=== PATIENT | female | born 2000 | race Caucasian/White ===

== ENCOUNTER → 2020-05-21 06:42 | Outpatient (CLI) | payer OTHER, SELFPAY ==
--- NOTE | 2020-05-21 14:31 | PFT ---
INTRODUCTION: The patient is a 20-year-old female that presents for pulmonary function studies secondary to a diagnosis of dyspnea. Respiratory therapy reported that spirometry data is not acceptable as the patient would not exhale for longer than 1.5 seconds with any of the attempts pre or post bronchodilator. INTERPRETATION: Forced expiration spirometry demonstrates no evidence of a large airways obstructive ventilatory defect. There was no significant response to aerosolized bronchodilators. Spirograms are of poor quality and terminate prior to 6 seconds, likely underestimating FVC. Body plethysmography was performed and reveals a mildly decreased TLC to 4.4 L, 82% of predicted, indicative of a mild restrictive ventilatory impairment. Diffusing capacity by single breath CO was within normal limits. IMPRESSION: Isolated mild restrictive ventilatory impairment with preserved lung volumes. Spirometry data is not acceptable as the patient was unable to perform the maneuvers associated with the test.
== END ==
PROVIDERS: PCP Nurse Practitioner Family; Referring Provider Nurse Practitioner Family; Visit Provider Nurse Practitioner Family
DX: R06.00 Dyspnea, unspecified (principal); R00.0 Tachycardia, unspecified; Z20.822 Contact with and (suspected) exposure to COVID-19
CPT/HCPCS: 94060; 94726; 94729

== ENCOUNTER 2021-06-01 08:51 | Outpatient (CLI) | payer OTHER, MEDICAID, SELFPAY ==
--- NOTE | 2021-06-01 12:34 | NEURO ---
NCS and/or EMG Patient Report Ordering Doctor: Jaime Bain DATE OF SERVICE: 06/01/21 Serenity presents for electrodiagnostic testing of the lower limbs. She reports severe pain in both legs and feet. Electrodiagnostic findings: Peroneal motor nerve demonstrates normal distal latency, amplitude and conduction velocity bilaterally. Normal tibial motor response bilaterally. Normal tibial and peroneal F waves bilaterally. H reflex normal bilaterally. Sensory responses are within normal limits. On needle EMG, all muscles tested in the lower limbs showed no evidence of denervation with normal motor unit action potentials. Electrodiagnostic impression: This is a normal electrodiagnostic study in the lower limbs. There is no electrodiagnostic evidence for peripheral neuropathy or lumbosacral radiculopathy
== END 2021-06-01 23:59 | disposition short-term general hospital (02) ==
LOC: PSN 08:52
PROVIDERS: PCP Nurse Practitioner Family; Referring Provider Podiatrist; Visit Provider Podiatrist
DX: M54.16 Radiculopathy, lumbar region (principal)
CPT/HCPCS: 95886; 95913

== ENCOUNTER 2021-06-08 11:30 | Outpatient (CLI) | payer OTHER, MEDICAID, SELFPAY ==
[2021-06-08 12:46] LABS: Rheumatoid Factor < 10.0 IU/mL (<15)
[2021-06-09 15:08] LABS: SJOGREN'S Anti-SS-A test < 0.2 AI (0.0-0.9); SJOGREN'S Anti-SS-B test < 0.2 AI (0.0-0.9)
[2021-06-09 15:29] LABS: ANTINUCLEAR ANTIBODIES DIRECT Negative (Negative)
[2021-06-11 07:15] LABS: CCP IgG Antibodies 2 units (0-19)
== END 2021-06-08 23:59 | disposition short-term general hospital (02) ==
LOC: LAB 11:34
PROVIDERS: PCP Nurse Practitioner Family; Visit Provider Podiatrist
DX: M21.6X9 Other acquired deformities of unspecified foot (principal); M72.2 Plantar fascial fibromatosis; M54.16 Radiculopathy, lumbar region; M21.70 Unequal limb length (acquired), unspecified site
CPT/HCPCS: 36415; 86038; 86200; 86235; 86431

== ENCOUNTER 2021-08-16 15:00 | Outpatient (RCR) | payer OTHER, MEDICAID, SELFPAY ==
--- NOTE | 2021-04-20 15:56 | HP.PTEVAL ---
Patient's Visit Information JERO GODINEZ is a 21 year old F referred to Physical Therapy by Dr. Adam Coto DPM with a diagnosis of Plantar Fascitis and possible lumbar radiculopathy. Date of Evaluation: 04/20/21 Physical Therapist: Jessica Noriega DPT - Visit Plan Frequency: 2x /Week Duration: 4 Weeks Plan: Focus on LE and core strength/stabilization, flexibility, eccentrics and ultrasound as modality of choice- Caution POTS - Subjective Patient reports right severe foot pain since January- insidious onset- has had MRI and x-rays which showed plantar fascitis-[facility]- thinks it may or may not be foot related. Feels like her right foot is on fire all the time. The whole foot is painful but most of it is located on the middle of the plantar fasciitis. Worst: 10 Agg: walking. Eases: nothing makes it better. Best: 10. Describes it as burning and walking on needles. Work: has to sit at work- due to her heart- cuts parts all day- uses her left to push the pedal- she has POTS. Sleep: disturbed- side sleeper. Has mild scoliosis in her back- but has never had back pain or problems before. The right leg has started to go completely numb about 3 weeks ago. Has not been to the MD for her back or leg just her foot. Does have a wedge in her right shoe and wears a boot at night- which makes it worse and her toes turn purple. She feels the pain is not worse or better- just consistently bad. PMHx: POTS, low blood pressure Meds: Vitamin B12, Medodrin, BC, fludocortizone, propanolol, citopram - Objective Posture: FH, RS, can correct with verbal and tactile cues but does not maintain. Gait: decreased stance on the right LE with decreased heel/toe pattern. HR/TR: able with pain. SLS: 5 sec then LOB- mild pes planus (poor shoes- worn out and no support). Sensation: WNL to gross touch bilateral LE. ROM: WFL in all planes of the lumbar spine and LE with the exception of ankle DF: neutral. Strength: core: poor, Hip: 4/5 throughout, Knee: 5/5, Ankle: 5/5. Flex: HS: severe, Gastroc: severe Solues: moderate. Special Test: Windlass Mechanism: positive. Palpation: tender and crepitus along the right plantar fascia. - Special Tests L/S Slump test left side: Negative L/S Slump test right side: Negative L/S Left Straight Leg Raise: Negative L/S Right Straight Leg Raise: Negative - Balance/Special Test Scores Lower Extremity Functional Score: 27 - Goals Goal 1:: Patient will be I with HEP and progression Goal Time Frame: 4-6 Weeks Goal 2:: Patient will ambulate >300 feet with a normalized gait pattern Goal Time Frame: 4-6 Weeks Goal 3:: Patient will maintain proper posture t/o tx session to demo increased core s/s Goal Time Frame: 4-6 Weeks Goal 4:: Patient will SLS for 30 sec without LOB or pain Goal Time Frame: 4-6 Weeks Goal 5:: Patient will report no radicular s/s for 1 week Goal Time Frame: 4-6 Weeks - Rehabilitation Potential Physical Therapy Diagnosis: Patient presents with hypomobility- she has decreased pain free ROM, LE and core strength/stabilization, flex and muscular endurance leading to poor posture and increased pain with ADL's. Rehabilitation Potential: Fair - Anticipated Interventions Patient/Client Instruction: Educate patient on: Benefits of Fitness Program Therapeutic Exercise to Include: Strength training, Endurance training, Balance training, Coordination, Agility training, Body mechanics, Postural training, Flexibilty training, Gait and locomotor training, Neuromotor development, Passive ROM, Active ROM, Dynamic Lumbar Stabilization, Scapular Strength/Stabilization For the Purpose of:: To improve muscle performance and motor function TENS: Yes Cryotherapy (ice pack, ice massage): Yes Thermo therapy (hot pack): Yes Ultrasound (thermal/non thermal): Yes Thank you for the opportunity to evaluate your patient. For Medicare and Medicare HMO plans, please review the plan of care and approve it. It will need to be FAXED BACK to us at [phone] for Medicare purposes. For Medicare only, by signing this I certify the plan of care. Please let me know if there are questions or concerns regarding this plan of care. Physician Signature: Date:
--- NOTE | 2021-05-25 16:22 | HP.PTREVAL_ITS ---
Dr. Adam Coto, DPM, It has been my pleasure to treat JERO GODINEZ over the last 3 visits for Plantar Fascitis and possible lumbar radiculopathy. Please see the progress note below for an update on the physical therapy plan of care! Subjective: May 03 she was taken to the hospital while passing out 8x and then had a seizure- went to ER- COVID- today was her first day back to work. She hit her toe on the cat dish on Sunday and thinks she broke her toe. Has been having a lot of foot pain after working today (5.5 hours). She was mostly laying down for the last three weeks due to weakness so her feet didn't bother her. She has pain today on the bottom of her foot and the heel. Today pain level is an 8/10. Saw [employer]- dysautonomia- changed her medication- salt tablets- liquid IV and she goes back Jun 23. If it doesn't help they plan to try some other ideas. She feels her foot is the same. EMG Jun 01 bilateral LE. Objective/Function: Posture: FH, RS, can correct with verbal and tactile cues but does not maintain. Gait: decreased stance on the right LE with decreased heel/toe pattern. HR/TR: able with pain. SLS: 5 sec then LOB- mild pes planus (poor shoes- worn out and no support). Sensation: WNL to gross touch bilateral LE. ROM: WFL in all planes of the lumbar spine and LE with the exception of ankle DF: neutral. Strength: core: poor, Hip: 4/5 throughout, Knee: 5/5, Ankle: 5/5. Flex: HS: severe, Gastroc: severe Solues: moderate. Special Test: Windlass Mechanism: positive. Palpation: tender and crepitus along the right plantar fascia. L/S Slump test left side: Negative. L/S Slump test right side: Negative. L/S Left Straight Leg Raise: Negative. L/S Right Straight Leg Raise: Negative Plan Plan: Focus on LE and core strength/stabilization, flexibility, eccentrics and ultrasound as modality of choice- Caution POTS. 05/25/21: Continue current POC due to time laps of sickness. Balance/Gait/Functional tests - Balance/Special Test Scores Lower Extremity Functional Score: 23 Goals Goal 1:: Patient will be I with HEP and progression Goal Time Frame: 4-6 Weeks Goal 2:: Patient will ambulate >300 feet with a normalized gait pattern Goal Time Frame: 4-6 Weeks Goal 3:: Patient will maintain proper posture t/o tx session to demo increased core s/s Goal Time Frame: 4-6 Weeks Goal 4:: Patient will SLS for 30 sec without LOB or pain Goal Time Frame: 4-6 Weeks Goal 5:: Patient will report no radicular s/s for 1 week Goal Time Frame: 4-6 Weeks Anticipated Interventions Patient/Client Instruction: Educate patient on: Benefits of Fitness Program Therapeutic Exercise to Include: Strength training, Endurance training, Balance training, Coordination, Agility training, Body mechanics, Postural training, Flexibilty training, Gait and locomotor training, Neuromotor development, Passive ROM, Active ROM, Dynamic Lumbar Stabilization, Scapular Strength/Stabilization For the Purpose of:: To improve muscle performance and motor function TENS: Yes Cryotherapy (ice pack, ice massage): Yes Thermo therapy (hot pack): Yes Ultrasound (thermal/non thermal): Yes Please do not hesitate to contact me at [phone] by phone or if you have questions or concerns regarding this new plan of care! Sincerely, Jessica Noriega DPT
--- NOTE | 2021-07-08 14:40 | HP.PTREVAL ---
Dr. Adam Coto, DPM, It has been my pleasure to treat JERO GODINEZ over the last 15 visits for Plantar Fascitis and possible lumbar radiculopathy. Please see the progress note below for an update on the physical therapy plan of care! Subjective: Much better in foot, able to be on it longer. It gets up at night sometimes. 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 Is worse if on it all day to 7/10. Thinks the manual therapy has helped the most. Doctor wants continued therapy and will send script. Objective/Function: Walks normal today without antalgia. AROM DF still t o 0 degrees,others WFL, mild tenderness on PF underside of R foot. Strength 4/5 in all ankle motions but very skinny ankles and low muscle mass. Plan Plan: continue 3x/week for 2-4 weeks for contnued STM, DTR to R plantarfascia, strengthing of gastroc and PF and mobs for DF, big toe PROM R foot. Stick with all manual treatment.Monitor paitnets home stretching and strengthening. May need to add SLS ex. Balance/Gait/Functional tests - Balance/Special Test Scores Lower Extremity Functional Score: 23 Goals Goal 1:: Pt eill have 95% overall improvement and pain no greater than 1/10 with ambulation Goal Time Frame: 2-4 Weeks Goal Progress: NEW GOAL Goal 2:: Patient will ambulate >300 feet with a normalized gait pattern Goal Time Frame: 4-6 Weeks Goal Progress: Goal Met Goal 3:: Patient will sleep without waking due to foot pain. Goal Time Frame: 2-4 Weeks Goal Progress: NEW GOAL Goal 4:: Patient will SLS for 30 sec without LOB or pain Goal Time Frame: 4-6 Weeks Goal Progress: Goal Met Goal 5:: Patient will report no radicular s/s for 1 week Goal Time Frame: 4-6 Weeks Goal Progress: will have back eval. Goal 6:: Pt to report baseline pain 50% better at 3-4/10 daily. Goal Progress: Goal Met Anticipated Interventions Patient/Client Instruction: Educate patient on: Benefits of Fitness Program Therapeutic Exercise to Include: Strength training, Endurance training, Balance training, Coordination, Agility training, Body mechanics, Postural training, Flexibilty training, Gait and locomotor training, Neuromotor development, Passive ROM, Active ROM, Dynamic Lumbar Stabilization, Scapular Strength/Stabilization For the Purpose of:: To improve muscle performance and motor function TENS: Yes Cryotherapy (ice pack, ice massage): Yes Thermo therapy (hot pack): Yes Ultrasound (thermal/non thermal): Yes Please do not hesitate to contact me at [phone] by phone or if you have questions or concerns regarding this new plan of care! Sincerely, Norris Ro, DPT, OCS, CSCS
--- NOTE | 2021-07-08 15:20 | HP.PTEVAL2 ---
Patient's Visit Information JERO GODINEZ is a 21 year old F referred to Physical Therapy by Dr. Adam Coto DPM with a diagnosis of Lumbar radiculopathy. Date of Evaluation: 07/08/21 Physical Therapist: Norris Ro DPT, OCS, CSCS - Visit Plan Frequency: 3x /Week Duration: 4-6 Weeks Plan: 3x/week for 4 weeks for. 1. thoracic ext mobs and ext bias ROM , yoga ROM to entire spine. 2. Postural focus. 3. DLS and core and hip strength progressing to HEP - Subjective Subjective: Had back pain since she can remember. Has seen chiropractor and has mild scoliosis long time ago. Worse since January for no obvious reason. Sent to Dr. Gerber by Dr. gomez. He did an x ray and need to have PT to have MRI. In pain everyday. It is in middle of low back. No painfree days in years. Sometimes seems to have tingling in R>L leg to knee. Was out sitting when that happened. Back is usually worse with walking. No regular exercises, no other treatments or meds for this. LB keeps her up at night as she is uncomfortable trying to get to sleep. has been that way for years. Not employed due to POTS. Does some cleaning and wax rukhsana in a chair at home which can hurt. Back gets worse cleaning mom's house. - Objective Objective: Pt has very skinny figure with low muscle mass throughout her body. LB AROM ext is painful centrally with much limited motion in thoracic portion of spine. SB and flexion are full and painfree. No tenderness in the LB soft tissue. Minimal HS tightness, min hip flexor tightness. B. reflexes 0/3 B patella and achilles. Sensation LE WNL to gross light touch. Strength ankles 4/5 adn knees 4/5 but tends to IR at hips, hip strength ext ortaion 3, IR 4-, abd 3+, ext 3+ and flexion 3+...core strength ext 3 and flexion 3. very weak in pelvis and core. - SLR, - slump test. Slight pain with instability testing in LB. posture is flat lordosis in L/S and kyphotic in thoracic spine. No obvious rib hump. - Goals Goal 1:: Full Lumbar and thoracic AROM without increased pain Goal Time Frame: 4-6 Weeks Goal 2:: pt sit with appropriate upright posture without cues. 75% of time Goal Time Frame: 4-6 Weeks Goal 3:: Pain in LB 2/10 at worst and 75% improved Goal Time Frame: 4-6 Weeks Goal 4:: Oswestry score of 10 or less Goal Time Frame: 4-6 Weeks Goal 5:: I approp HEp to limit future problems. Goal Time Frame: 4-6 Weeks - Rehabilitation Potential Physical Therapy Diagnosis: chronic LBP limiting function Rehabilitation Potential: Questionable - Anticipated Interventions Patient/Client Instruction: Educate patient on: Condition, Plan of Care For the Purpose of:: To decrease pain, To increase ROM, To improve muscle performance and motor function, To improve ability of physical actions for home/community/work/leisure Therapeutic Exercise to Include: Strength training, Flexibilty training, Passive ROM, Active ROM, Elie Exercises For the Purpose of:: To decrease pain, To increase ROM, To improve muscle performance and motor function, To improve ability of physical actions for home/community/work/leisure Manual Therapy Techniques to Include: Mobilization, Passive ROM, Soft tissue mobilization For the Purpose of:: To increase ROM Thank you for the opportunity to evaluate your patient. For Medicare and Medicare HMO plans, please review the plan of care and approve it. It will need to be FAXED BACK to us at [phone] for Medicare purposes. For Medicare only, by signing this I certify the plan of care. Please let me know if there are questions or concerns regarding this plan of care. Physician Signature: Date:
--- NOTE | 2021-07-25 13:25 | HP.PTREVAL ---
Dr. Adam Coto, DPM, It has been my pleasure to treat JERO GODINEZ over the last 20 visits for Plantar Fascitis and possible lumbar radiculopathy. Please see the progress note below for an update on the physical therapy plan of care! Subjective: Not much pain in foot. Therapy has helped a lot. Massage has helped and she is stretching it at home. Will see dr. Coto in August. Pain in foot is 3/10 intermittently in foot with a lot of walking. Activities normal due to foot. Objective/Function: SLS R 30 sec without increased pain, walking without antalgia today on way in. AROM R ankle and foot WNL at 5 DF and 55 PF. Only slight tenderness to palpation in mid substance R PF. 4/5 strength R ankle all 4 motions. Goals appropriate anad fair prognosis with progress seen since starting manual therapy. Plan Plan: Pt to do HEP and hold therapy for 3 weeks. Will call if worsens and reattempt manaul as needed, otherwise will f/u with doctor after 08/27. Balance/Gait/Functional tests - Balance/Special Test Scores Oswestry Low Back Score: 29 Lower Extremity Functional Score: 33 Goals Goal 1:: Pt eill have 95% overall improvement and pain no greater than 1/10 with ambulation Goal Time Frame: 2-4 Weeks Goal Progress: 75% 3/10 Goal 2:: Patient will ambulate >300 feet with a normalized gait pattern Goal Time Frame: 4-6 Weeks Goal Progress: Goal Met Goal 3:: Patient will sleep without waking due to foot pain. Goal Time Frame: 2-4 Weeks Goal Progress: Goal Met Goal 4:: Patient will SLS for 30 sec without LOB or pain Goal Time Frame: 4-6 Weeks Goal Progress: Goal Met Goal 5:: Patient will report no radicular s/s for 1 week Goal Time Frame: 4-6 Weeks Goal Progress: will have back eval. Goal 6:: Pt to report baseline pain 50% better at 3-4/10 daily. Goal Progress: Goal Met Anticipated Interventions Patient/Client Instruction: Educate patient on: Benefits of Fitness Program Therapeutic Exercise to Include: Strength training, Endurance training, Balance training, Coordination, Agility training, Body mechanics, Postural training, Flexibilty training, Gait and locomotor training, Neuromotor development, Passive ROM, Active ROM, Dynamic Lumbar Stabilization, Scapular Strength/Stabilization For the Purpose of:: To improve muscle performance and motor function TENS: Yes Cryotherapy (ice pack, ice massage): Yes Thermo therapy (hot pack): Yes Ultrasound (thermal/non thermal): Yes Please do not hesitate to contact me at [phone] by phone or if you have questions or concerns regarding this new plan of care! Sincerely, Norris Ro, DPT, OCS, CSCS
--- NOTE | 2021-07-25 13:46 | HP.PTRE(2) ---
Dr. Adam Coto, DPM, It has been my pleasure to treat JERO GODINEZ over the last 6 visits for Lumbar radiculopathy. Please see the progress note below for an update on the physical therapy plan of care! Subjective: Middle back still keeping her up at night and feels stiff. Treatments help her feel looser for 24 hours or so. Doing pressups, cat/camel, quadruped opposite UE/LE, doing them 2-3 x/day. Pain in mid back still up to 5/10 , 0/10 if lying flat. Sitting too long makes her stiff. Back still keeps her from helping clean the house to bend and pick something up. LB not hurting much lately. MAE most of time and related to POTS and will see MAE specialist. Objective/Function/Assessment: Much improving ROM thoracic extension but stillslightly painful centrally. Rotations and lumbar movement are not a problem today. Core strength 10# flexion and 8 extension. Needs more strength to tolerate ADLs like cleaning at home. Appropriate to cotninue POC with the improvement she has made and will need approval from insurance to do so. Plan Plan: Appropriate to finish original POC based on current progress of 40% better. overall...2x/week for 3-4 weeks to continue thoracic ROM, thoracic extension mobs and strengthening of core and posture and LE and progress to an I home program as tolerated. Goals Goal 1:: Full Lumbar and thoracic AROM without increased pain Goal Time Frame: 4-6 Weeks Goal Progress: Progressing Goal 2:: pt sit with appropriate upright posture without cues. 75% of time Goal Time Frame: 4-6 Weeks Goal Progress: improved. Goal 3:: Pain in LB 2/10 at worst and 75% improved Goal Time Frame: 4-6 Weeks Goal Progress: Progressing Goal 4:: Oswestry score of 10 or less Goal Time Frame: 4-6 Weeks Goal Progress: slow progress. Goal 5:: I approp HEp to limit future problems. Goal Time Frame: 4-6 Weeks Goal Progress: Progressing Anticipated Interventions Patient/Client Instruction: Educate patient on: Condition, Plan of Care For the Purpose of:: To decrease pain, To increase ROM, To improve muscle performance and motor function, To improve ability of physical actions for home/community/work/leisure Therapeutic Exercise to Include: Strength training, Flexibilty training, Passive ROM, Active ROM, Elie Exercises For the Purpose of:: To decrease pain, To increase ROM, To improve muscle performance and motor function, To improve ability of physical actions for home/community/work/leisure Manual Therapy Techniques to Include: Mobilization, Passive ROM, Soft tissue mobilization For the Purpose of:: To increase ROM Please do not hesitate to contact me at [phone] by phone or if you have questions or concerns regarding this new plan of care! Sincerely, Norris Ro, DPT, OCS, CSCS
--- NOTE | 2021-08-16 15:43 | HP.PTDCSUM ---
It has been my pleasure to treat JERO GODINEZ referred by Dr. Adam Coto, [facility], with the diagnosis of Plantar Fascitis and possible lumbar radiculopathy for a total of 20 visit(s). Discharge Date: Please see the following information for a summary of their discharge status. Subjective: Not much pain in foot. Therapy has helped a lot. Massage has helped and she is stretching it at home. Will see dr. Coto in August. Pain in foot is 3/10 intermittently in foot with a lot of walking. Activities normal due to foot. both feet Pain Intensity (Out of 10): 0 R plantar fascia Pain Intensity (Out of 10): 1 % Improvement: 70 Objective/Function: SLS R 30 sec without increased pain, walking without antalgia today on way in. AROM R ankle and foot WNL at 5 DF and 55 PF. Only slight tenderness to palpation in mid substance R PF. 4/5 strength R ankle all 4 motions. Goals appropriate anad fair prognosis with progress seen since starting manual therapy. Goal 1:: Pt eill have 95% overall improvement and pain no greater than 1/10 with ambulation Goal Progress: 75% 3/10 Goal 2:: Patient will ambulate >300 feet with a normalized gait pattern Goal Progress: Goal Met Goal 3:: Patient will sleep without waking due to foot pain. Goal Progress: Goal Met Goal 4:: Patient will SLS for 30 sec without LOB or pain Goal Progress: Goal Met Goal 5:: Patient will report no radicular s/s for 1 week Goal Progress: will have back eval. Goal 6:: Pt to report baseline pain 50% better at 3-4/10 daily. Goal Progress: Goal Met Plan: Pt to do HEP and hold therapy for 3 weeks. Will call if worsens and reattempt manaul as needed, otherwise will f/u with doctor after 08/27. If there are questions or concerns regarding this patient's physical therapy, please feel free to call me at [phone]. Thank you for the referral of this patient. Sincerely, Norris Ro, DPT, OCS, CSCS Balance/Gait/Functional tests - Balance/Special Test Scores Oswestry Low Back Score: 30 Lower Extremity Functional Score: 33
== END 2021-08-16 19:00 | disposition home or self-care (01) ==
LOC: PT 15:00
PROVIDERS: PCP Nurse Practitioner Family; Referring Provider Podiatrist; Visit Provider Podiatrist
DX: M72.2 Plantar fascial fibromatosis (principal)
CPT/HCPCS: 97014; 97035; 97110; 97140; 97161; 97162; 97164; 97530; G0283

== ENCOUNTER 2021-09-06 13:00 | Outpatient (RCR) | payer OTHER, MEDICAID, SELFPAY ==
--- NOTE | 2021-09-05 16:24 | HP.PTEVAL_ITS ---
Patient's Visit Information JERO GODINEZ is a 21 year old F referred to Physical Therapy by Dr. Jaime Bain DPM with a diagnosis of Right Plantar Fascial Fibromatosis. Date of Evaluation: 09/05/21 Physical Therapist: Jessica Noriega DPT - Visit Plan Frequency: 2x /Week Duration: 4 Weeks Plan: Manual therapy to right foot- reinforce HEP - Subjective Patient reports that her right foot is just getting worse- was getting with PT a nd then when she stopped PT it started to get worse again. The foot has just been giving out- she has had 2 falls- the most recent was on Sunday- her foot just gave out and she fell to the ground. Pain is located along the middle of the arch of the foot. The pain is there all the time. Worst: 9/10 Nothing she can think of makes it better or worse. Best: 0/10. When Norris was doing hard massage- she had no pain for about 24 hours. She has continued the exercises from PT (band pulls, HR/TR, toe grabs and wall stretching, pull aparts, supermans, mid row). Describes the pain as sharp and shooting. She has no pain that radiates up the lower leg. Does have N/T from her foot to her hip on the right hand side. She had an MRI on her back- negative and they plan to send her to pain mgmt- she has not gotten a call yet. 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 Sleep: disturbed- wakes her up at night. Depends on the day- she can be active but also very sedentary. Has not had any x-rays or MRI on her feet. No injections. PMHx/Meds: Cymbalta. - Objective Posture: FH, RS- can correct with verbal cues. Gait: no deviation noted. Heel Walking: increases pain. Toe Walking: no pain. Observation: mild pes planus. ROM: WFL in all planes. SLS: 30 sec without LOB. HR/TR: able without pain. Strength: ankle: 5/5, Knee: 5/5. Palpation: crepitus in the medial plantar fascia - Goals Goal 1:: Patient will be I with HEP and progression Goal Time Frame: 4-6 Weeks Goal 2:: Patient will report 80% better subjectively Goal Time Frame: 4-6 Weeks - Rehabilitation Potential Physical Therapy Diagnosis: Patient presents with subjective of pain in the right plantar fascia- does have crepitus and mild pes planus Rehabilitation Potential: Fair - Anticipated Interventions Patient/Client Instruction: Educate patient on: Benefits of Fitness Program Therapeutic Exercise to Include: Strength training, Endurance training, Balance training, Coordination, Agility training, Body mechanics, Postural training, Flexibilty training, Gait and locomotor training, Dynamic Lumbar Stabilization, Scapular Strength/Stabilization For the Purpose of:: To improve muscle performance and motor function TENS: Yes Cryotherapy (ice pack, ice massage): Yes Thermo therapy (hot pack): Yes Ultrasound (thermal/non thermal): Yes Thank you for the opportunity to evaluate your patient. For Medicare and Medicare HMO plans, please review the plan of care and approve it. It will need to be FAXED BACK to us at [phone] for Medicare purposes. For Medicare only, by signing this I certify the plan of care. Please let me know if there are questions or concerns regarding this plan of care. Physician Signature: Date:
--- NOTE | 2021-10-19 10:38 | HP.PT.NRP ---
JERO GODINEZ was seen in my office for initial evaluation on 09/05/21. The following Plan of Care was established for this patient: Initial Frequency: 2x /Week Initial Duration: 4 Weeks Patient/Client Instruction: Educate patient on: Benefits of Fitness Program Therapeutic Exercise to Include: Strength training, Endurance training, Balance training, Coordination, Agility training, Body mechanics, Postural training, Flexibilty training, Gait and locomotor training, Dynamic Lumbar Stabilization, Scapular Strength/Stabilization For the Purpose of:: To improve muscle performance and motor function TENS: Yes Cryotherapy (ice pack, ice massage): Yes Thermo therapy (hot pack): Yes Ultrasound (thermal/non thermal): Yes This patient was last seen in our office . Pertinent comments regarding their Physical therapy will appear below: Patient reports that MD placed her in boot and to hold PT- discharge at this time and initiate again if appropriate and approved by MD At this point I will be discontinuing this patient from physical therapy. I would be happy to see this patient again in the future if found appropriate by the physician. Thank you! SHARMIN EidT
== END 2021-09-06 19:00 | disposition home or self-care (01) ==
LOC: PT 13:00
PROVIDERS: PCP Nurse Practitioner Family; Visit Provider Podiatrist
DX: M72.2 Plantar fascial fibromatosis (principal)
CPT/HCPCS: 97110; 97140

== ENCOUNTER → 2021-11-22 | Outpatient (CLI) | payer OTHER, MEDICAID, SELFPAY ==
--- NOTE | 2021-11-22 15:50 | MRI_ITS ---
STUDY: MRI RIGHT ANKLE WITHOUT CONTRAST REASON FOR EXAM: Right ankle instability, ankle giving out for 11 months, right ankle pain. TECHNIQUE: Standardized fat and water weighted pulse sequences were obtained in all 3 orthogonal planes. COMPARISON: None. FINDINGS: Normal subcutis adipose space. Normal posterior tibialis tendon. Normal flexor digitorum longus tendon. Normal flexor hallucis longus tendon. Normal peroneus longus and brevis tendons. Normal tibialis anterior tendon. Normal extensor hallucis longus tendon. Normal extensor digitorum longus tendons. Normal Achilles tendon and teno-osseous insertion. Normal plantar fascia. Normal plantar calcaneal tubercles. Normal intrinsic muscles of the rearfoot. Normal distal tibiofibular syndesmotic ligamentous complex. There is a mild chronic sprain of the anterior talofibular ligament at the fibular attachment (T2 axial image 17). Normal calcaneofibular and posterior talofibular ligaments. Normal subtalar ligaments and sinus tarsi. Normal deltoid ligamentous complexes. Normal plantar calcaneonavicular (spring) ligament. Normal tibiotalar articulation. Normal talar dome. Normal subtalar articulations. Normal talonavicular articulation. Normal calcaneocuboid articulation. Normal navicular-cuneiform articulations. MRI/Lower Ext Joint Only (Routine) IMPRESSION: Mild chronic sprain of the anterior talofibular ligament. Electronically Signed: Dong Lindsey MD at 7:35 EDT ,
== END | disposition home or self-care (01) ==
LOC: MRI 15:31
PROVIDERS: PCP Nurse Practitioner Family; Visit Provider Podiatrist
DX: M25.371 Other instability, right ankle (principal)
CPT/HCPCS: 73721

== ENCOUNTER → 2022-02-08 | Outpatient (CLI) | payer OTHER, MEDICAID, SELFPAY ==
[2022-02-08 17:32] LABS: Absolute Lymphocyte Count 1.91 X10^3/uL (0.83-4.51); Basophil# 0.05 X10^3/uL; Basophil% 0.7 % (0-1); Eosinophil# 0.12 X10^3/uL; Eosinophils% 1.6 % (0-5); Hematocrit 41.2 % (37-47); Hemoglobin 13.8 g/dL (12.0-15.0); Lymphocyte # 1.91 X10^3/ul (0.83-4.51); Lymphocyte % 25.1 % (19-41); Mean Corp Hgb Conc 33.5 g/dL (32-36); Mean Corpuscular Hgb 31.5 pg (27.0-32.0); Mean Corpuscular Volume 94.1 fL (81-99); Mean Platelet Vol. 10.4 fl (6.2-12.0); Monocyte# 0.48 X10^3/uL; Monocyte% 6.3 % (0-10); NRBC Flagged by Analyzer 0 % (0-5); Neutrophil # 5.02 X10^3/uL (2.7-7.7); Platelet Count 296 K/mm3 (150-450); RBC Distribution Width CV 11.7 % (11.6-14.6); RBC Distribution Width SD 40.8 fl (35.1-43.9); Red Blood Count 4.38 M/mm3 (4.2-5.4); White Blood Count 7.6 K/mm3 (4.4-11.0)
[2022-02-08 18:00] LABS: ALB/GLOB Ratio 1.2 RATIO (0.9-2.4); AST(SGOT) 12 U/L (15-37); Alanine Aminotransfer ALT/SGPT 13 U/L (13-56); Albumin, Serum 4.1 g/dL (3.2-5.0); Alkaline Phosphatase 108 U/L (45-117); Anion Gap 6 (5-15); BUN 5 mg/dL (7-18); BUN/Creat Ratio 7.9 RATIO (10-20); Calcium,Total 9.6 mg/dL (8.5-10.1); Chloride 108 mmol/L (98-107); Creatinine, Serum 0.63 mg/dL (0.55-1.02); EST Glomerular Filtration Rate 126 mL/min (>60); Est Glom Filt Rate - Afr Amer 152 mL/min (>60); Globulin 3.3 g/dL (2.2-4.2); Glucose 105 mg/dL (74-106); Potassium 4.3 mmol/L (3.5-5.1); Protein, Total 7.4 g/dL (6.4-8.2); Sodium Level 140 mmol/L (136-145)
== END | disposition home or self-care (01) ==
LOC: MFPLAB 15:50
PROVIDERS: PCP Nurse Practitioner Family; Visit Provider Family Medicine
DX: Z01.818 Encounter for other preprocedural examination (principal)
CPT/HCPCS: 36415; 80053; 85025

== ENCOUNTER 2022-02-17 08:28 | Day surgery (SDC) | payer OTHER, MEDICAID, SELFPAY ==
[2022-02-17 08:58] VITALS: BP 116/78; PULSE 95; RESP 16; TEMP 37.1; O2SAT 99; BMI 16.0
[2022-02-17 09:15] LABS: Internal QC Validated? YES +Cl - CLEAR BKGD; Pregnancy, Urine Negative Negative
[2022-02-17] MEDS: 0.9% Normal Saline 1,000 ML 10 ML IV (09:20)
--- NOTE | 2022-02-17 10:00 | RAD_ITS ---
STUDY: INTRAOPERATIVE FLUOROSCOPY TECHNIQUE: The examination was performed with referring physician in attendance. Under fluoroscopic observation, fluoroscopic images were obtained. Radiologist was not present for the study. Radiologist did not perform the procedure. This dictation is for documentation of the radiation dosage only. There is no interpretation of the images. TOTAL NUMBER OF IMAGES: 1 COMPARISON: None RADIATION DOSE: 0.08 mGy FLUOROSCOPY TIME: 0.03 seconds REASON FOR EXAM: LATERAL ANKLE STABILIZATION Female, 22 years old. FINDINGS: Images of the ankle. RAD/Ankle 2 Views IMPRESSION: Fluoroscopic assistance images were obtained. Dictation for documentation purposes only. Electronically Signed: Raphael Dyson MD at 15:21 EDT ,
[2022-02-17] MEDS: Clindamycin 900 MG/50 ML BAG 75 MG IV (10:33)
[2022-02-17] MEDS: Lactated Ringers 1,000 ML 15 ML IV (11:15)
[2022-02-17] MEDS: Bacitracin 500 UNITS/GM PACKET (11:46)
--- NOTE | 2022-02-17 12:01 | OP.PCM_ITS ---
Problems Associated Problem List Diagnoses (1) Right ankle instability: Report of Operation Date of Procedure: 02/17/22 Pre-Operative Diagnosis: 1) right lateral ankle instability Post-Operative Diagnosis: Same Surgery/Procedure Performed:: Lateral ankle stabilization using Brostr?m technique supplemented or augmented by Arthrex internal brace right side Surgeon: Jaime Bain general office assistant: None (Morgan young PGY 3) Type of Anesthesia: General Special Medications: Patient received a popliteal block preoperative Specimen's removed: No specimens from Drains: No drains Estimated Blood Loss (mL): Minimal Description of Procedure: Patient was seen in my clinic which time she had suffered a lateral inversion ankle sprain. Patient was immobilized for prolonged period of time. After discontinuation of immobilization patient attempted physical therapy for several months and ultimately failed this. An MRI was ordered and confirmed rupture of the anterior talofibular ligament. Clinically there was instability to the ATFL with anterior drawer testing. Patient was brought back to the operating placed comfortably in the supine position on the operating room table. Patient was induced under general anesthesia. All osseous prominences were offloaded prevent any compression neuropraxia throughout the case. Well-padded right thigh tourniquet was applied. Preoperatively prior to entrance to the operating room patient received a popliteal block per anesthesia. Right lower extremity was not positioned with a hip bump to knock out any external rotation and right lower extremity scrubbed prepped draped using typical aseptic manner. Right lower extremity was elevated exsanguinated and tourniquet was inflated to 200 mmHg. Total tourniquet time was 29 minutes. Once cleared by anesthesia a incision was drawn along the distal aspect of the tip of the lateral malleolus and curved distally towards the fourth and fifth tarsometatarsal articulation just over the sinus tarsi this incision was made with a #15 blade through epidermis dermis and subcutaneous tissue blunt dissection was taken down the level deep fascia Inferior extensor retinaculum all bleeders cauterized at this time any neurovascular structures in this area were protected with blunt retraction. The insufficient inferior extensor retinaculum and ATFL were identified at this time and completely transected a small flap was dissected off the fibula to assist Brostr?m closure. 2 suture tacks approximately 1 cm proximal part on the distal tip of the fibula and more proximal to that were placed using manufactures guidelines. The sutures were taken out away and he was head to the drapes. Next the talar anchor portion of the internal brace was applied in the anterior lateral shoulder of the talus just superior to the sinus tarsi supplied using manufactures guidelines. Next the place was the ankle was placed in a dorsiflexed everted position and the ATFL ligament was repaired using standard Brostr?m technique with the sutures intact FiberWire's. Ankle stability was restored with regards to anterior and inversion testing at this time. To supplement or augment this stabilization the internal brace was then finished with a second anchor in the fibula just proximal and central to the previous suture tacks was applied with the foot maintained in a neutral dorsiflexed position after passing the previous FiberWire's from the previous anchor. Once completed radiographs were taken both anterior and lateral and showed rectus alignment with regards to the talus inside the talar dome no evidence of any inversion or anterior subluxation of the talus. Upon stressing with regards to anterior drawer and inversion stressing of the talus stability was noted. Tourniquet was let down at this time incision site was flushed with copious amounts normal sterile saline and deep and subcutaneous closure was performed with 3-0 Vicryl on SH needle using simple interrupted buried technique. Skin closure performed with 3-0 Prolene horizontal mattress. Incision site dressed with bacitracin Adaptic 4 x 4's and Kerlix. Well-padded posterior splint applied to the right lower extremity. Patient transferred to PACU vital signs stable and vascular status intact all digits for further monitoring prior to discharge. Patient tolerated procedure and anesthesia well in apparent satisfactory condition. Patient remain nonweightbearing for the first 2 weeks at which time she will be maintained this with assistance via crutches. She will follow-up in my clinic in 1 week. No pathologic specimens no complications. Noted that stability was restored to the the ATFL ligament as confirmed with intraoperative stressing and fluoroscopic imaging.
[2022-02-17 12:02] VITALS: BP 102/64; BP 116/78; PULSE 83; RESP 16; TEMP 36.3; O2SAT 99
[2022-02-17 12:15] VITALS: BP 116/78; BP 95/56; PULSE 73; RESP 16; O2SAT 100
[2022-02-17 12:46] VITALS: BP 104/68; BP 116/78; PULSE 81; RESP 18; TEMP 37; O2SAT 94
[2022-02-17 14:04] VITALS: BP 116/78; BP 99/66; PULSE 87; RESP 18; TEMP 36.8; O2SAT 99
== END 2022-02-17 14:09 | disposition home or self-care (01) ==
LOC: SDC 08:31 → AC 08:33
PROVIDERS: Anesthesiology; PCP Nurse Practitioner Family; Referring Provider Podiatrist; Visit Provider Podiatrist
PROC: (CPT 27696; principal; 2022-02-17 09:45)
DX: M25.371 Other instability, right ankle (principal); F98.8 Other specified behavioral and emotional disorders with onset usually occurring in childhood and adolescence; J30.2 Other seasonal allergic rhinitis; I49.8 Other specified cardiac arrhythmias
CPT/HCPCS: 27696; 64445; 73600; 76000; 81025; J7030; A4216; J2405

== ENCOUNTER 2022-08-09 16:30 | Outpatient (RCR) | payer OTHER, MEDICAID, SELFPAY ==
--- NOTE | 2022-03-28 15:47 | HP.PTEVAL_ITS ---
Patient's Visit Information JERO GODINEZ is a 22 year old F referred to Physical Therapy by Dr. Jaime Bain DPM with a diagnosis of Pathological dislocation of right ankle. Date of Evaluation: 03/22/22 Physical Therapist: Jovanni Mercado DPT - Visit Plan Frequency: 2x /Week Duration: 6 Weeks Plan: Start with progressive WBing with CAM boot with improved tolerance. Progress ROM as tolerated. Add in isometrics as tolerated. Focus she be on progressive WBing as tolerated. - Subjective Pt. is here today for her initial evaluation with diagnosis of Pathological dislocation of right ankle, not elsewhere classified with subsequent Lateral ankle stabilization using Brostr?m technique. Pt. arrives today with crutches and WBAT in CAM boot. Pt. reports doing okay when at rest, but has not tolerated much WBing on her R foot. She has a history of POTS, possible EDR, and lumbar radiculopathy. She has had multiple ankle sprains as well. She reports no pain at rest, but has not tolerated WBing on her RLE. She reports everytime she does she passes out due to her POTS, and increased pain. She reports no doing much exercises for her ankle at this point in time. Pt. is hopeful to reduce symptoms and get back to walking without issues. - Pain R ankle Pain Intensity (Out of 10): 3 Pain Intensity Range: 0, 10 - Objective POSTURE: Pt. is able to rest her R foot on the floor, but unable to wt shift onto R side much. PALPATION: pt. has well healing incision on her R ankle, but is very tender to light touch. NEURO: Pt. has normal Achilles and Patellar DTR of BLEs. Unable to to heel/toe raises on R side secondary to pain. ROM: R ankle: DF 3deg, PF 28deg, INV 3deg, EVR 4deg. L ankle: DF 15deg, PF 48deg, INV 20deg, EVER 20deg. Normal knee ROM bilaterally NE. Pt. has normal B knee and HS length. Pt. has hypermobility throughout B hips. MMT: LLE: ankle 5/5 throughout; knee: 5-/5 throughout; hip: flexion 4+/5, abd 4/5, ext 4/5. RLE: ankle 3/5 increased pain with all MMT, knee: ext 4+/5, flexion 4+/5; hip: flexion 4/5, abd 4/5, ex 4/5. Core strength- poor. GAIT: Pt. ambulates with use of crutches initially without WBing on her RLE. Pt. was able to slightly apply wt. to her RLE with VCing, but was very hesitant. She has decreased step length and decreased stance time on RLE. STAIRS: Did not trial this date. - Balance/Special Test Scores Lower Extremity Functional Score: 6 - Goals Goal 1:: LTG: Pt. to be I with HEP for LE strengthening and progressive WBing of her RLE. Goal Time Frame: 4-6 Weeks Goal 2:: STG: Pt. to tolerance normal equal WBing stance without POTS issues or increase in pain. Goal Time Frame: 2 Weeks Goal 3:: LTG: Pt. to be able to ambulate with normal gait pattern without increase in symptoms. Goal Time Frame: 6-8 Weeks Goal 4:: STG: Pt. to tolerate use of crutches with full WBing on RLE without increase in symptoms. Goal Time Frame: 4-6 Weeks Goal 5:: STG: PT. to have increased R ankle ROM by 50% throughout all ranges without increase in symptoms. Goal Time Frame: 2-4 Weeks - Rehabilitation Potential Physical Therapy Diagnosis: Pt. has signs and symptoms consistent with Pathological dislocation of right ankle, not elsewhere classified with subsequent Lateral ankle stabilization using Brostr?m technique. Pt. has higher levels of pain with any attempt with WBing, she has marked weakness and hypomobility secondary to pain in R ankle. Pt. has an underlying issue of POTS which seems to be effecting her ability to complete functional mobility. We really need to progress her ability to tolerate WBing, but will have to start light due to other PMH. Rehabilitation Potential: Good - Anticipated Interventions Patient/Client Instruction: Educate patient on: Condition, Plan of Care, Risk Factors, Benefits of Fitness Program For the Purpose of:: To foster healthy habits, To improve decision making, To facilitate caregiver knowledge, To improve self management, To prevent re- injury, To improve ability to perform tasks related to life management Therapeutic Exercise to Include: Strength training, Power training, Endurance training, Balance training, Postural training, Flexibilty training, Gait and locomotor training, Passive ROM, Active ROM For the Purpose of:: To decrease pain, To decrease swelling/inflammation, To increase ROM, To improve nutrient delivery to tissue, To increase oxygenation perfusion, To improve gait and locomotor functions, To improve health of tissue, To decrease soft tissue restriction, To increase flexibility/ROM, To improve balance Thank you for the opportunity to evaluate your patient. For Medicare and Medicare HMO plans, please review the plan of care and approve it. It will need to be FAXED BACK to us at [phone] for Medicare purposes. For Medicare only, by signing this I certify the plan of care. Please let me know if there are questions or concerns regarding this plan of care. Physician Signature: Date:
--- NOTE | 2022-04-20 07:28 | HP.PTREVAL_ITS ---
Dr. Jaime Bain, DPM, It has been my pleasure to treat JERO GODINEZ over the last 8 visits for Pathological dislocation of right ankle. Please see the progress note below for an update on the physical therapy plan of care! Subjective: Pt. wore CAM boot into PT this date with crutches, but brought her shoe with her. Pt. reports trialing standing and walking in home without crutches or boot and did okay. She reports increased soreness today though. She is having more pain through her forefoot and heel today. No N/T noted. Pt. reports being HEP compliant. Objective/Function: Pt. did much better walking with no AD and in shoe. She has much better tolerance, but is still antalgic avoiding any forefoot rocker moment secondary to pain at fore foot. She tends to hyper extend her knee to compensate for the lack of this movement. 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 We have been focusing on DF ROM/stretching and improving her tolerance to Wbing without CAM boot. Both have improved, but slowly. He biggest issues continues to be tenderness at metatarsal region, most likely due to prolonged NWBing and patient avoidance. This is improving, but again slowly. I continue to educated her on continued progression of WBing and walking out of boot to increase function, pt. reports under standing. Plan Plan: Pt. to follow up with physician later this week. She will need continued PT to progress DF range but also tolerance with gait and functional mobility. Balance/Gait/Functional tests - Balance/Special Test Scores Lower Extremity Functional Score: 6 Goals Goal 1:: LTG: Pt. to be I with HEP for LE strengthening and progressive WBing of her RLE. Goal Time Frame: 4-6 Weeks Goal Progress: Progressing Goal 2:: STG: Pt. to tolerance normal equal WBing stance without POTS issues or increase in pain. Goal Time Frame: 2 Weeks Goal Progress: Goal Met Goal 3:: LTG: Pt. to be able to ambulate with normal gait pattern without increase in symptoms. Goal Time Frame: 6-8 Weeks Goal Progress: Progressing Goal 4:: STG: Pt. to tolerate use of crutches with full WBing on RLE without increase in symptoms. Goal Time Frame: 4-6 Weeks Goal Progress: Goal Met Goal 5:: STG: PT. to have increased R ankle ROM by 50% throughout all ranges without increase in symptoms. Goal Time Frame: 2-4 Weeks Goal Progress: Progressing Goal 6:: LTG: Pt. to have 5/5 strength throughout RLE allowing for increased tolerance with all gait and stair negotiation. Goal Time Frame: 4-6 Weeks Goal Progress: Progressing Anticipated Interventions Patient/Client Instruction: Educate patient on: Condition, Plan of Care, Risk Factors, Benefits of Fitness Program For the Purpose of:: To foster healthy habits, To improve decision making, To facilitate caregiver knowledge, To improve self management, To prevent re- injury, To improve ability to perform tasks related to life management Therapeutic Exercise to Include: Strength training, Power training, Endurance training, Balance training, Postural training, Flexibilty training, Gait and locomotor training, Passive ROM, Active ROM For the Purpose of:: To decrease pain, To decrease swelling/inflammation, To increase ROM, To improve nutrient delivery to tissue, To increase oxygenation perfusion, To improve gait and locomotor functions, To improve health of tissue, To decrease soft tissue restriction, To increase flexibility/ROM, To improve balance Please do not hesitate to contact me at [phone] by phone or if you have questions or concerns regarding this new plan of care! Sincerely, Jovanni Mercado DPT
== END 2022-08-09 19:00 | disposition home or self-care (01) ==
LOC: PT 16:30
PROVIDERS: PCP Nurse Practitioner Family; Referring Provider Podiatrist; Visit Provider Podiatrist
DX: M24.371 Pathological dislocation of right ankle, not elsewhere classified (principal)
CPT/HCPCS: 97110; 97140; 97161

== ENCOUNTER → 2022-12-12 | Outpatient (CLI) | payer OTHER, MEDICAID, SELFPAY ==
--- NOTE | 2022-12-12 16:14 | MRI_ITS ---
EXAM: MR LEFT LOWER EXTREMITY WITHOUT INTRAVENOUS CONTRAST, ANKLE CLINICAL INDICATION: INSTABILITY OF LT ANKLE TECHNIQUE: Multiplanar and multisequence MR images of the left ankle without intravenous contrast. COMPARISON: No relevant prior studies available. FINDINGS: LIGAMENTS: ANTERIOR TALOFIBULAR: Unremarkable. Intact. POSTERIOR TALOFIBULAR: Unremarkable. Intact. ANTERIOR TIBIOFIBULAR: Unremarkable. Intact. POSTERIOR TIBIOFIBULAR: Unremarkable. Intact. CALCANEOFIBULAR: Unremarkable. Intact. DELTOID: Unremarkable. Intact. SPRING: Unremarkable. Intact. LISFRANC: Unremarkable. Intact. TENDONS: ACHILLES: Unremarkable. Intact. FLEXOR: Unremarkable. Intact. EXTENSOR: Unremarkable. Intact. PERONEAL: Unremarkable. Intact. TIBIALIS ANTERIOR: Unremarkable. Intact. TIBIALIS POSTERIOR: Unremarkable. Intact. MUSCLES: Unremarkable. Normal bulk and signal. FLUID: Unremarkable. No joint effusion. SINUS TARSI: Unremarkable. Normal fat in the sinus tarsi. TARSAL TUNNEL: Unremarkable. PLANTAR FASCIA: Unremarkable. Intact. CARTILAGE: Unremarkable. No osteochondral lesion. Articular cartilage intact. BONES/JOINTS: Small amount of fluid in the tibiotalar joint. Talar dome intact. No fracture or marrow edema. OTHER SOFT TISSUES: Unremarkable. MRI/Lower Ext Joint Only (Routine) IMPRESSION: Small tibiotalar joint effusion. No other significant internal derangement of the ankle. Electronically Signed: Sourav Martinez MD at 23:40 EDT ,
== END | disposition home or self-care (01) ==
LOC: MRI 16:08
PROVIDERS: PCP Nurse Practitioner Family; Referring Provider Podiatrist; Visit Provider Podiatrist
DX: M25.372 Other instability, left ankle (principal)
CPT/HCPCS: 73721

== ENCOUNTER → 2023-04-11 | Outpatient (CLI) | payer OTHER, MEDICAID, SELFPAY ==
--- NOTE | 2023-04-11 14:15 | NEURO ---
NCS and/or EMG Patient Report Ordering Doctor: Jaime Bain DATE OF SERVICE: 04/11/23 [facility] presents electrodiagnostic testing of the lower limbs. She reports burning in both feet, worse over the past several months. Electrodiagnostic findings: Normal peroneal motor latency, amplitude and conduction velocity is noted bilaterally. Tibial motor response is within normal limits bilaterally. Normal tibial and peroneal F?waves. Normal H reflex bilaterally. There are borderline prolonged sural latencies noted bilaterally. Borderline prolonged left median plantar response. Findings may be somewhat complicated by difficulty in warming the lower limbs. Needle EMG testing was performed in the lower limbs. All muscles tested showed no evidence of denervation with normal motor unit action potentials. Electrodiagnostic impression: This is a normal electrodiagnostic study of the lower limbs. There is no electrodiagnostic evidence for peripheral neuropathy or lumbosacral radiculopathy. There is no electrodiagnostic evidence for tarsal tunnel syndrome. Multi Select Codes Neurology Neurology Interp Codes: 64703-22 Musc test done w/n test comp (interp) (2) and 22033-38 Nrv cndj test 11-12 studies (interp)
== END | disposition home or self-care (01) ==
LOC: PSN 12:28
PROVIDERS: PCP Nurse Practitioner Family; Referring Provider Podiatrist; Visit Provider Podiatrist
DX: G57.53 Tarsal tunnel syndrome, bilateral lower limbs (principal)
CPT/HCPCS: 95886; 95913

== ENCOUNTER 2023-04-25 15:30 | Outpatient (RCR) | payer OTHER, MEDICAID, SELFPAY ==
--- NOTE | 2023-01-10 09:24 | HP.PTEVAL_ITS ---
Patient's Visit Information Visit Information Visit Information: JERO GODINEZ is a 22 year old F referred to Physical Therapy by Dr. Jaime Bain DPM with a diagnosis of L ankle laxity. Date of Evaluation: 12/28/22 Physical Therapist: Jovanni Mercado DPT Visit Plan Frequency: 2x /Week Duration: 6 Weeks Plan: Start with L ankle strengthening, LLE strengthening. Progress to C proprioception exercises. Subjective Subjective: Pt. is here today for her initial evaluation with diagnosis of L ankle laxity. 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 Pt. has pain with walking and standing. She had her other ankle repaired and is tolerating well. Pt. is hopeful to increase her stability in attempt to not have to have surgery. Pt. has not tried much exercises at this point in time. Pt. has minimal pain at rest. She reports it just feel like it wants to give out on my all the time. Pt. is currently not working due to her POTS, but is hopeful to get back to doing so. Pain L ankle: Pain Intensity (Out of 10): 1 Pain Intensity Range: 0 and 4 Objective Objective: POSTURE: Pt has decent posture in stance. Pt. has normal wt shifting between BLEs. PALPATION: pt. has tenderness along lateral peroneals and inferior to lateral malleolus. NEURO: Pt. has normal sensation in BLEs. Pt. has normal DTR of BLEs. Pt. is able to rise on heels and toes without issues. ROM: Pt. has good ROM throughout L ankle and knee, too much ankle INV, DF 12deg. MMT: L ankle 4/5 throughout, except PF 5-/5. Knee and hip: 4+/5 throughout. GAIT: Pt. has fairly normal gait pattern. Pt. has slight antalgic pattern during L stance phase, but no other abnormal pattern noted. STAIRS: PT. has mild increase in symptoms during L stance phase. Early heel off with descending on L side. SPECIAL TESTING: Pt. has marked laxity of her lateral ligaments of her L ankle. Balance/Special Test Scores Lower Extremity Functional Score: 24 Goals Goal 1:: LTG: Pt. to be I with HEP. Goal Time Frame: 4-6 Weeks Goal 2:: STG: Pt. to be able to walking throughout home without increase in L ankle pain. Goal Time Frame: 2-4 Weeks Goal 3:: LTG: Pt. to ambulate 6 MWT with distance of at least 1100 feet. Goal Time Frame: 4-6 Weeks Goal 4:: LTG: Pt. to have 5/5 strength throughout LLE. Goal Time Frame: 4-6 Weeks Goal 5:: LTG: Pt. to maintain SLS on LLE for 30 sec. indicating increased stability/proprioception of L ankle. Goal Time Frame: 4-6 Weeks Goal 6:: LTG: Pt. to negotiate steps with 1 HR with reciprocal pattern with normal gait pattern. Goal Time Frame: 4-6 Weeks Rehabilitation Potential Physical Therapy Diagnosis: Pt. has signs and symptoms consistent with L ankle laxity. Pt. has marked hypermobility of her ankle and lateral ankle instability. Pt. would benefit from Pt to address the above limitations. Rehabilitation Potential: Good Anticipated Interventions Patient/Client Instruction: Educate patient on: Condition, Plan of Care, Risk Factors and Benefits of Fitness Program For the Purpose of:: To facilitate caregiver knowledge, To improve self manageme nt, To prevent re-injury, To improve ability to perform tasks related to life management and To improve tolerance to ADL's Therapeutic Exercise to Include: Strength training, Power training, Balance training, Agility training, Body mechanics, Postural training, Flexibilty training and Active ROM For the Purpose of:: To decrease pain, To increase ROM, To improve nutrient delivery to tissue, To increase oxygenation perfusion, To improve muscle performance and motor function, To improve ability to perform ADL's, To increase tolerance to activity/condition/position and To improve performance and independence with ADL's Text: Thank you for the opportunity to evaluate your patient. For Medicare and Medicare HMO plans, please review the plan of care and approve it. It will need to be FAXED BACK to us at [phone] for Medicare purposes. For Medicare only, by signing this I certify the plan of care. Please let me know if there are questions or concerns regarding this plan of care. Physician Signature: Date:
== END 2023-04-25 19:00 | disposition home or self-care (01) ==
LOC: PT 15:30
PROVIDERS: PCP Nurse Practitioner Family; Visit Provider Podiatrist
DX: M25.372 Other instability, left ankle (principal)
CPT/HCPCS: 97110; 97113; 97161; 97530

== ENCOUNTER 2023-07-13 06:55 | Day surgery (SDC) | payer OTHER, MEDICAID, SELFPAY ==
[2023-07-13] VITALS (7 sets, daily range): BP systolic 87–117; BP diastolic 58–84; PULSE 76–101; RESP 12–20; TEMP 36.6–36.9; O2SAT 100; BMI 16.7
--- OUTSIDE RECORDS SUMMARY | 2023-07-13 07:02 | XMS RPT_ITS | CCD ---
Author Name Unknown Address [address] [place] [address] Organization [facility] Care Team Providers Care Land Agent Name Role Phone OPAL VALLEJO APRN, CNP Primary Care Phys ician Seffetati BRAVON.TARA, Osmani Unavailable Opal Arguelles CNP Primary Care Provider Marylou CONCRETE STONE FABRICATOR.TARA, Osmani Unavailable Opal Arguelles CNP Primary Care Provider 1( [phone] ffetati CONCRETE STONE FABRICATOR.TARA, Osmani Unavailable Opal Arguelles CNP Primary Care Provider Marylou BRAVON.TARA, Osmani Unavailable Opal Arguelles CNP Primary Care Provider Leslie Leonard MD Primary Care Provider Provider, External Unavailable Tarik Gavin MD Unavailable LESLIE LEONARD Referring Unavailable LESLIE LEONARD Primary Care Unavailable TARIK GAVIN Attending Unavailable TARIK GAVIN Attending Unavailable LESLIE LEONARD Primary Care Unavailable TARIK GAVIN Referring Unavailable KATELYNN REYNOSO, DR VILLA Attending Unavailable ANA CHRISTENSEN - OPAL PACHECO Primary Care U [facility] [place] CONCRETE STONE FABRICATOR-CNMGERMAN Attending Kuldip ARGUELLES APRN - TARA, OPAL Alva Primary Care U navailable CONCRETE STONE FABRICATOR-BLINDSTITCH HEMMERZOFIA Attending Unavailabl ines ARGUELLES APRN - BLINDSTITCH HEMMER, OPAL Alva Primary Care U navailable DAGMAREMEKA REYNOSO, DR JULIO Javed Attending Unava ilable ANA CONCRETE STONE FABRICATOR - BLINDSTITCH HEMMER, OPAL Alva Primary Care U navailnakul PACE MD, DR VILLA Attending Unavailable ANA CONCRETE STONE FABRICATOR - BLINDSTITCH HEMMER, OPAL Alva Primary Care U navailable ANA CONCRETE STONE FABRICATOR - BLINDSTITCH HEMMER, OPAL Alva Attending U navailable ANA CONCRETE STONE FABRICATOR - BLINDSTITCH HEMMER, OPAL Alva Primary Care U navailable ANA CONCRETE STONE FABRICATOR - BLINDSTITCH HEMMER, OPAL Alva Primary Care U navailable DELORIS LOCKHART, ZULEIKA Attending Unavailable ANA CONCRETE STONE FABRICATOR - BLINDSTITCH HEMMER, OPAL Alva Attending U navailable ANA CONCRETE STONE FABRICATOR - BLINDSTITCH HEMMER, OPAL Alva Primary Care U navailable SEFFENS CONCRETE STONE FABRICATOR-BLINDSTITCH HEMMER, OSMANI Attending Unavai lable ANA CONCRETE STONE FABRICATOR - BLINDSTITCH HEMMER, OPAL Alva Primary Care U navailable SEFFENS CONCRETE STONE FABRICATOR-BLINDSTITCH HEMMER, OSMANI Attending Unavai lable ANA CONCRETE STONE FABRICATOR - BLINDSTITCH HEMMER, OPAL Alva Primary Care U navailable SEFFENS CONCRETE STONE FABRICATOR-BLINDSTITCH HEMMER, OSMANI Referring Unavai lable ANA CONCRETE STONE FABRICATOR - BLINDSTITCH HEMMER, OPAL Alva Attending U navailable ANA CONCRETE STONE FABRICATOR - BLINDSTITCH HEMMER, OPAL Alva Primary Care U navailable BALTES CONCRETE STONE FABRICATOR-BLINDSTITCH HEMMER, KELECHI Attending Unavailabl e ANA CONCRETE STONE FABRICATOR - BLINDSTITCH HEMMER, OPAL Alva Primary Care U navailable KATELYNN REYNOSO, DR VILLA Attending Unavailable ANA CONCRETE STONE FABRICATOR - BLINDSTITCH HEMMER, OPAL Alva Primary Care U navailable SEFFENS CONCRETE STONE FABRICATOR-BLINDSTITCH HEMMER, OSMANI Attending Unavai lable ANA CONCRETE STONE FABRICATOR - BLINDSTITCH HEMMER, OPAL Alva Primary Care U navailable SEFFENS CONCRETE STONE FABRICATOR-BLINDSTITCH HEMMER, OSMANI Attending Unavai lable ANA CONCRETE STONE FABRICATOR - BLINDSTITCH HEMMER, OPAL Alva Primary Care U navailable KATELYNN REYNOSO, DR VILLA Attending Unavailable ANA CONCRETE STONE FABRICATOR - BLINDSTITCH HEMMER, OPAL Alva Primary Care U navailnakul PACE MD, DR VILLA Attending Unavailable ANA CONCRETE STONE FABRICATOR - BLINDSTITCH HEMMER, OPAL Alva Primary Care U navailable Seffens CONCRETE STONE FABRICATOR.BLINDSTITCH HEMMER, Osmani Unavailable Unavailable Primary Care Provider Unavailabl e PROVIDER, UNKNOWN Admitting Unavailable YAA HUNTER Attending Unavailab le PROVIDER, UNKNOWN Attending Unavailable PROVIDER, UNKNOWN Admitting Unavailable MEÑO CALVIN Attending Unavail able ANA, OPAL D Primary Care Unavailable MEÑO CALVIN Attending Unavail able ANA, OPAL D Primary Care Unavailable FELIPA LOMAS Referring Unavailable ANA, OPAL D Primary Care Unavailable ANA, OPAL D Primary Care Unavailable APRIL, EZEQUIEL Referring Unavailable APRIL, EZEQUIEL Attending Unavailable ANA, OPAL D Primary Care Unavailable SUNEJA, AARUSHI Referring Unavailable ANA, OPAL D Primary Care Unavailable LAZARA BAILEY Attending Unavailable APRIL, EZEQUIEL Referring Unavailable SUNEJA, AARUSHI Referring Unavailable ANA, OPAL D Primary Care Unavailable APRIL, EZEQUIEL Attending Unavailable ANA, OPAL D Primary Care Unavailable JOAN, RADHA Referring Unavailable ANA, OPAL D Primary Care Unavailable JOAN, RADHA Attending Unavailable JOAN, RADHA Referring Unavailable ANA, OPAL D Primary Care Unavailable JOAN, RADHA Referring Unavailable ANA, OPAL D Primary Care Unavailable RIBELLI, NAYA Referring Unavailable ANA, OPAL D Primary Care Unavailable ANA, OPAL D Primary Care Unavailable JOAN, RADHA Attending Unavailable ANA, OPAL D Primary Care Unavailable HAMDANJORGE Attending Unavailable SUNEJA, AARUSHI Referring Unavailable ANA, OPAL D Primary Care Unavailable ANA, OPAL D Primary Care Unavailable JORGE TORRES Attending Unavailable MONSTERDATegan, MOHAMMAD Referring Unavailable AKILA POTTS Attending Unavailable ANA, OPAL D Primary Care Unavailable JOAN, RADHA Referring Unavailable ANA, OPAL D Primary Care Unavailable JENN CONTE Attending Unavailable ELLIOT TURK Attending Unavailable ANA, OPAL D Primary Care Unavailable FELIPA BELCHER Referring Unavailable HAMDANJORGE Attending Unavailable ANA, OPAL D Primary Care Unavailable SUNEJA, AARUSHI Referring Unavailable ANA, OPAL D Primary Care Unavailable APRIL, EZEQUIEL Referring Unavailable ANA, OPAL D Primary Care Unavailable FELIPA LOMAS Attending Unavailable ANA, OPAL D Primary Care Unavailable RIBELLI, NAYA Referring Unavailable Allergies Allergy Classification Reported Allergen(s) Allergy Type Date of Onset Reaction(s) Facility (20 sources) Amoxicillin; Translations: [amoxicillin] Drug Allergy 2 Dyspnea (finding), Rash, Hives [facility] (19 sources) Penicillin; Translations: [penicillins] Drug Allergy Dyspnea (finding) [facility] (9 sources) Penicillins; Translations: [PENICILLINS] Propensity to adverse reactions to drug 3 [facility] (20 sources) fexofenadine; Translations: [fexofenadine] Drug Allergy 2 Weal (disorder), Swelling (morphologic abnormality), Angioedema [facility] (20 sources) beeswax; Translations: [BEESWAX] Drug Allergy 2 Anaphylaxis, Rash [facility] Work Phone: (20 sources) Penicillins Propensity to adverse reactions to drug 2 Rash [facility] (2 sources) bee venom; Translations: [BEE VENOM] Propensity to adverse reactions 3 [facility] (4 sources) Adhesive agent; Translations: [ADHESIVE] Drug Allergy 4 Hives, Itching, Rash [facility] (4 sources) Honey; Translations: [HONEY] Drug Allergy 4 Hives, Itching, Rash [facility] (4 sources) Bees; Translations: [BEES] Allergy to substance 4 Hives, Rash, Shortness of Breath, Swelling [facility] (4 sources) Lavender; Translations: [LAVENDER] Drug Allergy 4 Hives, Itching, Rash [facility] Medications Current Medications Medication Drug Class(es) Dates Sig (Normalized) Sig (Original) Acetaminophen (1 source) Acetaminophen (TYLENOL PO) Take by mouth. 0 Active Amphetamine / Dextroamphetamine (1 source) Central Nervous System Stimulant Amphetamine-Dextr oamphetamine (ADDERALL PO) Take by mouth. 0 Active azithromycin 250 mg oral tablet (1 source) Macrolide Antimicrobial Start: 08-30-2021 End: 09-04-2021 Zithromax 250 mg oral tablet Dose : 250 mg = 1 tab(s), Oral, qDay, follow directions on Z-Jenifer, X 5 day(s), # 6 tab(s), 0 Refill(s), 05/01/22 10:48:00 EDT, Pharmacy: [facility]-[address] AOM (acute otitis media), 171.5, cm, 08/30/21 10:27:00 EDT, Height, 48.7 Start Date: 08/30/21 Stop Date: 09/04/21 Status: Ordered bisacodyl 5 mg delayed release oral tablet (1 source) Stimulant Laxative bisacodyl (DUCOLAX) 5 MG EC tablet Take by mouth once. 0 Active Clindamycin (1 source) Lincosamide Antibacterial CLINDAMYCIN HCL PO Take by mouth. 0 Active doxepin 6 mg oral tablet (20 sources) Tricyclic Antidepressant Start: 09-22-2022 End: 03-21-2023 doxepin 6 mg oral tablet Dose : 6 mg = 1 tab(s), Oral, qHS, take 30 min before bedtime, NOT within 3 hrs of a meal, # 30 tab(s), 5 Refill(s), Pharmacy: [facility] #[id number], 175.3, cm, 09/22/22 15:00:00 EDT, Height, kg, 09/22/22 15:00:00 EDT, Dosing Weight Start Date: 09/22/22 Stop Date: 03/21/23 Status: Ordered Completed/Discontinued Medications Medication Drug Class(es) Dates Sig (Normalized) Sig (Original) [id number] 200 actuat albuterol 0.09 mg/actuat metered dose inhaler (20 sources) beta2-Adrenergic Agonist albuterol HFA (PROVENTIL HFA, VENTOLIN HFA) 90 mcg/actuation inhaler Inhale 2 Puffs as instructed as needed for wheezing/shortness of breath. 0 Active Problems Active Problems Problem Classification Problem Date Documented Da te Episodic/Chronic Abdominal pain (8 sources) Epigastric pain; Translations: [Acute abdominal pain] Onset: 4 07-29-2020 Episodic Anxiety disorders (20 sources) Generalized anxiety disorder; Translations: [Generalized anxiety disorder] Onset: 2 09-24-2020 Chronic Attention-deficit, conduct, and disruptive behavior disorders (20 sources) Attention deficit hyperactivity disorder, predominantly inattentive type; Translations: [Other specified behavioral and emotional disorders with onset usually occurring in childhood and adolescence] Onset: 2 08-13-2013 Chronic Cardiac dysrhythmias (20 sources) Postural orthostatic tachycardia syndrome ; Translations: [Other specified cardiac arrhythmias] Onset: 2 Chronic E Codes: Adverse effects of medical drugs (1 source) Adverse reaction to drug; Translations: [Adverse effect of unspecified drugs, medicaments and biological substances, initial encounter] Episodic Epilepsy; convulsions (4 sources) Clonic seizure, refractory; Translations: [Other generalized epilepsy and epileptic syndromes, intractable, without status epilepticus] Chronic Esophageal disorders (20 sources) Gastroesophageal reflux disease; Translations: [Gastro-esophageal reflux disease without esophagitis] Onset: 2 06-27-2021 Chronic Genitourinary symptoms and ill-defined conditions (6 sources) Dysuria; Translations: [Blood in urine] Onset: 3 08-30-2021 Episodic Headache; including migraine (20 sources) Migraine; Translations: [Refractory migraine without aura] Onset: 2 03-17-2021 Chronic Malaise and fatigue (1 source) Fatigue; Translations: [Chronic fatigue, unspecified] Onset: 4 06-15-2023 Chronic Malaise and fatigue (19 sources) Fatigue 06-25-2020 Episodic Nutritional deficiencies (20 sources) Cobalamin deficiency; Translations: [Vitamin B deficiency] Onset: 4 07-08-2020 Episodic Other circulatory disease (14 sources) Low blood pressure; Translations: [Hypotension, unspecified] Onset: 4 02-06-2022 Episodic Other congenital anomalies (20 sources) Adriano-Danlos syndrome; 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, unspecified] Onset: 3 Chronic Other connective tissue disease (20 sources) Plantar fasciitis; Translations: [Plantar fascial fibromatosis] Onset: 4 02-04-2021 Episodic Other connective tissue disease (1 source) Muscle pain; Translations: [Myalgia, other site] Onset: 3 Episodic Other connective tissue disease (20 sources) Myofascial pain syndrome; Translations: [Myalgia, other site] Onset: 3 07-07-2022 Episodic Other connective tissue disease (8 sources) Myofascial pain with referral; Translations: [Myalgia, other site] Onset: 3 04-10-2023 Episodic Other disorders of stomach and duodenum (1 source) Gastroparesis syndrome; Translations: [Gastroparesis] Episodic Other ear and sense organ disorders (10 sources) Hearing loss; Translations: [Unspecified hearing loss, unspecified ear] Onset: 4 07-06-2022 Chronic Other ear and sense organ disorders (1 source) Ear pressure sensation; Translations: [Other specified disorders of left ear] Episodic Other ear and sense organ disorders (1 source) Abnormal auditory perception; Translations: [Other abnormal auditory perceptions, left ear] Episodic Other gastrointestinal disorders (2 sources) Abdominal bloating; Translations: [Abdominal distension (gaseous)] Onset: 4 11-21-2022 Episodic Other infections; including parasitic (20 sources) History of glandular fever; Translations: [Personal history of other infectious and parasitic diseases] Onset: 4 08-12-2020 Episodic Other infections; including parasitic (15 sources) Disorder due to infection; Translations: [Unspecified infectious disease] Onset: 4 05-30-2022 Episodic Other liver diseases (20 sources) Steatosis of liver; Translations: [Fatty (change of) liver, not elsewhere classified] Onset: 4 07-29-2020 Chronic Other nervous system disorders (20 sources) Disorder of autonomic nervous system; Translations: [Disorder of the autonomic nervous system, unspecified] Onset: 4 08-12-2020 Chronic Other nervous system disorders (11 sources) Chronic pain syndrome; Translations: [Chronic pain syndrome] Onset: 3 04-02-2023 Chronic Other nervous system disorders (1 source) Other chronic pain; Translations: [Chronic low back pain with sciatica, sciatica laterality unspecified, unspecified back pain laterality] Onset: 4 Chronic Other nervous system disorders (1 source) Chronic pain syndrome; Translations: [Chronic pain syndrome] Onset: 3 Chronic Other nervous system disorders (1 source) Skin sensation disturbance; Translations: [Unspecified disturbances of skin sensation] Episodic Other nervous system disorders (1 source) Paresthesia; Translations: [Paresthesia of skin] Onset: 2 Episodic Other nervous system disorders (11 sources) Paresthesia of hand ; Translations: [Paresthesia of skin] Onset: 4 04-18-2022 Episodic Other non-traumatic joint disorders (1 source) Joint pain; Translations: [Pain in unspecified joint] 07-26-2022 Episodic Other screening for suspected conditions (not mental disorders or infectious disease) (14 sources) Measurement finding above reference range; Translations: [Endocrine disorder, unspecified] Onset: 4 12-09-2021 Episodic Other skin disorders (20 sources) Acne; Translations: [Acne, unspecified] Onset: 4 10-29-2015 Episodic Other upper respiratory disease (20 sources) Seasonal allergy; Translations: [Other seasonal allergic rhinitis] Onset: 4 10-17-2019 Chronic Other upper respiratory disease (1 source) Nasal discharge; Translations: [Other specified disorders of nose and nasal sinuses] Episodic Poisoning by nonmedicinal substances (1 source) Venomous sting; Translations: [Toxic effect of contact with unspecified venomous animal, undetermined, initial encounter] Episodic Residual codes; unclassified (20 sources) Insomnia; Translations: [Insomnia, unspecified] Onset: 4 06-25-2020 Episodic Spondylosis; intervertebral disc disorders; other back problems (5 sources) Chronic low back pain; Translations: [Lumbago with sciatica, unspecified side] Onset: 4 03-09-2023 Episodic Syncope (20 sources) Syncope; Translations: [Syncope and collapse] Onset: 4 07-08-2020 Episodic Thyroid disorders (20 sources) Hyperthyroidism; Translations: [Colloid goiter] Onset: 4 02-04-2021 Chronic Tuberculosis (1 source) Tuberculosis of vertebral column; Translations: [Tuberculosis of spine] Onset: 1 Episodic Unclassified (15 sources) Patient encounter status 08-30-2021 Unclassified (7 sources) Otalgia of left ear 07-06-2022 Unclassified (4 sources) Vaccination needed 09-04-2022 Unclassified (1 source) Adriano-Danlos syndrome, unspecified; 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] Onset: 3 Unclassified (1 source) POTS (postural orthostatic tachycardia syndrome); Translations: [POTS (postural orthostatic tachycardia syndrome)] Onset: 2 Past or Other Problems Problem Classification Problem Date Documented Da te Episodic/Chronic Cardiac dysrhythmias (20 sources) Palpitations; Translations: [Tachycardia] Onset: 07-17-2022 05-20-2020 Episodic Results Test Name Value Interpretation Reference Range Facil ity Vital Signs Date Time Vital Sign Value Performing Clinician Facility 07-04-2023 14:24-0500 Body height 175.3 cm Meño Calvin MD Work Phone: [facility] 07-04-2023 14:24-0500 Body temperature 98.2 [degF] Meño Calvin MD Work Phone: [facility] 07-04-2023 14:24-0500 Body weight 47.63 kg Meño Calvin MD Work Phone: [facility] 07-04-2023 14:24-0500 Diastolic blood pressure 77 mm[Hg] Meño Calvin MD Work Phone: [facility] 07-04-2023 14:24-0500 Heart rate 52 /min Meño Calvin MD Work Phone: [facility] 07-04-2023 14:24-0500 Respiratory rate 20 /min Meño Calvin MD Work Phone: [facility] 07-04-2023 14:24-0500 SaO2% (BldA) [Mass fraction] 92 % Meño Calvin MD Work Phone: [facility] 07-04-2023 14:24-0500 Systolic blood pressure 120 mm[Hg] Meño Calvin MD Work Phone: [facility] 04-05-2023 13:17-0500 Body temperature 97.9 [degF] Treatment Wstr Work Phone: [facility] 04-05-2023 13:17-0500 Diastolic blood pressure 72 mm[Hg] Treatment Wstr Work Phone: [facility] 04-05-2023 13:17-0500 Heart rate 93 /min Treatment Wstr Work Phone: [facility] 04-05-2023 13:17-0500 Systolic blood pressure 117 mm[Hg] Treatment Wstr Work Phone: [facility] 04-02-2023 14:18-0500 Body height 175.3 cm Meño Calvin MD Work Phone: [facility] 04-02-2023 14:18-0500 Body temperature 98.01 [degF] Meño Calvin MD Work Phone: [facility] 04-02-2023 14:18-0500 Body weight 49.9 kg Meño Calvin MD Work Phone: [facility] 04-02-2023 14:18-0500 Diastolic blood pressure 82 mm[Hg] Meño Calvin MD Work Phone: [facility] 04-02-2023 14:18-0500 Heart rate 100 /min Meño Calvin MD Work Phone: [facility] 04-02-2023 14:18-0500 Respiratory rate 18 /min Meño Calvin MD Work Phone: [facility] 04-02-2023 14:18-0500 SaO2% (BldA) [Mass fraction] 99 % Meño Calvin MD Work Phone: [facility] 04-02-2023 14:18-0500 Systolic blood pressure 121 mm[Hg] Meño Calvin MD Work Phone: [facility] 12-29-2022 11:49-0400 Diastolic blood pressure 78 mm[Hg] Radha Calderón APRN.BLINDSTITCH HEMMER Work Phone: [facility] 12-29-2022 11:49-0400 Heart rate 103 /min Radha Joan CONCRETE STONE FABRICATOR.BLINDSTITCH HEMMER Work Phone: [facility] 12-29-2022 11:49-0400 Systolic blood pressure 119 mm[Hg] Radha Calderón CONCRETE STONE FABRICATOR.BLINDSTITCH HEMMER Work Phone: [facility] 10-11-2022 14:11-0400 Body temperature 98.01 [degF] Treatment Wstr Work Phone: [facility] 10-11-2022 14:11-0400 Diastolic blood pressure 66 mm[Hg] Treatment Wstr Work Phone: [facility] 10-11-2022 14:11-0400 Heart rate 88 /min Treatment Wstr Work Phone: [facility] 10-11-2022 14:11-0400 Respiratory rate 16 /min Treatment Wstr Work Phone: [facility] 10-11-2022 14:11-0400 SaO2% (BldA) [Mass fraction] 98 % Treatment Wstr Work Phone: [facility] 10-11-2022 14:11-0400 Systolic blood pressure 103 mm[Hg] Treatment Wstr Work Phone: [facility] 08-07-2022 14:05-0400 Body temperature 99 [degF] Felipa Lomas MD Work Phone: [facility] 08-07-2022 14:05-0400 Body weight 46.27 kg Felipa Lomas MD Work Phone: [facility] 08-07-2022 14:05-0400 Diastolic blood pressure 67 mm[Hg] Felipa Lomas MD Work Phone: [facility] 08-07-2022 14:05-0400 Heart rate 91 /min Felipa Lomas MD Work Phone: [facility] 08-07-2022 14:05-0400 Respiratory rate 16 /min Felipa Lomas MD Work Phone: [facility] 08-07-2022 14:05-0400 SaO2% (BldA) [Mass fraction] 97 % Felipa Lomas MD Work Phone: [facility] 08-07-2022 14:05-0400 Systolic blood pressure 106 mm[Hg] Felipa Lomas MD Work Phone: [facility] 07-19-2022 15:21-0400 Body temperature 98.2 [degF] Treatment Wstr Work Phone: [facility] 07-19-2022 15:21-0400 Body weight 46.72 kg Treatment Wstr Work Phone: [facility] 07-19-2022 15:21-0400 Diastolic blood pressure 78 mm[Hg] Treatment Wstr Work Phone: [facility] 07-19-2022 15:21-0400 Heart rate 81 /min Treatment Wstr Work Phone: [facility] 07-19-2022 15:21-0400 Systolic blood pressure 131 mm[Hg] Treatment Wstr Work Phone: [facility] 07-10-2022 14:21-0500 Body height 175.3 cm Naya Saeli DO Work Phone: [facility] 07-10-2022 14:21-0500 Body weight 46.77 kg Naya Saeli DO Work Phone: [facility] 07-10-2022 14:21-0500 Diastolic blood pressure 80 mm[Hg] Naya Saeli DO Work Phone: [facility] 07-10-2022 14:21-0500 Heart rate 97 /min Naya Saeli DO Work Phone: [facility] 07-10-2022 14:21-0500 Systolic blood pressure 128 mm[Hg] Naya Saeli DO Work Phone: [facility] 07-07-2022 11:10-0500 Diastolic Blood Pressure Non-Invasive [address] DAISY PACE MD [facility] 07-07-2022 11:10-0500 Heart rate 93 /min DR DAISY PACE MD [facility] 07-07-2022 11:10-0500 Respiratory rate 12 /min DR DAISY PACE MD [facility] 07-07-2022 11:10-0500 Systolic Blood Pressure Non-Invasive [address] DAISY PAEC MD [facility] 07-07-2022 11:02-0500 Diastolic Blood Pressure Non-Invasive [address] DAISY PACE MD [facility] 07-07-2022 11:02-0500 Heart rate 91 /min DR DAISY PACE MD [facility] 07-07-2022 11:02-0500 Respiratory rate 11 /min DR DAISY PACE MD [facility] 07-07-2022 11:02-0500 Systolic Blood Pressure Non-Invasive [address] DAISY PACE MD [facility] 07-07-2022 10:57-0500 Diastolic Blood Pressure Non-Invasive [address] DAISY PACE MD [facility] 07-07-2022 10:57-0500 Heart rate 96 /min DR DAISY PACE MD [facility] 07-07-2022 10:57-0500 Respiratory rate 15 /min DR DAISY PACE MD [facility] 07-07-2022 10:57-0500 Systolic Blood Pressure Non-Invasive [address] DAISY PACE MD [facility] 07-07-2022 10:46-0500 Heart rate 89 /min DR DAISY PACE MD [facility] 07-07-2022 10:42-0500 Heart rate 101 /min DR DAISY PACE MD [facility] 07-07-2022 10:37-0500 Heart rate 102 /min DR DAISY PACE MD [facility] 07-07-2022 10:32-0500 Heart rate 101 /min DR DAISY PACE MD [facility] 07-07-2022 09:54-0500 Blood Pressure Cuff Size DR DAISY PACE MD [facility] 07-07-2022 09:54-[address] DAISY PACE MD [facility] 07-07-2022 09:54-[address] DAISY PACE MD [facility] 07-07-2022 09:54-0500 Body height 175.[address] DAISY PACE MD [facility] 07-07-2022 09:54-0500 Body weight 47.[address] DAISY PACE MD [facility] 07-07-2022 09:54-0500 Body weight 15.59 kg/m2 DR DAISY PACE MD [facility] 07-07-2022 09:54-0500 Heart rate 112 /min DR DAISY PACE MD [facility] 04-26-2022 14:00-0500 Body temperature 97.7 [degF] Treatment Wstr Work Phone: [facility] 04-26-2022 14:00-0500 Body weight 48.31 kg Treatment Wstr Work Phone: [facility] 04-26-2022 14:00-0500 Diastolic blood pressure 78 mm[Hg] Treatment Wstr Work Phone: [facility] 04-26-2022 14:00-0500 Heart rate 130 /min Treatment Wstr Work Phone: [facility] 04-26-2022 14:00-0500 Respiratory rate 18 /min Treatment Wstr Work Phone: [facility] 04-26-2022 14:00-0500 Systolic blood pressure 124 mm[Hg] Treatment Wstr Work Phone: [facility] 04-12-2022 18:12-0500 Body temperature 96.8 [degF] ZULEIKA PUENTES DO [facility] 04-12-2022 18:12-0500 Diastolic Blood Pressure Non-Invasive 85 1 ZULEIKA PUENTES DO [facility] 04-12-2022 18:12-0500 Heart rate 115 /min ZULEIKA PUENTES DO [facility] 04-12-2022 18:12-0500 Respiratory rate 16 /min ZULEIKA PUENTES DO [facility] 04-12-2022 18:12-0500 Systolic Blood Pressure Non-Invasive 142 1 ZULEIKA PUENTES DO [facility] 12-26-2021 15:00-0400 Diastolic blood pressure 57 mm[Hg] Infusion 9 Work Phone: [facility] 12-26-2021 15:00-0400 Heart rate 98 /min Infusion 9 Work Phone: [facility] 12-26-2021 15:00-0400 Systolic blood pressure 110 mm[Hg] Infusion 9 Work Phone: [facility] 12-07-2021 14:13-0400 Diastolic blood pressure 66 mm[Hg] Jose Daniel Tillman DO Work Phone: [facility] 12-07-2021 14:13-0400 Heart rate 117 /min Jose Daniel Tillman DO Work Phone: [facility] 12-07-2021 14:13-0400 Systolic blood pressure 112 mm[Hg] Jose Daniel Tillman DO Work Phone: [facility] 12-07-2021 12:41-0400 Body weight 47.63 kg Jose Daniel Tillman DO Work Phone: [facility] 12-07-2021 12:41-0400 SaO2% (BldA) [Mass fraction] 98 % Jose Daniel Tillman DO Work Phone: [facility] 09-14-2021 15:03-0400 Body height 175.3 cm Milan Novak MD Work Phone: [facility] 09-14-2021 15:03-0400 Body temperature 97.2 [degF] Milan Novak MD Work Phone: [facility] 09-14-2021 15:03-0400 Body weight 49.9 kg Milan Novak MD Work Phone: [facility] 09-14-2021 15:03-0400 Diastolic blood pressure 77 mm[Hg] Milan Novak MD Work Phone: [facility] 09-14-2021 15:03-0400 Heart rate 94 /min Milan Novak MD Work Phone: [facility] 09-14-2021 15:03-0400 SaO2% (BldA) [Mass fraction] 98 % Milan Novak MD Work Phone: [facility] 09-14-2021 15:03-0400 Systolic blood pressure 104 mm[Hg] Milan Novak MD Work Phone: [facility] 09-08-2021 19:25-0400 Diastolic blood pressure 66 mm[Hg] TARIK THORPE DO [facility] 09-08-2021 19:25-0400 Heart rate 80 /min TARIK DURESKA DO [facility] 09-08-2021 19:25-0400 Respiratory rate 18 /min TARIK DURESKA DO [facility] 09-08-2021 19:25-0400 Systolic blood pressure 102 mm[Hg] TARIK DURESKA DO [facility] 09-08-2021 18:17-0400 Body height 175.3 cm TARIK DURESKA DO [facility] 09-08-2021 18:17-0400 Body temperature 98.42 [degF] TARIK DURESKA DO [facility] 09-08-2021 18:17-0400 Body weight 47.7 kg TARIK DURESKA DO [facility] 09-08-2021 18:17-0400 Diastolic blood pressure 76 mm[Hg] TARIK DURESKA DO [facility] 09-08-2021 18:17-0400 Heart rate 110 /min TARIK DURESKA DO [facility] 09-08-2021 18:17-0400 Respiratory rate 20 /min TARIK DURESKA DO [facility] 09-08-2021 18:17-0400 Systolic blood pressure 114 mm[Hg] TARIK DURESKA DO [facility] 08-23-2021 15:45-0400 Body height 175.3 cm Mary Dan MD Work Phone: [facility] 08-23-2021 15:45-0400 Body weight 49.99 kg Mary Dan MD Work Phone: [facility] 08-23-2021 15:45-0400 Diastolic blood pressure 76 mm[Hg] Mary Dan MD Work Phone: [facility] 08-23-2021 15:45-0400 Heart rate 108 /min Mary Dan MD Work Phone: [facility] 08-23-2021 15:45-0400 SaO2% (BldA) [Mass fraction] 97 % Mary Dan MD Work Phone: [facility] 08-23-2021 15:45-0400 Systolic blood pressure 112 mm[Hg] Mary Dan MD Work Phone: [facility] 05-04-2021 14:02-0500 Diastolic blood pressure 70 mm[Hg] KAL BREWSTER MD [facility] 05-04-2021 14:02-0500 Heart rate 103 /min KAL BREWSTER MD [facility] 05-04-2021 14:02-0500 Respiratory rate 20 /min KAL BREWSTER MD [facility] 05-04-2021 14:02-0500 Systolic blood pressure 110 mm[Hg] KAL BREWSTER MD [facility] 05-04-2021 11:55-0500 Diastolic blood pressure 74 mm[Hg] KAL BREWSTER MD [facility] 05-04-2021 11:55-0500 Heart rate 94 /min KAL BREWSTER MD [facility] 05-04-2021 11:55-0500 Respiratory rate 14 /min KAL BREWSTER MD [facility] 05-04-2021 11:55-0500 Systolic blood pressure 112 mm[Hg] KAL BREWSTER MD [facility] 05-04-2021 10:39-0500 Body temperature 98.6 [degF] KAL BREWSTER MD [facility] 05-04-2021 10:39-0500 Body weight 48 kg KAL BREWSTER MD [facility] 05-04-2021 10:39-0500 Diastolic blood pressure 68 mm[Hg] KAL BREWSTER MD [facility] 05-04-2021 10:39-0500 Heart rate 122 /min KAL BREWSTER MD [facility] 05-04-2021 10:39-0500 Respiratory rate 14 /min KAL BREWSTER MD [facility] 05-04-2021 10:39-0500 Systolic blood pressure 138 mm[Hg] KAL BREWSTER MD [facility] Encounters Encounter Date Encounter Type Care Provider Facility Start: 07-04-2023 End: 07-04-2023 ambulatory MEÑO CALVIN Facility:[id number] Start: 07-04-2023 End: 07-04-2023 Office outpatient visit 25 minutes Meño Calvin MD Work Phone: Pain Management Procedures Date Procedure Procedure Detail Performing Clinician Start: 07-07-2022 PM TPI 1- 2 Muscles SN (Bilateral) 1 DR DAISY PACE MD Plan of Treatment Date Care Activity Detail Author Start: 01-26-2050 Shingles (RZV) Vaccine (1 of 2) Shingles (RZV) Vaccine (1 of 2) [facility] Start: 09-04-2032 Tetanus vaccination Tetanus (Td or Tdap) Booster [facility] Start: 09-04-2032 Urine microalbumin profile DTaP,Tdap,Td Vaccine (7 - Td or Tdap) [facility] Start: 03-21-2024 Thyroid stimulating hormone measurement TSH [facility] Start: 06-05-2023 End: 06-05-2023 Patient encounter procedure 06/05/2023 3:30 PM EST Office Visit [facility] Oral Surgery [address] [place] [address] Gracie Cowart DMD, MD [address] [id number] [facility] Start: 05-07-2023 Depression Assessment Depression Assessment [facility] Start: 04-02-2023 End: 07-02-2023 TOXASSURE FLEX 23, URINE TOXASSURE FLEX 23, URINE Lab Routine Chronic low back pain with sciatica, sciatica laterality unspecified, unspecified back pain laterality Encounter for long-term (current) drug use Expected: 04/02/2023, Expires: 07/02/2023 [facility] Work Phone: Immunizations Immunization Date Immunization Notes Care Provider Fa cility 09-04-2022 tetanus toxoid, redu alexandra diphtheria toxoid, and acellular pertussis vaccine, adsorbed; Translations: [Boostrix (Tdap)] [facility] 01-17-2018 meningococcal polysaccharide (groups A, C, Y and W-135) diphtheria toxoid conjugate vaccine (MCV4P) [employer] - [facility] 03-23-2017 influenza virus vacc ine, unspecified formulation [employer] - [facility] 03-23-2017 influenza, injectabl e, quadrivalent, preservative free Naya Saeli DO Work Phone: [facility] 02-21-2016 influenza virus vacc ine, unspecified formulation [employer] - [facility] 02-21-2016 influenza, injectabl e, quadrivalent, preservative free Naya Saeli DO Work Phone: [facility] 01-25-2015 influenza virus vacc ine, unspecified formulation [employer] - [facility] 01-25-2015 influenza, seasonal, injectable, preservative free Naya Saeli DO Work Phone: [facility] 12-15-2014 hepatitis A vaccine, pediatric dosage, unspecified formulation [employer] - [facility] 12-15-2014 hepatitis A vaccine, pediatric/adolescent dosage, 2 dose schedule Nayaprosper Alvarez DO Work Phone: [facility] 12-15-2014 varicella virus vaccine RICH SHAE [employer] [facility] 12-11-2013 human papilloma viru s vaccine, quadrivalent Naya Saeli DO Work Phone: [facility] 12-11-2013 Human Papillomavirus Quadval [employer] [facility] 03-14-2013 human papilloma viru s vaccine, quadrivalent Naya Saeli DO Work Phone: [facility] 03-14-2013 Human Papillomavirus Quadval OPAL ANDREPKINS [employer] - [employer] [facility] 03-14-2013 influenza virus vacc ine, unspecified formulation [employer] [facility] 03-14-2013 influenza, live, intranasal, quadrivalent Naya Saeli DO Work Phone: [facility] 12-10-2012 human papilloma viru s vaccine, quadrivalent Naya Saeli DO Work Phone: [facility] 12-10-2012 Human Papillomavirus Quadval [employer] [facility] 12-10-2012 meningococcal polysaccharide (groups A, C, Y and W-135) diphtheria toxoid conjugate vaccine (MCV4P) [employer] [facility] 12-10-2012 tetanus toxoid, redu alexandra diphtheria toxoid, and acellular pertussis vaccine, adsorbed [employer] [facility] 08-21-2005 diphtheria, tetanus toxoids and acellular pertussis vaccine, unspecified formulation Naya Alvarez DO Work Phone: [facility] 08-21-2005 measles, mumps and rubella virus vaccine Naya Alvarez DO Work Phone: [facility] 08-21-2005 measles/mumps/rubell a virus vaccine [employer] [facility] 08-21-2005 poliovirus vaccine, inactivated [employer] [facility] 05-14-2001 hepatitis B pediatri c vaccine [employer] [facility] 05-14-2001 hepatitis B vaccine, pediatric or pediatric/adolescent dosage Naya Alvarez DO Work Phone: [facility] 05-14-2001 hepatitis B vaccine, unspecified formulation Naya Alvarez DO Work Phone: [facility] 01-28-2001 measles, mumps and rubella virus vaccine Naya Alvarez DO Work Phone: [facility] 01-28-2001 measles/mumps/rubell a virus vaccine [employer] [facility] 01-28-2001 varicella virus vaccine LAUREN [employer] - [employer] [facility] 2000 hepatitis B pediatri c vaccine [employer] - [employer] [facility] 2000 hepatitis B vaccine, pediatric or pediatric/adolescent dosage Naya Saeli DO Work Phone: [facility] 2000 pneumococcal conjuga te vaccine, 7 valent Naya Saeli DO Work Phone: [facility] 2000 diphtheria, tetanus toxoids and acellular pertussis vaccine, unspecified formulation Naya Saeli DO Work Phone: [facility] 2000 pneumococcal conjuga te vaccine, 7 valent Naya Saeli DO Work Phone: [facility] 2000 poliovirus vaccine, inactivated [employer] [facility] 2000 diphtheria, tetanus toxoids and acellular pertussis vaccine, unspecified formulation Naya Saeli DO Work Phone: [facility] 2000 poliovirus vaccine, inactivated [employer] [facility] 2000 diphtheria, tetanus toxoids and acellular pertussis vaccine, unspecified formulation Naya Del Rosarioli DO Work Phone: [facility] 2000 poliovirus vaccine, inactivated [employer] [facility] Payers Date Payer Category Payer Private Health Insurance [id number] 2022 Unknown [id number] 2022 Private Health Insurance [id number] 2022 Unknown [id number] 2022 Unknown [id number] 2021 Private Health Insurance [employer] A ETNA CHOICE POS II [id number] 2021-Present [phone] [address] [place] [address] POS [id number] 2021 Private Health Insurance [id number] 2021 Private Health Insurance [id number] 2020 Medicaid [id number] 2020 Medicaid [id number] 2000 Unknown [id number] 2.16.840.1.605818.3.579.2.4 79 2000 Unknown [id number] 2.16.840.1.267926.3.579.2.4 79 2000 Unknown [id number] 2.16.840.1.398983.3.579.2.6 27 2000 Unknown [id number] 2.16.840.1.161683.3.579.2.6 27 2000 Unknown [id number] 2.16.840.1.952579.3.579.2.6 27 2000 Unknown [id number] 2.16.840.1.797049.3.579.2.6 27 2000 Unknown [id number] 2.16.840.1.286324.3.579.2.6 27 2000 Unknown [id number] 2.16.840.1.088776.3.579.2.6 27 2000 Unknown [id number] 2.16.840.1.910958.3.579.2.6 27 2000 Unknown [id number] 2.16.840.1.365397.3.579.2.6 27 2000 Unknown [id number] 2.16.840.1.124849.3.579.2.6 27 2000 Unknown [id number] 2.16.840.1.647335.3.579.2.6 27 2000 Unknown [id number] 2.16.840.1.388659.3.579.2.6 27 2000 Unknown [id number] 2.16.840.1.882062.3.579.2.6 27 2000 Unknown [id number] 2.16.840.1.853917.3.579.2.6 2000 Unknown [id number] 2.16.840.1.094231.3.579.2.6 2000 Unknown [id number] 2.16.840.1.890188.3.579.2.6 2000 Unknown [id number] 2.16.840.1.733233.3.579.2.6 27 2000 Unknown [id number] 2.16.840.1.108982.3.579.2.6 2000 Unknown [id number] 2.16.840.1.694563.3.579.2.7 32 2000 Unknown [id number] 2.16.840.1.761245.3.579.2.7 32 Social History Date Type Detail Facility Start: 09-20-2020 End: 07-10-2022 Never smoked tobacco (finding) [facility] Sex Assigned At Female [facility] Start: 08-23-2021 End: 07-10-2022 Tobacco use and exposure Smokeless tobacco non-user [facility] Start: 2000 Sex Assigned At Not on file [facility] Start: 07-18-2021 End: 07-17-2022 Exposure to SARS-CoV-2 (event) Not sure [facility] Start: 07-10-2022 End: 07-04-2023 Alcohol intake Lifetime non-drinker (finding) [facility] Start: 07-26-2022 End: 09-20-2022 History of Social function [facility] Start: 07-26-2022 End: 09-20-2022 Tobacco use panel [facility] Adult Depression Screening Assessment 3 [facility] Tobacco smoking status NHIS Tobacco smoking consumption unknown [facility] NEGATED: Highlighted rowStart: NINF History of tobacco use Passive smoker [facility] Functional Status Date Assessment Result Facility 07-07-2022 Functional Status Maintained, Less than 8 hours [facility] 04-12-2022 Functional Status ID band on, Allergy Band on, Call device within reach, Bed in low position, Wheels locked, Visitor at bedside [facility] 09-08-2021 Functional Status [facility] 09-08-2021 Functional Status [facility] Mental Status Date Assessment Result Facility 07-07-2022 Mental Status Oriented x 4 [facility] 04-12-2022 Mental Status Oriented x 4 [facility] 09-08-2021 Mental Status [facility] 09-08-2021 Mental Status [facility] Clinical Notes 05-04-2021 to 07-04-2023 Meño Calvin MD - 07/04/2023 2:15 PM ESTTelephone Encounter - Kamla Hdez - 06/26/2023 3:05 PM Yaa Marte DDS - 06/15/2023 1:16 PM ESTPatient Instructions Note Date & Type Note Facility 07-04-2023 Note HNO ID: [id number] Author: MEÑO CALVIN MD Service: ? Author Type: Anesthesiologist Type: Progress Notes Filed: 07/05/2023 07:44 Note Text: This note was created using [employer]chn[employer]. Subjective Tina Sy is a 23 year old female. The patient primarily being seen for back pain Patient was last seen on: 04/02/23 At that time, the treatment plan was: see notes Current Meds: none Efficacy: Side effects: TENS unit: yes How often used: uses it very rarely Benefit: doesn't help much Physical Therapy: last year Last UDS: 04/02/23 Last injection: none OARRS reviewed INTAKE PAIN ASSESSMENT 06/03/2023 07/04/2023 Are you having pain associated with your visit today? Yes, Provider notified Yes, Provider notified Pain Scales - Verbal (Numeric Rating or Visual Analog Scale) Pain Level 9 7 Pain Location Back Back Description Numbness;Radiating;Stabbing;Stif fness;Throbbing;Tightness Numbness;Stabbing;Throbbing;Tigh tness Duration Amount of Time 3 - Duration Units Months - Frequency Continuous Continuous Intervention/Comfort measure Other: See comment - Comments Nothing works Nothing is helping the pain Pain Assessment - - HPI Records from Dr. Kenney and lumbar spine MRI were reviewed. The patient was recently started on gabapentin by her primary care physician and it has helped her a bit. She has tried a compounded cream and tizanidine which did not give her much relief. Prescription drug monitoring report and last drug screen were both consistent and unremarkable. Review of Systems Musculoskeletal: Positive for back pain, joint pain, joint swelling, numbness, tingling, muscle cramps, muscle weakness, stiffness Psychiatric/Behavioral: Positive for anxiety Objective BP 120/77 (BP Site: Left Arm, BP Position: Sitting, BP Cuff Size: Large Adult) Pulse (!) 52 Temp 36.8 ?C (98.2 ?F) (Temporal) Resp 20 Ht 175.3 cm (5' 9 ) Wt 47.6 kg (105 lb) LMP 09/04/2022 SpO2 92% BMI 15.51 kg/m? Physical Exam Vitals and nursing note reviewed. Constitutional: General: She is not in acute distress. Appearance: Normal appearance. She is normal weight. HENT: Head: Normocephalic and atraumatic. Right Ear: External ear normal. Left Ear: External ear normal. Nose: Nose normal. Eyes: General: No scleral icterus. Extraocular Movements: Extraocular movements intact. Conjunctiva/sclera: Conjunctivae normal. Musculoskeletal: Comments: Patient walks with a normal gait. There is increased pain on range of motion of the lumbar spine on all directions. Lumbosacral paraspinal muscle spasm and tenderness was present. Skin: General: Skin is warm and dry. Neurological: Mental Status: She is alert and oriented to person, place, and time. Psychiatric: Mood and Affect: Mood normal. Behavior: Behavior normal. Thought Content: Thought content normal. Judgment: Judgment normal. Assessment and Plan ASSESSMENT/PLAN: 1. Chronic pain syndrome - ICD9: 338.4, ICD10: G89.4 (primary diagnosis) 2. Chronic low back pain with sciatica, sciatica laterality unspecified, unspecified back pain laterality - ICD9: 724.2, 724.3, 338.29, ICD10: M54.40, G89.29 3. 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 Myofascial pain syndrome - ICD9: 729.1, ICD10: M79.18 PLAN: Patient was reassured that her pain is most likely musculoskeletal in nature. She will continue with gabapentin. She will be started on cyclobenzaprine as needed for muscle spasm. The patient was encouraged to use her TENS unit. Continue with core strengthening and range of motion exercises. Follow-up in office as needed. 30 minutes spent for chronic pain management distinct from evaluation and management Two or more stable chronic illness and prescription medication management This document was transcribed using a voice recognition software and may contain minor errors. Meño Calvin MD [facility] 07-04-2023 History of Present illness Narrative This note was created using [employer]. Subjective Serenity Colby Sy is a 23 year old female. The patient primarily being seen for back pain Patient was last seen on: 04/02/23 At that time, the treatment plan was: see notes Current Meds: none Efficacy: Side effects: TENS unit: yes How often used: uses it very rarely Benefit: doesn't help much Physical Therapy: last year Last UDS: 04/02/23 Last injection: none OARRS reviewed INTAKE PAIN ASSESSMENT 06/03/2023 07/04/2023 Are you having pain associated with your visit today? Yes, Provider notified Yes, Provider notified Pain Scales - Verbal (Numeric Rating or Visual Analog Scale) Pain Level 9 7 Pain Location Back Back Description Numbness;Radiating;Stabbing;Stif fness;Throbbing;Tightness Numbness;Stabbing;Throbbing;Tigh tness Duration Amount of Time 3 - Duration Units Months - Frequency Continuous Continuous Intervention/Comfort measure Other: See comment - Comments Nothing works Nothing is helping the pain Pain Assessment - - HPI Records from Dr. Kenney and lumbar spine MRI were reviewed. The patient was recently started on gabapentin by her primary care physician and it has helped her a bit. She has tried a compounded cream and tizanidine which did not give her much relief. Prescription drug monitoring report and last drug screen were both consistent and unremarkable. Review of Systems Musculoskeletal: Positive for back pain, joint pain, joint swelling, numbness, tingling, muscle cramps, muscle weakness, stiffness Psychiatric/Behavioral: Positive for anxiety Objective BP 120/77 (BP Site: Left Arm, BP Position: Sitting, BP Cuff Size: Large Adult) Pulse (!) 52 Temp 36.8 C (98.2 F) (Temporal) Resp 20 Ht 175.3 cm (5' 9 ) Wt 47.6 kg (105 lb) LMP 09/04/2022 SpO2 92% BMI 15.51 kg/m Physical Exam Vitals and nursing note reviewed. Constitutional: General: She is not in acute distress. Appearance: Normal appearance. She is normal weight. HENT: Head: Normocephalic and atraumatic. Right Ear: External ear normal. Left Ear: External ear normal. Nose: Nose normal. Eyes: General: No scleral icterus. Extraocular Movements: Extraocular movements intact. Conjunctiva/sclera: Conjunctivae normal. Musculoskeletal: Comments: Patient walks with a normal gait. There is increased pain on range of motion of the lumbar spine on all directions. Lumbosacral paraspinal muscle spasm and tenderness was present. Skin: General: Skin is warm and dry. Neurological: Mental Status: She is alert and oriented to person, place, and time. Psychiatric: Mood and Affect: Mood normal. Behavior: Behavior normal. Thought Content: Thought content normal. Judgment: Judgment normal. Assessment and Plan ASSESSMENT/PLAN: 1. Chronic pain syndrome - ICD9: 338.4, ICD10: G89.4 (primary diagnosis) 2. Chronic low back pain with sciatica, sciatica laterality unspecified, unspecified back pain laterality - ICD9: 724.2, 724.3, 338.29, ICD10: M54.40, G89.29 3. 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 Myofascial pain syndrome - ICD9: 729.1, ICD10: M79.18 PLAN: Patient was reassured that her pain is most likely musculoskeletal in nature. She will continue with gabapentin. She will be started on cyclobenzaprine as needed for muscle spasm. The patient was encouraged to use her TENS unit. Continue with core strengthening and range of motion exercises. Follow-up in office as needed. 30 minutes spent for chronic pain management distinct from evaluation and management Two or more stable chronic illness and prescription medication management This document was transcribed using a voice recognition software and may contain minor errors. Meño Calvin MD documented in this encounter [facility] 06-26-2023 Miscellaneous Notes Patient last seen 05/14/2023. documented in this encounter [facility] 06-15-2023 History of Present illness Narrative ----- Thursday, June 15, 2023 at 3:43:53 PM ----- ----- Provider: Resident Fuad -- Clinic: [facility] ----- INITIAL/COMPREHENSIVE EXAM Patient presents for an Initial Examination. Reviewed patient's medical history. Patient has a history of: gen anxiety disorder, GERD, ADHD, ehler-danlos syndrome, N/C per pt.. No contraindications, patient is ready for treatment. Patient's chief complaint: Comp Exam Pain Scale: 0/10 Radiographs taken today were: Panorex, 4 BWs and 2 PAs Clinical Examination reveals: Decay and Gingivitis Soft tissue evaluation: Within Normal Limits TMJ evaluation: Completed current status of dentition on the charting. Went over needs and treatment plan options with the patient. OHI were discussed with the patient. Written Instructions/AVS were also handed to the patient. Pt Concern: Full Exam was successfully done. Patient consented to the treatment plan. PRIOR: Prepared and filled for upper and lower partial denture NOTE: #11; lingual subgingival caries #14- lingual subgingival caries patient informed that both these teeth may need extraction. patient requesting to save #11,#14 patient requested treatment under iv sedation treatment request sent today. PSE request on epic done Next Visit: treatment under iv sedation. ----- Signed on Thursday, June 15, 2023 at 4:06:17 PM ----- ----- Provider: [id number] Swartz DDS -- Clinic: [facility] ----- documented in this encounter [facility] 05-28-2023 Note Received referral. C carlosd pt to have consult. Pt has been scheduled. Informed pt to bring [facility] card and [facility] Tele[facility] encounter Note Received referral. Called pt to have consult. Pt has been scheduled. [facility] Miscellaneous Notes Received referral. Called pt to have consult. Pt has been scheduled. Informed pt to bring ins card and ID documented in this encounter [facility] 05-14-2023 Note HNO ID: [id number] Author: AKILA POTTS PA-C Service: ? Author Type: Physician Minibus Driver Type: Progress Notes Filed: 05/14/2023 12:11 Note Text: Outpatient Headache Clinic - Procedure Note Accompanied by: Mother Primary Problem List: ACTIVE PROBLEM LIST Chronic Migraine Without Aura, With Intractable Migraine, So Stated, With Status Migrainosus Generalized Anxiety Disorder Gerd (Gastroesophageal Reflux Disease) Add (Attention Deficit Disorder) Pots (Postural Orthostatic Tachycardia Syndrome) Seizure-Like Activity (Hcc) Myofascial Pain Syndrome Chronic Back Pain Chronic Pain Syndrome Ehler's-Danlos Syndrome Encounter for Long-Term (Current) Drug Use Anterior Displacement of TMJ Meniscus Bilateral Temporomandibular Joint Pain Myofascial Pain With Referred Pain Chief Complaint: Injections Interval Headache History: Tina Sy is a 23 year old year old female, with a history of chronic fatigue, colloid goiter, EDS, GERD, TMJ, POTS, ADD, chronic migraine, hepatic steatosis, hyperthyroidism, insomnia and anxiety following up today for nerve blocks per Jorge Torres CNP for status migrainosus. She recently had prednisone. Indication: Status migrainosus (primary encounter diagnosis) Procedure Note: Greater Occipital Nerve Block The risks, benefits and anticipated outcomes of the procedure, the risks and benefits of the alternatives to the procedure, and the roles and tasks of the personnel to be involved, were discussed with the patient, and the patient consents to the procedure and agrees to proceed. Electronic Informed consent signed. UNIVERSAL PROTOCOL / SAFETY CHECKLIST Procedure to be Performed: Bilateral Greater Occipital Nerve Block Sign In: A Moment of CARE was completed. Personnel directly involved with the procedure wore the appropriate PPE (Personal Protective Equipment). No special equipment needed. Patient/Surrogate Stated/Verified: PATIENT VERIFIED(optional for EMERGENT procedures): Patient name, Date of , Relevant allergies and The intended procedure Time Out Communication: Intended patient and procedure match the source documents. Consent documented and matches the intended procedure. No relevant labs, photos, and/or imaging studies were applicable for review. Correct side/site marked and visible. Medications required for procedure verified. No fire risk assessment and interventions applicable. No implant(s) inserted. Sign Out: SIGN OUT (optional for EMERGENT procedures): No specimen collected. All instruments, equipment, possible retained foreign bodies accounted for. Post-procedure follow-up management communicated and Plan of Care Visit completed when applicable. Akila Potts PA-C 6 cc 0.5% Ropivacaine and no steroid were prepared in two 3cc syringes. 3cc were injected into each of the Greater Occipital Nerves. 0cc were wasted. The occipital nerve(s) was injected 3cm caudal and 1.5 cm lateral to the inion where the main trunk of the occipital nerve penetrates the semispinalis muscle. The needle was placed perpendicular and the needle advanced 1.5 cm. After aspiration to ensure no obstruction or presence of blood, the area was injected. The needle was repositioned in a fan-like manner and the entire area was injected. The patient was told to use heat if there was discomfort later in the day. Pre injection pain 8/10 Post injection pain 5/10 Patient tolerated the procedure well. Akila Potts PA-C VS: BP 118/81 Pulse 120 Resp 14 Wt 48.5 kg (107 lb) LMP 09/04/2022 BMI 15.80 kg/m? PAST MEDICAL HISTORY Diagnosis Date ADD (attention deficit disorder) Anxiety Autonomic dysfunction Back pain Chronic fatigue syndrome Colloid goiter Ehler's-Danlos syndrome GERD (gastroesophageal reflux disease) Hepatic steatosis Hyperthyroidism Hypotension Insomnia Left hand paresthesia Otalgia of left ear Plantar fasciitis POTS (postural orthostatic tachycardia syndrome) TMJ syndrome Vitamin B12 deficiency PAST SURGICAL HISTORY Procedure Laterality Date ANKLE SURGERY HX Right PAST SURGICAL HISTORY OF wisdom teeth removed ALLERGIES Allergen Reactions Lisha [Fexofenadi* Angioedema Amoxicillin Rash Beeswax Rash Contact rash from hot honey Penicillins Rash Current Medications: chlorzoxazone (PARAFON FORTE DSC) 500 mg tablet Take 1 tablet by mouth four times daily. Take 1 tablet (500 mg) four times a day until headache free for 24 hours or take for 5 days. May cause drowsiness. Please do not drive or operate machinery while taking this medication rimegepant (NURTEC ODT) 75 mg disintegrating tablet Take 1 dissolvable tablet by mouth at migraine onset. Take only 1 tablet per 24 hours. amphetamine-dextroamphetamine XR (ADDERALL XR) 15 mg capsule Take by mouth as directed. sodium fluoride (PREVIDENT 5000 PLUS) 1.1 % dental cream [place] three times day aft (more content not included)... [facility] 05-11-2023 Note HNO ID: [id number] Author: JORGE TORRES APRN.BLINDSTITCH HEMMER Service: ? Author Type: Nurse Practitioner Type: Progress Notes Filed: 05/11/2023 08:28 Note Text: Headache Center - Follow up Virtual Visit Patient's headache clinic evaluation was scheduled as a virtual visit using the following platform Zoom Tina Sy was identified by name and and consented to the video evaluation and its limitations. Based on this evaluation it may be necessary for them to schedule a follow up evaluation with me or other neurologists for formal physical examination and if necessary, other studies. I have communicated my name and active licensure. The patient's identity and physical location were verified at the time of this visit. Either the patient or their legal billing representative has been informed of the risks and benefits of -- and alternatives to -- treatment through a remote evaluation and consents to proceed with the evaluation remotely. Accompanied by: Self Primary Problem List: ACTIVE PROBLEM LIST Chronic Migraine Without Aura, With Intractable Migraine, So Stated, With Status Migrainosus Generalized Anxiety Disorder Gerd (Gastroesophageal Reflux Disease) Add (Attention Deficit Disorder) Pots (Postural Orthostatic Tachycardia Syndrome) Seizure-Like Activity (Hcc) Myofascial Pain Syndrome Chronic Back Pain Chronic Pain Syndrome Ehler's-Danlos Syndrome Encounter for Long-Term (Current) Drug Use Anterior Displacement of TMJ Meniscus Bilateral Temporomandibular Joint Pain Myofascial Pain With Referred Pain Chief Complaint: status migrainosus LV: 04/25/23 Impression and Plan from last visit: Chronic migraine without aura, intractable, without status migrainosus (primary encounter diagnosis) Status migrainosus Tina Sy is a 23 year old year old female, with a history of POTS, ANNA, ADD, chronic migraine who presents with status migrainosus. Her neurological examination is essentially normal at this visit. Will trial parafon forte bridge for her current headache cycle, likely exacerbated by her TMJ issues for which she is currently planning to have surgery for. She does not have an effective rescue medication, will trial Nurtec 75 mg ODT as needed. Medication dosing and potential side effects discussed with patient. Patient verbalized understanding and agreed to treatment plan. PLAN: Cycle breaker: Parafon Forte bridge Prevention: Continue Vyepti 300 mg quarterly Rescue: Nurtec 75 mg ODT trial Interval Headache History: Tina Sy is a 23 year old year old female, with a history of TMJ, POTS, ANNA, ADD, chronic migraine following up today virtually for status migrainosus. Since the last visit, the patient states that her headaches have not changed. She was prescribed parafon forte last visit, was not helpful. Headaches remain daily, also dealing with significant TMJ issues and POTS as well, heart rate has been in 150's. She was previously on propranolol with neuromuscular but this made her headaches worse and was discontinued. She was given prednisone last week by another provider, this was not effective. She is still waiting on [facility] approval. Had MRI in January: MRI TMJ shows significant degenerative changes in the TMJ/ anterior displacement with perforation of the disc bilaterally. Joint effusion bilaterally. Recently Dr. Bailey 04/10/23: I will discuss case with Dr. Joaquin for interim occlusal guards s/p arthrocentesis until general dentistry is completed. Extraction #8 #9 (will discuss extraction of #2) with Dr. Joaquin TMD management practices provided written and verbal instructions Discussed referral to [facility] for general dentistry - patient states she requires sedation. Consider: [facility] referral Headache 1 Location: right, left and temporal Quality/Description: pressure, throbbing and squeezing Associated Symptoms: Photophobia: yes Phonophobia: yes Nausea: yes Number of migraine headache days/month: 14 Number of headache free days/month: 0 Days missed from work or school in the last month: 0 days Preventative: Vyepti 300 mg q3 months Abortive: aleve Anti-Convulsant Topiramate (Topamax, Trokendi XL, Qudexy) Anti-Depressant and Antipsychotic Amitriptyline (Elavil) Citalopram (Celexa) Duloxetine (Cymbalta) unsure- never refilled it unsure unsure- wasn't working? Nortriptyline (Pamelor, Aventyl) Anti-Migraine Naratriptan (Amerge) Sumatriptan (Imitrex, Sumavel) Blood Pressure Nadolol (Corgard) MABs Eptinezumab (Vyepti) PAST MEDICAL HISTORY Diagnosis Date ADD (attention deficit disorder) Anxiety Autonomic dysfunction Back pain Chronic fatigue syndrome Colloid goiter Ehler's-Danlos syndrome GERD (gastroesophageal reflux disease) Hepatic steatosis Hyperthyroidism Hypotension Insomnia Left hand paresthesia Otalgia of left ear Plantar fasciitis POTS (postural orthos (more content not included)... [facility] 04-25-2023 Note HNO ID: [id number] Author: Jorge Torres APRN.BLINDSTITCH HEMMER Service: ? Author Type: Nurse Practitioner Type: Progress Notes Filed: 04/25/2023 9:53 AM Note Text: Headache Center - Follow up Virtual Visit Patient's headache clinic evaluation was scheduled as a virtual visit using the following platform Zoom Tina Sy was identified by name and and consented to the video evaluation and its limitations. Based on this evaluation it may be necessary for them to schedule a follow up evaluation with me or other neurologists for formal physical examination and if necessary, other studies. I have communicated my name and active licensure. The patient's identity and physical location were verified at the time of this visit. Either the patient or their legal billing representative has been informed of the risks and benefits of -- and alternatives to -- treatment through a remote evaluation and consents to proceed with the evaluation remotely. Accompanied by: Self Primary Problem List: ACTIVE PROBLEM LIST Chronic Migraine Without Aura, With Intractable Migraine, So Stated, With Status Migrainosus Generalized Anxiety Disorder Gerd (Gastroesophageal Reflux Disease) Add (Attention Deficit Disorder) Pots (Postural Orthostatic Tachycardia Syndrome) Seizure-Like Activity (Hcc) Myofascial Pain Syndrome Chronic Back Pain Chronic Pain Syndrome Ehler's-Danlos Syndrome Encounter for Long-Term (Current) Drug Use Anterior Displacement of TMJ Meniscus Bilateral Temporomandibular Joint Pain Myofascial Pain With Referred Pain Chief Complaint: headache LV: 01/02/23 Jorge Torres APRN.BLINDSTITCH HEMMER Impression and Plan from last visit: Chronic migraine without aura, intractable, without status migrainosus (primary encounter diagnosis) Tina Sy is a 22 year old year old female, with a history of POTS, ANNA, and ADD who presents with chronic migraines. Her neurological examination is essentially normal at this visit. She reports an increase in migraine frequency in recent weeks, may be related to her current TMJ issues (seeing dentistry) which may require surgery pending her scheduled MRI. She has had benefit with Vyepti, currently scheduled for next infusion tomorrow. We will increase her dose to 300 mg quarterly in hopes of better efficacy. She denies any red flag symptoms during today's virtual visit, if occular symptoms do not improve we will need in person exam or referral to neuro-ophthalmology. Patient verbalized understanding and agreed to treatment plan. PLAN: -increase Vyepti to 300 mg -Follow up as scheduled Interval Headache History: Tina Sy is a 23 year old year old female, with a history of POTS, ANNA, ADD, chronic migraine following up today virtually for status migrainosus. Since the last visit, the patient states that her headaches are slightly worse. Daily headache for last 3 days that she cannot break, has tried her usual abortive medications like Aleve, Advil and other OTC medications. No known trigger that she can think of, recently had first 300 mg dose of Vyepti at the end of March. Propranolol made her headaches worse so this was discontinued by Neuromuscular Continues to have trouble with TMJ Had MRI in January: MRI TMJ shows significant degenerative changes in the TMJ/ anterior displacement with perforation of the disc bilaterally. Joint effusion bilaterally. Recently Dr. Bailey 04/10/23: I will discuss case with Dr. Joaquin for interim occlusal guards s/p arthrocentesis until general dentistry is completed. Extraction #8 #9 (will discuss extraction of #2) with Dr. Joaquin TMD management practices provided written and verbal instructions Discussed referral to [facility] for general dentistry - patient states she requires sedation. Consider: [facility] referral Headache 1 Number of migraine headache days/month: 10 Number of headache free days/month: 0 Days missed from work or school in the last month: 0 days Preventative: Vyepti 300 mg q3 months Abortive: aleve Medications effective? no # of doses of abortive medications per month: 5 Anti-Convulsant Topiramate (Topamax, Trokendi XL, Qudexy) Anti-Depressant and Antipsychotic Amitriptyline (Elavil) Citalopram (Celexa) Duloxetine (Cymbalta) unsure- never refilled it unsure unsure- wasn't working? Nortriptyline (Pamelor, Aventyl) Anti-Migraine Naratriptan (Amerge) Sumatriptan (Imitrex, Sumavel) Blood Pressure Nadolol (Corgard) MABs Eptinezumab (Vyepti) PAST MEDICAL HISTORY Diagnosis Date ADD (attention deficit disorder) Anxiety Autonomic dysfunction Back pain Chronic fatigue syndrome Colloid goiter Ehler's-Danlos syndrome GERD (gastroesophageal reflux disease) Hepatic steatosis Hyperthyroidism Hypotension Insomnia Left hand paresthesia Otalgia of left ear Plantar fasciitis POTS (postural orthostatic tachycardia syndrome) (more content not included)... [facility] 04-25-2023 Instructions Jorge Torres APRN.CNP - 04/25/2023 9:46 AM EST Parafon Forte - 500 mg Take 1 tablet (500 mg) four times a day until headache free for 24 hours or take for 5 days. This is a muscle relaxer. Do not take any other muscle relaxers or opioids while taking this medication. This medication may make you drowsy. Please do not drive or operate machinery while taking this medication. Nurtec Info: Take 1 tab of Nurtec ODT 75 mg at earliest sign of migraine. Nurtec will disolve on or underneath your tongue, may repeat once every 24 hours as needed. In people with migraine, there are elevated levels of a protein called calcitonin gene-related peptide (CGRP) in the brain. These proteins attach to and activate receptors in the brain, which is believed to cause migraine attacks. Nurtec is a Calcitonin Gene-Related Peptide (CGRP) Receptor Antagonist. Nurtec ODT works by blocking CGRP receptors from being activated. This can help to prevent migraines. And during an attack, it can help stop the pain signals, swelling of blood vessels, and inflammation that occurs in the brain. Nurtec is generally well-tolerated. Let us know if you have any liver or kidney problems. Some side effects may include: nausea, GI upset/indigestion. Find out more information and get the Savings Card: [email or web address].nurtec.com/ documented in this encounter [facility] 04-25-2023 History of Present illness Narrative Headache Center - Follow up Virtual Visit Patient's headache clinic evaluation was scheduled as a virtual visit using the following platform Gabbie Bowman Yossi was identified by name and and consented to the video evaluation and its limitations. Based on this evaluation it may be necessary for them to schedule a follow up evaluation with me or other neurologists for formal physical examination and if necessary, other studies. I have communicated my name and active licensure. The patient's identity and physical location were verified at the time of this visit. Either the patient or their legal billing representative has been informed of the risks and benefits of -- and alternatives to -- treatment through a remote evaluation and consents to proceed with the evaluation remotely. Accompanied by: Self Primary Problem List: ACTIVE PROBLEM LIST Chronic Migraine Without Aura, With Intractable Migraine, So Stated, With Status Migrainosus Generalized Anxiety Disorder Gerd (Gastroesophageal Reflux Disease) Add (Attention Deficit Disorder) Pots (Postural Orthostatic Tachycardia Syndrome) Seizure-Like Activity (Hcc) Myofascial Pain Syndrome Chronic Back Pain Chronic Pain Syndrome Ehler's-Danlos Syndrome Encounter for Long-Term (Current) Drug Use Anterior Displacement of TMJ Meniscus Bilateral Temporomandibular Joint Pain Myofascial Pain With Referred Pain Chief Complaint: headache LV: 01/02/23 Jorge Torres APRN.BLINDSTITCH HEMMER Impression and Plan from last visit: Chronic migraine without aura, intractable, without status migrainosus (primary encounter diagnosis) Tina Sy is a 22 year old year old female, with a history of POTS, ANNA, and ADD who presents with chronic migraines. Her neurological examination is essentially normal at this visit. She reports an increase in migraine frequency in recent weeks, may be related to her current TMJ issues (seeing dentistry) which may require surgery pending her scheduled MRI. She has had benefit with Vyepti, currently scheduled for next infusion tomorrow. We will increase her dose to 300 mg quarterly in hopes of better efficacy. She denies any red flag symptoms during today's virtual visit, if occular symptoms do not improve we will need in person exam or referral to neuro-ophthalmology. Patient verbalized understanding and agreed to treatment plan. PLAN: -increase Vyepti to 300 mg -Follow up as scheduled Interval Headache History: Tina Sy is a 23 year old year old female, with a history of POTS, ANNA, ADD, chronic migraine following up today virtually for status migrainosus. Since the last visit, the patient states that her headaches are slightly worse. Daily headache for last 3 days that she cannot break, has tried her usual abortive medications like Aleve, Advil and other OTC medications. No known trigger that she can think of, recently had first 300 mg dose of Vyepti at the end of March. Propranolol made her headaches worse so this was discontinued by Neuromuscular Continues to have trouble with TMJ Had MRI in January: MRI TMJ shows significant degenerative changes in the TMJ/ anterior displacement with perforation of the disc bilaterally. Joint effusion bilaterally. Recently Dr. Bailey 04/10/23: I will discuss case with Dr. Joaquin for interim occlusal guards s/p arthrocentesis until general dentistry is completed. Extraction #8 #9 (will discuss extraction of #2) with Dr. Joaquin TMD management practices provided written and verbal instructions Discussed referral to [facility] for general dentistry - patient states she requires sedation. Consider: [facility] referral Headache 1 Number of migraine headache days/month: 10 Number of headache free days/month: 0 Days missed from work or school in the last month: 0 days Preventative: Vyepti 300 mg q3 months Abortive: aleve Medications effective? no # of doses of abortive medications per month: 5 Anti-Convulsant Topiramate (Topamax, Trokendi XL, Qudexy) Anti-Depressant and Antipsychotic Amitriptyline (Elavil) Citalopram (Celexa) Duloxetine (Cymbalta) unsure- never refilled it unsure unsure- wasn't working? Nortriptyline (Pamelor, Aventyl) Anti-Migraine Naratriptan (Amerge) Sumatriptan (Imitrex, Sumavel) Blood Pressure Nadolol (Corgard) MABs Eptinezumab (Vyepti) PAST MEDICAL HISTORY Diagnosis Date ADD (attention deficit disorder) Anxiety Autonomic dysfunction Back pain Chronic fatigue syndrome Colloid goiter Ehler's-Danlos syndrome GERD (gastroesophageal reflux disease) Hepatic steatosis Hyperthyroidism Hypotension Insomnia Left hand paresthesia Otalgia of left ear Plantar fasciitis POTS (postural orthostatic tachycardia syndrome) TMJ syndrome Vitamin B12 deficiency PAST SURGICAL HISTORY Procedure Laterality Date ANKLE SURGERY HX Right PAST SURGICAL HISTORY OF wisdom teeth removed ALLERGIES Allergen Reactions Lisha [Fexofenadi* Angioedema Amoxicillin Rash Beeswax Rash Contact rash from hot honey Penicillins Rash Current Medications: chlorzoxazone (PARAFON FORTE DSC) 500 mg tablet Take 1 tablet by mouth four times daily. Take 1 tablet (500 mg) four times a day until headache free for 24 hours or take for 5 days. May cause drowsiness. Please do not drive or operate machinery while taking this medication rimegepant (NURTEC ODT) 75 mg disintegrating tablet Take 1 dissolvable tablet by mouth at migraine onset. Take only 1 tablet per 24 hours. amphetamine-dextroamphetamine XR (ADDERALL XR) 15 mg capsule Take by mouth as directed. sodium fluoride (PREVIDENT 5000 PLUS) 1.1 % dental cream [place] three times day after meals; expectorate. Do not eat or drink for 30 minutes following. epinephrine (EPIPEN INJECTION) Inject intramuscularly. medroxyPROGESTERone (DEPO-PROVERA) 150 mg/mL injection Inject 150 mg intramuscularly every 12 weeks. amphetamine-dextroamphetamine XR (ADDERALL XR) 15 mg capsule Take 15 mg by mouth every morning. cyanocobalamin, vitamin B-12, (VITAMIN B-12 INJECTION) 1,000 mg by INJECTION(UNSPECIFIED PARENTERAL ROUTES) route once every month. tiZANidine HCl (ZANAFLEX) 4 mg capsule Take 4 mg by mouth three times daily as needed. ivabradine (CORLANOR) 5 mg tablet Take 2.5 mg by mouth twice daily. famotidine (PEPCID ORAL) Take by mouth. EPINEPHrine (EPIPEN) 0.3 mg/0.3 mL auto-injector 0.3 mg. albuterol HFA (PROVENTIL HFA, VENTOLIN HFA) 90 mcg/actuation inhaler Inhale 2 Puffs as instructed as needed for wheezing/shortness of breath. I have reviewed the Adolfo Status Assessment responses and discussed these with the patient: yes Jorge Torres APRN.[employer] HEADACHE SCORES: Headache Questions 03/27/2022 01/01/2023 04/24/2023 ID Migraine Screener: - - - ER visits in the last year: - - - ER visits since last office visit: 0 0 0 Hospital stays in the last year: - - - Hospital stays since last office visit 0 0 0 Limited ADLs in the last month: 20 10 10 Days missed from work or school in the last month: 0 0 0 Days headache pain free in the last month: 0 4 0 Days per month with ALL of the following symptoms - decreased productivity, light sensitivity and nausea: 15 10 10 Initial improvement of headache after botox injection at last visit: Not applicable, I did not have a botox injection at my last visit Not applicable, I did not have a botox injection at my last visit Not applicable, I did not have a botox injection at my last visit PRN medication usage in the last month: 10 0 5 Patient impression of improvement since last visit: Much worse Very much worse Very much worse HIT-6 03/27/2022 01/01/2023 04/24/2023 HIT-6 67 (Severe impact) 73 (Severe impact) 73 (Severe impact) ANNA - 2/7 SCORES 12/22/2022 01/01/2023 04/24/2023 ANNA-2 Score 1 0 0 ANNA-7 Score 3 - - Migraine Specific QOL - Higher scores indicate better HRQL 03/27/2022 01/01/2023 04/24/2023 Role Function-Restrictive Transformed Score (range: 0-100) 31.43 14.29 28.57 Role Function-Preventive Transformed Score (range: 0-100) 35 20 25 Emotional Function Transformed Score (range: 0-100) 93.33 100 80 PHQ-9 12/22/2022 01/01/2023 04/24/2023 Score 10 11 8 Studies to Review: No Labs to Review: No New Health Issues: No New Family History: No Review of Systems: Review of system: unchanged from the previous visit (sleep patterns, mood, energy, appetite, stress, exercising). Physical Examination: Vital Signs: [facility] 08/05/2021 General: well appearing, in no acute distress, alert Pain Behaviors: no pain behaviors observed Neurological: Mental Status: Alert and oriented to person, place and time. Affect is normal and appropriate. Speech is spontaneous and fluent without dysarthria and normal in rate, volume and articulation. Short and care home memory, cognition and general fund of knowledge are good. Attention span and concentration are excellent. HEENT: Head is normocephalic and features were symmetric. Musculoskeletal: Patient able to sit up right in chair for entirety of visit. Cranial Nerves: III, IV, -EOMI: full. VII-face is symmetric without evidence of weakness. VIII-hearing intact. IMPRESSION: Chronic migraine without aura, intractable, without status migrainosus (primary encounter diagnosis) Status migrainosus Serenity Colby Sy is a 23 year old year old female, with a history of POTS, ANNA, ADD, chronic migraine who presents with status migrainosus. Her neurological examination is essentially normal at this visit. Will trial parafon forte bridge for her current headache cycle, likely exacerbated by her TMJ issues for which she is currently planning to have surgery for. She does not have an effective rescue medication, will trial Nurtec 75 mg ODT as needed. Medication dosing and potential side effects discussed with patient. Patient verbalized understanding and agreed to treatment plan. PLAN: Cycle breaker: Parafon Forte bridge Prevention: Continue Vyepti 300 mg quarterly Rescue: Nurtec 75 mg ODT trial Prior Authorization: Tina Sy has been previously approved for Calcitonin Gene Related Peptide Monoclonal Antibody (CGRP MAB) (Eptinezumab). The patient has demonstrated the following: Patient reduction in overall migraine days: Yes Patient reduction in moderate-severe migraine days: Yes Individual has obtained clinical benefit deemed significant by individual or prescriber: Yes Patient's quality of life and ability to perform ADLs has improved: Yes We suggest the patient continue treatment with CGRP MAB Eptinezumab. The following preventative medications have been tried for three or more months without benefit: Anti-Convulsant Topiramate (Topamax, Trokendi XL, Qudexy) Anti-Depressant and Antipsychotic Amitriptyline (Elavil) Citalopram (Celexa) Duloxetine (Cymbalta) unsure- never refilled it unsure unsure- wasn't working? Nortriptyline (Pamelor, Aventyl) Blood Pressure Nadolol (Corgard) MABs Eptinezumab (Vyepti) The following abortive medications have been tried but require high frequency use which can lead to Medication Overuse Headache: Anti-Migraine Naratriptan (Amerge) Sumatriptan (Imitrex, Sumavel) We will request a precertification for a Calcitonin Gene-Related Peptide Receptor Antagonist (GEPANT) Rimegepant for the rescue treatment of chronic migraine . This patient meets ICHD-3 criteria for treatment of migraine with a small molecule CGRP antagonist GEPANT. The FDA has approved GEPANTS for the treatment of migraine. Specifically, the patient has 10 headaches per month, lasting 4 or more hours/day associated with photophobia, phonophobia, nausea for three or more months. Medication overuse headache has been ruled out.Patient will not use with another GEPANT. The patient has tried and failed the following : The following preventative medications have been tried without benefit: Anti-Convulsant Topiramate (Topamax, Trokendi XL, Qudexy) Anti-Depressant and Antipsychotic Amitriptyline (Elavil) Citalopram (Celexa) Duloxetine (Cymbalta) unsure- never refilled it unsure unsure- wasn't working? Nortriptyline (Pamelor, Aventyl) Blood Pressure Nadolol (Corgard) MABs Eptinezumab (Vyepti) The following abortive medications have been tried but require high frequency use which can lead to Medication Overuse Headache: Anti-Migraine Naratriptan (Amerge) Sumatriptan (Imitrex, Sumavel) HEADACHE MANAGEMENT: (You are the primary guardian of your health and headache. Keep track of all medications: This includes the reason for use, side effects and benefits.) MEDICATION TREATMENT: Medications to Start Taking chlorzoxazone (PARAFON FORTE DSC) 500 mg tablet Take 1 tablet by mouth four times daily. Take 1 tablet (500 mg) four times a day until headache free for 24 hours or take for 5 days. May cause drowsiness. Please do not drive or operate machinery while taking this medication rimegepant (NURTEC ODT) 75 mg disintegrating tablet Take 1 dissolvable tablet by mouth at migraine onset. Take only 1 tablet per 24 hours. Discussed pathophysiology of headache. Discussed use of headache diary. Discussed triggers and lifestyle modifications including limiting caffeine consumption. Discussed treatment options, both abortive and preventive medications. Instructed patient about medications. Discussed medication overuse headache and to limit use of analgesics to less than 2 doses per week. Headache education was done. Discussed lifestyle modification including increased oral hydration, decreased caffeine, exercise and stress management. Discussed treatment options including preventive and acute medications, natural supplements, and infusion therapy. Discussed medication overuse headache and to limit use of acute treatments to no more than 2 days/week or 10 days/month. Discussed medication side effects, adverse reactions and drug interactions. Written educational materials and patient instructions outlining all of the above were given. RESEARCH: None at this time Follow-up: for IV infusion Level of Service: Virtual Visit 30 minutes Jorge Torres APRN.[facility] Headache Section [facility] April 25, 2023 documented in this encounter [facility] 04-11-2023 Miscellaneous Notes Spoke to pt about possible OR date 05/09/23. Pt speaking to mother 1st and will let us know. documented in this encounter [facility] 04-10-2023 Note HNO ID: [id number] Author: Lazara Bailey DDS Service: ? Author Type: Dentist Type: Progress Notes Filed: 04/10/2023 3:35 PM Note Text: Head and Neck [facility], Oral Surgery, AND Maxillofacial Prosthetics Date: April 10, 2023 Name: Tina Sy Tina Sy is a 23 year old year old referred by Dr. Ezequiel Joaquin. My findings and recommendations will be communicated to Dr. Joaquin by way of shared electronic medical record. Tina Sy appears to be alert, cooperative, and in no acute distress. She is on disability and does not work due to POTS. Patient is accompanied to this appointment by her mother. CHIEF COMPLAINT: Patient reports limited jaw opening/locking with onset in March 2022. Until then patient experienced bilateral TMJ popping which she could manipulate to full MROM which was present in high school. She has bilateral preauricular pain rated 9/10 today described as dull aching at rest and sharp pain in the preauricular area during attempted opening. Patient reports painful mastication and has to limit her chewing to soft foods. Patient has had limited dental work due to past experience of ineffective local anesthetic procedure stating I was unable to get numb . She is attempting to find a dentist who will provide sedation for general dentistry. She reports pain in tooth #8 and will have #8 #9 during arthrocentesis procedure. Patient had five sessions at [facility] PT for jaw and neck which did not help increase her MROM or decrease the pain. Review of symptoms: Headache: TTH - recent onset in temporal areas Migraines: Yes, managed by [facility] - Infusion therapy in December 2022 Dizziness: POTS- management by [facility] Tinnitus: Denies Otalgia: Yes, left ear pain ENT consulted- cleared for pathology/hearing loss TMJ clicking: history of popping TMJ locking: March 2022 Painful mastication: YES Dysphagia: Denies Cervicalgia: tightness - had PT for jaw and neck - does not do HEP Daytime clenching: Denies Grinding: Denies AMY: Denies PAST TREATMENT: Consultations: Dr. April GUTHRIE Neurology Physical therapy: [facility] for jaw and neck Imaging: MRI/TMJ's: reviewed in [facility] dated 01-22-23 Orthotics: None Orthodontics: Two phases: Palatal expanders age 11-12 1/2 Age 13-15 with chains from molars and rubber bands for Class II Pharmacotherapy: None - denies taking pain medications including Ultram TMJ surgery: None HISTORY OF TRAUMA: Non-contributory. Patient denies sports related injuries or MVA PAST SURGICAL HISTORY Procedure Laterality Date ANKLE SURGERY HX Right PAST SURGICAL HISTORY OF wisdom teeth removed PAST MEDICAL HISTORY Diagnosis Date ADD (attention deficit disorder) Anxiety Autonomic dysfunction Back pain Chronic fatigue syndrome Colloid goiter Ehler's-Danlos syndrome GERD (gastroesophageal reflux disease) Hepatic steatosis Hyperthyroidism Hypotension Insomnia Left hand paresthesia Otalgia of left ear Plantar fasciitis POTS (postural orthostatic tachycardia syndrome) TMJ syndrome Vitamin B12 deficiency Current Outpatient Medications Medication Sig amphetamine-dextroamphetamine XR (ADDERALL XR) 15 mg capsule Take by mouth as directed. epinephrine (EPIPEN INJECTION) Inject intramuscularly. medroxyPROGESTERone (DEPO-PROVERA) 150 mg/mL injection Inject 150 mg intramuscularly every 12 weeks. amphetamine-dextroamphetamine XR (ADDERALL XR) 15 mg capsule Take 15 mg by mouth every morning. cyanocobalamin, vitamin B-12, (VITAMIN B-12 INJECTION) 1,000 mg by INJECTION(UNSPECIFIED PARENTERAL ROUTES) route once every month. tiZANidine HCl (ZANAFLEX) 4 mg capsule Take 4 mg by mouth three times daily as needed. ivabradine (CORLANOR) 5 mg tablet Take 2.5 mg by mouth twice daily. famotidine (PEPCID ORAL) Take by mouth. EPINEPHrine (EPIPEN) 0.3 mg/0.3 mL auto-injector 0.3 mg. albuterol HFA (PROVENTIL HFA, VENTOLIN HFA) 90 mcg/actuation inhaler Inhale 2 Puffs as instructed as needed for wheezing/shortness of breath. No current facility-administered medications for this visit. CLINICAL EXAMINATION: Range of Motion: Patient can open to 25 mm. with deviation/deflection to the Right. . Patient can move to the right lateral 7 mm. And to the left lateral 5 mm. Protrusive is 7mm. Auscultation: Right TMJ: Medial pole: Moderate crepitus Opening translation: NA Lateral translation: Course crepitus Protrusion: Course crepitus Left TMJ: Medial pole: Moderate crepitus Opening translation: NA Lateral translation: Course crepitus Protrusion: Course crepitus Palpation: Right TMJ: Retrodiskal tissues: NA/10 VAS. Lateral Pole: 5/10 VAS Left TMJ: Retrodiskal tissues: NA/10 VAS. Lateral Pole: 8/10 VAS Cervical ROM: Right Tilt: 0% restriction Left Tilt: 0% restriction Right rotation: 0% restriction Left rotation: 0% restriction Extension: 0% re (more content not included)... [facility] 04-10-2023 History of Present illness Narrative Head and Neck [facility], Oral Surgery, & Maxillofacial Prosthetics Date: April 10, 2023 Name: Tina Sy Tina Sy is a 23 year old year old referred by Dr. Ezequiel Joaquin. My findings and recommendations will be communicated to Dr. Joaquin by way of shared electronic medical record. Tina Sy appears to be alert, cooperative, and in no acute distress. She is on disability and does not work due to POTS. Patient is accompanied to this appointment by her mother. CHIEF COMPLAINT: Patient reports limited jaw opening/locking with onset in March 2022. Until then patient experienced bilateral TMJ popping which she could manipulate to full MROM which was present in high school. She has bilateral preauricular pain rated 9/10 today described as dull aching at rest and sharp pain in the preauricular area during attempted opening. Patient reports painful mastication and has to limit her chewing to soft foods. Patient has had limited dental work due to past experience of ineffective local anesthetic procedure stating I was unable to get numb . She is attempting to find a dentist who will provide sedation for general dentistry. She reports pain in tooth #8 and will have #8 #9 during arthrocentesis procedure. Patient had five sessions at [facility] for jaw and neck which did not help increase her MROM or decrease the pain. Review of symptoms: Headache: TTH - recent onset in temporal areas Migraines: Yes, managed by [facility] - Infusion therapy in December 2022 Dizziness: POTS- management by Neurology Tinnitus: Denies Otalgia: Yes, left ear pain ENT consulted- cleared for pathology/hearing loss TMJ clicking: history of popping TMJ locking: March 2022 Painful mastication: YES Dysphagia: Denies Cervicalgia: tightness - had PT for jaw and neck - does not do HEP Daytime clenching: Denies Grinding: Denies AMY: Denies PAST TREATMENT: Consultations: Dr. April GUTHRIE Neurology Physical therapy: [facility] for jaw and neck Imaging: MRI/TMJ's: reviewed in [facility] dated 01-22-23 Orthotics: None Orthodontics: Two phases: Palatal expanders age 11-12 1/2 Age 13-15 with chains from molars and rubber bands for Class II Pharmacotherapy: None - denies taking pain medications including Ultram TMJ surgery: None HISTORY OF TRAUMA: Non-contributory. Patient denies sports related injuries or MVA PAST SURGICAL HISTORY Procedure Laterality Date ANKLE SURGERY HX Right PAST SURGICAL HISTORY OF wisdom teeth removed PAST MEDICAL HISTORY Diagnosis Date ADD (attention deficit disorder) Anxiety Autonomic dysfunction Back pain Chronic fatigue syndrome Colloid goiter Ehler's-Danlos syndrome GERD (gastroesophageal reflux disease) Hepatic steatosis Hyperthyroidism Hypotension Insomnia Left hand paresthesia Otalgia of left ear Plantar fasciitis POTS (postural orthostatic tachycardia syndrome) TMJ syndrome Vitamin B12 deficiency Current Outpatient Medications Medication Sig amphetamine-dextroamphetamine XR (ADDERALL XR) 15 mg capsule Take by mouth as directed. epinephrine (EPIPEN INJECTION) Inject intramuscularly. medroxyPROGESTERone (DEPO-PROVERA) 150 mg/mL injection Inject 150 mg intramuscularly every 12 weeks. amphetamine-dextroamphetamine XR (ADDERALL XR) 15 mg capsule Take 15 mg by mouth every morning. cyanocobalamin, vitamin B-12, (VITAMIN B-12 INJECTION) 1,000 mg by INJECTION(UNSPECIFIED PARENTERAL ROUTES) route once every month. tiZANidine HCl (ZANAFLEX) 4 mg capsule Take 4 mg by mouth three times daily as needed. ivabradine (CORLANOR) 5 mg tablet Take 2.5 mg by mouth twice daily. famotidine (PEPCID ORAL) Take by mouth. EPINEPHrine (EPIPEN) 0.3 mg/0.3 mL auto-injector 0.3 mg. albuterol HFA (PROVENTIL HFA, VENTOLIN HFA) 90 mcg/actuation inhaler Inhale 2 Puffs as instructed as needed for wheezing/shortness of breath. No current facility-administered medications for this visit. CLINICAL EXAMINATION: Range of Motion: Patient can open to 25 mm. with deviation/deflection to the Right. . Patient can move to the right lateral 7 mm. And to the left lateral 5 mm. Protrusive is 7mm. Auscultation: Right TMJ: Medial pole: Moderate crepitus Opening translation: NA Lateral translation: Course crepitus Protrusion: Course crepitus Left TMJ: Medial pole: Moderate crepitus Opening translation: NA Lateral translation: Course crepitus Protrusion: Course crepitus Palpation: Right TMJ: Retrodiskal tissues: NA/10 VAS. Lateral Pole: 5/10 VAS Left TMJ: Retrodiskal tissues: NA/10 VAS. Lateral Pole: 8/10 VAS Cervical ROM: Right Tilt: 0% restriction Left Tilt: 0% restriction Right rotation: 0% restriction Left rotation: 0% restriction Extension: 0% restriction Flexion: 0% restriction Postural Notes: Patient presents with forward head/ rounded shoulders. Sleeps on back due to pain in TMJ's with side sleeping MUSCULATURE NOTES: The following muscles exhibit a myofascial TrP response to palpation: Right Masseter, Left Masseter, Left Temporalis, and Left Medial Pterygoid. DENTITION NOTES: The IOE is WNL's. No soft tissue lesions, no lymphadenopathy. Normal tongue and palate movements. Normocephalic. No palpable salivary gland masses. CN V and CN VII within normal limits. Patient is a Class II molar Div II relationship with anterior contact in SC. Steep overbite of 5mm. Load testing was positive for left side intracapsular pain. Centric relation was not verified today due to pain. There are working and non-working posterior interferences indicative of nocturnal bruxing. There is Moderate occlusal wear. There is minimal incisal edge wear of the anterior teeth. Tooth #2 extruded and nearly in contact with mandibular ridge. RADIOGRAPHIC FINDINGS: [facility] dated 12-21-22 Right TMJ: condylar surface flattening with closed joint space. Left TMJ: condylar surface flattening with closed joint space. Periapical radiolucencies: none Abnormal findings: none MRI/TMJ dated 01-21-23 RESULT: TMJ joint: RIGHT: Disc material shows heterogeneous signal consistent with thinning and some degree of maceration. In the closed mouth position, articulation is along the anterior margin of the condyle in approximately the 8:00 position. The mandibular condyle shows some articular surface flattening/erosion but gross volume is generally maintained. Some heterogeneous signal present consistent with localized marrow edema below the articular surface. Superior compartment effusion is present. When viewed in the coronal plane, there is synovial enhancement surrounding the disc, likely secondary inflammation related to the degenerative change. No gross pannus. Lateral and medial margins of the disc are displaced, suggesting some degree of fragmentation of the disc. On opening, there is translation to the height of contour of the eminence, and there does appear to be anatomic reduction of the disc material (12:9). LEFT: Gross thinning and abnormal signal of the disc which remains interposed between a moderately degenerated condylar articular surface and the adjacent moderately flattened eminence. There is condylar marrow edema and superior and inferior compartment joint effusions. The irregular remodeling of the condylar articular surface is also clearly visible on the coronal post gadolinium scans (series 9). There is some medial displacement of the disc on this coronal sequence (9:7). On opening, there is translation just posterior to the height of contour of the eminence and some separation of the visible disc material raising question of direct [id number] contact (13:6). DIAGNOSTIC IMPRESSION: Left TMJ: Piper IVB - off lateral and medial pole without recapture Right TMJ: Piper IVB MPD: Masticatory Nocturnal Bruxer: No-denies Diurnal Clencher: No Synovitis/Capsulitis: Yes-moderate bilateral TMJ inflammation Alexander Class: III TREATMENT RECOMMENDATIONS: I will discuss case with Dr. Joaquin for interim occlusal guards s/p arthrocentesis until general dentistry is completed. Extraction #8 #9 (will discuss extraction of #2) with Dr. Joaquin TMD management practices provided written and verbal instructions Discussed referral to [facility] for general dentistry - patient states she requires sedation. Consider: [facility] referral Discussed etiology and progression of dental caries; demonstrated flossing, brushing and Rx : Prevident TP I have discussed the risks, benefits, complications, and alternatives to proceeding with treatment at this time. Total time spent with patient: 50 minutes Education, counseling and plan: >50% of time Lazara Bailey DDS documented in this encounter [facility] 04-02-2023 Note HNO ID: [id number] Author: Meño Calvin MD Service: ? Author Type: Anesthesiologist Type: Progress Notes Filed: 04/03/2023 7:56 AM Note Text: This note was created using [employer]. Subjective Serstephany Sy is a 23 year old female. Current pain medications/ last dose :none Onset of pain:most of life Is patient's pain associated with an injury?none Has patient been to another Pain Center?[facility], [facility] Any previous injections done?yes but they don't work Any Physical Therapy done in past?last year Any diagnostic studies done?MRI at oc INTAKE PAIN ASSESSMENT 03/31/2023 04/02/2023 Are you having pain associated with your visit today? Yes, Provider notified Yes, Provider notified Pain Scales - Verbal (Numeric Rating or Visual Analog Scale) Pain Level 8 8 Pain Location Back-Lower Back-Lower Description Aching;Numbness;Sharp;Shooting;S tabbing;Throbbing;Tightness Sharp;Burning;Throbbing;Stabbing ;Other: See comment Duration Amount of Time - - Duration Units Months - Frequency Continuous Continuous Intervention/Comfort measure Other: See comment Other: See comment Comments Nothing helps - Pain Assessment - - INTAKE PAIN ASSESSMENT 03/31/2023 04/02/2023 Are you having pain associated with your visit today? Yes, Provider notified Yes, Provider notified Pain Scales - Verbal (Numeric Rating or Visual Analog Scale) Pain Level 8 8 Pain Location Back-Lower Back-Lower Description Aching;Numbness;Sharp;Shooting;S tabbing;Throbbing;Tightness Sharp;Burning;Throbbing;Stabbing ;Other: See comment Duration Amount of Time - - Duration Units Months - Frequency Continuous Continuous Intervention/Comfort measure Other: See comment Other: See comment Comments Nothing helps - Pain Assessment - - HPI I was asked by Opal Arguelles AGRICULTURE RESEARCH DIRECTOR to see this patient for low back pain. Patient is a 23-year-old woman who presents with a 9-year history of pain on her lumbosacral region that is initially was shooting down her right leg. She does not have the radiculopathy as of now. Patient was seen by Dr. Landeros at [facility] where she had injections which did not help. She also tried pregabalin and gabapentin which made her feel like a zombie. Patient was also seen by Dr. Pace who performed quadratus lumborum trigger point injection which did not give her much relief. She has been on tizanidine which has not been helping her. [facility]. We do not have records from Dr. Kenney. No imaging report of the lumbar spine was available. Review of Systems GENERAL: negative Recent Weight Loss: Fever: HEENT: negative Recent Hearing Changes: Recent Vision Changes: Nose Bleeds: NECK: Lumps: Neck Swelling: Neck Pain: Dizziness: positive Light Headed: positive Numbness: Tingling: RESPIRATORY: negative Cough: Wheezing: Shortness of Breath: CARDIOVASCULAR: Chest Pain: Swelling: Palpitations (Racing or Skipped Heartbeats): positive GASTROINTESTINAL: negative Abdominal Discomfort: Diarrhea: Constipation: Blood in Stools: GENITOURINARY: negative Difficult Urination: Frequent Urination: Urinary Incontinence (Accidents): PSYCHIATRIC: Depression: Anxiety: positive Bipolar Disorder: HEMATOLOGIC/LYMPHATIC/IMMUNOLOGI C: negative Easy Bruising: Swollen Nodes: ENDOCRINE: Cold Intolerance: Heat Intolerance: positive MUSKULOSKELETAL: Back Pain: positive Joint Pain: positive Joint Swelling: positive Numbness: positive Tingling: positive Muscle Cramps: positive Muscle Weakness: positive Stiffness: positive Arthritis: Sciatica: Restless Legs: Leg Pain at Night: Leg Pain with Exertion: NEUROLOGIC: Paralysis: Paresthesias (Pains and [place]): Seizures: Tremors: Vertigo: Transient Blindness: Frequent Falls: Frequent Headaches: positive Difficulty Walking: ALLERGY: negative Urticaria: Allergic Rash: Hay Fever: Recurrent Infections: DERM: negative Lesions: Rash: Itching: Objective BP 121/82 (BP Site: Left Arm, BP Position: Sitting, BP Cuff Size: Large Adult) Pulse 100 Temp 36.7 ?C (98 ?F) Resp 18 Ht 175.3 cm (5' 9 ) Wt 49.9 kg (110 lb) LMP 08/05/2021 SpO2 99% BMI 16.24 kg/m? Physical Exam Vitals and nursing note reviewed. Constitutional: General: She is not in acute distress. Appearance: Normal appearance. She is normal weight. HENT: Head: Normocephalic and atraumatic. Right Ear: External ear normal. Left Ear: External ear normal. Nose: Nose normal. Eyes: General: No scleral icterus. Extraocular Movements: Extraocular movements intact. Conjunctiva/sclera: Conjunctivae normal. Musculoskeletal: Comments: Patient walks with a normal gait. There is increased pain on range of motion of the lumbar spine on all directions. Lumbosacral paraspinal muscle spasm and tenderness was present. Skin: General: Skin is war (more content not included)... [facility] 04-02-2023 Instructions Meño Calvin MD - 04/02/2023 2:46 PM EST Baseline drug screen is performed per protocol. The importance of multimodal approach in the treatment of chronic pain was discussed with the patient. Obtain records from Dr. Kenney to include office visit notes, procedures, and lumbar spine MRI report. Follow-up in office once records are available. documented in this encounter [facility] 04-02-2023 History of Present illness Narrative This note was created using [employer]. Subjective Serenity Colby Sy is a 23 year old female. Current pain medications/ last dose :none Onset of pain:most of life Is patient's pain associated with an injury?none Has patient been to another Pain Center?[facility], [facility] Any previous injections done?yes but they don't work Any Physical Therapy done in past?last year Any diagnostic studies done?MRI at [facility] INTAKE PAIN ASSESSMENT 03/31/2023 04/02/2023 Are you having pain associated with your visit today? Yes, Provider notified Yes, Provider notified Pain Scales - Verbal (Numeric Rating or Visual Analog Scale) Pain Level 8 8 Pain Location Back-Lower Back-Lower Description Aching;Numbness;Sharp;Shooting;S tabbing;Throbbing;Tightness Sharp;Burning;Throbbing;Stabbing ;Other: See comment Duration Amount of Time - - Duration Units Months - Frequency Continuous Continuous Intervention/Comfort measure Other: See comment Other: See comment Comments Nothing helps - Pain Assessment - - INTAKE PAIN ASSESSMENT 03/31/2023 04/02/2023 Are you having pain associated with your visit today? Yes, Provider notified Yes, Provider notified Pain Scales - Verbal (Numeric Rating or Visual Analog Scale) Pain Level 8 8 Pain Location Back-Lower Back-Lower Description Aching;Numbness;Sharp;Shooting;S tabbing;Throbbing;Tightness Sharp;Burning;Throbbing;Stabbing ;Other: See comment Duration Amount of Time - - Duration Units Months - Frequency Continuous Continuous Intervention/Comfort measure Other: See comment Other: See comment Comments Nothing helps - Pain Assessment - - HPI I was asked by Opal Arguelles NP to see this patient for low back pain. Patient is a 23-year-old woman who presents with a 9-year history of pain on her lumbosacral region that is initially was shooting down her right leg. She does not have the radiculopathy as of now. Patient was seen by Dr. Landeros at [facility] where she had injections which did not help. She also tried pregabalin and gabapentin which made her feel like a zombie. Patient was also seen by Dr. Pace who performed quadratus lumborum trigger point injection which did not give her much relief. She has been on tizanidine which has not been helping her. Records from [facility] were reviewed. We do not have records from Dr. Kenney. No imaging report of the lumbar spine was available. Review of Systems GENERAL: negative Recent Weight Loss: Fever: HEENT: negative Recent Hearing Changes: Recent Vision Changes: Nose Bleeds: NECK: Lumps: Neck Swelling: Neck Pain: Dizziness: positive Light Headed: positive Numbness: Tingling: RESPIRATORY: negative Cough: Wheezing: Shortness of Breath: CARDIOVASCULAR: Chest Pain: Swelling: Palpitations (Racing or Skipped Heartbeats): positive GASTROINTESTINAL: negative Abdominal Discomfort: Diarrhea: Constipation: Blood in Stools: GENITOURINARY: negative Difficult Urination: Frequent Urination: Urinary Incontinence (Accidents): PSYCHIATRIC: Depression: Anxiety: positive Bipolar Disorder: HEMATOLOGIC/LYMPHATIC/IMMUNOLOGI C: negative Easy Bruising: Swollen Nodes: ENDOCRINE: Cold Intolerance: Heat Intolerance: positive MUSKULOSKELETAL: Back Pain: positive Joint Pain: positive Joint Swelling: positive Numbness: positive Tingling: positive Muscle Cramps: positive Muscle Weakness: positive Stiffness: positive Arthritis: Sciatica: Restless Legs: Leg Pain at Night: Leg Pain with Exertion: NEUROLOGIC: Paralysis: Paresthesias (Pains and [place]): Seizures: Tremors: Vertigo: Transient Blindness: Frequent Falls: Frequent Headaches: positive Difficulty Walking: ALLERGY: negative Urticaria: Allergic Rash: Hay Fever: Recurrent Infections: DERM: negative Lesions: Rash: Itching: Objective BP 121/82 (BP Site: Left Arm, BP Position: Sitting, BP Cuff Size: Large Adult) Pulse 100 Temp 36.7 C (98 F) Resp 18 Ht 175.3 cm (5' 9 ) Wt 49.9 kg (110 lb) LMP 08/05/2021 SpO2 99% BMI 16.24 kg/m Physical Exam Vitals and nursing note reviewed. Constitutional: General: She is not in acute distress. Appearance: Normal appearance. She is normal weight. HENT: Head: Normocephalic and atraumatic. Right Ear: External ear normal. Left Ear: External ear normal. Nose: Nose normal. Eyes: General: No scleral icterus. Extraocular Movements: Extraocular movements intact. Conjunctiva/sclera: Conjunctivae normal. Musculoskeletal: Comments: Patient walks with a normal gait. There is increased pain on range of motion of the lumbar spine on all directions. Lumbosacral paraspinal muscle spasm and tenderness was present. Skin: General: Skin is warm and dry. Neurological: Mental Status: She is alert and oriented to person, place, and time. Psychiatric: Mood and Affect: Mood normal. Behavior: Behavior normal. Thought Content: Thought content normal. Judgment: Judgment normal. Assessment and Plan ASSESSMENT/PLAN: 1. Chronic low back pain with sciatica, sciatica laterality unspecified, unspecified back pain laterality - ICD9: 724.2, 724.3, 338.29, ICD10: M54.40, G89.29 (primary diagnosis) - TOXASSURE FLEX 23, URINE 2. Chronic pain syndrome - ICD9: 338.4, ICD10: G89.4 3. 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 Myofascial pain syndrome - ICD9: 729.1, ICD10: M79.18 5. Encounter for long-term (current) drug use - ICD9: V58.69, ICD10: Z79.899 - TOXASSURE FLEX 23, URINE PLAN: Baseline drug screen is performed per protocol. The importance of multimodal approach in the treatment of chronic pain was discussed with the patient. Obtain records from Dr. Kenney to include office visit notes, procedures, and lumbar spine MRI report. Follow-up in office once records are available. 30 minutes spent for chronic pain management distinct from evaluation and management This document was transcribed using a voice recognition software and may contain minor errors. Meño Calvin MD documented in this encounter [facility] 03-21-2023 Note HNO ID: [id number] Author: Ezequiel Joaquin DDS Service: ? 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 No improvement in symptoms. She is scheduled with Dr. Bailey next month. Did take the Medrol dose pack but no relief. Saw her dentist, now needs both #8,9 extracted. 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 Joint effusion bilaterally. Findings were discussed with the patient. Will schedule for arthrocentesis of bilateral TMJ with PRP injection in the OR along with extraction of #8,9. If symptoms do not improve then will evaluate for bilateral custom prosthesis of TMJ. Patient to send us referral for dental extractions. Total of 15 min were spent at this visit. 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 for [facility] of her TMJ MRI. No improvement in symptoms. She is scheduled with Dr. Bailey next month. Did take the Medrol dose pack but no relief. Saw her dentist, now needs both #8,9 extracted. 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 Joint effusion bilaterally. Findings were discussed with the patient. Will schedule for arthrocentesis of bilateral TMJ with PRP injection in the OR along with extraction of #8,9. If symptoms do not improve then will evaluate for bilateral custom prosthesis of TMJ. Patient to send us referral for dental extractions. Total of 15 min were spent at this visit. documented in this encounter [facility] 01-21-2023 Note HNO ID: [id number] Author: Cathy Stephens RN Service: ? Author Type: Registered Nurse Type: Progress Notes Filed: 01/21/2023 11:19 AM Note Text: Radiology Service Progress Note DATE OF SERVICE: January 21, 2023 TIME: 11:15 AM PATIENT WEIGHT: 105 LBS PATIENT IDENTITY VERIFICATION COMPLETED USING TWO (2) STANDARD IDENTIFIERS: Name and Date of confirmed by patient verbally and Name and Date of confirmed by identification band. FALL SCREENING: Has the patient had 2 falls in the last year or 1 fall with injury or currently using an Ambulatory Assistive Device (Walker, Cane, Wheelchair, Crutches, etc.)? No PATIENT GENDER DATA: Female. status: : No status: NO. ALLERGIES: Reviewed and unchanged CONTRAST ALLERGY: No EXAM: MRI - CONTRAST TYPE: GROUP II IV SITE: Ambulatory: A peripheral IV was started in the Left forearm with a Angio cath: 22 gauge. and A Saline lock was inserted per protocol IV SITE APPEARANCE: Clean,Dry and Intact SIGNATURE: Cathy Stephens RN PATIENT NAME: Tina Sy DATE: January 21, 2023 TIME: 11:15 AM [facility] 01-21-2023 Note HNO ID: [id number] Author: Rosalio Murray RT(R) Service: Radiology Author Type: Technologist Type: Progress Notes Filed: 01/21/2023 11:51 AM Note Text: Radiology Service Progress Note PATIENT NAME: Tina Sy DATE OF SERVICE: January 21, 2023 TIME: 11:50 AM PATIENT IDENTITY VERIFICATION COMPLETED USING TWO (2) IDENTIFIERS: Name and Date of confirmed by patient verbally and Name and Date of confirmed by identification band. FALL SCREENING: Has the patient had 2 falls in the last year or 1 fall with injury or currently using an Ambulatory Assistive Device (Walker, Cane, Wheelchair, Crutches, etc.)? No PATIENT GENDER DATA: Female. status: : No status: NO. PATIENT RELEVANT IMPLANT DATA REVIEWED: Yes RADIOLOGY DEPARTMENT: MR; Exam(s) Completed: Head: TMJ PERIPHERAL IV DATA: Site assessment: Clean,Dry and Intact, Site disposition Discontinued SIGNED BY: RT Rosa(R) January 21, 2023 11:50 AM [facility] 01-21-2023 History of Present illness Narrative Radiology Service Progress Note DATE OF SERVICE: January 21, 2023 TIME: 11:15 AM PATIENT WEIGHT: 105 LBS PATIENT IDENTITY VERIFICATION COMPLETED USING TWO (2) STANDARD IDENTIFIERS: Name and Date of confirmed by patient verbally and Name and Date of confirmed by identification band. FALL SCREENING: Has the patient had 2 falls in the last year or 1 fall with injury or currently using an Ambulatory Assistive Device (Walker, Cane, Wheelchair, Crutches, etc.)? No PATIENT GENDER DATA: Female. status: : No status: NO. ALLERGIES: Reviewed and unchanged CONTRAST ALLERGY: No EXAM: MRI - CONTRAST TYPE: GROUP II IV SITE: Ambulatory: A peripheral IV was started in the Left forearm with a Angio cath: 22 gauge. and A Saline lock was inserted per protocol IV SITE APPEARANCE: Clean,Dry and Intact SIGNATURE: Cathy Stephens RN PATIENT NAME: Tina Sy DATE: January 21, 2023 TIME: 11:15 AM Radiology Service Progress Note PATIENT NAME: Tina Sy DATE OF SERVICE: January 21, 2023 TIME: 11:50 AM PATIENT IDENTITY VERIFICATION COMPLETED USING TWO (2) IDENTIFIERS: Name and Date of confirmed by patient verbally and Name and Date of confirmed by identification band. FALL SCREENING: Has the patient had 2 falls in the last year or 1 fall with injury or currently using an Ambulatory Assistive Device (Walker, Cane, Wheelchair, Crutches, etc.)? No PATIENT GENDER DATA: Female. status: : No status: NO. PATIENT RELEVANT IMPLANT DATA REVIEWED: Yes RADIOLOGY DEPARTMENT: MR; Exam(s) Completed: Head: TMJ PERIPHERAL IV DATA: Site assessment: Clean,Dry and Intact, Site disposition Discontinued SIGNED BY: RT Rosa(R) January 21, 2023 11:50 AM documented in this encounter [facility] 01-18-2023 Miscellaneous Notes Images from the original note were not included. Jose Daniel Tillman, DO You 2 minutes ago (11:36 AM) DC it No new meds for 4 weeks AIDEN Arguello, RN, BA RW, Regarding propranolol 10 mg BID prescribed on 12/29/2022. Pt states that she has constant MAE's, body feels off, feet swelling, insomnia, and still has tremors. AIDEN Arguello, RN, BA documented in this encounter [facility] 01-04-2023 Miscellaneous Notes Vyepti dose changed to 300 mg quarterly Jorge Torres APRN.CNP January 04, 2023 documented in this encounter [facility] 01-02-2023 Note HNO ID: [id number] Author: Jorge Torres APRN.CNP Service: ? Author Type: Nurse Practitioner Type: Progress Notes Filed: 01/02/2023 3:35 PM Note Text: Headache Center - Follow up Virtual Visit Patient's headache clinic evaluation was scheduled as a virtual visit using the following platform Zoom Tina Sy was identified by name and and consented to the video evaluation and its limitations. Based on this evaluation it may be necessary for them to schedule a follow up evaluation with me or other neurologists for formal physical examination and if necessary, other studies. I have communicated my name and active licensure. The patient's identity and physical location were verified at the time of this visit. Either the patient or their legal billing representative has been informed of the risks and benefits of -- and alternatives to -- treatment through a remote evaluation and consents to proceed with the evaluation remotely. Accompanied by: Self Primary Problem List: ACTIVE PROBLEM LIST Chronic Migraine Without Aura, With Intractable Migraine, So Stated, With Status Migrainosus Generalized Anxiety Disorder Gerd (Gastroesophageal Reflux Disease) Add (Attention Deficit Disorder) Pots (Postural Orthostatic Tachycardia Syndrome) Seizure-Like Activity (Hcc) Chief Complaint: headache LV: 03/28/22 [facility] Impression and Plan from last visit: Tina Sy is a 22 year old year old female, with a history of POTS, ANNA, ADD, chronic migraine. Her neurological examination is essentially normal at this visit. Ms. Sy' MAE are worse since her last visit. She has completed 1 round of vyepti 100 mg. She had some improvement in her MAE after vyepti, so I am recommending that she continues with vyepti and f/u about 6 weeks after her 2nd round of vyepti. At that next visit we can determine how she is doing with vyepti and if she would benefit from increasing the dose to 300 mg. Red Flags: none PLAN: Prevention: Continue vyepti. Rescue: Continue aleve. Limit pain meds and triptans to no more than 2 days per week to avoid medication overuse headache. This includes limiting OTC pain meds such as tylenol, ibuprofen, Excedrin, aleve, etc. Future Considerations: inc to vyepti 300 mg; botox, mAB injectable Patient verbalized understanding and agreed to the treatment plan. Interval Headache History: Tina Sy is a 22 year old year old female, with a history of POTS, ANNA, ADD, chronic migraine following up today virtually for headaches. Since the last visit, the patient states that her headaches are slightly worse. She reports more frequent occular migraines in recent weeks. This is similar to previous migraines and effects her vision in left eye with headaches, used to happen once in a blue odom. She is also working with dentistry for left sided TMJ, per her last visit she is scheduled for MRI and may require jaw manipulation and arthrocentesis for left sided locked jaw. Recently started propranolol PRN for treatment of hand tremors with neuromuscular. Overall she reports her migraines are less frequent on Vyepti, migraines used to be near daily but after Vyepti they decreased to 1-2 migraines a month. She is scheduled for next vyepti infusion tomorrow. Headache 1 Number of migraine headache days/month: 10 Number of headache free days/month: 4 Days missed from work or school in the last month: 0 days Preventative: Vyepti 100 mg q3 months Abortive: aleve Medications effective? yes # of doses of abortive medications per month: 8 Anti-Convulsant Topiramate (Topamax, Trokendi XL, Qudexy) Anti-Depressant and Antipsychotic Amitriptyline (Elavil) Citalopram (Celexa) Duloxetine (Cymbalta) unsure- never refilled it unsure unsure- wasn't working? Nortriptyline (Pamelor, Aventyl) Anti-Migraine Naratriptan (Amerge) Sumatriptan (Imitrex, Sumavel) Blood Pressure Nadolol (Corgard) MABs Eptinezumab (Vyepti) History reviewed. No pertinent past medical history. PAST SURGICAL HISTORY Procedure Laterality Date ANKLE SURGERY HX Right ALLERGIES Allergen Reactions Lisha [Fexofenadi* Angioedema Amoxicillin Rash Beeswax Rash Contact rash from hot honey Penicillins Rash Current Medications: propranolol (INDERAL) 10 mg tabletTake 1 tablet by mouth twice daily as needed.Disp: 60 tabletRfl: 2 cyanocobalamin, vitamin B-12, (VITAMIN B-12 INJECTION)1,000 mg by INJECTION(UNSPECIFIED PARENTERAL ROUTES) route once every month.Disp: Rfl: Doxepin 6 mg tabTake by mouth.Disp: Rfl: tiZANidine HCl (ZANAFLEX) 4 mg capsuleTake 4 mg by mouth three times daily as needed.Disp: Rfl: traMADol (ULTRAM) 50 mg tabletTake 50 mg by mouth every 6 hours as needed for pain.Disp: Rfl: ivabradine (CORLANOR) 5 mg tabletTake 2.5 mg by mouth twice daily.Disp: 90 tabletRfl: 2 famotidine (PEPCID ORAL)Take by mouth.Disp: Rfl: EPINEPHrine (EPIPEN) (more content not included)... [facility] 01-02-2023 Instructions Jorge Torres APRN.TARA - 01/02/2023 3:23 PM EDT We will submit for 300 mg dose of Vyepti documented in this encounter [facility] 01-02-2023 History of Present illness Narrative Headache Center - Follow up Virtual Visit Patient's headache clinic evaluation was scheduled as a virtual visit using the following platform Zoom Tina Sy was identified by name and and consented to the video evaluation and its limitations. Based on this evaluation it may be necessary for them to schedule a follow up evaluation with me or other neurologists for formal physical examination and if necessary, other studies. I have communicated my name and active licensure. The patient's identity and physical location were verified at the time of this visit. Either the patient or their legal billing representative has been informed of the risks and benefits of -- and alternatives to -- treatment through a remote evaluation and consents to proceed with the evaluation remotely. Accompanied by: Self Primary Problem List: ACTIVE PROBLEM LIST Chronic Migraine Without Aura, With Intractable Migraine, So Stated, With Status Migrainosus Generalized Anxiety Disorder Gerd (Gastroesophageal Reflux Disease) Add (Attention Deficit Disorder) Pots (Postural Orthostatic Tachycardia Syndrome) Seizure-Like Activity (Hcc) Chief Complaint: headache LV: 03/28/22 [facility] Impression and Plan from last visit: Tina Sy is a 22 year old year old female, with a history of POTS, ANNA, ADD, chronic migraine. Her neurological examination is essentially normal at this visit. Ms. Sy' MAE are worse since her last visit. She has completed 1 round of vyepti 100 mg. She had some improvement in her MAE after vyepti, so I am recommending that she continues with vyepti and f/u about 6 weeks after her 2nd round of vyepti. At that next visit we can determine how she is doing with vyepti and if she would benefit from increasing the dose to 300 mg. Red Flags: none PLAN: Prevention: Continue vyepti. Rescue: Continue aleve. Limit pain meds and triptans to no more than 2 days per week to avoid medication overuse headache. This includes limiting OTC pain meds such as tylenol, ibuprofen, Excedrin, aleve, etc. Future Considerations: inc to vyepti 300 mg; botox, mAB injectable Patient verbalized understanding and agreed to the treatment plan. Interval Headache History: Tina Sy is a 22 year old year old female, with a history of POTS, ANNA, ADD, chronic migraine following up today virtually for headaches. Since the last visit, the patient states that her headaches are slightly worse. She reports more frequent occular migraines in recent weeks. This is similar to previous migraines and effects her vision in left eye with headaches, used to happen once in a blue odom. She is also working with dentistry for left sided TMJ, per her last visit she is scheduled for MRI and may require jaw manipulation and arthrocentesis for left sided locked jaw. Recently started propranolol PRN for treatment of hand tremors with neuromuscular. Overall she reports her migraines are less frequent on Vyepti, migraines used to be near daily but after Vyepti they decreased to 1-2 migraines a month. She is scheduled for next vyepti infusion tomorrow. Headache 1 Number of migraine headache days/month: 10 Number of headache free days/month: 4 Days missed from work or school in the last month: 0 days Preventative: Vyepti 100 mg q3 months Abortive: aleve Medications effective? yes # of doses of abortive medications per month: 8 Anti-Convulsant Topiramate (Topamax, Trokendi XL, Qudexy) Anti-Depressant and Antipsychotic Amitriptyline (Elavil) Citalopram (Celexa) Duloxetine (Cymbalta) unsure- never refilled it unsure unsure- wasn't working? Nortriptyline (Pamelor, Aventyl) Anti-Migraine Naratriptan (Amerge) Sumatriptan (Imitrex, Sumavel) Blood Pressure Nadolol (Corgard) MABs Eptinezumab (Vyepti) History reviewed. No pertinent past medical history. PAST SURGICAL HISTORY Procedure Laterality Date ANKLE SURGERY HX Right ALLERGIES Allergen Reactions Lisha [Fexofenadi* Angioedema Amoxicillin Rash Beeswax Rash Contact rash from hot honey Penicillins Rash Current Medications: propranolol (INDERAL) 10 mg tablet^Take 1 tablet by mouth twice daily as needed.^Disp: 60 tablet^Rfl: 2 cyanocobalamin, vitamin B-12, (VITAMIN B-12 INJECTION)^1,000 mg by INJECTION(UNSPECIFIED PARENTERAL ROUTES) route once every month.^Disp: ^Rfl: Doxepin 6 mg tab^Take by mouth.^Disp: ^Rfl: tiZANidine HCl (ZANAFLEX) 4 mg capsule^Take 4 mg by mouth three times daily as needed.^Disp: ^Rfl: traMADol (ULTRAM) 50 mg tablet^Take 50 mg by mouth every 6 hours as needed for pain.^Disp: ^Rfl: ivabradine (CORLANOR) 5 mg tablet^Take 2.5 mg by mouth twice daily.^Disp: 90 tablet^Rfl: 2 famotidine (PEPCID ORAL)^Take by mouth.^Disp: ^Rfl: EPINEPHrine (EPIPEN) 0.3 mg/0.3 mL auto-injector^0.3 mg.^Disp: ^Rfl: albuterol HFA (PROVENTIL HFA, VENTOLIN HFA) 90 mcg/actuation inhaler^Inhale 2 Puffs as instructed as needed for wheezing/shortness of breath.^Disp: ^Rfl: I have reviewed the Adolfo Status Assessment responses and discussed these with the patient: yes Jorge Torres APRN.[employer] HEADACHE SCORES: Headache Questions 12/13/2021 03/27/2022 01/01/2023 ID Migraine Screener: - - - ER visits in the last year: - - - ER visits since last office visit: 0 0 0 Hospital stays in the last year: - - - Hospital stays since last office visit 0 0 0 Limited ADLs in the last month: 20 20 10 Days missed from work or school in the last month: 0 0 0 Days headache pain free in the last month: 0 0 4 Days per month with ALL of the following symptoms - decreased productivity, light sensitivity and nausea: 10 15 10 Initial improvement of headache after botox injection at last visit: Not applicable, I did not have a botox injection at my last visit Not applicable, I did not have a botox injection at my last visit Not applicable, I did not have a botox injection at my last visit PRN medication usage in the last month: 10 10 0 Patient impression of improvement since last visit: No change Much worse Very much worse HIT-6 12/13/2021 03/27/2022 01/01/2023 HIT-6 74 (Severe impact) 67 (Severe impact) 73 (Severe impact) ANNA - 2/7 SCORES 07/10/2022 12/22/2022 01/01/2023 ANNA-2 Score 0 1 0 ANNA-7 Score 0 3 - Migraine Specific QOL - Higher scores indicate better HRQL 12/13/2021 03/27/2022 01/01/2023 Role Function-Restrictive Transformed Score (range: 0-100) 25.71 31.43 14.29 Role Function-Preventive Transformed Score (range: 0-100) 45 35 20 Emotional Function Transformed Score (range: 0-100) 80 93.33 100 PHQ-9 07/10/2022 12/22/2022 01/01/2023 Score 13 10 11 Studies to Review: No Labs to Review: No New Health Issues: No New Family History: No Review of Systems: Review of system: unchanged from the previous visit (sleep patterns, mood, energy, appetite, stress, exercising). Physical Examination: Vital Signs: [facility] 08/05/2021 General: well appearing, in no acute distress, alert Pain Behaviors: no pain behaviors observed Neurological: Mental Status: Alert and oriented to person, place and time. Affect is normal and appropriate. Speech is spontaneous and fluent without dysarthria, normal in rate, volume and articulation, and clear, coherent, and relevant. Short and care home memory, cognition and general fund of knowledge are good. Attention span and concentration are excellent. HEENT: Head is normocephalic and features were symmetric. Musculoskeletal: Patient able to sit up right in chair for entirety of visit. Cranial Nerves: III, IV, -EOMI: full. VII-face is symmetric without evidence of weakness. VIII-hearing intact. IMPRESSION: Chronic migraine without aura, intractable, without status migrainosus (primary encounter diagnosis) Tina Sy is a 22 year old year old female, with a history of POTS, ANNA, and ADD who presents with chronic migraines. Her neurological examination is essentially normal at this visit. She reports an increase in migraine frequency in recent weeks, may be related to her current TMJ issues (seeing dentistry) which may require surgery pending her scheduled MRI. She has had benefit with Vyepti, currently scheduled for next infusion tomorrow. We will increase her dose to 300 mg quarterly in hopes of better efficacy. She denies any red flag symptoms during today's virtual visit, if occular symptoms do not improve we will need in person exam or referral to neuro-ophthalmology. Patient verbalized understanding and agreed to treatment plan. PLAN: -increase Vyepti to 300 mg -Follow up as scheduled Prior Authorization: Tina Sy has been previously approved for Calcitonin Gene Related Peptide Monoclonal Antibody (CGRP MAB) (Eptinezumab). The patient has demonstrated the following: Patient reduction in overall migraine days: Yes Patient reduction in moderate-severe migraine days: Yes Individual has obtained clinical benefit deemed significant by individual or prescriber: Yes Patient's quality of life and ability to perform ADLs has improved: Yes We suggest the patient continue treatment with CGRP MAB Eptinezumab. The following preventative medications have been tried for three or more months without benefit: Anti-Convulsant Topiramate (Topamax, Trokendi XL, Qudexy) Anti-Depressant and Antipsychotic Amitriptyline (Elavil) Citalopram (Celexa) Duloxetine (Cymbalta) unsure- never refilled it unsure unsure- wasn't working? Nortriptyline (Pamelor, Aventyl) Blood Pressure Nadolol (Corgard) MABs Eptinezumab (Vyepti) The following abortive medications have been tried but require high frequency use which can lead to Medication Overuse Headache: Anti-Migraine Naratriptan (Amerge) Sumatriptan (Imitrex, Sumavel) HEADACHE MANAGEMENT: (You are the primary guardian of your health and headache. Keep track of all medications: This includes the reason for use, side effects and benefits.) MEDICATION TREATMENT: Medications to Start Taking None Discussed pathophysiology of headache. Discussed use of headache diary. Discussed triggers and lifestyle modifications including limiting caffeine consumption. Discussed treatment options, both abortive and preventive medications. Instructed patient about medications. Discussed medication overuse headache and to limit use of analgesics to less than 2 doses per week. Headache education was done. Discussed lifestyle modification including increased oral hydration, decreased caffeine, exercise and stress management. Discussed treatment options including preventive and acute medications, natural supplements, and infusion therapy. Discussed medication overuse headache and to limit use of acute treatments to no more than 2 days/week or 10 days/month. Discussed medication side effects, adverse reactions and drug interactions. Written educational materials and patient instructions outlining all of the above were given. RESEARCH: None at this time Follow-up: for IV infusion Level of Service: Virtual Visit 30 minutes Jorge Torres APRN.TARA Headache Section [facility] January 02, 2023 documented in this encounter [facility] 12-29-2022 Note HNO ID: [id number] Author: Radha Calderón APRN.TARA Service: ? Author Type: Nurse Practitioner Type: Progress Notes Filed: 12/29/2022 1:42 PM Note Text: Tina Sy is a 22 year old female. Patient presents with: Follow Up Tina is here today for follow up of POTS. Last seen July 17, 2022. At that time, we initiated Ivabradine 2.5 mg twice daily for tachycardia with associated dizziness, lightheadedness, pre-syncope, and activity intolerance. She has tried a few beta blockers in the past which resulted in hypotension and increased pre-syncope. Since last appointment patient she is feeling much better, she states that tachycardia, dizziness, lightheadedness have improved dramatically since starting Ivabradine. Patient states that she is not experiencing side effects from medicine. Patient is very happy with results of medicine. Patient noticing mild improvement in activity and heat intolerance. Prior to switching medicine was unable to go upstairs or go for longer walks. Is noticing that shaking in hands which has been going on since before initiating Ivbradine. Patient states that she feels shaky all of the time and noticing hands shaking throughout the day. Is currently following with the headache clinic for migraines and is receiving infusions. Stats that migraines are managed well with infusions. Over the last two months noticing a new type of headache. See further headache description below. Onset: 2 months Total headache days per month: 4 per month Total headache attacks per month: 4 per month Headache free days: Yes Duration of attacks: 6-8 hours Severity of headaches? severe Onset to Peak: gradually Location: temporal region L>R. Aura: Noticing blurry vision and eye pain that occurs on side of migraine during migraine. Eye symptoms will come and go throughout duration of migraine. Prodrome:none. Accompanying symptoms: photophobia, blurred vision. Quality:throbbing. Worse with activity: No Triggers: none. Cough/sneeze/valsalva as trigger: None. Positional changes: No Most common time of day for headache to begin:early AM. Time missed from work or school: none Medications Reviewed cyanocobalamin, vitamin B-12, (VITAMIN B-12 INJECTION)1,000 mg by INJECTION(UNSPECIFIED PARENTERAL ROUTES) route once every month.Disp: Rfl: Doxepin 6 mg tabTake by mouth.Disp: Rfl: tiZANidine HCl (ZANAFLEX) 4 mg capsuleTake 4 mg by mouth three times daily as needed.Disp: Rfl: traMADol (ULTRAM) 50 mg tabletTake 50 mg by mouth every 6 hours as needed for pain.Disp: Rfl: ivabradine (CORLANOR) 5 mg tabletTake 2.5 mg by mouth twice daily.Disp: 90 tabletRfl: 2 famotidine (PEPCID ORAL)Take by mouth.Disp: Rfl: EPINEPHrine (EPIPEN) 0.3 mg/0.3 mL auto-injector0.3 mg.Disp: Rfl: albuterol HFA (PROVENTIL HFA, VENTOLIN HFA) 90 mcg/actuation inhalerInhale 2 Puffs as instructed as needed for wheezing/shortness of breath.Disp: Rfl: propranolol (INDERAL) 10 mg tabletTake 1 tablet by mouth twice daily as needed.Disp: 60 tabletRfl: 2 Allergies Reviewed PAST MEDICAL HISTORY: ACTIVE PROBLEM LIST Chronic Migraine Without Aura, With Intractable Migraine, So Stated, With Status Migrainosus Generalized Anxiety Disorder Gerd (Gastroesophageal Reflux Disease) Add (Attention Deficit Disorder) Pots (Postural Orthostatic Tachycardia Syndrome) Seizure-Like Activity (Hcc) PAST SURGICAL HISTORY Procedure Laterality Date ANKLE SURGERY HX Right Social History Tobacco Use Smoking status: Never Smokeless tobacco: Never Substance Use Topics Alcohol use: Never Drug use: Never family history includes Rheumatologic disease in her maternal grandmother and mother. 12/29/22 1146 12/29/22 1148 12/29/22 1149 BP: 109/67 121/81 119/78 BP Site: Right Arm Right Arm Right Arm BP Position: Sitting Standing Standing Pulse: 86 111 103 General Appearance Patient appears well at the time of this appointment. Neurological Examination: Cognition: The patient is alert and oriented times three Lucid and organized in conversation Able to tell detailed medical hx Speech is Normal in fluency volume and clarity Content and Syntax: Normal Comprehension: Normal, able to follow several step commands Cranial Nerves: Pupils are equal and reactive to light. Pupils normal in size Extraocular movements are grossly intact Good saccades and pursuits No nystagmus Hearing intact Good upgaze Visual ceron are full to confrontation. Facial, motor and sensory exam is symmetric Equal v1,V2, V3 Tongue is in midline. No tongue fasciculation. Palate is upgoing bilaterally SCM and trapezius are full. Shoulder shrug intact Motor Exam: Upper extremity motor exam is 5/5 in deltoid, 5/5 triceps 5/5biceps, 5/5 wrist extension, and 5/5 hand inspector repairer. Finger extensor 5/5. Finger flexor 5/5. Pronation and Supination are full. Full interossei 5/5 Lower extremity is 5 (more content not included)... [facility] 12-29-2022 History of Present illness Narrative Tina Sy is a 22 year old female. Patient presents with: Follow Up Tina is here today for follow up of POTS. Last seen July 17, 2022. At that time, we initiated Ivabradine 2.5 mg twice daily for tachycardia with associated dizziness, lightheadedness, pre-syncope, and activity intolerance. She has tried a few beta blockers in the past which resulted in hypotension and increased pre-syncope. Since last appointment patient she is feeling much better, she states that tachycardia, dizziness, lightheadedness have improved dramatically since starting Ivabradine. Patient states that she is not experiencing side effects from medicine. Patient is very happy with results of medicine. Patient noticing mild improvement in activity and heat intolerance. Prior to switching medicine was unable to go upstairs or go for longer walks. Is noticing that shaking in hands which has been going on since before initiating Ivbradine. Patient states that she feels shaky all of the time and noticing hands shaking throughout the day. Is currently following with the headache clinic for migraines and is receiving infusions. Stats that migraines are managed well with infusions. Over the last two months noticing a new type of headache. See further headache description below. Onset: 2 months Total headache days per month: 4 per month Total headache attacks per month: 4 per month Headache free days: Yes Duration of attacks: 6-8 hours Severity of headaches? severe Onset to Peak: gradually Location: temporal region L>R. Aura: Noticing blurry vision and eye pain that occurs on side of migraine during migraine. Eye symptoms will come and go throughout duration of migraine. Prodrome:none. Accompanying symptoms: photophobia, blurred vision. Quality:throbbing. Worse with activity: No Triggers: none. Cough/sneeze/valsalva as trigger: None. Positional changes: No Most common time of day for headache to begin:early AM. Time missed from work or school: none Medications Reviewed cyanocobalamin, vitamin B-12, (VITAMIN B-12 INJECTION)^1,000 mg by INJECTION(UNSPECIFIED PARENTERAL ROUTES) route once every month.^Disp: ^Rfl: Doxepin 6 mg tab^Take by mouth.^Disp: ^Rfl: tiZANidine HCl (ZANAFLEX) 4 mg capsule^Take 4 mg by mouth three times daily as needed.^Disp: ^Rfl: traMADol (ULTRAM) 50 mg tablet^Take 50 mg by mouth every 6 hours as needed for pain.^Disp: ^Rfl: ivabradine (CORLANOR) 5 mg tablet^Take 2.5 mg by mouth twice daily.^Disp: 90 tablet^Rfl: 2 famotidine (PEPCID ORAL)^Take by mouth.^Disp: ^Rfl: EPINEPHrine (EPIPEN) 0.3 mg/0.3 mL auto-injector^0.3 mg.^Disp: ^Rfl: albuterol HFA (PROVENTIL HFA, VENTOLIN HFA) 90 mcg/actuation inhaler^Inhale 2 Puffs as instructed as needed for wheezing/shortness of breath.^Disp: ^Rfl: propranolol (INDERAL) 10 mg tablet^Take 1 tablet by mouth twice daily as needed.^Disp: 60 tablet^Rfl: 2 Allergies Reviewed PAST MEDICAL HISTORY: ACTIVE PROBLEM LIST Chronic Migraine Without Aura, With Intractable Migraine, So Stated, With Status Migrainosus Generalized Anxiety Disorder Gerd (Gastroesophageal Reflux Disease) Add (Attention Deficit Disorder) Pots (Postural Orthostatic Tachycardia Syndrome) Seizure-Like Activity (Hcc) PAST SURGICAL HISTORY Procedure Laterality Date ANKLE SURGERY HX Right Social History Tobacco Use Smoking status: Never Smokeless tobacco: Never Substance Use Topics Alcohol use: Never Drug use: Never family history includes Rheumatologic disease in her maternal grandmother and mother. 12/29/22 1146 12/29/22 1148 12/29/22 1149 BP: 109/67 121/81 119/78 BP Site: Right Arm Right Arm Right Arm BP Position: Sitting Standing Standing Pulse: 86 111 103 General Appearance Patient appears well at the time of this appointment. Neurological Examination: Cognition: The patient is alert and oriented times three Lucid and organized in conversation Able to tell detailed medical hx Speech is Normal in fluency volume and clarity Content and Syntax: Normal Comprehension: Normal, able to follow several step commands Cranial Nerves: Pupils are equal and reactive to light. Pupils normal in size Extraocular movements are grossly intact Good saccades and pursuits No nystagmus Hearing intact Good upgaze Visual ceron are full to confrontation. Facial, motor and sensory exam is symmetric Equal v1,V2, V3 Tongue is in midline. No tongue fasciculation. Palate is upgoing bilaterally SCM and trapezius are full. Shoulder shrug intact Motor Exam: Upper extremity motor exam is 5/5 in deltoid, 5/5 triceps 5/5biceps, 5/5 wrist extension, and 5/5 hand inspector repairer. Finger extensor 5/5. Finger flexor 5/5. Pronation and Supination are full. Full interossei 5/5 Lower extremity is 5/5 in IP, 5/5 quadriceps, 5/5 hamstrings, 5/5 EHL, 5/5 TA and 5/5 gastrocnemius. Hip abductors and adductors are 5/5 Toe extensors and flexors are full bilaterally. Foot evertors and inversions are full bilaterally Tone and bulk is normal and preserved bilaterally of arms Tone and bulk is normal and preserved bilaterally of legs No pes cavus, hammer toes, champagne legs The patient is without significant pronator drift. Sensation: Intact to light touch and temperature /deep pain. Normal toe position and vibratory. No length dependent neuropathy. Romberg's sign absent Reflexes: 2/4triceps, 2/4biceps, 2/4brachioradialis, 2/4knee jerk, 2/4ankle jerk and symmetric, toes are Down going (negative Babinski). No clonus of ankles. Coordination: Finger-to- nose-finger and [id number] intact bilaterally. No ataxia of arms. No limb dysmetria of arms and legs. or trunk. ADDIE of pronation and supination, finger and hand tapping intact. Toe tapping intact. There is no asterixis of the hands. No rigidity, cog wheeling, no bradykinesia. No tremors No extrapyramidal findings Gait: Normal station and stride. IMPRESSION/PLAN: EKG Propranolol 10 mg 2 times daily as needed Tina is a 22 year old female who presents for a follow up for POTS after initiating therapy with Ivabradine. Most symptoms of tachycardia, dizziness, lightheadedness, and exercise intolerance have improved with Ivabradine and patient is very happy with treatment. However, patient is concerned for shaky feeling and tremulousness. Patient is also presenting with new onset temporal migraine. Patient currently follows with headache clinic. For the treatment of hand tremors and likely adrenaline symptoms associated with POTS, will start patient on propranolol in addition to Ivabradine. Patient is able to take propranolol 10 mg as needed up to BID. Monitor for hypotension and bradycardia. Check ECG. Additional, Tina agrees to make follow up appointment with headache clinic for evaluation of new headache. Will plan next appointment for 6 months. Patient will call sooner with any concerns. Irasema Miller PA-C Attestation: I have reviewed the clinical details obtained and documented by Irasema Miller PA-C and I have participated in the valdez components. I discussed the case and the management plans with Irasema Miller PA-C, and I fully agree with the recommendations as outlined above. Edits to the note are indicated by italics and the note reflects my input. I spent a total of 30 minutes on the date of the service which included preparing to see the patient, [id number] patient care, completing clinical documentation, obtaining and/or reviewing separately obtained history, performing a medically appropriate examination, counseling and educating the patient/family/caregiver, and ordering medications, tests, or procedures. My impression and recommendations were discussed at length with the patient (and family members, if present). The patient and family (if present) voiced understanding to my recommendations. All questions were answered. The patient was provided with a detailed after visit summary highlighting my impression and recommendations. Radha Calderón APRN.CNP [facility] December 29, 2022 1:36 PM ACTIVE PROBLEM LIST Chronic Migraine Without Aura, With Intractable Migraine, So Stated, With Status Migrainosus Generalized Anxiety Disorder Gerd (Gastroesophageal Reflux Disease) Add (Attention Deficit Disorder) Pots (Postural Orthostatic Tachycardia Syndrome) Seizure-Like Activity (Hcc) Office Visit on 12/29/22 ECG COMPLETE 1. The nursing staff and medical assistants are a major part of YOUR TREATMENT TEAM and will be handling your phone calls and inquiries, if any. Unless explicitly told otherwise at the time of your office visit, your study results and ensuing treatment plans will be discussed during your follow-up appointment. If you do not have a follow-up appointment and wish to discuss any issues directly with me, please feel free to obtain one. 2. It is my practice to not fill disability or any other insurance-related forms/documention. All of the office notes, study results, and other pertinent documentation generated as part of your evaluation will be available to you and to your Primary Care Physician (PCP). Use of this material to complete such forms will be at the discretion of your PCP/referring physician documented in this encounter [facility] 12-23-2022 Note HNO ID: [id number] Author: Ezequiel Joaquin DDS Service: ? 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 Jaw been locked since March. She reports constant pain. Did physical therapy and meds and it wont unlock and no relief. She is taking muscle relaxant currently. Reports having recurrent ear infections and ear pain on the left side. Pain today in jaw is 9 on 10. Prior history of clicking or popping of the left joint and now it doesnt pop and she is unable to open her mouth. Has migraines and getting treated for the same. POTS-managed by meds and water intake. Gives h/o EDS but her genetic workup was negative. Gives h/o subluxation of ankle that required surgery. MRI of TMJ was denied by insurance Has pain in the upper front tooth and wants to have it extracted. No clenching or grinding at night No history of trauma Problem List Noted Noted By Resolved Resolved By Generalized anxiety disorder 11/18/2021 Amalia Marin PA-C No GERD (gastroesophageal reflux disease) 11/18/2021 Amalia Marin PA-C No ADD (attention deficit disorder) 11/18/2021 Amalia Marin PA-C No POTS (postural orthostatic tachycardia syndrome) 11/18/2021 Amalia Marin PA-C No Seizure-like activity (HCC) 11/18/2021 Amalia Marin PA-C No Chronic migraine without aura, with intractable migraine, so stated, with status migrainosus 08/23/2021 Mary Dan MD No PAST SURGICAL HISTORY Procedure Laterality Date ANKLE SURGERY HX Right Current Outpatient Medications Medication Sig Dispense Refill cyanocobalamin, vitamin B-12, (VITAMIN B-12 INJECTION) 1,000 mg by INJECTION(UNSPECIFIED PARENTERAL ROUTES) route once every month. Doxepin 6 mg tab Take by mouth. tiZANidine HCl (ZANAFLEX) 4 mg capsule Take 4 mg by mouth three times daily as needed. traMADol (ULTRAM) 50 mg tablet Take 50 mg by mouth every 6 hours as needed for pain. ivabradine (CORLANOR) 5 mg tablet Take 2.5 mg by mouth twice daily. 90 tablet 2 famotidine (PEPCID ORAL) Take by mouth. EPINEPHrine (EPIPEN) 0.3 mg/0.3 mL auto-injector 0.3 mg. albuterol HFA (PROVENTIL HFA, VENTOLIN HFA) 90 mcg/actuation inhaler Inhale 2 Puffs as instructed as needed for wheezing/shortness of breath. methylPREDNISolone (MEDROL, JENIFER,) 4 mg Dose-Pack Take as instructed 21 tablet 0 omeprazole (PRILOSEC) 40 mg capsule Take 40 mg by mouth once daily. Current Facility-Administered Medications Medication Dose Route Frequency Provider Last Rate Last Admin perflutren lipid microspheres 1.3 mL in NaCl (PF) 0.9% 10 mL injection (DEFINITY) INTRAVENOUS DIRECTED PRN Jose Daniel Tillman, sodium chloride 0.9 % (flush) 10 mL (BD POSIFLUSH) 10 mL INTRAVENOUS DIRECTED PRN Jose Daniel Tillman, ALLERGIES Allergen Reactions Lisha [Fexofenadi* Angioedema Amoxicillin Rash Beeswax Rash Contact rash from hot honey Penicillins Rash General appearance: alert, pleasant, no distress, cooperative. Extraoral, Head and Neck exam: No extraoral swelling or erythema No tenderness to palpation of temporalis and masseter muscles Left preauricular tenderness No SCM and trapezius muscle tenderness Deviation to left upon opening Left temporalis insertion tenderness Left lateral pterygoid insertion tenderness JOEL - 22mm Loading generates no increases in intra articular and myofascial pain Dentition: Fair repair Carious #8 Radiographic examination: altered condylar morphology of left condyle. Decreased joint space left side Right condyle at the articular eminence Assessment: Acute closed lock of left TMJ ? Hypermobile TMJ - genetic test for connective tissue disorder was negative. Plan: Obtain MRI of TMJ to evaluate articular disc. RTC after MRI Continue with soft diet Medrol dose jenifer for inflammation Will require jaw manipulation and arthrocentesis of left TMJ with PRP injection. Case request submitted. 30 Minutes total visit spent face to face with patient. Greater than 50% of the time was spent for counseling and coordination of care, discussing treatment options and recommendations. All of patients questions answered to the best of my ability. The diagnosis and treatment plan options including risks, benefits, options and personnel involved were discussed with the patient. There are no contraindications to the procedure. Tina Sy expressed understanding and agreed to proceed. My final recommendations will be communicated back to the requesting physician by way of shared medical record or letter via [place] mail. 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 Jaw been locked since March. She reports constant pain. Did physical therapy and meds and it wont unlock and no relief. She is taking muscle relaxant currently. Reports having recurrent ear infections and ear pain on the left side. Pain today in jaw is 9 on 10. Prior history of clicking or popping of the left joint and now it doesnt pop and she is unable to open her mouth. Has migraines and getting treated for the same. POTS-managed by meds and water intake. Gives h/o EDS but her genetic workup was negative. Gives h/o subluxation of ankle that required surgery. MRI of TMJ was denied by insurance Has pain in the upper front tooth and wants to have it extracted. No clenching or grinding at night No history of trauma Problem List Noted Noted By Resolved Resolved By Generalized anxiety disorder 11/18/2021 Amalia Marin PA-C No GERD (gastroesophageal reflux disease) 11/18/2021 Amalia Marin PA-C No ADD (attention deficit disorder) 11/18/2021 mAalia Marin PA-C No POTS (postural orthostatic tachycardia syndrome) 11/18/2021 Amalia Marin PA-C No Seizure-like activity (HCC) 11/18/2021 Amalia Marin PA-C No Chronic migraine without aura, with intractable migraine, so stated, with status migrainosus 08/23/2021 Mary Dan MD No PAST SURGICAL HISTORY Procedure Laterality Date ANKLE SURGERY HX Right Current Outpatient Medications Medication Sig Dispense Refill cyanocobalamin, vitamin B-12, (VITAMIN B-12 INJECTION) 1,000 mg by INJECTION(UNSPECIFIED PARENTERAL ROUTES) route once every month. Doxepin 6 mg tab Take by mouth. tiZANidine HCl (ZANAFLEX) 4 mg capsule Take 4 mg by mouth three times daily as needed. traMADol (ULTRAM) 50 mg tablet Take 50 mg by mouth every 6 hours as needed for pain. ivabradine (CORLANOR) 5 mg tablet Take 2.5 mg by mouth twice daily. 90 tablet 2 famotidine (PEPCID ORAL) Take by mouth. EPINEPHrine (EPIPEN) 0.3 mg/0.3 mL auto-injector 0.3 mg. albuterol HFA (PROVENTIL HFA, VENTOLIN HFA) 90 mcg/actuation inhaler Inhale 2 Puffs as instructed as needed for wheezing/shortness of breath. methylPREDNISolone (MEDROL, JENIFER,) 4 mg Dose-Pack Take as instructed 21 tablet 0 omeprazole (PRILOSEC) 40 mg capsule Take 40 mg by mouth once daily. Current Facility-Administered Medications Medication Dose Route Frequency Provider Last Rate Last Admin perflutren lipid microspheres 1.3 mL in NaCl (PF) 0.9% 10 mL injection (DEFINITY) INTRAVENOUS DIRECTED PRN Jose Daniel Tillman, sodium chloride 0.9 % (flush) 10 mL (BD POSIFLUSH) 10 mL INTRAVENOUS DIRECTED PRN Jose Daniel Tillman, DO ALLERGIES Allergen Reactions Lisha [Fexofenadi* Angioedema Amoxicillin Rash Beeswax Rash Contact rash from hot honey Penicillins Rash General appearance: alert, pleasant, no distress, cooperative. Extraoral, Head and Neck exam: No extraoral swelling or erythema No tenderness to palpation of temporalis and masseter muscles Left preauricular tenderness No SCM and trapezius muscle tenderness Deviation to left upon opening Left temporalis insertion tenderness Left lateral pterygoid insertion tenderness JOEL - 22mm Loading generates no increases in intra articular and myofascial pain Dentition: Fair repair Carious #8 Radiographic examination: altered condylar morphology of left condyle. Decreased joint space left side Right condyle at the articular eminence Assessment: Acute closed lock of left TMJ ? Hypermobile TMJ - genetic test for connective tissue disorder was negative. Plan: Obtain MRI of TMJ to evaluate articular disc. RTC after MRI Continue with soft diet Medrol dose jenifer for inflammation Will require jaw manipulation and arthrocentesis of left TMJ with PRP injection. Case request submitted. 30 Minutes total visit spent face to face with patient. Greater than 50% of the time was spent for counseling and coordination of care, discussing treatment options and recommendations. All of patients questions answered to the best of my ability. The diagnosis and treatment plan options including risks, benefits, options and personnel involved were discussed with the patient. There are no contraindications to the procedure. Tina Sy expressed understanding and agreed to proceed. My final recommendations will be communicated back to the requesting physician by way of shared medical record or letter via US mail. documented in this encounter [facility] 09-20-2022 Note HNO ID: [id number] Author: Elliot Turk PA-C Service: ? Author Type: Physician Minibus Driver Type: Progress Notes Filed: 09/20/2022 4:34 PM Note Text: CC: Tina Sy is 22 year old female who is self referred for left ear pain/pressure, left hearing change, and TMJ Assessment and Plan: (H92.02) Referred otalgia, left (primary encounter diagnosis) (M26.609) TMJ (temporomandibular joint disorder) ~audiogram demonstrates essentially normal hearing and normal middle ear function ~left ear symptoms referred from known TMJ problems - previously saw TMJ PT with Jerri with no improvement. Patient's jaw unable to open wider than ~1 inch ~provided name of TMJ dental specialist Lazara Bailey ~discussed conservative management in the meantime ~follow up with me as needed HPI: Tina is a 22 year old who reports pain in left ear and jaw dysfunction. Reports her jaw ROM has become limited at ~1 inch since Mar 2022 - attempts with TMJ PT failed to improve the problem. She experiences tightness and pain along the TMJ region. Left ear pain and pressure started 3 months ago with some muffled hearing. Pain described as throbbing. Denies otorrhea, fever, facial swelling, h/o ear surgeries, or h/o ventilation tubes. Currently trying to find a TMJ dentist who will accept her insurance. ALLERGIES Allergen Reactions Lisha [Fexofenadi* Angioedema Amoxicillin Rash Beeswax Rash Contact rash from hot honey Penicillins Rash Current Outpatient Medications Medication Sig cyanocobalamin, vitamin B-12, (VITAMIN B-12 INJECTION) 1,000 mg by INJECTION(UNSPECIFIED PARENTERAL ROUTES) route once every month. omeprazole (PRILOSEC) 40 mg capsule Take 40 mg by mouth once daily. Doxepin 6 mg tab Take by mouth. tiZANidine HCl (ZANAFLEX) 4 mg capsule Take 4 mg by mouth three times daily as needed. traMADol (ULTRAM) 50 mg tablet Take 50 mg by mouth every 6 hours as needed for pain. ivabradine (CORLANOR) 5 mg tablet Take 2.5 mg by mouth twice daily. famotidine (PEPCID ORAL) Take by mouth. EPINEPHrine (EPIPEN) 0.3 mg/0.3 mL auto-injector 0.3 mg. albuterol HFA (PROVENTIL HFA, VENTOLIN HFA) 90 mcg/actuation inhaler Inhale 2 Puffs as instructed as needed for wheezing/shortness of breath. Current Facility-Administered Medications Medication Dose Route Frequency perflutren lipid microspheres 1.3 mL in NaCl (PF) 0.9% 10 mL injection (DEFINITY) INTRAVENOUS DIRECTED PRN sodium chloride 0.9 % (flush) 10 mL (BD POSIFLUSH) 10 mL INTRAVENOUS DIRECTED PRN No past medical history on file. PAST SURGICAL HISTORY Procedure Laterality Date ANKLE SURGERY HX Right Social History: Social History Tobacco Use Smoking status: Never Smokeless tobacco: Never Substance Use Topics Alcohol use: Never Drug use: Never FAMILY HISTORY Problem Relation Age of Onset Rheumatologic disease Mother RA Rheumatologic disease Maternal Grandmother RA Review Of Systems GENERAL: No weight loss, malaise or fevers. HEENT: Negative for frequent or significant headaches, Ears Positive for hearing loss, earaches, Mouth AND Throat Positive for TMJ I have confirmed and edited as necessary the ROS obtained by others. Elliot Turk PA-C PHYSICAL EXAM: LMP 08/05/2021 No weight on file for this encounter. General appearance: Well appearing, alert, in no acute distress, well-hydrated, well nourished. Cranial Nerves: III-XII: grossly intact Skin: Skin color, texture, turgor normal, no suspicious rashes or lesions Head: normocephalic, no masses, lesions, tenderness or abnormalities, positive findings: limited TMJ ROM to ~1 inch Ears: Bilateral external ear(s) normal, external auditory canal(s) clear, tympanic membrane(s) normal. Neuro: Gait normal. Mental status revealed patient to be alert and oriented. Mood is appropriate Elliot Turk PA-C Medical Decision Making: Problems: Moderate: 1+ chronic illnesses with change Data: Unique test result(s) reviewed: 1 Risk: Low: Low risk from testing/treatment Medical Decision Making Level: 3 - Low [facility] 09-06-2022 Note ORIGINAL FROM: [place] [id number] PROCEDURE FOR: TINA SY [address] [place] [address] Home: PID#: [id number] Exam#: [id number] : 2000 Age: 22 TO: GERMAN FRENCH [employer]RICATOR[place] [id number] EXAMINATION: ULTRASOUND OF THE RIGHT BREAST 09/06/2022 10:02 am TECHNIQUE: Color flow and real-time targeted ultrasound of the retroareolar region and lower outer quadrant were performed. COMPARISON: None HISTORY: ORDERING SYSTEM PROVIDED HISTORY: Reason for Exam: Mastodynia FINDINGS: There are no significant sonographic findings to correlate with the palpable abnormality/area of pain. IMPRESSION: There are no significant sonographic findings to correlate with the palpable abnormality/area pain. Clinical follow up is recommended. BIRADS: MAMMOGRAM BI-RADS: 1: Negative RECALL: none RECALL TYPE: mammo LETTER SENT: Normal BI-RADS 1 and 2 Interpreted by: Yajaira Stanley MD Preliminary Report By: Yajaira Stanley MD Electronically signed By Yajaira Stanley MD Dictated Date: 09/06/2022 11:45:57 AM Prelim Date: 09/06/2022 11:48:03 AM Sign Date: 09/06/2022 11:48:03 AM Ordering Provider: GERMAN FRENCH CLINICAL: PALPABLE LUMP RIGHT BREAST FOCAL PAIN RIGHT BREAST. Acute Care Occupational Therapist: CARLITOS CARABALLO [facility] letter sent: Normal BI-RADS 1 and 2 Ultrasound BI-RADS: 1 Negative [facility] 09-06-2022 Note ORIGINAL FROM: [place] [address] PROCEDURE FOR: TINA SY [address] [place] [address] Home: PID#: [id number] Exam#: [id number] : 2000 Age: 22 TO: G[employer]MAN [employer] FABRICATOR-CNM [address] [place] [address] EXAMINATION: ULTRASOUND OF THE RIGHT BREAST 09/06/2022 10:02 am TECHNIQUE: Color flow and real-time targeted ultrasound of the retroareolar region and lower outer quadrant were performed. COMPARISON: None HISTORY: ORDERING SYSTEM PROVIDED HISTORY: Reason for Exam: Mastodynia FINDINGS: There are no significant sonographic findings to correlate with the palpable abnormality/area of pain. IMPRESSION: There are no significant sonographic findings to correlate with the palpable abnormality/area pain. Clinical follow up is recommended. BIRADS: MAMMOGRAM BI-RADS: 1: Negative RECALL: none RECALL TYPE: mammo LETTER SENT: Normal BI-RADS 1 and 2 Interpreted by: Yajaira Stanley MD Preliminary Report By: Yajaira Stanley MD Electronically signed By Yajaira Stanley MD Dictated Date: 09/06/2022 11:45:57 AM Prelim Date: 09/06/2022 11:48:03 AM Sign Date: 09/06/2022 11:48:03 AM Ordering Provider: GERMAN FRENCH CLINICAL: PALPABLE LUMP RIGHT BREAST FOCAL PAIN RIGHT BREAST. Acute Care Occupational Therapist: CARLITOS CARABALLO [facility] letter sent: Normal BI-RADS 1 and 2 Ultrasound BI-RADS: 1 Negative [facility] 08-27-2022 Note . MICRO - Microbiology PROCEDURE: Urine Culture [*1] SOURCE: Urine, Clean Catch BODY SITE: COLLECTED DATE/TIME: 08/25/2022 16:35 EDT RECEIVED DATE/TIME: 08/25/2022 18:43 EDT START DATE/TIME: 08/25/2022 18:43 EDT FREE TEXT SOURCE: FINAL REPORTS Final Report [] Verified Date/Time/Personnel: 08/27/2022 08:33 EDT <10,000 cfu/ml. No Significant growth. Sensitivity not indicated. PRELIMINARY REPORTS Preliminary Report [] Verified Date/Time/Personnel: 08/26/2022 15:53 EDT Culture results pending. Performing Locations *1: This test was performed at: [address], [address] , [facility] ([place]) 08-26-2022 Note . MICRO - Microbiology PROCEDURE: Affirm Pathogens DNA Direct Probe [*1] SOURCE: Vaginal Fluid BODY SITE: Vagina COLLECTED DATE/TIME: 08/25/2022 16:35 EDT RECEIVED DATE/TIME: 08/25/2022 18:37 EDT START DATE/TIME: 08/25/2022 18:37 EDT FREE TEXT SOURCE: FINAL REPORTS Final Report [] Verified Date/Time/Personnel: 08/26/2022 16:54 EDT Gardnerella vaginalis DNA Probe Positive Clarissa species DNA Probe Negative Trichomonas vaginalis DNA Probe Negative Performing Locations *1: This test was performed at: [address], [address] , [facility] ([place]) 08-17-2022 Miscellaneous Notes t documented in this encounter [facility] 08-07-2022 Note HNO ID: [id number] Author: Freida Montenegro RN Service: ? Author Type: Registered Nurse Type: Progress Notes Filed: 08/07/2022 4:00 PM Note Text: INHALANT 40 PERCUTANEOUS AND INTRADERMAL TESTING/ Mean Wheal AND Flare Diameter (mm) Patient has been identified by name and date of : Yes . Skin test applied by : Freida Montenegro RN Interpreted By: Felipa Lomas M.D., PhD * Clinical significant reactions are regarded as a wheal diameter greater than or equal to 3 mm with a flare diameter greater or equal to 6mm. ALLERGENS Time applied: 1500 Time read: 1515 Negative Control: 50%Glycerin/50%Cocas P: W = 0 mm F = 0 mm Cat Hair 10,000 BAU/ml P: W = 0 mm F = 0 mm Dog Epithelial 1:20 P: W = 0 mm F = 0 mm Cockroach Mix 1:20 P: W = 0 mm F = 0 mm Mite Df 10,000 AU/ml P: W = 3 mm F = 6 mm Mite Dp 10,000AU/ml P: W = 3 mm F = 6 mm Alternaria Alternata 1:20 P: W = 0 mm F = 0 mm Aspergillus Fumigatus 1:20 P: W = 0 mm F = 0 mm Cladosporium sphearospermum 1:20 P: W = 0 mm F = 0 mm Epicoccum Nigrum 1:10 P: W = 0 mm F = 0 mm Fusarium Solani 1:40 P: W = 0 mm F = 0 mm Bipolaris Sorokiniana 1:20 P: W = 0 mm F = 0 mm Penicillium Mix 1:20 P: W = 0 mm F = 0 mm [place], White 1:20 P: W = 0 mm F = 0 mm Beech, Bolivian 1:20 P: W = 0 mm F = 0 mm Birch Mix 1:20 P: W = 0 mm F = 0 mm Maple Mix 1:20 P: W = 0 mm F = 0 mm [place] ,Eastern 1:20 P: W = 0 mm F = 0 mm Elm, Bolivian 1:20 P: W = 0 mm F = 0 mm [place], Shagbark 1:20 P: W = 0 mm F = 0 mm [place] Tree, Red 1:20 P: W = 0 mm F = 0 mm [place], Red 1:20 P: W = 0 mm F = 0 mm [place], [place]ian/Eastern 1:20 P: W = 0 mm F = 0 mm [place] Pollen, Black 1:20 P: W = 0 mm F = 0 mm [place], Black 1:20 P: W = 0 mm F = 0 mm B[place]uda Grass 10,000 BAU/ml P : W = 0 mm F = 0 mm [place], Blue/Elva 100,000 BAU/ml P: W = 0 mm F = 0 mm [place]escue, [place] 100,000 BAU/ml P: W = 0 mm F = 0 mm Alfredo Grass 1:20 P: W = 0 mm F = 0 mm Orchard Grass 100,000 BAU/ml P: W = 0 mm F = 0 mm Perennial [place], 100,000 BAU/ml P: W = 0 mm F = 0 mm Jimmy 100,000 BAU/ml P: W = 0 mm F = 0 mm [place] 1:20 P: W = 0 mm F = 0 mm [place], sheep 1:20 P: W = 0 mm F = 0 mm Plantain, Russian 1:20 P: W = 0 mm F = 0 mm Lambs Quarters 1:20 P: W = 0 mm F = 0 mm Morrissey Elder, Burweed 1:20 P: W = 0 mm F = 0 mm Pigweed, Rough 1:20 P: W = 0 mm F = 0 mm Ragweed, Mix 1:20 P: W = 0 mm F = 0 mm HISTAMINE, positive control(Histamine base 6mg/ml) P: W = 4 mm F = 8 mm Hydrocortisone 2.5 % cream applied to positive skin test reactions per doctor's order. Patient instructed regarding inhalant allergen avoidance measures; written information given. Patient seen by Dr. Moreno prior to leaving [facility]. Freida Montenegro RN [facility] 08-07-2022 Note HNO ID: [id number] Author: Felipa Lomas MD Service: ? Author Type: Physician Type: Progress Notes Filed: 08/07/2022 4:00 PM Note Text: Allergy AND Clinical Immunology Naya Hough DO has requested consultation for recurrent infections. My progress note with assessment and recommendations from today's appointment will be electronically routed to the referring provider. Tina Sy is a 22 year old female, accompanied today by mother, seen for recurrent infections. She reports having COVID 4 times since April 2020 which has worsened her POTS symptoms. States she tested positive each time. Does not recall if she tested negative in between but did have a negative COVID test for ankle surgery. None of them required hospitalizations; was managed outpatient with supportive measures. Is not vaccinated due to her POTS diagnosis. Did not receive monoclonal antibodies. During much of this time she was practicing social distancing, wearing masks. She also had mono about a year ago based on positive swab. She had swollen lymph nodes. She has had thrush a couple of times in her life, was treated recently for such but never swabbed. She was treated with the Nystatin swab and it cleared right up . She frequently has colds and sinus infections. She receives steroids and antibiotics multiple times per year. Does not typically require prolonged courses of antibiotics. Denies pneumonias or bacteremias. Has never been hospitalized for infection. Mother states she was rarely sick as a child. She suffers from frequent runny nose, sneezing, and sore throat. She has to blow her nose a lot. She takes doxepin to help her sleep but held it for this appointment. Did not notice worsening of symptoms. Tetanus vaccine: 12/10/2012 Pneumococcal vaccine (PCV7): 08/21/2005 When she was in cosmetology school she had practiced waxing with hot honey and had a contact rash where the hot honey touched her. She is able to consume honey without adverse reaction. She was stung a couple of times by a bee as a child. The first time, she had shortness of breath 14 hours later. She had been stung in the foot and had swelling. The second time, she got stung in the leg and had instant local swelling. She was treated with epinephrine and IV steroids. Did not have syncope. When she was 5 or 6 years old, she took an oral penicillin and developed diffuse hives after the second dose. A couple of years later she was given amoxicillin and had a similar reaction. Her mother took her to the ED and she was treated with antihistamines. She has avoided penicillins since. States Lisha gave her angioedema and hives. Tolerates doxepin, Benadyl, and Zyrtec. She is undergoing genetic testing to assess for EDS. Current Outpatient Medications on File Prior to Visit Medication Sig Doxepin 6 mg tab Take by mouth. tiZANidine HCl (ZANAFLEX) 4 mg capsule Take 4 mg by mouth three times daily as needed. traMADol (ULTRAM) 50 mg tablet Take 50 mg by mouth every 6 hours as needed for pain. nystatin (MYCOSTATIN) 100,000 unit/mL suspension Take 5 mL by mouth four times daily. Swish and swallow. ivabradine (CORLANOR) 5 mg tablet Take 2.5 mg by mouth twice daily. famotidine (PEPCID ORAL) Take by mouth. cyanocobalamin (VITAMIN B-12) 100 mcg tab Take 100 mcg by mouth once daily. NORTREL 1/35, 28, 1-35 mg-mcg per tablet Take 1 tablet by mouth once daily. EPINEPHrine (EPIPEN) 0.3 mg/0.3 mL auto-injector 0.3 mg. albuterol HFA (PROVENTIL HFA, VENTOLIN HFA) 90 mcg/actuation inhaler Inhale 2 Puffs as instructed as needed for wheezing/shortness of breath. Current Facility-Administered Medications on File Prior to Visit Medication perflutren lipid microspheres 1.3 mL in NaCl (PF) 0.9% 10 mL injection (DEFINITY) sodium chloride 0.9 % (flush) 10 mL (BD POSIFLUSH) ALLERGIES Allergen Reactions Lisha [Fexofenadi* Angioedema Amoxicillin Rash Beeswax Anaphylaxis Penicillins Rash No past medical history on file. PAST SURGICAL HISTORY Procedure Laterality Date ANKLE SURGERY HX Right FAMILY HISTORY Problem Relation Age of Onset Rheumatologic disease Mother RA Rheumatologic disease Maternal Grandmother RA Family history of atopy: yes No family history of immunodeficiency SOCIAL HISTORY Denies tobacco use or exposure Environmental History: Residence: [facility] Basement: no Bedroom Floor: carpet Dust mite covers: no Air conditioning: central Pets: 2 cats; allowed in bedroom Review of Systems: Gen: Positive for fatigue, night sweats. No fevers, chills, weight changes. HEENT: No eye itching, watering. No snoring. No recent sinus infections. Neck: No lymphadenopathy. Resp: No cough, wheezing, dyspnea. CV: Positive for chest pain, palpitations. No chest pain. GI: No reflux, abdominal pain, vomiting, diarrhea, constipation. Musc/Skel: Positive for joint pain. Neuro: Positive for h (more content not included)... [facility] 08-07-2022 Instructions Felipa Lomas MD - 08/07/2022 3:16 PM EDT Dust mite avoidance measures as we discussed Get bloodwork to finish checking your immune system I will reach out to you via MyChart with the results and any other recommendations. Consider returning to clinic for penicillin allergy evaluation. We don't need to test you for bee allergy at this time but recommend: Avoiding Insect Stings Knowing how to avoid stings from fire ants, honeybees, wasps, hornets and yellow jackets leads to a more enjoyable summer for everyone. Stinging insects are most active during the late spring, summer, summer and early fall. Insect repellents do not work against stinging insects. Yellow jackets will nest in the ground and in [place]ton. Hornets and wasps will nest in bushes, trees and on buildings. Use extreme caution when working or playing in these areas. Avoid open garbage cans and exposed food at picnics, which attract yellow jackets. Also, try to reduce the amount of exposed skin when outdoors. Effective methods for insecticide treatment of fire ant mounds use attractant baits. These baits often contain soybean oil and corn grits combined with chemical agents. The bait is picked up by the worker ants and taken deeper into the mound to the steele. It can take weeks for these insecticides to work. Allergists recommend the following additional precautions to avoid insect stings: Avoid wearing sandals or walking barefoot in the grass. Honeybees and bumblebees forage on white clover, a weed that grows in lawns throughout the country. Never swat at a flying insect. If need be, gently brush it aside or patiently wait for it to leave. Do not drink from open beverage cans. Stinging insects will crawl inside a can attracted by the sweet beverage. When eating outdoors, try to keep food covered at all times. Garbage cans stored outside should be covered with tight-fitting lids. Avoid sweet-smelling perfumes, hair sprays, colognes and deodorants. Avoid wearing bright-colored clothing. Yard work and gardening should be done with caution. Wearing shoes and socks and using work gloves will prevent stings on hands and feet and provide time to get away from an unexpected mound. Keep window and door screens in good repair. Drive with car windows closed. Keep prescribed medications handy at all times and follow the instructions if you are stung. These medications are for immediate emergency use while en route to a hospital emergency room for observation and further treatment. Information taken from: https://[facility].org/allergies/carlos rgic-conditions/susllo-cfxuh-qys ergies/ documented in this encounter [facility] 08-07-2022 History of Present illness Narrative INHALANT 40 PERCUTANEOUS & INTRADERMAL TESTING/ Mean Wheal & Flare Diameter (mm) Patient has been identified by name and date of : Yes . Skin test applied by : Freida Montenegro RN Interpreted By: Felipa Lomas M.D., PhD * Clinical significant reactions are regarded as a wheal diameter greater than or equal to 3 mm with a flare diameter greater or equal to 6mm. ALLERGENS Time applied: 1500 Time read: 1515 Negative Control: 50%Glycerin/50%Cocas P: W = 0 mm F = 0 mm Cat Hair 10,000 BAU/ml P: W = 0 mm F = 0 mm Dog Epithelial 1:20 P: W = 0 mm F = 0 mm Cockroach Mix 1:20 P: W = 0 mm F = 0 mm Mite Df 10,000 AU/ml P: W = 3 mm F = 6 mm Mite Dp 10,000AU/ml P: W = 3 mm F = 6 mm Alternaria Alternata 1:20 P: W = 0 mm F = 0 mm Aspergillus Fumigatus 1:20 P: W = 0 mm F = 0 mm Cladosporium sphearospermum 1:20 P: W = 0 mm F = 0 mm Epicoccum Nigrum 1:10 P: W = 0 mm F = 0 mm Fusarium Solani 1:40 P: W = 0 mm F = 0 mm Bipolaris Sorokiniana 1:20 P: W = 0 mm F = 0 mm Penicillium Mix 1:20 P: W = 0 mm F = 0 mm Eldon, White 1:20 P: W = 0 mm F = 0 mm Beech, Bolivian 1:20 P: W = 0 mm F = 0 mm Birch Mix 1:20 P: W = 0 mm F = 0 mm Maple Mix 1:20 P: W = 0 mm F = 0 mm [place] ,Eastern 1:20 P: W = 0 mm F = 0 mm Elm, Bolivian 1:20 P: W = 0 mm F = 0 mm [place], Shagbark 1:20 P: W = 0 mm F = 0 mm [place] Tree, Red 1:20 P: W = 0 mm F = 0 mm Chardon, Red 1:20 P: W = 0 mm F = 0 mm [place], Bolivian/Eastern 1:20 P: W = 0 mm F = 0 mm Linden Pollen, Black 1:20 P: W = 0 mm F = 0 mm [place], Black 1:20 P: W = 0 mm F = 0 mm Bermuda Grass 10,000 BAU/ml P : W = 0 mm F = 0 mm [place], Blue/Elva 100,000 BAU/ml P: W = 0 mm F = 0 mm Fescue, [place] 100,000 BAU/ml P: W = 0 mm F = 0 mm Alfredo Grass 1:20 P: W = 0 mm F = 0 mm Orchard Grass 100,000 BAU/ml P: W = 0 mm F = 0 mm Perennial Republic, 100,000 BAU/ml P: W = 0 mm F = 0 mm Jimmy 100,000 BAU/ml P: W = 0 mm F = 0 mm Cock[place]bur 1:20 P: W = 0 mm F = 0 mm [place], sheep 1:20 P: W = 0 mm F = 0 mm Plantain, Russian 1:20 P: W = 0 mm F = 0 mm Lambs Quarters 1:20 P: W = 0 mm F = 0 mm Morrissey Elder, Burweed 1:20 P: W = 0 mm F = 0 mm Pigweed, Rough 1:20 P: W = 0 mm F = 0 mm Ragweed, Mix 1:20 P: W = 0 mm F = 0 mm HISTAMINE, positive control(Histamine base 6mg/ml) P: W = 4 mm F = 8 mm Hydrocortisone 2.5 % cream applied to positive skin test reactions per doctor's order. Patient instructed regarding inhalant allergen avoidance measures; written information given. Patient seen by Dr. Moreno prior to leaving [facility]. Freida Montenegro RN Images from the original note were not included. Allergy & Clinical Immunology Naya Hough DO has requested consultation for recurrent infections. My progress note with assessment and recommendations from today's appointment will be electronically routed to the referring provider. Tina Sy is a 22 year old female, accompanied today by mother, seen for recurrent infections. She reports having COVID 4 times since April 2020 which has worsened her POTS symptoms. States she tested positive each time. Does not recall if she tested negative in between but did have a negative COVID test for ankle surgery. None of them required hospitalizations; was managed outpatient with supportive measures. Is not vaccinated due to her POTS diagnosis. Did not receive monoclonal antibodies. During much of this time she was practicing social distancing, wearing masks. She also had mono about a year ago based on positive swab. She had swollen lymph nodes. She has had thrush a couple of times in her life, was treated recently for such but never swabbed. She was treated with the Nystatin swab and it cleared right up . She frequently has colds and sinus infections. She receives steroids and antibiotics multiple times per year. Does not typically require prolonged courses of antibiotics. Denies pneumonias or bacteremias. Has never been hospitalized for infection. Mother states she was rarely sick as a child. She suffers from frequent runny nose, sneezing, and sore throat. She has to blow her nose a lot. She takes doxepin to help her sleep but held it for this appointment. Did not notice worsening of symptoms. Tetanus vaccine: 12/10/2012 Pneumococcal vaccine (PCV7): 08/21/2005 When she was in cosmetology school she had practiced waxing with hot honey and had a contact rash where the hot honey touched her. She is able to consume honey without adverse reaction. She was stung a couple of times by a bee as a child. The first time, she had shortness of breath 14 hours later. She had been stung in the foot and had swelling. The second time, she got stung in the leg and had instant local swelling. She was treated with epinephrine and IV steroids. Did not have syncope. When she was 5 or 6 years old, she took an oral penicillin and developed diffuse hives after the second dose. A couple of years later she was given amoxicillin and had a similar reaction. Her mother took her to the ED and she was treated with antihistamines. She has avoided penicillins since. States Lisha gave her angioedema and hives. Tolerates doxepin, Benadyl, and Zyrtec. She is undergoing genetic testing to assess for EDS. Current Outpatient Medications on File Prior to Visit Medication Sig Doxepin 6 mg tab Take by mouth. tiZANidine HCl (ZANAFLEX) 4 mg capsule Take 4 mg by mouth three times daily as needed. traMADol (ULTRAM) 50 mg tablet Take 50 mg by mouth every 6 hours as needed for pain. nystatin (MYCOSTATIN) 100,000 unit/mL suspension Take 5 mL by mouth four times daily. Swish and swallow. ivabradine (CORLANOR) 5 mg tablet Take 2.5 mg by mouth twice daily. famotidine (PEPCID ORAL) Take by mouth. cyanocobalamin (VITAMIN B-12) 100 mcg tab Take 100 mcg by mouth once daily. NORTREL 1/35, 28, 1-35 mg-mcg per tablet Take 1 tablet by mouth once daily. EPINEPHrine (EPIPEN) 0.3 mg/0.3 mL auto-injector 0.3 mg. albuterol HFA (PROVENTIL HFA, VENTOLIN HFA) 90 mcg/actuation inhaler Inhale 2 Puffs as instructed as needed for wheezing/shortness of breath. Current Facility-Administered Medications on File Prior to Visit Medication perflutren lipid microspheres 1.3 mL in NaCl (PF) 0.9% 10 mL injection (DEFINITY) sodium chloride 0.9 % (flush) 10 mL (BD POSIFLUSH) ALLERGIES Allergen Reactions Lisha [Fexofenadi* Angioedema Amoxicillin Rash Beeswax Anaphylaxis Penicillins Rash No past medical history on file. PAST SURGICAL HISTORY Procedure Laterality Date ANKLE SURGERY HX Right FAMILY HISTORY Problem Relation Age of Onset Rheumatologic disease Mother RA Rheumatologic disease Maternal Grandmother RA Family history of atopy: yes No family history of immunodeficiency SOCIAL HISTORY Denies tobacco use or exposure Environmental History: Residence: [facility] Basement: no Bedroom Floor: carpet Dust mite covers: no Air conditioning: central Pets: 2 cats; allowed in bedroom Review of Systems: Gen: Positive for fatigue, night sweats. No fevers, chills, weight changes. HEENT: No eye itching, watering. No snoring. No recent sinus infections. Neck: No lymphadenopathy. Resp: No cough, wheezing, dyspnea. CV: Positive for chest pain, palpitations. No chest pain. GI: No reflux, abdominal pain, vomiting, diarrhea, constipation. Musc/Skel: Positive for joint pain. Neuro: Positive for headaches. Skin: No lesions, rashes, hives, or eczema. Psych: Positive for anxiety. All other systems reviewed, negative except as above. Physical Exam: BP 106/67 Pulse 91 Temp 37.2 C (99 F) (Temporal) Resp 16 Wt 46.3 kg (102 lb) LMP 08/05/2021 SpO2 97% BMI 15.06 kg/m GEN - NAD, well appearing, cooperative with exam HEENT - No conjunctival injection, swelling or discharge. TMs clear with no effusion or bulging. Normal nasal mucosa, with no inflammation or discharge. MMM. Oropharynx non-erythematous with no tonsillar enlargement or exudates. Difficult for patient to open mouth wide enough for exam. NECK - supple, no cervical LAD RESP - No increased work of breathing. Clear to auscultation bilaterally, no wheeze or crackles. CV- RRR, no murmurs ABD- Soft, non-distended SKIN- Warm and well perfused, no rashes on exposed skin NEURO- cranial nerves grossly intact Diagnostic Testin08/07/22 Inhalant SPT (40 panel): positive to dust mite Component Latest Ref Rng & Units 07/10/2022 WBC 3.70 - 11.00 k/uL 7.36 RBC 3.90 - 5.20 m/uL 4.22 Hemoglobin 11.5 - 15.5 g/dL 13.2 Hematocrit 36.0 - 46.0 % 40.0 MCV 80.0 - 100.0 fL 94.8 MCH 26.0 - 34.0 pg 31.3 MCHC 30.5 - 36.0 g/dL 33.0 RDW-CV 11.5 - 15.0 % 12.1 Platelet Count 150 - 400 k/uL 313 MPV 9.0 - 12.7 fL 10.7 Neut% % 74.6 Abs Neut (ANC) 1.45 - 7.50 k/uL 5.50 Lymph% % 18.2 Abs Lymph 1.00 - 4.00 k/uL 1.34 Seminole% % 6.3 Abs [place]inole <0.87 k/uL 0.46 Eosin% % 0.3 Abs Eosin <0.46 k/uL <0.03 Baso% % 0.3 Abs Baso <0.11 k/uL <0.03 Immature Gran % % 0.3 IMMATURE GRANS (ABS) <0.10 k/uL <0.03 NRBC /100 WBC 0.0 Absolute nRBC <0.01 k/uL <0.01 DTYPE Auto Protein, Total 6.3 - 8.0 g/dL 7.8 Albumin 3.9 - 4.9 g/dL 5.0 (H) Calcium 8.5 - 10.2 mg/dL 10.2 Bilirubin, Total 0.2 - 1.3 mg/dL 0.6 Alkaline Phosphatase 34 - 123 U/L 92 AST 13 - 35 U/L 17 ALT 7 - 38 U/L 9 Glucose 74 - 99 mg/dL 127 (H) BUN 7 - 21 mg/dL 7 Creatinine 0.58 - 0.96 mg/dL 0.59 Sodium 136 - 144 mmol/L 141 Potassium 3.7 - 5.1 mmol/L 3.7 Chloride 97 - 105 mmol/L 105 CO2 22 - 30 mmol/L 24 Anion Gap 9 - 18 mmol/L 12 eGFR >=60 mL/min/1.73m 131 IgG 700 - 1,600 mg/dL 1,100 IgA 70 - 400 mg/dL 241 IgM 40 - 230 mg/dL 80 CRP <0.9 mg/dL <0.3 Patient Entered Data: Myc Collateral Allergy History 08/01/2022 1:05 PM EDT - Filed by Patient Do you have or have you ever been diagnosed with allergic rhinitis? Not Sure Have you ever been skin tested for allergies? No Do you have asthma? No Do you have or have you ever been diagnosed with eczema or atopic dermatitis? No Do you get frequent sinus infections? Yes Do you have nasal polyps? No Do you have or have you ever been diagnosed with urticaria / hives? Not Sure Do you have or have you ever been diagnosed with angioedema? No Do you have or have you ever been diagnosed with food allergy? Not Sure Do you have or have you ever been diagnosed with stinging insect allergy (bee, wasp, yellow jacket, hornet)? Yes Are you allergic to Penicillin antibiotics? Yes Assessment/Plan: Recurrent infections - Has had COVID 4 times in past couple of years - Several viral URIs during this time as well - Also reports recurrent sinus infections - No significant infection history in childhood - Recent antibody levels normal which is reassuring - Obtain Humoral Immunity Panel, Immunodeficiency CDC, Mitogen LTT - Will determine if additional testing needed based on results; discussed possible need for vaccine challenge Allergic rhinitis (dust mite) - Discussed could be contributing to sinusitis or URI symptoms - Allergen avoidance measures reviewed and information provided to patient - Patient defers pharmacotherapy today given that nasal symptoms are overall mild at present Reported penicillin/amoxicillin allergies - Remote history of diffuse urticaria after second doses - Patient should return to clinic for allergy evaluation - Continue to avoid in the mean time - Beta lactams with dissimilar side chains (select cephalosporins and carbapenems) may be utilized if needed without testing prior Reported bee allergy - Localized angioedema on two occasions in childhood; first episode had delayed dyspnea - Had contact reaction from hot honey; likely irritant - Consumes honey without adverse reaction - Does not meet criteria for VIT evaluation as risk of anaphylaxis is not significantly elevated - Reasonable to continue to carry an EpiPen if it helps alleviate fear of being stung - Recommend insect sting avoidance; information provided today Return to clinic: pending test results Felipa Lomas MD, PhD Allergy & Clinical Immunology [facility] Medical Decision Making: Level: 4 - Moderate documented in this encounter [facility] 08-07-2022 Note HNO ID: [id number] Author: PANCHITO Em Service: ? Author Type: Infrastructure Consultant Type: Progress Notes Filed: 08/08/2022 8:57 AM Note Text: Head and Neck [place] AUDIOLOGIC EVALUATION REPORT Name: Tina Sy CCF#: [id number] Date of Service: 08/07/2022 Date of : 2000 Age: [age] year old Referred by: Radha Calderón CNP [id number] [facility] [id number] Referred for: Evaluation of suspected change in hearing, tinnitus, or balance. Referral documented: In an order in [facility] Patient's major complaints: Reduced hearing in the left ear, Otalgia in the left ear, Pressure/fullness in the left ear Tina Sy was seen for an initial audiologic evaluation. History is significant for POTS. She reported that her jaw locked up in March, and ever since then she has been experiencing ear pain (8/10), sensation of fluctuating hearing, and intermittent pressure in the left ear. She also reported occasional room-spinning dizziness lasting seconds with no known trigger. Patient denied history of noise exposure, otologic surgery, and ototoxicity. See SmartForm Audiogram for additional reported history and symptoms. IMPRESSIONS RIGHT EAR: Hearing within normal limits LEFT EAR: Hearing essentially within normal limits AUDIOLOGIC EVALUATION Following is a brief interpretation of the obtained findings from the audiologic evaluation. Refer to the Auditory Test Record for complete audiometric results. The patient was counseled about the test findings and appropriate audiologic recommendations were made. SUMMARY: Audiogram can be viewed under Forms/Audiology/SmartForm. OTOSCOPY RIGHT EAR: Otoscopic inspection revealed ear canal was clear with an identifiable cone of light. LEFT EAR: Otoscopic inspection revealed ear canal was clear with an identifiable cone of light. TYMPANOMETRY Description of procedure: This test is an objective evaluation of middle ear function. CPT code: 78347 RIGHT EAR: Normal ME function. LEFT EAR: Normal ME function. ACOUSTIC REFLEXES Description of procedure: This test is an objective measure of auditory and facial nerve pathways. CPT code: 91866, 53893 RIGHT EAR PROBE EAR: (ipsi right stimulus ear; contralateral left stimulus ear): Acoustic Reflex Pattern Could not interpret due to artifact. Acoustic Reflex Decay (left stimulus ear): Did not test. LEFT EAR PROBE EAR: (ipsi left stimulus ear; contralateral right stimulus ear): Acoustic Reflex Pattern Could not interpret due to artifact. Acoustic Reflex Decay (right stimulus ear):Did not test. PURE TONE AUDIOMETRY AND SPEECH TESTING Description of procedure: This test is an objective evaluation hearing sensitivity via air and bone conduction and speech recognition testing. CPT code: 87194 RIGHT EAR: Hearing Sensitivity: Within normal limits. Word Recognition Score: Excellent (100%). WRS is consistent with hearing sensitivity. Words were presented at 45 dB HL is above (greater than or equal to 60 dB HL) intensity level for average conversational speech. The NU-6 Ordered by Difficulty Word List (10 words) was used for testing. Contralateral masking was employed. LEFT EAR: Hearing Sensitivity: Essentially within normal limits. Word Recognition Score: Excellent (100%). WRS is consistent with hearing sensitivity. Words were presented at 45 dB HL is above (greater than or equal to 60 dB HL) intensity level for average conversational speech. The NU-6 Ordered by Difficulty Word List (10 words) was used for testing. Contralateral masking was employed. RECOMMENDATIONS * Continue medical follow-up with Radha Calderón CNP. * Consider otologic referral due to left ear reported symptoms and dizziness. * Consider referral to dentistry due to reported jaw dysfunction. * Re-evaluation as medically indicated or if a change in hearing is noted. Sharif Em, JOSE ANTONIO-A Clinical Infrastructure Consultant Copied to: TARA Baltazar Abbrev- iation Definition Degree of hearing sensitivity dB range WNL within normal limits WNL 0 - 20 SNHL sensorineural hearing loss Mild 20-40 CHL conductive hearing loss Moderate 40-55 MHL mixed hearing loss Moderately-Severe 55-70 WRS word recognition score Severe 70-90 ME middle ear Profound 90 + TM tympanic membrane [facility] 08-07-2022 History of Present illness Narrative Head and Neck [place] AUDIOLOGIC EVALUATION REPORT Name: Tina Sy CCF#: [id number] Date of Service: 08/07/2022 Date of : 2000 Age: [age] year old Referred by: Radha Calderón CNP [address] [facility] [id number] [facility] [address] Referred for: Evaluation of suspected change in hearing, tinnitus, or balance. Referral documented: In an order in [facility] Patient's major complaints: Reduced hearing in the left ear, Otalgia in the left ear, Pressure/fullness in the left ear Tina Sy was seen for an initial audiologic evaluation. History is significant for POTS. She reported that her jaw locked up in March, and ever since then she has been experiencing ear pain (8/10), sensation of fluctuating hearing, and intermittent pressure in the left ear. She also reported occasional room-spinning dizziness lasting seconds with no known trigger. Patient denied history of noise exposure, otologic surgery, and ototoxicity. See SmartForm Audiogram for additional reported history and symptoms. IMPRESSIONS RIGHT EAR: Hearing within normal limits LEFT EAR: Hearing essentially within normal limits AUDIOLOGIC EVALUATION Following is a brief interpretation of the obtained findings from the audiologic evaluation. Refer to the Auditory Test Record for complete audiometric results. The patient was counseled about the test findings and appropriate audiologic recommendations were made. SUMMARY: Audiogram can be viewed under Forms/Audiology/SmartForm. OTOSCOPY RIGHT EAR: Otoscopic inspection revealed ear canal was clear with an identifiable cone of light. LEFT EAR: Otoscopic inspection revealed ear canal was clear with an identifiable cone of light. TYMPANOMETRY Description of procedure: This test is an objective evaluation of middle ear function. CPT code: 00669 RIGHT EAR: Normal ME function. LEFT EAR: Normal ME function. ACOUSTIC REFLEXES Description of procedure: This test is an objective measure of auditory and facial nerve pathways. CPT code: 89592, 58245 RIGHT EAR PROBE EAR: (ipsi right stimulus ear; contralateral left stimulus ear): Acoustic Reflex Pattern Could not interpret due to artifact. Acoustic Reflex Decay (left stimulus ear): Did not test. LEFT EAR PROBE EAR: (ipsi left stimulus ear; contralateral right stimulus ear): Acoustic Reflex Pattern Could not interpret due to artifact. Acoustic Reflex Decay (right stimulus ear):Did not test. PURE TONE AUDIOMETRY AND SPEECH TESTING Description of procedure: This test is an objective evaluation hearing sensitivity via air and bone conduction and speech recognition testing. CPT code: 99767 RIGHT EAR: Hearing Sensitivity: Within normal limits. Word Recognition Score: Excellent (100%). WRS is consistent with hearing sensitivity. Words were presented at 45 dB HL is above (greater than or equal to 60 dB HL) intensity level for average conversational speech. The NU-6 Ordered by Difficulty Word List (10 words) was used for testing. Contralateral masking was employed. LEFT EAR: Hearing Sensitivity: Essentially within normal limits. Word Recognition Score: Excellent (100%). WRS is consistent with hearing sensitivity. Words were presented at 45 dB HL is above (greater than or equal to 60 dB HL) intensity level for average conversational speech. The NU-6 Ordered by Difficulty Word List (10 words) was used for testing. Contralateral masking was employed. RECOMMENDATIONS * Continue medical follow-up with Radha Calderón CNP. * Consider otologic referral due to left ear reported symptoms and dizziness. * Consider referral to dentistry due to reported jaw dysfunction. * Re-evaluation as medically indicated or if a change in hearing is noted. Sharif Em, [facility]-A Clinical Infrastructure Consultant Copied to: Radha Calderón CNP VALDEZ Abbrev- iation Definition Degree of hearing sensitivity dB range WNL within normal limits WNL 0 - 20 SNHL sensorineural hearing loss Mild 20-40 CHL conductive hearing loss Moderate 40-55 MHL mixed hearing loss Moderately-Severe 55-70 WRS word recognition score Severe 70-90 ME middle ear Profound 90 + TM tympanic membrane documented in this encounter [facility] 07-25-2022 Miscellaneous Notes Spoke with patient on the phone. Instructed her to reduce Corlanor to 2.5 mg once daily per Radha Calderón and reach back out to update on how she is doing with the medication change within the next couple of weeks or sooner should she feel necessary. Patient verbalizes understanding. Jenn Temple RN, BSN [place], PAZ: 07/17/2022 Started taking Corlanor 2.5 mg BID 07/18/22 Take 2.5 mg at 10 am and 7 pm HR is in the 40s consistently Body feels off, not normal , no falls or syncopal episodes Please advise. Jenn Temple RN, BSN Patient reports that Corlanor is making her heart rate low. She wants to know if she should take a half of a tablet ? She is requesting a call back Please advise [phone] (home) documented in this encounter [facility] 07-17-2022 Note HNO ID: [id number] Author: Radha Calderón APRN.BLINDSTITCH HEMMER Service: ? Author Type: Nurse Practitioner Type: Progress Notes Filed: 07/17/2022 4:18 PM Note Text: Tina Sy is a 22 year old female. Patient presents with: Follow Up Tina is here today for follow up. She first saw Dr. Tillman in December 2021. She states her primary issue is postural tachycardia. She states that her resting heart rate is elevated above 100 bpm. Associated with the tachycardia, she will be dizzy, lightheaded, pre-syncope, and activity intolerance. The most activity she can do is about 10 minutes before needing to sit down. She states that she feels her salt is low. She will feel shaky and then eat something with salt will help with this. She does have a tendency toward hypotension. When she was tried on beta blockers in the past, personnel recruiter to hypotension and increased pre-syncope. She has never been tried on Ivabradine. ECG shows stable QT in December 2021. Medications tried for POTS: Metoprolol Propranolol Nadolol Fludrocortisone Midodrine Medications Reviewed Doxepin 6 mg tabTake by mouth.Disp: Rfl: tiZANidine HCl (ZANAFLEX) 4 mg capsuleTake 4 mg by mouth three times daily as needed.Disp: Rfl: traMADol (ULTRAM) 50 mg tabletTake 50 mg by mouth every 6 hours as needed for pain.Disp: Rfl: famotidine (PEPCID ORAL)Take by mouth.Disp: Rfl: cyanocobalamin (VITAMIN B-12) 100 mcg tabTake 100 mcg by mouth once daily.Disp: Rfl: NORTREL 1/35, 28, 1-35 mg-mcg per tabletTake 1 tablet by mouth once daily.Disp: Rfl: EPINEPHrine (EPIPEN) 0.3 mg/0.3 mL auto-injector0.3 mg.Disp: Rfl: albuterol HFA (PROVENTIL HFA, VENTOLIN HFA) 90 mcg/actuation inhalerInhale 2 Puffs as instructed as needed for wheezing/shortness of breath.Disp: Rfl: nystatin (MYCOSTATIN) 100,000 unit/mL suspensionTake 5 mL by mouth four times daily. Swish and swallow.Disp: 140 mLRfl: 1 ivabradine (CORLANOR) 5 mg tabletTake 2.5 mg by mouth twice daily.Disp: 90 tabletRfl: 2 Allergies Reviewed PAST MEDICAL HISTORY: ACTIVE PROBLEM LIST Chronic Migraine Without Aura, With Intractable Migraine, So Stated, With Status Migrainosus Generalized Anxiety Disorder Gerd (Gastroesophageal Reflux Disease) Add (Attention Deficit Disorder) Pots (Postural Orthostatic Tachycardia Syndrome) Seizure-Like Activity (Hcc) PAST SURGICAL HISTORY Procedure Laterality Date ANKLE SURGERY HX Right Social History Tobacco Use Smoking status: Never Smokeless tobacco: Never Substance Use Topics Alcohol use: Never Drug use: Never family history includes Rheumatologic disease in her maternal grandmother and mother. 07/17/22 1433 07/17/22 1525 07/17/22 1526 BP: 116/71 114/70 126/80 BP Position: Supine Standing Pulse: 113 83 (!) 134 Weight: 47.6 kg (105 lb) Height: 175.3 cm (5' 9 ) General Appearance Patient appears well at the time of this appointment. Neurological Examination: Cognition: The patient is alert and oriented times three Lucid and organized in conversation Able to tell detailed medical hx Speech is Normal in fluency volume and clarity Content and Syntax: Normal Comprehension: Normal, able to follow several step commands She has a white, patchy coating throughout her tongue, back of throat, and inside of cheeks Previously tested for strep and this was negative. She has a history of thrush. IMPRESSION/PLAN: POTS; sinus tachycardia Issue of high heart rate response with postural change. Heart rate accelerates above 130 bpm with making a simple posture change. Previously tried on beta blockers, but this lead to hypotension and increased pre-syncope. She was also tried on fludrocortisone and midodrine without relief of symptoms. We discussed the utilization of Ivabradine for heart rate control as it will control the heart rate without leading to hypotension. Will obtain an ECG prior to initiation. Conservative Measures Increased water intake (2-2.5 liters of water daily) Increased salt intake (3-5 grams daily) Compression stockings Cardiac Rehab/Exercise Shared medical appointment with Dr. Tillman Medication Changes -add ivabradine 2.5 mg twice daily Oral Candidiasis Exam consistent with oral candidiasis. Will treat with Nystatin (swish and swallow) 500,000 units 4 times daily x1 week. If symptoms do not improve, continue x1 additional week. Referral to ENT placed TMJ; Left hearing loss Referral to ENT I spent a total of 30 minutes on the date of the service which included preparing to see the patient, [id number] patient care, completing clinical documentation, obtaining and/or reviewing separately obtained history, performing a medically appropriate examination, counseling and educating the patient/family/caregiver, and ordering medications, tests, or procedures. ACTIVE PROBLEM LIST Chronic Migraine Without Aura, With Intractable Migraine, So Stated, With Status (more content not included)... [facility] 07-16-2022 Note . MICRO - Microbiology PROCEDURE: Throat Culture [*1] SOURCE: Throat BODY SITE: COLLECTED DATE/TIME: 07/13/2022 09:53 EST RECEIVED DATE/TIME: 07/13/2022 20:25 EST START DATE/TIME: 07/13/2022 20:26 EST FREE TEXT SOURCE: FINAL REPORTS Final Report [] Verified Date/Time/Personnel: 07/16/2022 09:13 EDT Normal throat namrata present Sensitivity Testing: Not Indicated PRELIMINARY REPORTS Preliminary Report [] Verified Date/Time/Personnel: 07/14/2022 14:02 EST Culture results pending. Performing Locations *1: This test was performed at: [facility], [address] [place] [address], [id number] , [facility] ([place]) 07-10-2022 History of Present illness Narrative Images from the original note were not included. Rheumatology Outpatient Clinic Date of Service: 07/10/2022 Patient: Tina Sy Medical Record: [id number] Primary Care Physician: Opal Arguelles, EULOGIO, BLINDSTITCH HEMMER Last Rheumatology visit: None at [facility] Referring Provider: SELF History of Present Illness Tina Sy is a 22 year old White female who presents on 07/10/2022 for an in-person visit for evaluation of recurrent infections. HISTORY OF PRESENT ILLNESS Primary Care Physician put in the referral. Referral was to immunology. Gets sick a lot. Symptoms started after her first infection 04/2020. Was not sick a lot as a child. She has had COVID 4 times. She gets a lot of ear infections, strep throat, common colds. Mostly URI related symptoms. She had mono during this time. She has had some GI bugs as well. Denies any skin infections or abscesses. No rashes. Denies pneumonia History of multiple kidney stones. She never really feels well even in between illnesses. Cough and runny nose are almost always present. She has been getting a lot of headaches. She has been diagnosed with migraines. She sees a headache specialists here. She is on IV Vypepti. Her weight is stable. She has a slightly decreased appetite at times. Denies chronic diarrhea, however she is lactose intolerant and has to watch her diet closely. Diagnosed with POTS as a senior in high school. It was well controlled until her first COVID infection. She has been told that she might have EDS. Ankles bother her a lot. She had surgery on the right ankle 02/2022 for stabilization. Pain is generally worse in the evening. AM stiffness for one hour daily. Activity increases the pain. There is no joint swelling. Pain does wake her from sleep. The back and the foot. Personal History of: Psoriasis - no Raynaud's - no Iritis/uveitis - no Inflammatory bowel disease - no Blood clots - no Mother and maternal grandmother with Rheumatoid Arthritis. No immunodeficiencies run in the family that they are aware of. Current Medications Current Outpatient Medications Medication Sig Dispense Refill famotidine (PEPCID ORAL) Take by mouth. cyanocobalamin (VITAMIN B-12) 100 mcg tab Take 100 mcg by mouth once daily. NORTREL 1/35, 28, 1-35 mg-mcg per tablet Take 1 tablet by mouth once daily. EPINEPHrine (EPIPEN) 0.3 mg/0.3 mL auto-injector 0.3 mg. albuterol HFA (PROVENTIL HFA, VENTOLIN HFA) 90 mcg/actuation inhaler Inhale 2 Puffs as instructed as needed for wheezing/shortness of breath. Current Facility-Administered Medications Medication Dose Route Frequency Provider Last Rate Last Admin perflutren lipid microspheres 1.3 mL in NaCl (PF) 0.9% 10 mL injection (DEFINITY) INTRAVENOUS DIRECTED PRN Jose Daniel Tillman, DO sodium chloride 0.9 % (flush) 10 mL (BD POSIFLUSH) 10 mL INTRAVENOUS DIRECTED PRN Jose Daniel Tillman, DO Patient-Entered Data PAIN EVALUATION No data found in the last 1 encounters. PROMIS Assessments PROMIS Assessments 12/03/2021 03/23/2022 07/06/2022 Physical Health Percentile 0 % 4 % 10 % Mental Health Percentile 26 % 53 % 26 % Pain Score 2 2 5 Pain Interference Percentile - - 8 % Fatigue Percentile - - 1 % Physical Function Percentile - - 12 % RAPID 3 [place] Activities of Daily Living 07/06/2022 10:17 PM Dress self? Without ANY difficulty Get in and out of bed? Without ANY difficulty Walk outdoors? With SOME difficulty Wash and dry body? Without ANY difficulty Get in and out of car? Without ANY difficulty RAPID 3 Disease Activity Weighed Score Levels: 0 - 1: Near Remission 1.3 - 2.0: Low Severity 2.3 - 4.0: Moderate Severity 4.3 - 10.0: High Severity RAPID-3 Weighed Score 07/06/2022 RAPID 3 Weighed Score 3 (Moderate Severity (MS)) Review of Systems Review of Systems CONSTITUTION: Negative for: Fever and Recent weight change HEENT: Negative for: Nosebleeds, Mouth sores, Trouble swallowing and Dry mouth RESPIRATORY: Negative for: Cough, Shortness of breath and Pain with breathing GASTROINTESTINAL: Negative for: Melena, Diarrhea, Heartburn and Abdominal pain MUSCULOSKELETAL: Positive for: Arthralgias, Myalgias, Joint swelling and Morning Joint Stiffness Negative for: Muscle weakness NEUROLOGICAL: Positive for: Headaches Negative for: Numbness and Memory loss SKIN: Negative for: Rash, Skin changes, Hair loss and Nail changes EYES: Negative for: Eye pain, Eye redness, Eye dryness and visual disturbance CARDIOVASCULAR: Negative for: Chest pain and Leg swelling GENITOURINARY: Negative for: Dysuria and Hematuria HEMATOLOGIC/LYMPHATIC: Negative for: Swollen glands All other systems reviewed and negative other than HPI. Past Medical History History reviewed. No pertinent past medical history. Past Surgical History PAST SURGICAL HISTORY Procedure Laterality Date ANKLE SURGERY HX Right Family History FAMILY HISTORY Problem Relation Age of Onset Rheumatologic disease Mother RA Rheumatologic disease Maternal Grandmother RA Social History Social History Tobacco Use Smoking status: Never Smokeless tobacco: Never Substance Use Topics Alcohol use: Never Drug use: Never Health Maintenance Current Immunizations Reviewed on 07/10/2022 Name Date CHICKEN POX VACCINE 12/15/2014 , 01/28/2001 DTaP, unspecified formulation 08/21/2005 , 2000 , 2000 , 2000 HEPATITIS A 12/15/2014 HEPATITIS B 05/14/2001 , 2000 HPV 12/11/2013 , 03/14/2013 , 12/10/2012 INFLUENZA 03/23/2017 , 02/21/2016 , 01/25/2015 , 03/14/2013 MENINGOCOCCAL 01/17/2018 , 12/10/2012 PNEUMOCOCCAL VAC CONJUGATE 2000 , 2000 POLIO 08/21/2005 , 2000 , 2000 , 2000 Tdap (Age 7+) 12/10/2012 measles mumps rubella (MMR) vaccine 08/21/2005 , 01/28/2001 Physical Exam BP 128/80 Pulse 97 Ht 175.3 cm (5' 9 ) Wt 46.8 kg (103 lb 1.6 oz) LMP 08/05/2021 BMI 15.23 kg/m GENERAL: Well appearing, sitting in chair, in NAD, thin. HEENT: NC, AT, no scleral icterus or conjunctival erythema, oropharynx clear, moist mucous membranes. No cervical LAD or thyromegaly. CV: Normal rate, regular rhythm, No murmur. PULM: Normal WOB and RR on RA. Lung ceron CTA bilaterally without appreciable wheezes or crackles. EXT: No edema. SKIN: Warm and dry. No rashes or lesions. No significant bruising. No nail or nail bed changes. NEURO: No focal deficits. Gait: Normal. PSYCH: Pleasant mood, appropriate affect. MSK: Spine: Intact ROM. No TTP. Shoulders: Intact ROM without reported pain. No appreciable swelling or tenderness with palpation. Elbows: No flexion contractures. No appreciable swelling, deformities, nodules, or tenderness with palpation. Wrists: No limitation of flexion or extension. No appreciable swelling or tenderness with palpation. No ulnar deviation or joint laxity. Hands: No evidence of synovitis or tenderness with palpation at the MCPs, PIPs, or DIPs. Able to make full fist bilaterally. Hips: Good ROM. Knees: No gross deformity. No appreciable effusion. No tenderness with palpation of joint lines. Intact ROM. Ankles: Limited ROM on the right secondary to pain. No swelling or warmth. Feet: MTP squeeze negative bilaterally. The Beighton Score for Joint Hypermobility The Beighton Scoring System measures joint hypermobility on a 9 point scale Joint Mobility Right Left A. Passive dorsiflexion of fifth finger beyond 90 degrees 0 0 B. Passive flexion of thumb to forearm 0 0 C. Hyperextension of the elbow beyond 10 degrees 1 1 D. Hyperextension of the knee beyond 10 degrees 1 1 E. Forward flexion of the spine with knees fully extended and 0 palms resting on the floor Beighton Scoring System - Total Score: 4 / 9 Labs CBC Latest Ref Rng & Units 11/19/2021 WBC 3.70 - 11.00 k/uL 8.54 HEMOGLOBIN 11.5 - 15.5 g/dL 13.9 HEMATOCRIT 36.0 - 46.0 % 41.3 PLATELETS 150 - 400 k/uL 258 ABS NEUT (ANC) 1.45 - 7.50 k/uL 5.69 ABS LYMPH 1.00 - 4.00 k/uL 2.05 CMP Latest Ref Rng & Units 12/07/2021 11/19/2021 SODIUM 136 - 144 mmol/L 142 141 POTASSIUM 3.7 - 5.1 mmol/L 3.8 3.9 CHLORIDE 97 - 105 mmol/L 103 105 CO2 22 - 30 mmol/L 25 26 GLUCOSE 74 - 99 mg/dL 80 86 BUN 7 - 21 mg/dL 6(L) 10 CREATININE 0.58 - 0.96 mg/dL 0.65 0.74 CALCIUM, TOTAL 8.5 - 10.2 mg/dL 10.5(H) 9.7 AST 13 - 35 U/L 14 14 ALT 7 - 38 U/L 9 7 ALKALINE PHOSPHATASE 34 - 123 U/L 105 100 SKIN BIOPSY 02/2022 IMPRESSION: The epidermal nerve fiber densities are normal at all sites. There is no evidence of a small fiber sensory neuropathy. Imaging MRI BRAIN 11/2021 IMPRESSION: No evidence of intracranial acute signal abnormality or developmental malformation. Impression and Plan (B99.9) Recurrent infections (primary encounter diagnosis) 22 year old patient with recurrent upper respiratory infections that started after first COVID infection in 04/2020. She was referred to immunology by her Primary Care Physician and ended up on the rheumatology schedule by mistake. Of note, history of POTS and possible EDS - Beighton score 4/9 which does not indicate hypermobility in a 22 year old female. Will start basic work up for recurrent infections - CBC with differential, CMP, ESR, CRP, and immunoglobulin levels. Will get her set up with immunology here as well. Office Visit on 07/10/22 COMP METABOLIC PANEL CBC + DIFF SED RATE WESTERGREN C-REACTIVE PROTEIN (CRP) IMMUNOGLOBULINS HENRY IGG SUBCLASS 1,2,3,4 No follow-ups on file. Medical Decision Making: Level: 4 - Moderate Naya Alvarez DO Rheumatology Date: 07/10/2022 documented in this encounter [facility] 1. 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 Orders: Sodium Chloride 0.9% intravenous solution 500 mL, Start: 07/07/22 10:22:00 EST, 12 hour(s), Stop date 07/07/22 22:21:00 EST, Rate: 20 mL/hr, 07/07/22 10:22:00 EST tiZANidine, Dose : 4 mg = 1 tab(s), Oral, q12h, # 60 tab(s), 1 Refill(s), Pharmacy: [facility] #[id number], 175.3, cm, 07/07/22 9:54:00 EST, Height, kg, 07/07/22 9:54:00 EST, Dosing Weight IV Catheter Insertion/Care NPO for Procedure Sign Consent Vital Signs PLAN: 1. Continue home activity and exercise as usual. 2. Continue home pain medications as mentioned above. 3. For those who are smoking smoking cessation is needed. 4. I have reviewed the [place] Automated Rx Reporting System (OARRS) report for this patient for refill pattern and other prescriber involvement as part of the appropriate surveillance for the provision of acute and chronic controlled medications. The report was requested and reviewed on the date of this entry, and was considered in the prescribing process. 5. I have reviewed and agree with any documentation taken by the ancillary staff. 6. I will see the patient in 4 to 6 weeks for possible repeat the same procedure Future Appointments Appointment Date:07/11/2022 02:00:00 PM Scheduled Provider: Location:[facility] Appointment Type:PT Treatment [facility] Appointment Date:07/14/2022 02:00:00 PM Scheduled Provider: Location:[facility] Appointment Type:PT Treatment - [place] Appointment Date:09/01/2022 12:00:00 PM Scheduled Provider: Location:[facility]- [place] Appointment Type:PM TPI 1- 2 Muscles Appointment Date:09/22/2022 03:00:00 PM Scheduled Provider:OPAL ARGUELLES APRN, CNP Location:[facility] Appointment Type:PC OV Follow Up Future Scheduled Tests Laboratory* Folate Level 09/21/22 * Folate Level 02/06/22 * Thyroid Stimulating Hormone 09/21/22 * Thyroid Stimulating Hormone 09/15/21 * Thyroid Stimulating Hormone 02/06/22 * Free T4 09/15/21 * Free T4 02/06/22 * Vitamin B12 Level 09/21/22 * Vitamin B12 Level 02/06/22 * Complete Blood Count 09/21/22 * Complete Blood Count 02/06/22 * Free T3 09/15/21 * Complete Metabolic Panel 09/21/22 * Complete Metabolic Panel 02/06/22 Radiology* MRI TMJ Bilateral 06/23/22 * US Thyroid 10/10/21 [facility] 03-03-2023 Hospital Discharge instructions Patient Education 07/07/2022 10:55:04 PM Discharge Instructions Moderate Sedation(CUSTOM) [facility] Discharge Instructions fo Moderate Sedation Refer to this sheet in the next few weeks. These instructions provide you with information on caring for yourself after your procedure. Your health care provider may also give you more specific instructions. Your treatment has been planned according to current medical practices, but problems sometimes occur. Call your health care provider if you have any problems or questions after your procedure. WHAT TO EXPECT AFTER THE PROCEDURE: You may feel sleepy, clumsy, and have poor balance for several hours. Vomiting can occur if you eat too soon after the procedure. HOME CARE INSTRUCTIONS: Do not participate in any activities where you could become injured for at least 24 hours. [address]: drive, swim, ride a bicycle, operate heavy machinery, cook, use power tools, climb ladders or work from a high place. Do not make important decisions or sign legal documents until you are improved. If you vomit, drink water, juice or soup when you can drink without vomiting. Make sure you have little or no nausea before eating solid foods. Only take enke-bdn-dlzaczi or prescription medicines for pain, discomfort or fever as directed by your health care provider. Make sure you and your family fully understand everything about the medicines given to you, including what side effects may occur. You should not drink alcohol, take sleeping pills or take medicines that cause drowsiness for at least 24 hours. If you smoke, do not smoke without supervision. If you are feeling better, you may resume normal activities 24 hours after you were sedated. SEEK MEDICAL CARE IF: Your skin is pale or bluish in color. You continue to feel nauseous or vomit. Your pain is getting worse and is not helped by medicine. You have bleeding or swelling. You are still sleepy or feeling clumsy after 24 hours. SEEK IMMEDIATE MEDICAL CARE IF: You develop a rash. You have difficulty breathing. You develop any type of allergic problem. You have a fever. MAKE SURE YOU: Understand these instructions. Will watch your condition. Will get help right away if you are not doing well or get worse. 07/07/2022 10:54:46 PM Discharge Instructions (08/06/2020) ([place]) [facility] Discharge Instructions POST PROCEDURE INSTRUCTIONS __x___There are no general limitations to your activities. You may experience some weakness for thenext 3-4 hours, in which case you should limit your activity until strength and sensation returns. x Your pain may increase for the next 24-48 hours, until the injection begins to relieve your pain. x Rest at home today. x Do not drive any vehicle, operate any heavy machinery or use any sharp objects for the remainder of the day. x Be cautious of stairways, since your coordination may be impaired and do not drink alcoholic beverages or make major decisions for 24 hours. x May resume driving a car in ____6___ hours if no sedation, and 24 hours with sedation. x Resume regular activity. x Resume your regular diet. x Progress diet slowly, starting with water. If no difficulty with swallowing, progress to clear liquids (tea, broth, ryley you) and then on to solids. x Resume aspirin products/blood thinners in 24 hours. Start Lovenox injections or other blood thinners in 24 hours after procedure. x Keep bandaid dry and remove in 24 hours. MEDICATIONS: BEFORE PROCEDURE x Physician s Pre-procedure Instruction Sheet given to patient. x Stop Coumadin/Pradaxa/Eliquis/Xarelto for 5 days before procedure - date . Have ProTime drawn on (Try to have drawn at [facility] to speed results to us). x Stop blood thinners Plavix, Pletal for 10 days before procedure date . x Stop Aspirin, Persantine, Aggrenox for 7 days before procedure date . x Stop Lovenox 24 hours before your appointment time. x Stop anti-inflammatory medications (Aleve, Advil, Mobic, Naprosyn, etc.) for 5 days before procedure. x Stop ALL Supplements and Vitamins for 10 days before your procedure. x Take blood pressure medications the day of your procedure. x Do not eat ____8___ hours before procedure. x Do not drink ____8___ hours before procedure. x May have clear liquids (water, plain tea/coffee, clear soda) up to 2 hours before procedure. x Bring someone to drive you home. 07/07/2022 10:15:24 Katelynn preprocedure instructions [facility] Pre-Procedure Instructions and Important Information Dr. Pace As a patient, it is important for you to understand and follow all instructions listed below beforeyou come for you procedure appointment. If there is anything listed below that you are not sure of,or do not understand, please ask or call us at the [facility] at [phone] before your procedure appointment. 1.Approval to stop your prescribed blood thinner will be obtained from your primary care doctor or outside sales engineer. Once approval has been obtained, you will need to stop all blood thinners as instructed, before your procedure date. Depending on the blood thinner you are taking, you will be told exactly how many days before you will need to discontinue taking the medication. a.For Warfarin (Coumadin), the physician will give you an order to have a blood test to check your Protime/INR the day before the procedure. 2.Stop all aspirin and aspirin products for a full seven (7) days before your procedure. 3.Stop all non-steroidal anti-inflammatory (NSAIDS) medication for a full five (5) days before yourprocedure. b.NSAIDS: Ibuprofen (Motrin, Advil), Naproxen (Aleve, Naprosyn), Meloxicam (Mobic), Diclofenac (Voltaren), Indomethacin (Indocin), Relafen, or other medications as instructed. 4.Stop all over the counter cold, sinus, flu, or headache medications for a full five (5) days before the procedure. These medications can contain aspirin or NSAIDS. 5.Stop all natural, herbal or vitamin supplements (Vit. E, Fish Oil, etc.) for a full ten (10) daysbefore the procedure. 6.Do not EAT or DRINK anything eight (8) hours before your procedure. Please understand, there are no exceptions to the above medication instructions. Failure to follow will result in your procedure being cancelled Please call with any changes in your medical condition/history before your procedure appointment, this includes the following: a.Any type of surgery, other injections given by another physician b.Recent infections, such as: Colds, flu, sinus infection, urinary tract infection, pneumonia, or any skin wound or infection of any kind. c.Change in medications. If you have any of the listed changes in your medical history, OR if you have failed to follow the above instructions for medication, your procedure will need to be cancelled and rescheduled for another date. The above instructions are FOR YOUR SAFETY. Failure to follow the above instructions and, or failure to inform your physician of any health issues may result in serious complications that include, but are not limited to, bleeding, serious infection, paralysis, or . [facility] 03-03-2023 Summary of episode note Discharge Instructions Thank you for allowing [place] to assist you with your healthcare needs. The following is importantdischarge information regarding your hospital visit. Your Care Team OPAL ARGUELLES APRN - BLINDSTITCH HEMMER Your Diagnosis Myofascial pain syndrome What to do next Scheduled Follow-Up Appointments Appointment Type When With Where Contact InformationPT Treatment - [place] 07/11/2022 02:00 PM [facility] Physical Therapy PT Treatment - [place] 07/14/2022 02:00 PM [facility] Physical Therapy PC OV Follow Up 09/22/2022 03:00 PM EDT OPAL ARGUELLES APRN - BLINDSTITCH HEMMER [facility] [place] Allergies Lisha (Hives, Swelling) Amoxil (SOB - Shortness of breath, Rash) penicillin (SOB - Shortness of breath, Rash) Medications Please ask your primary doctor or pharmacist before taking any other medication not listed, including over the counter drugs, herbal medications, vitamins and or supplements as they may interact withyour home medications. What How Much When Why Instructions Last Dose Changed traMADol (traMADol 50 mg oral tablet) 1 tab(s) by mouth Every 12 hours Myofascial pain syndrome Duration: 30 Days take 1 tablet by mouth every 12 hours if needed for pain Pickup at [facility] #[id number] Unchanged albuterol (Albuterol (Eqv-ProAir HFA) 90 mcg/ inh inhalation aerosol) 1 puff(s) by inhalation Every 4 hours inhale 1 puff by mouth every 4 hours as needed Unchanged cyanocobalamin (cyanocobalamin 1000 mcg/ mL injectable solution) 1 Milliliter Intramuscular Once a month Chronic back pain Vitamin B12 deficiency Duration: 30 Days Unchanged doxepin (doxepin 6 mg oral tablet) 1 tab(s) by mouth Daily at bedtime Duration: 30 Days take 30 min before bedtime, NOT within 3 hrs of a meal Unchanged EPINEPHrine (EpiPen 2-Jenifer 0.3 mg injectable kit) 1 kit Subcutaneous As Directed as needed for Allergic reaction Unchanged ethinyl estradiol-norethindrone (Alyacen 1/ 35 oral tablet) 1 tab(s) by mouth Once a day Unchanged famotidine (Pepcid 40 mg oral tablet) 1 tab(s) by mouth Daily at bedtime GERD (gastroesophageal reflux disease) Unchanged omeprazole (omeprazole 40 mg oral delayed release capsule) 1 cap by mouth Once a day Duration: 90 Days Unchanged tiZANidine (tiZANidine 4 mg oral tablet) 1 tab(s) by mouth Every 12 hours Duration: 30 Days Pickup at [facility] #[id number] Pharmacy Information [facility] #[id number]: [address], [place] [id number] [phone] Please take this list to your next doctor s visit. Bring all medications you take, including over the counter medications, herbals and other supplements with you to your doctor s visit. Patients and families are reminded to discard old lists and to update any records with all medication providers or retail pharmacies. Education Materials [facility] Discharge Instructions fo Moderate Sedation Refer to this sheet in the next few weeks. These instructions provide you with information on caring for yourself after your procedure. Your health care provider may also give you more specific instructions. Your treatment has been planned according to current medical practices, but problems sometimes occur. Call your health care provider if you have any problems or questions after your procedure. WHAT TO EXPECT AFTER THE PROCEDURE: You may feel sleepy, clumsy, and have poor balance for several hours. Vomiting can occur if you eat too soon after the procedure. HOME CARE INSTRUCTIONS: Do not participate in any activities where you could become injured for at least 24 hours. [address] not: drive, swim, ride a bicycle, operate heavy machinery, cook, use power tools, climb ladders or work from a high place. Do not make important decisions or sign legal documents until you are improved. If you vomit, drink water, juice or soup when you can drink without vomiting. Make sure you have little or no nausea before eating solid foods. Only take jhxs-bdd-kkkvlhf or prescription medicines for pain, discomfort or fever as directed by your health care provider. Make sure you and your family fully understand everything about the medicines given to you, including what side effects may occur. You should not drink alcohol, take sleeping pills or take medicines that cause drowsiness for at least 24 hours. If you smoke, do not smoke without supervision. If you are feeling better, you may resume normal activities 24 hours after you were sedated. SEEK MEDICAL CARE IF: Your skin is pale or bluish in color. You continue to feel nauseous or vomit. Your pain is getting worse and is not helped by medicine. You have bleeding or swelling. You are still sleepy or feeling clumsy after 24 hours. SEEK IMMEDIATE MEDICAL CARE IF: You develop a rash. You have difficulty breathing. You develop any type of allergic problem. You have a fever. MAKE SURE YOU: Understand these instructions. Will watch your condition. Will get help right away if you are not doing well or get worse. [facility] Discharge Instructions POST PROCEDURE INSTRUCTIONS __x___There are no general limitations to your activities. You may experience some weakness for thenext 3-4 hours, in which case you should limit your activity until strength and sensation returns. x Your pain may increase for the next 24-48 hours, until the injection begins to relieve your pain. x Rest at home today. x Do not drive any vehicle, operate any heavy machinery or use any sharp objects for the remainder of the day. x Be cautious of stairways, since your coordination may be impaired and do not drink alcoholic beverages or make major decisions for 24 hours. x May resume driving a car in ____6___ hours if no sedation, and 24 hours with sedation. x Resume regular activity. x Resume your regular diet. x Progress diet slowly, starting with water. If no difficulty with swallowing, progress to clear liquids (tea, broth, ryley you) and then on to solids. x Resume aspirin products/blood thinners in 24 hours. Start Lovenox injections or other blood thinners in 24 hours after procedure. x Keep bandaid dry and remove in 24 hours. MEDICATIONS: BEFORE PROCEDURE x Physician s Pre-procedure Instruction Sheet given to patient. x Stop Coumadin/Pradaxa/Eliquis/Xarelto for 5 days before procedure - date . Have ProTime drawn on (Try to have drawn at [facility] to speed results to us). x Stop blood thinners Plavix, Pletal for 10 days before procedure date . x Stop Aspirin, Persantine, Aggrenox for 7 days before procedure date . x Stop Lovenox 24 hours before your appointment time. x Stop anti-inflammatory medications (Aleve, Advil, Mobic, Naprosyn, etc.) for 5 days before procedure. x Stop ALL Supplements and Vitamins for 10 days before your procedure. x Take blood pressure medications the day of your procedure. x Do not eat ____8___ hours before procedure. x Do not drink ____8___ hours before procedure. x May have clear liquids (water, plain tea/coffee, clear soda) up to 2 hours before procedure. x Bring someone to drive you home. [facility] Pre-Procedure Instructions and Important Information Dr. Pace As a patient, it is important for you to understand and follow all instructions listed below beforeyou come for you procedure appointment. If there is anything listed below that you are not sure of,or do not understand, please ask or call us at the [facility] at [phone] before your procedure appointment. 1. Approval to stop your prescribed blood thinner will be obtained from your primary care doctor or outside sales engineer. Once approval has been obtained, you will need to stop all blood thinners as instructed,before your procedure date. Depending on the blood thinner you are taking, you will be told exactlyhow many days before you will need to discontinue taking the medication. a. For Warfarin (Coumadin), the physician will give you an order to have a blood test to check your Protime/INR the day before the procedure. 2. Stop all aspirin and aspirin products for a full seven (7) days before your procedure. 3. Stop all non-steroidal anti-inflammatory (NSAIDS) medication for a full five (5) days before your procedure. b. NSAIDS: Ibuprofen (Motrin, Advil), Naproxen (Aleve, Naprosyn), Meloxicam (Mobic), Diclofenac (Voltaren), Indomethacin (Indocin), Relafen, or other medications as instructed. 4. Stop all over the counter cold, sinus, flu, or headache medications for a full five (5) days beforethe procedure. These medications can contain aspirin or NSAIDS. 5. Stop all natural, herbal or vitamin supplements (Vit. E, Fish Oil, etc.) for a full ten (10) days before the procedure. 6. Do not EAT or DRINK anything eight (8) hours before your procedure. Please understand, there are no exceptions to the above medication instructions. Failure to follow will result in your procedure being cancelled Please call with any changes in your medical condition/history before your procedure appointment, this includes the following: a. Any type of surgery, other injections given by another physician b. Recent infections, such as: Colds, flu, sinus infection, urinary tract infection, pneumonia, or anyskin wound or infection of any kind. c. Change in medications. If you have any of the listed changes in your medical history, OR if you have failed to follow the above instructions for medication, your procedure will need to be cancelled and rescheduled for another date. The above instructions are FOR YOUR SAFETY. Failure to follow the above instructions and, or failure to inform your physician of any health issues may result in serious complications that include, but are not limited to, bleeding, serious infection, paralysis, or . Additional Information VACCINATE! IT SAVES LIVES! Members of the community who have not yet received the COVID-19 vaccine and would like to receive it can visit one of [facility] vaccine clinics. There are many vaccine clinic locations within the [facility]. For locations and available times, please visit [email or web address] It is important to note that some COVID mobile vaccine clinics are held outdoors and may be canceled in rainy or stormy conditions. To learn more about pediatric vaccinations (ages 5-11), we invite you to visit the [facility] webpage. [email or web address] learn more about the COVID-19 vaccine, we invite you to visit the CDC website for a list of frequently asked questions. https://www.cdc.gov/coronavirus/2019-ncov/vaccines/faq.html [facility] Patient Portal Access Instructions: Stay connected with your healthcare team and access your personal medical information anytime with the [facility] Patient Portal.If you would like a full copy of your medical records, please contact the [facility] Medical Records Department, Sunday through Sunday between 8a.m. and 4:30p.m. Please follow the directions below to access the portal: 1.Access the email account you provided upon registration to the hospital.2.Look for an invitation email from [facility].3.Open the email and access the invitation link: Accept Invitation to [facility].Fill in the required ceron to create your account. Sign into [email or web address] with your username and password that you created in the above steps to stay up to date. You can then view a summary of results, a summary of your visits, and the ability to download your summaries to your computer or send the information securely to a physician. Remember that your healthcare information is confidential, so carefully consider who you will allow to register on the [facility] Patient Portal for access to your information. You can also access the [facility] Patient Portal on the [employer]. Simply click on Health Records under Your [employer] and then click on the [employer] logo. HOW TO SAFELY DISPOSE OF PRESCRIPTION MEDICATIONS Please use one of the following methods to safely dispose of your unused medications. 1.Use a drug disposal kit: the drug disposal pouch allows you to safely discard your old and unuseddrugs. Ask your nurse to give you one when you are discharged.2.Visit a local take-back location: Many local pharmacies and police departments have programs that collect old and unwanted prescriptiondrugs. Call your local pharmacy or go to http://[employer].QD Vision/9Y6Hj8b to find one close to you.3.Make use of household items: Use cat litter or old coffee grounds to dispose medications if other options arenot available. Mix your drugs with these household products, seal them in an airtight container andthrow it into the garbage. Call [facility]: [phone] to be sure your drugs can be disposed of in this way. Some medicines may require a different approach.4.Never flush your medications down the toilet. IF YOU HAVE BEEN PRESCRIBED AN OPIOID FOR PAIN If you have been prescribed an opioid (such as hydrocodone, oxycodone or morphine), it is critical to understand the possible side effects and risks of opioid pain medications. Even when taken as directed, opioids can have several side effects including: Tolerance, meaning you might need to take more of a medication for the same pain relief. Nausea, vomiting and/or constipation. Sleepiness, dizziness, dry mouth, confusion, depression or itching. Physical dependence, meaning you have withdrawal symptoms when a medication is stopped, can develop within a few days. KNOW YOUR RESPONSIBILITIES It is important to know exactly how much and how often to take the opioid pain medications you are prescribed. Never take opioids in higher amounts or more often than prescribed. Do not combine opioids with alcohol or other drugs that cause drowsiness, such as benzodiazepines, also known as benzos, including diazepam and alprazolam, muscle relaxants or sleep aids. Never sell or share prescription opioids. This is illegal. Store opioids in a secure place and out of reach of others (including children, family, friends and visitors). The last page of this document has been signed and retained as a CHART COPY. Signatures Patient Education Materials PM Discharge Instructions Moderate Sedation(CUSTOM) PM Discharge Instructions (08/06/2020) ([facility]) [facility] preprocedure instructions Medication Leaflets My discharge plan and instructions have been reviewed and explained to me and I,TINA SY understand my current condition and have read and understand these discharge instructions. I have received a written copy of the plan/instructions. If I have questions, I am aware that I should contact my doctor. 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 History of Present Illness Patient comes today for first session of bilateral QL injections under x-ray for her lower back pain complaint without radiation to lower extremities. Pain score is 7/10. Patient manages well with tramadol and tizanidine. 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 Review of Systems ROS AMB Chief Complaint : Pt c/o medial LBP. Treatment Response : Pt is here for 1st set of BL quadratus injections. Tom Mcdonald LPN - 07/07/2022 9:54 EST Skeletal Review of Systems Grid Joints Swelling/Stiffness : No Pain in Joint(s) : Yes Tom Mcdonald LPN - 07/07/2022 9:54 EST Skeletal ROS Comments : R ankle Tom Mcdonald LPN - 07/07/2022 9:54 EST Neuro Review of Systems Grid Difficulty w/Balance : Yes Difficulty Walking : No Loss of Consciousness : No Memory Loss : No Paralysis Lower Extremity (L) : No Paralysis Lower Extremity (R) : No Paralysis Upper Extremity (L) : No Paralysis Upper Extremity (R) : No Sensory Disturbance Lower Extremity (L) : No Sensory Disturbance Lower Extremity (R) : No Sensory Disturbance Upper Extremity (L) : No Sensory Disturbance Upper Extremity (R) : No Weakness Lower Extremity (L) : No Weakness Lower Extremity (R) : No Weakness Upper Extremity (L) : No Weakness Upper Extremity (R) : No Trouble with speech : No Dr Harryjuan Lyssa MICHELLE - 07/07/2022 9:54 EST Stomach/Bowel Review of Systems Grid Constipation : No Diarrhea : No Nausea : No Vomiting : No Tom Mcdonald LPN - 07/07/2022 9:54 EST Hematology Review of Systems Grid Bleeds Easily : No Blood Clots : No Low Blood Count : No Tom Mcdonald LPN - 07/07/2022 9:54 EST Sleep Review of Systems Grid Daytime Sleepiness : No Fatigue : Yes Insomnia : No Snoring : No Tom Mcdonald LPN - 07/07/2022 9:54 EST Primary Pain [1] Physical Exam Vitals and Measurements HR: 112 RR: 17 BP: 122/91 SpO2: 95% HT: 175.3 cm WT: 47.9 kg BMI: 15.59 Oxygen Therapy: Room air Primary Pain Intensity: 7 (07/07/22 09:54:00) On examination today she is alert awake oriented x3 Examination generally has not shown remarkable differences since last time. ASA: 2. Mallampati: 2 Social History Smoking Status - 10/06/2015 Never smoker Alcohol Use: Never., 03/04/2019 Employment/School Status: Employed., 06/15/2020 Home/Environment Marital Status: Unmarried., 06/15/2020 Nutrition/Health Caffeine intake amount: 1 can of pop daily., 03/17/2019 Substance Abuse Use: Never., 03/04/2019 Tobacco Nicotine Use: Never (less than 100 in lifetime). Exposure to Tobacco Smoke Lives in non-smoking home., 09/20/2020 Family History Urinary calculus: Mother. Assessment/Plan 1. 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 Orders: Sodium Chloride 0.9% intravenous solution 500 mL, Start: 07/07/22 10:22:00 EST, 12 hour(s), Stop date 07/07/22 22:21:00 EST, Rate: 20 mL/hr, 07/07/22 10:22:00 EST tiZANidine, Dose : 4 mg = 1 tab(s), Oral, q12h, # 60 tab(s), 1 Refill(s), Pharmacy: [facility] #[id number], 175.3, cm, 07/07/22 9:54:00 EST, Height, kg, 07/07/22 9:54:00 EST, Dosing Weight IV Catheter Insertion/Care NPO for Procedure Sign Consent Vital Signs PLAN: 1. Continue home activity and exercise as usual. 2. Continue home pain medications as mentioned above. 3. For those who are smoking smoking cessation is needed. 4. I have reviewed the [place] Automated Rx Reporting System (OARRS) report for this patient for refill pattern and other prescriber involvement as part of the appropriate surveillance for the provisionof acute and chronic controlled medications. The report was requested and reviewed on the date of this entry, and was considered in the prescribing process. 5. I have reviewed and agree with any documentation taken by the ancillary staff. 6. I will see the patient in 4 to 6 weeks for possible repeat the same procedure Problem List/Past Medical History Ongoing Acne ADD (attention deficit disorder) Autonomic dysfunction Chronic back pain Chronic fatigue Colloid goiter Elevated calcitonin level Encounter for control Frequent infections ANNA (generalized anxiety disorder) GERD (gastroesophageal reflux disease) Hearing deficit Hepatic steatosis History of mononucleosis Hyperthyroidism, subclinical Hypotension Insomnia Left hand paresthesia Migraine Myofascial pain syndrome Otalgia of left ear Other Adriano-Danlos syndromes Palpitations Plantar fasciitis Seasonal allergies Syncope Tachycardia TMJ syndrome TMJ tenderness, left Vitamin B12 deficiency Historical Abdominal pain, generalized Mononucleosis Mononucleosis syndrome POTS (postural orthostatic tachycardia syndrome) Procedure/Surgical History CT of brain: 05/04/21 Ultrasound scan of thyroid: 03/14/21 MRI of neck: 08/26/20 MRI of brain: 08/26/20 CT angiography of chest with contrast: 05/27/20 Echocardiogram: 05/18/20 Allergies Lisha (Hives, Swelling) Amoxil (SOB - Shortness of breath, Rash) penicillin (SOB - Shortness of breath, Rash) Medications What How Much When Why Instructions Last Dose Changed traMADol (traMADol 50 mg oral tablet) 1 tab(s) by mouth Every 12 hours Myofascial pain syndrome Duration: 30 Days take 1 tablet by mouth every 12 hours if needed for pain Pickup at [facility] #[id number] Unchanged albuterol (Albuterol (Eqv-ProAir HFA) 90 mcg/ inh inhalation aerosol) 1 puff(s) by inhalation Every 4 hours inhale 1 puff by mouth every 4 hours as needed Unchanged cyanocobalamin (cyanocobalamin 1000 mcg/ mL injectable solution) 1 Milliliter Intramuscular Once a month Chronic back pain Vitamin B12 deficiency Duration: 30 Days Unchanged doxepin (doxepin 6 mg oral tablet) 1 tab(s) by mouth Daily at bedtime Duration: 30 Days take 30 min before bedtime, NOT within 3 hrs of a meal Unchanged EPINEPHrine (EpiPen 2-Jenifer 0.3 mg injectable kit) 1 kit Subcutaneous As Directed as needed for Allergic reaction Unchanged ethinyl estradiol-norethindrone (Alyacen 1/ 35 oral tablet) 1 tab(s) by mouth Once a day Unchanged famotidine (Pepcid 40 mg oral tablet) 1 tab(s) by mouth Daily at bedtime GERD (gastroesophageal reflux disease) Unchanged omeprazole (omeprazole 40 mg oral delayed release capsule) 1 cap by mouth Once a day Duration: 90 Days Unchanged tiZANidine (tiZANidine 4 mg oral tablet) 1 tab(s) by mouth Every 12 hours Duration: 30 Days Pickup at [facility] #[id number] Pharmacy Information [facility] #[id number]: [address], [place] [id number] [phone] [1] Ambulatory Comprehensive Intake - Pain Management; Tom Mcdonald LPN 07/07/2022 09:54 EST Digitally Signed by DAISY PACE MD on 07/07/2022 10:44 AM [facility] [id number] Hospital Discharge instructions Patient Education 04/12/2022 21:18:27 Helping Your Temporomandibular Joint (TMJ) Heal Helping Your Temporomandibular Joint (TMJ) Heal The temporomandibular joint (TMJ) is a uvge-vym-bdozlw joint located where the upper and lower jawsmeet. When the TMJ and related muscles are injured, they need time to heal. Self-care is very important. You can take steps to reduce pressure on the TMJ and speed healing. Eating with care Chewing strains the TMJ. When symptoms are bad, you may not be able to chew at all. To get you through times when your symptoms are at their worst, try these tips: Choose soft foods. These include scrambled eggs, oatmeal, yogurt, quiche, tofu, soup, smoothies, pasta, fish, mashed potatoes, milkshakes, bananas, applesauce, gelatin, or ice cream. Don t bite into hard foods. These include whole apples, carrots, and corn on the cob. Instead cut foods into bite-sized pieces. Grind or finely chop meats and other tough foods. Try hamburger meat instead of steak. Using ice and heat Your healthcare provider may suggest using ice and heat. Ice helps reduce swelling and pain. Heat helps relax muscles, increasing blood flow. Use a gel pack or cold pack for severe pain. Apply for 10 to 20 minutes. Repeat as needed. To make a cold pack, put ice cubes in a plastic bag that seals at the top. Wrap the bag in a clean, thin towel or cloth. Never put ice or a cold pack directly on the skin. Use moist heat for mild to moderate muscle pain. Apply a moist, warm towel to the muscles for 10 to20 minutes. Repeat as needed. Staying away from triggers Certain activities (called triggers) strain the TMJ, making symptoms worse. The tips below can helpyou avoid common triggers and limit strain. Don t eat hard or chewy foods. These include nuts, pretzels, popcorn, chips, gum, caramel, gummy candies, carrots, whole apples, hard breads, and even ice. Reschedule routine dental visits, like cleanings, if your jaw aches. If you have severe pain, call your healthcare provider. Support your jaw when yawning. When you feel a yawn coming on, put a fist under your jaw. Apply gentle pressure. This helps prevent wide, painful yawns. Don t do any activity that hurts. This includes nail biting, yelling, and singing. Maintaining good posture Work at improving your posture during the day and when you sleep. Good posture can help your body heal. Try these tips: Use a headset when on the phone. Don t cradle the phone with your shoulder. Keep ergonomics in mind. This includes making sure your workstation fits your body. Support your lower back. Take breaks often to stretch and rest. If you use a computer, keep the monitor at eye level. Keep your head in a neutral position. Keep your ears in line with your shoulders. Don t slouch or cantu your head forward. Use an orthopedic pillow. Use this to support your head and neck during sleep. [id number] The [employer]. [address] [place], [place] [id number]. All rights reserved. This information is not intended as a substitute for professional medical care. Always follow yourhealthcare professional's instructions. 04/12/2022 21:18:21 TMJ Syndrome TMJ Syndrome The temporomandibular joint (TMJ) is the joint that connects your lower jaw to your head. You can feel it in front of your ears when you open and close your mouth. TMJ disorders involve chronic or recurrent pain in the joint. When treated, symptoms of TMJ disorders usually go away within a few months. Causes There is no widely agreed-on cause of TMJ disorders. They have been linked to injury, arthritis, chronic fatigue syndrome, and fibromyalgia. A definite connection has not been shown, though. Symptoms Pain in the face, jaw, or neck Pain with jaw movement or chewing Locking or catching sensation of the jaw Clicking, popping, or grinding sounds with movement of the TMJ Headache Ear pain Home care Modest, nonsurgical treatments are a good first step toward relieving symptoms. Try the approaches described below. Rest the jaw by avoiding crunchy or zhrd-jm-kugz foods. Don t eat hard or sticky candies. Soft foods and liquids are easier on the jaw. Protect your jaw while yawning. If you need to yawn, put your fist under your chin to prevent your mouth from opening up too wide. To help relieve pain, try applying hot or cold packs to the painful area. Try both hot and cold to find out which works best for you. To make a cold pack, put ice cubes in a plastic bag that seals atthe top. Wrap the bag in a clean, thin towel or cloth. Never put ice or an ice pack directly on theskin. If you use hot packs (small towels soaked in hot water), be careful not to burn yourself. You may take acetaminophen or ibuprofen for pain, unless you were given a different pain medicine. (Note: If you have chronic liver or kidney disease or have ever had a stomach ulcer or gastrointestinal bleeding, talk with your healthcare provider before using these medicines. Also talk to your provider if you are taking medicine to prevent blood clots.) Don t give aspirin to a child younger thanage 19 unless directed by the child s provider. Taking aspirin can put a child at risk for Jodi syndrome. This is a rare but very serious disorder that most often affects the brain and the liver. Reducing stress If stress seems to be contributing to your symptoms, try to identify the sources of stress in your life. These aren t always obvious. Common stressors include: Everyday hassles. These include things such as traffic jams, missed appointments, or car trouble. Major life changes. These can be good, such as a new baby or job promotion. And they can be bad, such as losing a job or losing a loved one. Overload. The feeling that you have too many responsibilities and can't take care of everything at once. Helplessness. Feeling like your problems are more than you can solve. When possible, do something about your sources of stress. See if you can avoid hassles, limit the amount of change in your life at one time, and take breaks when you feel overloaded. Unfortunately, many stressful situations cannot be avoided. So learning how to manage stress betteris very important. Getting regular exercise, eating nutritious, balanced meals, and getting adequate rest all help to make everyday stress more manageable. Certain techniques are also helpful: relaxation and breathing exercises, visualization, biofeedback, meditation, or simply taking some time outto clear your mind. For more information, talk with your healthcare provider. Follow-up care Follow up with your healthcare provider, or as advised. Further testing and additional treatment may be required. If changes to your lifestyle do not improve your symptoms, talk with your healthcare provider about other available therapies. These include bite guards for help with teeth grinding, stress management techniques, and more. If stress is an important factor and does not respond to the above simple measures, talk with your healthcare provider about a referral for stress management. If X-rays were done, they will be reviewed by a specialist. You will be notified of the results, especially if they affect treatment. Call 911 Call 911 if any of these occur: Trouble breathing or swallowing, wheezing Confusion Extreme drowsiness or trouble awakening Fainting or loss of consciousness Rapid heart rate When to seek medical advice Call your healthcare provider right away if any of these occur: Swollen or red face Pain gets worse Neck, mouth, tooth, or throat pain gets worse Fever of 100.4 F (38 C) or higher, or as directed by your healthcare provider [phone] The [employer]. [address] [place] [address], [place] [address]. All rights reserved. This information is not intended as a substitute for professional medical care. Always follow yourhealthcare professional's instructions. 04/12/2022 21:18:12 Paraesthesias Paraesthesias Paraesthesia is a burning or prickling sensation that is sometimes felt in the hands, arms, legs orfeet. It can also occur in other parts of the body. It can also feel like tingling or numbness, skin crawling, or itching. The feeling is not comfortable, but it is not painful. (The pins and needles feeling that happens when a foot or hand falls asleep is a temporary paraesthesia.) Paraesthesias that last or come and go may be caused by medical issues that need to be treated. These include stroke, a bulging disk pressing on a nerve, a trapped nerve, vitamin deficiencies, uncontrolled diabetes, alcohol abuse, or even certain medicines. Tests are often done. These tests may include blood tests, X-ray, CT (computerized tomography) scan, nerve conduction studies (NCS), or a muscle test (electromyography). Depending on the cause, treatment may include physical therapy. Home care Tell your healthcare provider about all medicines you take. This includes prescription and yjir-pfs-tdvxbnz medicines, vitamins, and herbs. Ask if any of the medicines may be causing your problems. Don't make any changes to prescription medicines without talking to your healthcare provider first. You may be prescribed medicines to help relieve the tingling feeling or for pain. Take all medicines as directed. A numb hand or foot may be more prone to injury. To help protect it: oAlways use oven mitts. oTest water with an unaffected hand or foot. oUse caution when trimming nails. File sharp areas. oWear shoes that fit well to avoid pressure points, blisters, and ulcers. oInspect your hands and feet carefully (including the soles of your feet and between your toes) daily. If you see red areas, sores, or other problems, tell your healthcare provider. Follow-up care Follow up with your doctor, or as advised. You may need further testing or evaluation. When to seek medical advice Call your healthcare provider right away if any of the following occur: Numbness or weakness of the face, one arm, or one leg Slurred speech, confusion, trouble speaking, walking, or seeing Severe headache, fainting spell, dizziness, or seizure Chest, arm, neck, or upper back pain Loss of bladder or bowel control Open wound with redness, swelling, or pus [id number] The [employer]. [address] [place] [address]. All rights reserved. This information is not intended as a substitute for professional medical care. Always follow yourhealthcare professional's instructions. Follow Up Care 04/12/2022 18:10:07 With:OPAL ARGUELLES APRN, CNP Address: [address] [place] [phone] When:2-4 days [facility] 12-07-2022 Note Discharge Instructions Thank you for allowing [facility] to assist you with your healthcare needs. The following is importantdischarge information regarding your hospital visit. Diagnosis from Today's Visit TMJ syndrome Paresthesia Hand pain-swelling Jaw pain What to Do Next Instructions from Your Care Team No qualifying data available. Post Acute Orders No qualifying data available. You Need to Schedule the Following Appointments Follow Up with OPAL ARGUELLES APRN, CNP When Within 2-4 days Where: [address] [place] [id number]- Allergies Lisha (Hives, Swelling) Amoxil (SOB - Shortness of breath, Rash) penicillin (SOB - Shortness of breath, Rash) Medications Please ask your primary doctor or pharmacist before taking any other medication not listed, including over the counter drugs, herbal medications, vitamins and or supplements as they may interact withyour home medications. What How Much When Why Instructions Last Dose New cyclobenzaprine (cyclobenzaprine 10 mg oral tablet) 1 tab(s) by mouth Three (3) times a day TMJ syndrome Paresthesia Duration: 5 Days Printed Prescription Unchanged albuterol (Albuterol (Eqv-ProAir HFA) 90 mcg/ inh inhalation aerosol) 1 puff(s) by inhalation Every 4 hours inhale 1 puff by mouth every 4 hours as needed Unchanged cyanocobalamin (cyanocobalamin 1000 mcg/ mL injectable solution) 1 Milliliter Intramuscular Once a month Chronic back pain Vitamin B12 deficiency Duration: 30 Days Unchanged cyanocobalamin (Vitamin B12 1000 mcg oral tablet) 1 tab(s) by mouth Once a day Vitamin B12 deficiency Duration: 90 Days Unchanged EPINEPHrine (EpiPen 2-Jenifer 0.3 mg injectable kit) 1 kit Subcutaneous As Directed as needed for Allergic reaction Unchanged ethinyl estradiol-norethindrone (Alyacen 1/ 35 oral tablet) 1 tab(s) by mouth Once a day Unchanged famotidine (Pepcid 40 mg oral tablet) 1 tab(s) by mouth Daily at bedtime GERD (gastroesophageal reflux disease) Unchanged omeprazole (omeprazole 40 mg oral delayed release capsule) 1 cap by mouth Once a day Duration: 90 Days Please take this list to your next doctor s visit. Bring all medications you take, including over the counter medications, herbals and other supplements with you to your doctor s visit. Patients and families are reminded to discard old lists and to update any records with all medication providers or retail pharmacies. Education Materials Helping Your Temporomandibular Joint (TMJ) Heal The temporomandibular joint (TMJ) is a gsyr-vcl-ljuozp joint located where the upper and lower jawsmeet. When the TMJ and related muscles are injured, they need time to heal. Self-care is very important. You can take steps to reduce pressure on the TMJ and speed healing. Eating with care Chewing strains the TMJ. When symptoms are bad, you may not be able to chew at all. To get you through times when your symptoms are at their worst, try these tips: Choose soft foods. These include scrambled eggs, oatmeal, yogurt, quiche, tofu, soup, smoothies, pasta, fish, mashed potatoes, milkshakes, bananas, applesauce, gelatin, or ice cream. Don t bite into hard foods. These include whole apples, carrots, and corn on the cob. Instead cut foods into bite-sized pieces. Grind or finely chop meats and other tough foods. Try hamburger meat instead of steak. Using ice and heat Your healthcare provider may suggest using ice and heat. Ice helps reduce swelling and pain. Heat helps relax muscles, increasing blood flow. Use a gel pack or cold pack for severe pain. Apply for 10 to 20 minutes. Repeat as needed. To make a cold pack, put ice cubes in a plastic bag that seals at the top. Wrap the bag in a clean, thin towel or cloth. Never put ice or a cold pack directly on the skin. Use moist heat for mild to moderate muscle pain. Apply a moist, warm towel to the muscles for 10 to20 minutes. Repeat as needed. Staying away from triggers Certain activities (called triggers) strain the TMJ, making symptoms worse. The tips below can helpyou avoid common triggers and limit strain. Don t eat hard or chewy foods. These include nuts, pretzels, popcorn, chips, gum, caramel, gummy candies, carrots, whole apples, hard breads, and even ice. Reschedule routine dental visits, like cleanings, if your jaw aches. If you have severe pain, call your healthcare provider. Support your jaw when yawning. When you feel a yawn coming on, put a fist under your jaw. Apply gentle pressure. This helps prevent wide, painful yawns. Don t do any activity that hurts. This includes nail biting, yelling, and singing. Maintaining good posture Work at improving your posture during the day and when you sleep. Good posture can help your body heal. Try these tips: Use a headset when on the phone. Don t cradle the phone with your shoulder. Keep ergonomics in mind. This includes making sure your workstation fits your body. Support your lower back. Take breaks often to stretch and rest. If you use a computer, keep the monitor at eye level. Keep your head in a neutral position. Keep your ears in line with your shoulders. Don t slouch or cantu your head forward. Use an orthopedic pillow. Use this to support your head and neck during sleep. [id number] The [employer]. [address] [place] [address]. All rights reserved. This information is not intended as a substitute for professional medical care. Always follow yourhealthcare professional's instructions. TMJ Syndrome The temporomandibular joint (TMJ) is the joint that connects your lower jaw to your head. You can feel it in front of your ears when you open and close your mouth. TMJ disorders involve chronic or recurrent pain in the joint. When treated, symptoms of TMJ disorders usually go away within a few months. Causes There is no widely agreed-on cause of TMJ disorders. They have been linked to injury, arthritis, chronic fatigue syndrome, and fibromyalgia. A definite connection has not been shown, though. Symptoms Pain in the face, jaw, or neck Pain with jaw movement or chewing Locking or catching sensation of the jaw Clicking, popping, or grinding sounds with movement of the TMJ Headache Ear pain Home care Modest, nonsurgical treatments are a good first step toward relieving symptoms. Try the approaches described below. Rest the jaw by avoiding crunchy or tsya-nv-eslk foods. Don t eat hard or sticky candies. Soft foods and liquids are easier on the jaw. Protect your jaw while yawning. If you need to yawn, put your fist under your chin to prevent your mouth from opening up too wide. To help relieve pain, try applying hot or cold packs to the painful area. Try both hot and cold to find out which works best for you. To make a cold pack, put ice cubes in a plastic bag that seals atthe top. Wrap the bag in a clean, thin towel or cloth. Never put ice or an ice pack directly on theskin. If you use hot packs (small towels soaked in hot water), be careful not to burn yourself. You may take acetaminophen or ibuprofen for pain, unless you were given a different pain medicine. (Note: If you have chronic liver or kidney disease or have ever had a stomach ulcer or gastrointestinal bleeding, talk with your healthcare provider before using these medicines. Also talk to your provider if you are taking medicine to prevent blood clots.) Don t give aspirin to a child younger thanage 19 unless directed by the child s provider. Taking aspirin can put a child at risk for Jodi syndrome. This is a rare but very serious disorder that most often affects the brain and the liver. Reducing stress If stress seems to be contributing to your symptoms, try to identify the sources of stress in your life. These aren t always obvious. Common stressors include: Everyday hassles. These include things such as traffic jams, missed appointments, or car trouble. Major life changes. These can be good, such as a new baby or job promotion. And they can be bad, such as losing a job or losing a loved one. Overload. The feeling that you have too many responsibilities and can't take care of everything at once. Helplessness. Feeling like your problems are more than you can solve. When possible, do something about your sources of stress. See if you can avoid hassles, limit the amount of change in your life at one time, and take breaks when you feel overloaded. Unfortunately, many stressful situations cannot be avoided. So learning how to manage stress betteris very important. Getting regular exercise, eating nutritious, balanced meals, and getting adequate rest all help to make everyday stress more manageable. Certain techniques are also helpful: relaxation and breathing exercises, visualization, biofeedback, meditation, or simply taking some time outto clear your mind. For more information, talk with your healthcare provider. Follow-up care Follow up with your healthcare provider, or as advised. Further testing and additional treatment may be required. If changes to your lifestyle do not improve your symptoms, talk with your healthcare provider about other available therapies. These include bite guards for help with teeth grinding, stress management techniques, and more. If stress is an important factor and does not respond to the above simple measures, talk with your healthcare provider about a referral for stress management. If X-rays were done, they will be reviewed by a specialist. You will be notified of the results, especially if they affect treatment. Call 911 Call 911 if any of these occur: Trouble breathing or swallowing, wheezing Confusion Extreme drowsiness or trouble awakening Fainting or loss of consciousness Rapid heart rate When to seek medical advice Call your healthcare provider right away if any of these occur: Swollen or red face Pain gets worse Neck, mouth, tooth, or throat pain gets worse Fever of 100.4 F (38 C) or higher, or as directed by your healthcare provider [id number] The [employer]. [address] [place] [address], [place] [address]. All rights reserved. This information is not intended as a substitute for professional medical care. Always follow yourhealthcare professional's instructions. Paraesthesias Paraesthesia is a burning or prickling sensation that is sometimes felt in the hands, arms, legs orfeet. It can also occur in other parts of the body. It can also feel like tingling or numbness, skin crawling, or itching. The feeling is not comfortable, but it is not painful. (The pins and needles feeling that happens when a foot or hand falls asleep is a temporary paraesthesia.) Paraesthesias that last or come and go may be caused by medical issues that need to be treated. These include stroke, a bulging disk pressing on a nerve, a trapped nerve, vitamin deficiencies, uncontrolled diabetes, alcohol abuse, or even certain medicines. Tests are often done. These tests may include blood tests, X-ray, CT (computerized tomography) scan, nerve conduction studies (NCS), or a muscle test (electromyography). Depending on the cause, treatment may include physical therapy. Home care Tell your healthcare provider about all medicines you take. This includes prescription and pukh-vym-ueknkos medicines, vitamins, and herbs. Ask if any of the medicines may be causing your problems. Don't make any changes to prescription medicines without talking to your healthcare provider first. You may be prescribed medicines to help relieve the tingling feeling or for pain. Take all medicines as directed. A numb hand or foot may be more prone to injury. To help protect it: oAlways use oven mitts. oTest water with an unaffected hand or foot. oUse caution when trimming nails. File sharp areas. oWear shoes that fit well to avoid pressure points, blisters, and ulcers. oInspect your hands and feet carefully (including the soles of your feet and between your toes) daily. If you see red areas, sores, or other problems, tell your healthcare provider. Follow-up care Follow up with your doctor, or as advised. You may need further testing or evaluation. When to seek medical advice Call your healthcare provider right away if any of the following occur: Numbness or weakness of the face, one arm, or one leg Slurred speech, confusion, trouble speaking, walking, or seeing Severe headache, fainting spell, dizziness, or seizure Chest, arm, neck, or upper back pain Loss of bladder or bowel control Open wound with redness, swelling, or pus [phone] The [employer]. [address] [place] [address]. All rights reserved. This information is not intended as a substitute for professional medical care. Always follow yourhealthcare professional's instructions. Additional Information VACCINATE! IT SAVES LIVES! Members of the community who have not yet received the COVID-19 vaccine and would like to receive it can visit one of [facility] vaccine clinics. There are many vaccine clinic locations within the [facility]. For locations and available times, please visit [email or web address]. It is important to note that some COVID mobile vaccine clinics are held outdoors and may be canceled in rainy orstormy conditions. To learn more about pediatric vaccinations (ages 5-11), we invite you to visit the [facility] webpage. [email or web address] learn more about the COVID-19 vaccine, we invite you to visit the [facility] website for a list of frequently asked questions. [email or web address] [facility] Patient Portal Access Instructions: Stay connected with your healthcare team and access your personal medical information anytime with the [facility] Patient Portal. If you would like a full copy of your medical records please contact the [facility] Medical Records Department Sunday through Sunday between 8a.m. and 4:30p.m. Please follow the directions below to access the portal: 1.Access the email account you provided upon registration to the hospital.2.Look for an invitation email from [facility].3.Open the email and access the invitation link: Accept Invitation to [facility].Fill in the required ceron to create your account. Sign into [email or web address] with your username and password that you created in the above steps to stay up to date. You can then view a summary of results, a summary of your visits, and the ability to download your summaries to your computer or send the information securely to a physician. Remember that your healthcare information is confidential, so carefully consider who you will allow to register on the [facility] Patient Portal for access to your information. You can also access the [facility] Patient Portal on the [employer] juliocesar. Simply click on Health Records under Your [employer] and then click on the [employer] logo. HOW TO SAFELY DISPOSE OF PRESCRIPTION MEDICATIONS Please use one of the following methods to safely dispose of your unused medications. 1.Use a drug disposal kit: the drug disposal pouch allows you to safely discard your old and unuseddrugs. Ask your nurse to give you one when you are discharged.2.Visit a local take-back location: Many local pharmacies and police departments have programs that collect old and unwanted prescriptiondrugs. Call your local pharmacy or go to http://[employer].QD Vision/0W1Vh9b to find one close to you.3.Make use of household items: Use cat litter or old coffee grounds to dispose medications if other options arenot available. Mix your drugs with these household products, seal them in an airtight container andthrow it into the garbage. Call [facility]: [phone] to be sure your drugs can be disposed of in this way. Some medicines may require a different approach.4.Never flush your medications down the toilet. IF YOU HAVE BEEN PRESCRIBED AN OPIOIDS FOR PAIN If you have been prescribed an opioid (such as hydrocodone, oxycodone or morphine), it is critical to understand the possible side effects and risks of opioid pain medications. Even when taken as directed, opioids can have several side effects including: Tolerance, meaning you might need to take more of a medication for the same pain relief. Nausea, vomiting and/or constipation. Sleepiness, dizziness, dry mouth, confusion, depression or itching. Physical dependence, meaning you have withdrawal symptoms when a medication is stopped ? this can develop within a few days. KNOW YOUR RESPONSIBILITIES It is important to know exactly how much and how often to take the opioid pain medications you are prescribed. Never take opioids in higher amounts or more often than prescribed. Do not combine opioids with alcohol or other drugs that cause drowsiness, such as benzodiazepines, also known as benzos,including diazepam and alprazolam, muscle relaxants or sleep aids. Never sell or share prescriptionopioids. This is illegal. Store opioids in a secure place and out of reach of others (including children, family, friends and visitors). The last page(s) of this document has been signed and retained as a CHART COPY Signatures Patient Education Materials Helping Your Temporomandibular Joint (TMJ) Heal TMJ Syndrome Paraesthesias Medication Leaflets My discharge plan and instructions have been reviewed and explained to me and [employer] [facility] understand my current condition and have read and understand these discharge instructions. I have received a written copy of the plan/instructions. If I have questions, I am aware that I should contact my doctor. 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 Do to my [facility] responsibilities I can not do the paper work care needed to give the care and diligence. Sincerely, Jose Daniel G. Primo, D.O ELECTRONICALLY SIGNED April 11, 2022 Adult Neurology/ Board Certified Director of [facility] Department of Neuro Muscular Medicine of the Neurological Instructional Designer for Neurology [employer] [facility] Clinical [employer] of Neurology Physician Advisor and Chair of Physician Advisors of the [facility] Warehouse Traffic Supervisor of Mistreatment and Neglect [facility] Faculty Appointment [facility] Faculty Appointment [facility] [facility] Clinical Professor [facility] / TAX ID: [id number] [address]/ [id number] [place] [address] / documented in this encounterDunlap [facility] Hospital11-22-2022 Instructions* Patient Instructions* Felipa Belcher APRN.BLINDSTITCH HEMMER - 03/28/2022 11:40 AM EST PLAN: Prevention: Continue vyepti. Rescue: Continue aleve. Limit pain meds and triptans to no more than 2 days per week to avoid medication overuse headache. This includes limiting OTC pain meds such as tylenol, ibuprofen, Excedrin, aleve, etc. Vyepti Information VYEPTI is a prescription medicine used for the preventive treatment of migraine in adults. Inside the body, there is a protein called calcitonin gene-related peptide, or CGRP. CGRP attaches to and activates specific receptors, which may play a role in migraine. VYEPTI helps prevent migraine by binding to CGRP and preventing it from attaching to and activating the receptors. VYEPTI is given as a 30-minute IV infusion in our infusion clinic once every 3 months (4 times per year). The medication is delivered into your bloodstream. The most common side effects of VYEPTI include stuffy nose and scratchy throat, and allergic reactions. We submit for prior authorization of Vyepti through your insurance company. We recommend a 6 week follow up appointment (can be a virtual visit) after starting vyepti. Go to the website to learn more about Vyepti and to download the savings card: https://www.vyepti.Attune/ General Headache Education and Headache Prevention Strategies: 1. Maintain a headache diary; learn to identify and avoid triggers. Common triggers include: Emotional triggers: Emotional/Upset family or friends Emotional/Upset occupation Business reversal/success Anticipation anxiety Crisis-serious Post-crisis periodNew job/position Physical triggers: Vacation Day Weekend Strenuous Exercise High Altitude Location New Move Menstrual Day Physical Illness Oversleep/Not enough sleep Weather changes Light: Photophobia or light sesnitivity treatment involves a balance between desensitization and reduction in overly strong input. Use dark polarized glasses outside, but not inside. Avoid bright or fluorescent light, but do not dim environment to the point that going into a normally lit room hurts. Consider FL- 41 tint lenses, which reduce the most irritating wavelengths without blocking too muchlight. These can be obtained at [employer] or [employer]: see list below. 2. Limit use of acute treatments (wouz-euz-nrnqppq medications, triptans, etc.) to no more than 2 days per week or 10 days per month to prevent medication overuse headache (rebound headache). 3. Follow a regular schedule (including weekends and holidays): Don't skip meals. Eat a balanced diet. 8 hours of sleep nightly. Minimize stress. Exercise 30 minutes per day. Walking is great exercise. Being overweight is associated with a 5 times increased risk of chronic migraine. Keep well hydrated and drink 6-8 glasses of water per day. Limit caffeine to 200 mg per day. 4. Initiate non-pharmacologic measures at the earliest onset of your headache. Rest and quiet environment. Relax and reduce stress. [id number] is a free juliocesar that can instruct you on some simple relaxtionand breathing techniques. Http://[employer].Attune is a free website that provides teaching videos on relaxation. Also, there are many apps that can be downloaded for mindful relaxation. An juliocesar called YOGA NIDRA will help walk you through mindfulness. Cold compresses. 5. Don't wait!! Take the maximum allowable dosage of prescribed medication at the first sign of migraine. 6. Compliance: Take prescribed medication regularly as directed and at the first sign of a migraine. 7. Communicate: Call your physician when problems arise, especially if your headaches change, increase in frequency/severity, or become associated with neurological symptoms (weakness, numbness, slurred speech, etc.). 8. Headache/pain management therapies: Consider various complementary methods, including medication, behavioral therapy, psychological counselling, biofeedback, massage therapy, acupuncture, dry needling, and other modalities. Such measures may reduce the need for medications. Counseling for pain ma nagement, where patients learn to function and ignore/minimize their pain, seems to work very well. 9. Recommend changing family's attention and focus away from patient's headaches. Instead, emphasize daily activities. If first question of day is 'How are your headaches/Do you have a headache today?', then patient will constantly think about headaches, thus making them worse. Goal is to re-directattention away from headaches, toward daily activities and other distractions. 10. Helpful Websites: www.AmericanHeadacheSociety.org www.migrainetrust.org www.headaches.org www.migraine.org.uk www.achenet.org 11. HEADACHE EXPECTATIONS: There are many types of headaches, and only a rare few in which complete relief can be expected. Ingeneral, there is no cure for headache, especially migraine based headaches. There is nothing available that completely prevents headaches from occurring, breaking through, or having periodic flare-ups and fluctuations. Regardless of what you are using on a daily basis for prevention, episodic headaches should still be expected, and periods where frequency may escalate and fluctuate are unavoidable. There is no quick fix for most headaches. Furthermore, the longer you have had high frequency headaches (such as chronic daily headache), the longer it will likely take to expect any improvement. In fact, some people will never improve, regardless of how many medications or other treatments we try.Our treatment strategy is to evaluate for possible causes of your headache, although testing is usually always normal, even in cases of daily continuous headaches for years. Most types of headache such as migraine are electrical brain disorders (similar to how epilepsy is an electrical brain disorders). Therefore, there is no testing that will reveal this dysfunctional electrical circuitry suchon MRI, or other testing. We try to find a medication that may help lessen the frequency and/or severity of your headaches. The goal is not to completely stop them from happening, although if that happens, great! Different people respond to different medications, and some people just don't respond to anything, so it's usually a matter of trying different options. We can not predict if or when exac tly you will respond to a treatment that we provide. Preventive headache medications take 4-6 weeks to start working, and 2-3 months to see full effect,assuming you reach an effective dose. Therefore, calling or messaging frequently because you have aheadache flare prior to the 3 month gautam is unlikely to change anything, and unfortunately there isnothing available that will expedite this, so please try to avoid this. Our recommendation will gene rally be to give it adequate time first. If you are unable to wait it out for medications to work, we can also try IV infusions for some temporary relief. In general, the best that preventive medications or other treatments (including Botox) are able to offer in migraine management (variable in other headache types) is a 50% improvement in frequency and/or severity of headache. That is our goal, and any additional benefit is considered a bonus. Some people do significantly better than this, others do not get close to this. Therefore, if your headaches are not improving by at least 3 months on your preventive strategy, contact us and we can discuss further adjustments. Keep in mind that complete headache cure is not a realistic expectation. Our Team: The nursing staff, and medical assistants are a major part of YOUR TREATMENT TEAM and will be handling your phone calls and inquiries, if any. Unless explicitly told otherwise at the time of your office visit, your study results and ensuing treatment plans will be released via Carestream and discussedduring your follow-up appointment. Follow-up appointments are primarily provided by the Nurse Practitioners and Physician s Assistants in order to provide timely, accessible care. Carestream: Please ask the schedulers to give you an activation code. The main way of communication isby Carestream rather than phone lines, so if you have not signed up, please do so. Carestream is also theway that you can review your labs and testing. We are not able to contact everyone to tell them results are normal. If you do not hear back from us regarding testing you have had, it should be considered normal or within normal range. If you have any questions about the results, you are free to message us. Carestream is meant for simple questions regarding medications, possible side effects, or other simplestraight forward questions in limited sentences, rather than multiple paragraphs of discussion. Carestream is not meant for, or efficient for these complex questions, extensive questions, extensive medication adjustments, complex new symptoms or concerns. These issues beyond simple questions require afollow up visit with myself, one of our physician assistants, nurse practitioners, or a Virtual Visit via computer or smart phone, as detailed further down. Please contact [email or web address] Support if you are having issues with Carestream or logging in to your virtual visit appointment. You can reach them at [phone] Refills: Please pay attention to when your refills will need to be renewed. Due to the volume of phone callsdaily, this could potentially take a few days, although we certainly try to honor your refill requests as soon as we can. You should call at least 1 week in advance of needing a refill to ensure you do not run out of medication. Keep in mind that refill requests on Fridays may not be filled until the following week. The Headache and Facial Pain Section does not complete disability or any other insurance-related forms/documention. We will complete FMLA forms. All of the office notes, study results, and other pertinent documentation generated as part of your evaluation will be available to you and to your Primary Care Physician (PCP). Use of this material to complete such forms will be at the discretion of your PCP/referring physician. HEADACHE DIET: Foods and beverages which may trigger migraine Note that only 20% of headache patients are food sensitive. You will know if you are food sensitiveif you get a headache consistently 20 minutes to 2 hours after eating a certain food. Only cut out a food if it causes headaches, otherwise you might remove foods you enjoy! What matters most for diet is to eat a well balanced healthy diet full of vegetables and low fat protein, and to not miss meals. Chocolate, other sweets ALL cheeses except cottage and cream cheese Dairy products, yogurt, sour cream, ice cream Liver Meat extracts (Bovril, Marmite, meat tenderizers) Meats or fish which have undergone aging, fermenting, pickling or smoking. These include: Hotdogs,salami,Lox,sausage, mortadellas,smoked salmon, pepperoni, Pickled kincaid Pods of broad schumacher (Russian beans, Montenegrin pea pods, Mongolian (judi) beans, navarro and navy beans Ripe avocado, ripe banana Yeast extracts or active yeast preparations such as French's or Cami's (commercial bakes goodsare permitted) Tomato based foods, pizza (lasagna, etc.) MSG (monosodium glutamate) is disguised as many things; look for these common aliases: Monopotassium glutamate Autolysed yeast Hydrolysed protein Sodium caseinate flavorings all natural preservatives Nutrasweet Avoid all other foods that convincingly provoke headaches. documented in this encounterDunlap [facility] Hospital11-22-2022 History of Present illness Narrative* Felipa Belcher APRN.CNP - 03/28/2022 11:00 AM EST Images from the original note were not included. [facility] - Follow up Virtual Visit Zoom Tina Sy was identified by name and and consented to the video evaluation and its limitations. Based on this evaluation it may be necessary for them to schedule a follow up evaluation with me or other neurologists for formal physical examination and, if necessary, other studies. Accompanied by: Self Primary Problem List: ACTIVE PROBLEM LIST Chronic Migraine Without Aura, With Intractable Migraine, So Stated, With Status Migrainosus Generalized Anxiety Disorder Gerd (Gastroesophageal Reflux Disease) Add (Attention Deficit Disorder) Pots (Postural Orthostatic Tachycardia Syndrome) Seizure-Like Activity (Hcc) Chief Complaint: migraine Impression and Plan from last visit: 08/23/21 w/ Dr. Dan IMPRESSION: Tina Sy is a 21 year old year old female with a significant past medical history of POTS,chronic migraines who presents for further evaluation regarding headaches. On today's evaluation, the patient meets criteria for chronic migraine (>15 headache days a month, unilateral, interfering with ADLs, associated with photophobia, phonophobia, nausea but no vomiting) for which she was extensively counseled regarding the following lifestyle factors: stress management, healthy & regular diet and exercise, regular sleep, minimizing caffeine use and weight management. - In the setting of a normal neurological physical examination and typical migraine features, thereis no indication for additional neuroimaging at this time. However, as the patient has had multiplespells of LOC with jerking, we will obtain routine EEG now and refer to Epilepsy for consideration of long-term monitoring. Of note, cardiac testing has been unremarkable to date. - For symptomatic relief, on a preventative basis, patient was initiated on IV Vyepti 100 mg q3 months and we will replace her current anti-depressant with Cymbalta for concurrent mood + anti-migraine properties; it will also help increase her BP and improve POTS symptoms. - Referral to Dr. Tillman + Radha Calderón for POTS management was also made; she may benefit from repeat tilt-table testing as her symptoms have significantly worsened since COVID-19 diagnosis in 2019. - Follow-up in 3 months PRN. PLAN: Diagnosis: Chronic migraine, POTS Preventive: IV Vyepti 100 mg q3 months, Cymbalta 60 mg Next steps: Referral to Epilepsy + Dr. Tillman Interval Headache History: Tina Sy is a 22 year old year old female, with a history of POTS, ANNA, ADD, chronic migraine, following up today virtually for migraines. Since the last visit, the patient states that her headaches are worse. She started cymbalta but is no longer taking it, I don't think it was working, but I'm not sure. After vyepti she had a month headache free and then the MAE returned after about 1 month. Preventative: vyepti 100 mg (first dose on 12/26/21) Abortive: aleve Medication SEs: no Contraceptive: OCP Medications effective? somewhat # of doses of abortive medications per month: 5 History of SC/CAD/Stroke: No Concerns today: MAE worse Not currently working or in school. Headache 1 Onset: - 2-3 years ago; worse since April 2020- worsened after covid Location: right and temporal Quality/Description: sharp and throbbing Associated Symptoms: Photophobia: yes Phonophobia: yes Nausea: no Vomiting: no Other symptoms: lightheadedness Number of migraine headache days/month: 15 Migraine headache severity: 8/10 Number of NON-migraine headache days/month: 8 Non-migraine headache severity: 5 Number of headache free days/month: 7 Triggers: loud noise Relieving factors: aleve, dark room, cold rag Positional changes: no Aura: blurred vision Days missed from work or school in the last month: 0 days Headache status since the last visit: worse Lifestyle: Sleep: iffy, gets about 5 hours- just had foot surgery for torn ankle ligament Diet: good, I'm having some stomach problems and haven't been able to eat a whole lot b/c my stomach's been acting up. tea once a day Exercise: no Prior Therapies Duration of Use Dose Reason for Discontinuation Anti-Convulsant Topiramate (Topamax, Trokendi XL, Qudexy) Anti-Depressant and Antipsychotic Amitriptyline (Elavil) Citalopram (Celexa) Nortriptyline (Pamelor, Aventyl) Anti-Migraine Naratriptan (Amerge) Sumatriptan (Imitrex, Sumavel) Blood Pressure Nadolol (Corgard) No past medical history on file. No past surgical history on file. ALLERGIES Allergen Reactions Lisha [Fexofenadi* Angioedema Amoxicillin Rash Beeswax Anaphylaxis Penicillins Rash Current Medications: cyanocobalamin (VITAMIN B-12) 100 mcg tab^Take 100 mcg by mouth once daily.^Disp: ^Rfl: NORTREL 1/35, 28, 1-35 mg-mcg per tablet^Take 1 tablet by mouth once daily.^Disp: ^Rfl: EPINEPHrine (EPIPEN) 0.3 mg/0.3 mL auto-injector^0.3 mg.^Disp: ^Rfl: albuterol HFA (PROVENTIL HFA, VENTOLIN HFA) 90 mcg/actuation inhaler^Inhale 2 Puffs as instructed as needed for wheezing/shortness of breath.^Disp: ^Rfl: I have reviewed the Adolfo Status Assessment responses and discussed these with the patient: yes Felipa Belcher APRN.BLINDSTITCH HEMMER HEADACHE SCORES: Headache Questions 08/22/2021 12/13/2021 03/27/2022 ID Migraine Screener: 2 (Positive) - - ER visits in the last year: 0 - - ER visits since last office visit: - 0 0 Hospital stays in the last year: 0 - - Hospital stays since last office visit - 0 0 Limited ADLs in the last month: 20 20 20 Days missed from work or school in the last month: 0 0 0 Days headache pain free in the last month: 0 0 0 Days per month with ALL of the following symptoms - decreased productivity, light sensitivity and nausea: 20 10 15 Initial improvement of headache after botox injection at last visit: - Not applicable, I did not have a botox injection at my last visit Not applicable, I did not have a botox injection at my last visit PRN medication usage in the last month: 10 10 10 Patient impression of improvement since last visit: - No change Much worse HIT-6 08/22/2021 12/13/2021 03/27/2022 HIT-6 78 (Severe impact) 74 (Severe impact) 67 (Severe impact) ANNA - 2/7 SCORES 12/03/2021 12/13/2021 03/23/2022 ANNA-2 Score 0 0 1 ANNA-7 Score 4 - - Migraine Specific QOL - Higher scores indicate better HRQL 08/22/2021 12/13/2021 03/27/2022 Role Function-Restrictive Transformed Score (range: 0-100) 40 25.71 31.43 Role Function-Preventive Transformed Score (range: 0-100) 20 45 35 Emotional Function Transformed Score (range: 0-100) 60 80 93.33 PHQ-9 12/03/2021 12/13/2021 03/23/2022 Score 10 13 14 MRI Head/Brain - Last 2 Impressions MRI BRAIN WO IVCON Exam End: 11/18/2021 8:42 PM (Final result) Impression: IMPRESSION: No evidence of intracranial acute signal abnormality or developmental malformation. ... MRA Head and/or Neck - Last 2 Impressions No resulted procedures found. Labs to Review: Yes, Latest Reference Range & Units 12/07/21 15:18 Sodium 136 - 144 mmol/L 142 Potassium 3.7 - 5.1 mmol/L 3.8 Chloride 97 - 105 mmol/L 103 CO2 22 - 30 mmol/L 25 BUN 7 - 21 mg/dL 6 (L) Creatinine 0.58 - 0.96 mg/dL 0.65 Glucose 74 - 99 mg/dL 80 Protein, Total 6.3 - 8.0 g/dL 7.2 Calcium 8.5 - 10.2 mg/dL 10.5 (H) Magnesium 1.7 - 2.3 mg/dL 2.0 Albumin 3.9 - 4.9 g/dL 4.8 Bilirubin, Total 0.2 - 1.3 mg/dL 0.7 Alkaline Phosphatase 34 - 123 U/L 105 ALT 7 - 38 U/L 9 AST 13 - 35 U/L 14 Anion Gap 9 - 18 mmol/L 14 eGFR >=60 mL/min/1.73m 129 (L): Data is abnormally low (H): Data is abnormally high New Health Issues: Yes, ankle surgery for torn ligament Review of Systems: See HPI. Physical Examination: Vital Signs: No vital signs taken due to virtual visit. General: well appearing, in no acute distress, alert Pain Behaviors: no pain behaviors observed Neurological: Mental Status: Alert and oriented to person, place and time. Affect is normal and appropriate. Speech is spontaneous and fluent without dysarthria, normal in rate, volume and articulation, and clear,coherent, and relevant. Short and care home memory, cognition and general fund of knowledge are good. Attention span and concentration are good. HEENT: Head is normocephalic and features were symmetric. Musculoskeletal: Patient able to sit up right in chair for entirety of visit. Cranial Nerves: III, IV, -EOMI: full. VII-face is symmetric without evidence of weakness. VIII-hearing intact. Physical exam limited due to virtual visit. IMPRESSION: Tina Sy is a 22 year old year old female, with a history of POTS, ANNA, ADD, chronic migraine. Her neurological examination is essentially normal at this visit. Ms. Sy' MAE are worse since her last visit. She has completed 1 round of vyepti 100 mg. She had some improvement in her MAE after vyepti, so I am recommending that she continues with vyepti and f/u about 6 weeks after her 2nd round of vyepti. At that next visit we can determine how she is doing with vyepti and if she would benefit from increasing the dose to 300 mg. Red Flags: none PLAN: Prevention: Continue vyepti. Rescue: Continue aleve. Limit pain meds and triptans to no more than 2 days per week to avoid medication overuse headache. This includes limiting OTC pain meds such as tylenol, ibuprofen, Excedrin, aleve, etc. Future Considerations: inc to vyepti 300 mg; botox, mAB injectable Patient verbalized understanding and agreed to the treatment plan. Many labs have been done looking for underlying reasons of headache and are not necessary at this time. HEADACHE MANAGEMENT: (You are the primary guardian of your health and headache. Keep track of all medications: This includes the reason for use, side effects and benefits.) MEDICATION TREATMENT: Medications to Start Taking None Written educational materials given. Headache education was done. Discussed triggers and lifestyle modification including increased oralhydration, decreased caffeine, exercise and stress management. Discussed treatment options including preventive and acute medications, natural supplements, and infusion therapy. Discussed medication o veruse headache and to limit use of acute treatments to no more than 2 days/week or 10 days/month. Discussed medication side effects, adverse reactions and drug interactions. Written educational materials and patient instructions provided. Prior Authorization: Tina Sy has been previously approved for Calcitonin Gene Related Peptide Monoclonal Antibody (CGRP MAB) (Eptinezumab). The patient has demonstrated the following: Patient reduction in overall migraine days: Yes Patient reduction in moderate-severe migraine days: Yes Individual has obtained clinical benefit deemed significant by individual or prescriber: Yes Patient's quality of life and ability to perform ADLs has improved: Yes We suggest the patient continue treatment with CGRP MAB Eptinezumab. The following preventative medications have been tried for three or more months without benefit: Anti-Convulsant Topiramate (Topamax, Trokendi XL, Qudexy) Anti-Depressant and Antipsychotic Amitriptyline (Elavil) Citalopram (Celexa) Nortriptyline (Pamelor, Aventyl) Blood Pressure Nadolol (Corgard) The following abortive medications have been tried but require high frequency use which can lead toMedication Overuse Headache: Anti-Migraine Naratriptan (Amerge) Sumatriptan (Imitrex, Sumavel) RESEARCH: None at this time Follow-up: 6 weeks Level of service: Est level 3 (20-29 min). Time spent 25 min on the day of service, which included preparing to see the patient, [id number] patient care, completing clinical documentation, obtaining and/or reviewing separately obtained history, performing a medically appropriate examination, counseling and educating the patient/family/caregiver, and ordering medications, tests, or procedures. Felipa Belcher APRN.TARA Headache Section [facility] March 28, 2022 documented in this encounterDunlap [facility] Hospital11-18-2022 Miscellaneous Notes* Telephone Encounter - Demetrice Blackwood - 03/24/2022 2:40 PM EST Called patient and let her know she was a SOC Denial. Placed new referral for the [place] location. documented in this encounterDunlap Memorial Hospital10-17-2022 History of Present illness Narrative* Radha Calderón APRN.TARA - 02/20/2022 2:52 PM EDT Skin Biopsy Procedure Note Skin Biopsy Accession Number: [id number] Biopsy Date: 02/20/2022 Referring physician: Dr. Tillman UNIVERSAL PROTOCOL / SAFETY CHECKLIST Procedure to be Performed: Skin Biopsy Sign In: A Moment of CARE was completed. Personnel directly involved with the procedure wore the appropriate PPE (Personal Protective Equipment). Patient/Surrogate Stated/Verified: PATIENT VERIFIED(optional for EMERGENT procedures): Patient name, Date of , Relevant allergies, and The intended procedure Time Out Communication: Intended patient and procedure match the source documents. Consent documented and matches the intended procedure. Sign Out: SIGN OUT (optional for EMERGENT procedures): All specimen containers correctly labeled. ESTER Mendosa APRN.TARA Sign in Pt ID verified with patient. Yes, by name and date. Is patient allergic to lidocaine, epinephrine, or bandage adhesive: No Is patient on anticoagulant medicine or blood thinners: No Does patient have a history of surgery on legs or feet: Yes, torn ligament surgery on right leg Procedure verified with the patient: Yes, left leg biopsies, 2 sites. History 22 year old female referred for skin biopsy to evaluate for possible small fiber neuropathy. Written aftercare was given and explained: Yes Patient verbally agrees to proceed with the procedure. Sign in completed: Yes Procedure Note Procedure confirmed with provider and patient support assistant. Yes, left leg 2 skin biopsies. The procedure was discussed with the patient, including the risks, benefits, instruments and personnel involved in this procedure. All of the patient s questions were answered. Informed consent discussed and signed: Yes Audible time-out documented: Yes Procedure Start Time: 1509 Procedure: After the patient was placed in a lateral position the following biopsy sites were identified: left distal leg and left distal thigh. These sites were cleansed with Chloroprep and injected with 0.5cc 1% Lidocaine. Two skin biopsies were obtained using a 3mm biopsy punch and removed with the forceps and surgical blade technique. Bleeding was minimal and hemostasis was obtained by pressure. Sterile dressing was applied to each biopsy site. Audible sign out completed: All specimens labeled, no equipment issues. Procedure End Time: 1511 Patient tolerated procedure well, without complications. Patient was discharged home. Specimens were labeled and [facility] to [facility] Cutaneous Nerve Laboratory. Procedure was performed by: Radha Calderón APRN.BLINDSTITCH HEMMER Assistance in supply/equipment preparation performed by: Unique Francisco MA February 20, 2022 2:55 PM Sign out is complete. [facility] History of Present illness Narrative* Keyonna Brock RN - 12/26/2021 2:23 PM EDT 12/14 1431 Patient here for Vyepti 100 mg infusion. Patient educated on medications to be administered. Patient verbalized understanding and agreed to proceed with infusions. 1536 Pts infusions complete. Pt tolerated infusion well. Pt discharged from treatment room. documented in this [facility]08-03-2022 Instructions* Patient Instructions* Jose Daniel Tillman DO - 12/07/2021 2:29 PM EDT Here is some information from our site about neuropathy/skin nerve biopsy, and qsart What is neuropathy? Neuropathy--also called peripheral neuropathy--refers to any condition that affects the normal activity of the nerves of the peripheral nervous system. The peripheral nervous system is the network ofnerves that connects the central nervous system--the brain and spinal cord--to the rest of the body. The peripheral nervous system is made up of three types of nerves, each with an important role to play in keeping your body healthy and functioning properly. Sensory nerves carry messages from your senses through your spinal cord to your brain. For example,they tell your brain you are touching something hot. Motor nerves travel in the opposite direction. They carry messages from the brain to your muscles. They tell your muscles to move you away from the hot surface. Autonomic nerves are responsible for controlling body functions that occur outside our control, such as breathing, digestion, heart rate, and blood pressure. Neuropathy results when nerve cells, or neurons, are damaged or destroyed. This distorts the way the neurons communicate with each other and with the brain. Neuropathy can affect one nerve or nerve type, or a combination of nerves. What causes neuropathy? There are many causes of neuropathy. The cause can be hereditary (runs in families) or acquired (develops after ). Hereditary neuropathy The most common hereditary neuropathy is Qzypowx-Wzxrs-Ccdld (CMT) disease, which affects both motor and sensory nerves. CMT affects about one in 2,500 people in the [place]. CMT causes weakness in the foot and lower leg muscles. Deformities of the feet are also common, making it difficult towalk and often resulting in falls. In its later stages, CMT can also affect the muscles in the hands. There is no cure for hereditary neuropathy. Acquired neuropathy Acquired neuropathy is much more common. There are many causes of acquired neuropathy, including: Trauma This includes sudden injury from an event such as a fall, car accident or sports activity. Trauma to the peripheral nerves can also occur from compression of the nerves due to repetitive stress or narrowing of the nerve space. Infections and autoimmune disorders Among the germs that can damage nerve fibers are human immunodeficiency virus (HIV), the herpes virus, and the bacteria that cause Lyme disease and syphilis. Some autoimmune disorders can also affect nerve tissue. Examples include Guillain-Mayfield syndrome, systemiclupus erythematosus, and rheumatoid arthritis. Systemic diseases Systemic diseases are those that affect the entire body. These include diabetes--the leading cause of peripheral neuropathy--kidney disorders, certain cancers, and hormonal imbalances. Medications and poisons Some medicines, including the strong medicines used to treat cancer (chemotherapy), can damage peripheral nerves. Exposure to toxic substances such as heavy metals (including lead and mercury) and industrial chemicals, especially solvents, can also affect nerve function. Vascular disorders Neuropathy can occur when blood flow to the arms and legs is hindered by inflammation, blood clots, or other blood vessel disorders. Decreased blood flow deprives the nerve cells of oxygen, causing nerve damage or nerve cell . Vitamin imbalances Proper levels of vitamins E, B1, B6, B9, B12, and niacin are important for healthy nerve function. Alcoholism Excessive use of alcohol can angella the body of thiamine and other essential nutrients, leading to neuropathy in the arms and legs. When the cause of the neuropathy cannot be determined, it is called idiopathic neuropathy. About 30to 40 percent of neuropathy cases are idiopathic. Another 30 percent are the result of diabetes. How common is neuropathy? Neuropathy is very common. It is estimated that about 25 percent to 30 percent of Americans will beaffected by neuropathy. Neuropathy occurs in 60 percent to 70 percent of people with diabetes. Who gets neuropathy? Neuropathy affects people of all ages; however, older people are at increased risk. It is more common in men and in Caucasians. People in certain professions, such as those that require repetitive motions, have a greater chance of developing compression-related neuropathy. What are the symptoms of neuropathy? Symptoms of neuropathy vary depending on the type and location of the nerves involved. Symptoms canappear suddenly, which is called acute neuropathy, or develop slowly over time, called chronic neuropathy. Common symptoms of sensory neuropathy include: Tingling Numbness, especially in the hands and feet Changes in sensation Some people feel severe pain, especially at night, and some are unable to feelpain, pressure, temperature, or touch. Loss of coordination Loss of reflexes Burning sensation Feeling that you are wearing socks or gloves when you are not Common symptoms of motor neuropathy include: Muscle weakness Difficulty walking or moving your arms or legs Muscle twitching Cramps Spasms Loss of muscle control Loss of muscle tone Loss of dexterity Falling Inability to move a part of the body Common symptoms of autonomic neuropathy include: Abnormal blood pressure or heart rate Decreased sweating Problems with urination Sexual dysfunction Diarrhea Weight loss (unintentional) Dizziness when standing up or fainting Nausea or vomiting Problems with digestion How is it diagnosed? The first step in making a diagnosis is a thorough history and physical examination. The information you provide can suggest to the doctor which nerves or nerve groups are involved -- motor, sensory,autonomic or a combination. Bloodwork and imaging tests can also provide information about a possible cause of your neuropathy. Your doctor might send you to a coronary clinical specialist for an electrodiagnostic assessment (EDX) to find the location and degree of nerve damage. EDX includes two tests: Nerve conduction study (NCS) During this test, small patches--called electrodes--are placed on theskin over nerves and muscles on different parts of your body, usually your arms or legs. A brief pulse of electricity is applied to the patch over a nerve to be studied. The doctor measures the time it takes for the nerve to stimulate the muscles to twitch. This is called the nerve conduction velocity, and it can tell if the nerve is effectively controlling the muscle s movement. Needle electromyography (EMG) An EMG can determine the health of a muscle by measuring its responseto electrical activity. During an EMG, a very thin needle electrode is inserted through the skin tostimulate the muscle. The activity of the muscle is recorded on a graph called an electromyogram. In some cases, a nerve, skin, or muscle biopsy is needed to confirm the diagnosis. A biopsy is the removal of a small sample of tissue for examination under a microscope. How is neuropathy treated? Treatment begins by identifying and treating any underlying medical problem, such as diabetes or infections. Some cases of neuropathy, those that are hormonal or nutrition-related, for example, can be easily treated and sometimes cured. In most cases, however, neuropathy cannot be cured. Because neuropathy can have an impact on quality of life, treatment is aimed at controlling and managing symptoms. Treatment options include the following: Medicines can be used to control pain. Physical therapy uses a combination of focused exercise, massage and other treatments to help you increase your strength, balance and range of motion. Occupational therapy can help you cope with the pain and loss of function, and teach you skills to compensate for that loss. Surgery is available for patients with compression-related neuropathy, such as carpal tunnel syndrome. Mechanical aids, such as braces and specially designed shoes, can help reduce pain and allow for greater mobility. Proper nutrition involves eating a healthier diet and making sure to get the right balance of vitamins and other nutrients. Adopting healthy living habits, including exercising to improve muscle strength, quitting smoking, maintaining a healthy weight, and limiting alcohol intake. Can neuropathy be prevented? You can reduce your risk by treating any medical problems and adopting healthy living habits. If you have diabetes, it is especially important that you manage your blood glucose level. Diet and nutrition are also important for people with other disorders associated with neuropathy, such as kidney disease. What is the outlook? The overall outlook depends on the underlying cause of the neuropathy. Neuropathy rarely leads to if the cause is determined and controlled. The sooner the diagnosis is made and treatment is started, the greater the chance that nerve damage can be slowed or repaired. In most cases, recovery takes a very long time. Some people live with a degree of neuropathy for the rest of their lives. When should I see my doctor? If left untreated, peripheral neuropathy can lead to permanent nerve damage. It can also be a symptom of a serious disorder. It is important to see your health care provider immediately as soon as you notice symptoms. References: The Neuropathy Association, Inc., Neuropathy. www.neuropathy.org Accessed 06/06/2010 National [place] of Diabetes and Digestive and Kidney Diseases. National Diabetes Information Clearinghouse. Diabetic Neuropathies: The Nerve Damage of Diabetes. diabetes.niddk.nih.gov Accessed 06/06/2010 National [place] of Neurological Disorders and Stroke. Peripheral Neuropathy Information Page. www.ninds.nih.gov Accessed 06/06/2010 Copyright 5719-8201 The [facility]. All rights reserved Cutaneous Nerve Laboratory/skin nerve bx [facility]erve [facility], one of only a few in the country, has been createdto improve diagnosis and research in small fiber sensory neuropathy. Small fiber sensory neuropathy is a common neuromuscular disorder associated with many medical conditions, including diabetes mellitus, amyloidosis, HIV infection, connective tissue diseases, and pharmacological neurotoxicity. It is also not uncommon to be idiopathic, especially in elderly patients. The clinical presentation usually consists of cutaneous pain, numbness and autonomic dysfunction, which can lead to significant functional impairment. Some patients may predominantly present with pain, which is subjective. A sensitive and specific diagnostic tool is thus essential for making correct diagnosis and rendering appropriate subsequent management. Skin nerve biopsy Small caliber nerve fibers consist of somatic (type C and Ad fibers) and autonomic fibers. They play valdez roles in cutaneous nociception, thermoreception, and autonomic function. Autonomic function can be assessed by quantifying sweat output and measuring cardiovascular regulation. Since not all patients with small fiberopathy have both somatic and autonomic involvement, assessing somatic fibers is very much desired. These fibers are small and many are unmyelinated with very slow conduction velocities; therefore, their conduction responses cannot be captured and evaluated by routine nerve conduction studies. This gap has previously been filled by a histological method to evaluate cutaneous nerve fiber density. By immunostaining using the panaxonal marker, protein gene product 9.5 (PGP 9.5), of skin biopsies, intraepidermal small nerve fibers (IENF) become visible and can be assessed both morphometrically and morphologically. IENF density evaluation is not only a powerful technique for diagnosing small fiber sensory neuropathy, but also a valuable tool for research of this disease. Since 3-mm punch skin biopsy is minimally invasive and well-tolerated, it can be safely repeated to monitor disease progression and treatment response. It has been used in the past to study neuropathies associated with various conditions, including diabetes mellitus, AIDS, leprosy, Fabry disease and postherpetic neuralgia. Trials are planned on small fiber neuropathy by using IENF density evaluation as one of the outcome measurements. This technique will also be useful in basic research to study molecular mechanisms underlying small fiber degeneration and regeneration to develop better clinical intervention [facility] History of Present illness Narrative* [place] - 12/07/2021 1:19 PM EDT HPI Serenity is a 21 y/o female diagnosed with POTS 7 years ago presenting as a new patient for management of POTS, with PMH of hemroids, recent ankle ligament tear, scoliosis, extra back vetebrae and migraines. Syncope was well controlled until 3 covid infections in April 2020, January 2021, and April2021. Syncope is worse standing, heat, and activity. Pt must shower in a chair with warm water and sits most of the time due to this. In addition to syncope spells, patient experiences shaky hands, blurry vision, and fatigue associated with syncope. Pt denies dry mouth or diaphoresis. Passing out reached a max of 3-4 times a week, at which point patient was no longer able to work, and is currently 1-2 per month. Past medications for this include midradine, natalol, florinef, and inderol, which were not tolerated due to adverse effects: decreased BP, increased HR, and headaches. Pt also reports worsening of migraines after syncope. She is seeing someone else for these migraines, which she describes as a sharp pain, usually on the right, but sometimes left or bilateral, made worse by light. Pt additionally complains of stomach pain that is triggered by food intake, is sharp, throughout abdomen, and lasts for around 24 hours. Type and consistency of food do not affect these symptoms. Pt has tried omeprazole, bentyl, and an antibiotic for this, which did not help. Pt also reports two seizure-like events on the same day that were inconsistent with normal syncope spells, and included body stiffening up, eyes rolled back, and hand taking a weird posture, with associated HR over 200 and very low blood pressure. When worked up for these events, epilepsy was ruledout, according to pt. Pt also reports poor sleep, with difficulty falling asleep, and waking up often without reason, forwhich she has tried several medications. Pt goals include less passing out and setting up new management of POTS, complaining that other doctors used lots of medications that weren't working and did not know how to manage POTS well. REFERRED BY: Dr Coyle Answers for HPI/ROS submitted by the patient on 12/03/2021 In the past year, have you ever felt faint, dizzy, goofy , or had difficulty thinking soon after standing up from a sitting or lying position?: Yes In the past year, have you ever noticed color changes in your skin, such as red, white, or purple?:No In the past 5 years, what changes, if any, have occurred in your general body sweating?: I haven't noticed any changes in my sweating Do your eyes feel excessively dry? : No Does your mouth feel excessively dry? : No For the symptom of dry eyes or dry mouth that you have had for the longest period of time, is this symptom:: I have not had any of these symptoms In the past year, have you noticed any changes in how quickly you get full when eating a meal?: I get full more quickly now than I used to In the past year, have you felt excessively full or persistently full (bloated feeling) after a meal?: Sometimes In the past year, have you vomited after a meal? : Never In the past year, have you had a cramping or colicky abdominal pain?: A lot of the time In the past year, have you had any bouts of diarrhea?: Yes In the past year, have you been constipated? : No In the past year, have you ever lost control of your bladder function?: Never In the past year, have you had difficulty passing urine?: Never In the past year, have you had trouble completely emptying your bladder?: Never In the past year, without sunglasses or tinted glasses, has bright light bothered your eyes?: Occasionally In the past year, have you had trouble focusing your eyes?: Occasionally Is this most troublesome symptom with your eyes (i.e. sensitivity to bright light or trouble focusing) getting:: Getting somewhat better When standing up, how frequently do you get these feelings or symptoms?: Almost Always How would you rate the severity of these feelings or symptoms?: Moderate In the past year, have these feelings or symptoms that you have experienced:: Gotten much worse How frequently does this occur?: Occasionally How severe are these bouts of diarrhea?: Moderate Are your bouts with diarrhea getting:: Somewhat better How severe is this sensitivity to bright light?: Moderate How severe is this focusing problem? : Moderate Composite Autonomic Symptom Score (COMPASS-31) Orthostatic Intolerance Orthostatic Intolerance Score: 36 (out of a weighted maximum of 40) Vasomotor Vasomotor Score: 0 (out of a weighted maximum of 5) Secretomotor Secretomotor Score: 0 (out of a weighted maximum of 15) GI GI Score: 7.14 (out of a weighted maximum of 25) Bladder Bladder Score: 0 (out of a weighted maximum of 10) Pupillomotor Pupillomotor Score: 2 (out of a weighted maximum of 5) COMPASS 31 Total Score: 45.14 (out of a weighted maximum of 100) Dispensed Days Supply Quantity Provider Pharmacy AZITHROMYCIN 250 MG TABLET 08/30/2021 5 6 Each [id number] - [facility]... cream base no.135 Dispensed Days Supply Quantity Provider Pharmacy SALT STABLE LS ADVANCED LS ADV CRE 11/25/2021 8 60 g [facility] - ... SALT STABLE LS ADVANCED LS ADV CRE 11/10/2021 8 60 g [facility] - ... SALT STABLE LS ADVANCED LS ADV CRE 10/28/2021 8 60 g [facility] - ... SALT STABLE LS ADVANCED LS ADV CRE 10/13/2021 8 60 g [facility] - ... SALT STABLE LS ADVANCED LS ADV CRE 09/30/2021 8 60 g [facility] - ... SALT STABLE LS ADVANCED LS ADV CRE 09/16/2021 8 60 g [facility] - ... SALT STABLE LS ADVANCED LS ADV CRE 09/02/2021 8 60 g [facility] - ... SALT STABLE LS ADVANCED LS ADV CRE 08/19/2021 8 60 g [facility] - ... duloxetine HCl Dispensed Days Supply Quantity Provider Pharmacy DULOXETINE HCL DR 30 MG CAP 08/23/2021 37 67 Each [id number] - [facility]... meloxicam Dispensed Days Supply Quantity Provider Pharmacy MELOXICAM 15 MG TABLET 08/30/2021 10 10 Each [id number] - O... methylprednisolone Dispensed Days Supply Quantity Provider Pharmacy METHYLPREDNISOLONE 4 MG DOSEPK 10/12/2021 6 21 Each [facility][id number] - O... norethindrone-ethin. estradiol Dispensed Days Supply Quantity Provider Pharmacy ALYACEN TAB 11/17/2021 28 28 tablet [facility][id number] - O... PIRMELLA 35 28 TABLET 08/30/2021 84 84 Each [facility][id number] - O... omeprazole Dispensed Days Supply Quantity Provider Pharmacy OMEPRAZOLE DR 40 MG CAPSULE 08/30/2021 90 90 Each [facility][id number] - O... pregabalin Dispensed Days Supply Quantity Provider Pharmacy PREGABALIN 50 MG CAPSULE 10/11/2021 15 30 Each [facility] #[id number] - O... OARRS reviewed Medications and Allergies Reviewed data reviewed if done EPIC reviewed Care Everywhere reviewed Reviewed outside records THIS NOTE IS FOR AT FIRST FOR MY DOCUMENTATION TO PROVIDE CARE, HELP INSURANCE COMPANY AND COLLEAGUES TO HAVE NEUROLOGICAL CONTEXT OF MY , AND FOR MY PERSONAL RECORDING TO FACILITATE FUTURE CARE BY HAVING A WRITTEN DOCUMENT MEMORY OF OUR CONSULT TOGETHER . THANK YOU FOR UNDERSTANDING THIS OFFICE NOTE IS A PHYSICIAN BASED DOCUMENT FOR COMMUNICATION AND CARE. PAST MEDICAL HISTORY: As per HPI ACTIVE PROBLEM LIST Chronic Migraine Without Aura, With Intractable Migraine, So Stated, With Status Migrainosus Generalized Anxiety Disorder Gerd (Gastroesophageal Reflux Disease) Add (Attention Deficit Disorder) Pots (Postural Orthostatic Tachycardia Syndrome) Seizure-Like Activity (Hcc) No past surgical history on file. Social History Tobacco Use Smoking status: Never Smoker Smokeless tobacco: Never Used Substance Use Topics Alcohol use: Not on file Drug use: Not on file family history is not on file. 12/07/21 1410 12/07/21 1411 12/07/21 1412 12/07/21 1413 BP: 105/68 128/73 103/71 112/66 BP Site: BP Position: Supine Standing Standing Standing Pulse: 96 115 116 117 SpO2: Weight: Neurological Examination: Cognition: The patient is alert and oriented times four Lucid and organized in conversation Able to tell detailed medical hx Speech is Speech is Normal in fluency volume and clarity Content and Syntax: Normal Comprehension: Normal, able to follow several step commands Cranial Nerves: Pupils are round and reactive No ptosis No proptosis Extraocular movements are grossly intact Good saccades and pursuits No nystagmus Good upgaze Visual ceron are full to confrontation. Facial, motor and sensory exam is symmetric Equal v1,V2, V3 Tongue is in midline. No tongue fasciculation. Palate is upgoing bilaterally SCM and trapezius are full. Motor Exam: Upper extremity motor exam is 5/5 in deltoid, 5/5 triceps 5/5biceps, 5/5 wrist extension, and 5/5 hand inspector repairer. Finger extensor 5/5. Finger flexor 5/5. Pronation and Supination are full. Full interossei5/5 Lower extremity is 5/5 in IP, 5/5 quadriceps, 5/5 hamstrings, 5/5 EHL, 5/5 TA and 5/5 gastrocnemius. Hip abductors and adductors are 5/5 Toe extensors and flexors are full bilaterally. Foot evertors and inversions are full bilaterally Tone and bulk is normal and preserved bilaterally of arms Tone and bulk is normal and preserved bilaterally of legs No pes cavus, hammer toes, champagne legs The patient is without significant pronator drift. Sensation: Intact to light touch pin and temperature intact. Normal toe position , finger vibration, and toe vibration . Romberg's sign absent/ Reflexes: 1/4triceps, 1/4biceps, 1/4brachioradialis, 1/4knee jerk, 1/4ankle jerk and symmetric, . No clonus of ankles. Coordination: Finger-to- nose-finger and espi-ml-ayze intact bilaterally. No ataxia of arms. No limb dysmetria ofarms and legs. or trunk. ADDIE of pronation and supination, finger and hand tapping intact. Toe tapping intact. There is no asterixis of the hands. No rigidity, cog wheeling, no bradykinesia. No tremors No extrapyramidal findings Gait: Normal station and stride. No festination or retropulsion. Good arm swing and body turn risesfrom chair well Normal toe, heel, and tandem IMPRESSION/PLAN: Tina is a 21 y/o female diagnosed with POTS 7 years ago presenting as a new patient for management of POTS, with PMH of hemroids, recent ankle ligament tear, scoliosis, extra back vetebrae and migraines. Pt appears lanky and skinny, and is double jointed in the elbows. 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 Covid infections also likely exacerbated POTS symptoms. Past medicine side effect may come from too high of dosing, so a lower dosing of florinef may be a good first approach for this patient. Additionally I recommend nutritional labs, a gastric emptying study, and an EKG for POTS management, as well as genetic testing for EDS. During our face to face clinical encounter we discussed my concerns neurologically in terms of diagnosis, impact on health and activities of living, and addressed questions. I tried to reassure the patient and also address questions. I explained to the patient to call if any questions, to review res ults, and I want to see them return for neurological follow up as mychart as next steps of communication is agreed upon Patient verbalizes understanding and I have addressed concerns and questions at this visit Patient has my contacts, educational material provided, and my chart sign up. After visit summary discussed. Did share the note via my chart. Based on the volume, frequency, texting/snapchat format, journaling format.and repeated mychart messages we receive from patients in a month we can no long address issues of questions, medication changes,disease management in my chart forum effectively for patient care. In regards to blood work, testing, and radiology reports these are released automatically to the patients. We do not comment on most testing on [employer] in a message or commentary unless there is a concern. You will not receive a message from me of the result unless there is a specific concern of the result I need you to address further in care with us or your primary medical team. Make sure to check your my chart email or juliocesar. With aspects of the pandemic ongoing and care of the survivors /long haulers has many demands we create limits of my chart. If there is an urgent issue seek urgent care or medical level ER care.If needed review or see your PCP Reminder that with health conditions that most medications and other care treatments including rehabilitation /exercise programs need 3-4 months to work . With chronic health conditions may need evenlonger to work if one has been ill and suffered. ACTIVE PROBLEM LIST Chronic Migraine Without Aura, With Intractable Migraine, So Stated, With Status Migrainosus Generalized Anxiety Disorder Gerd (Gastroesophageal Reflux Disease) Add (Attention Deficit Disorder) Pots (Postural Orthostatic Tachycardia Syndrome) Seizure-Like Activity (Hcc) Office Visit on 12/07/21 CONSULT TO NEUROLOGY Jose Daniel Tillman D.O ELECTRONICALLY SIGNED December 07, 2021 Adult Neurology/ Board Certified Department of Neuro Muscular of the [facility] [place] [employer] for Neurology Clerkships Clinical Tacker Elastic Banddeployment manager Faculty Appointment [facility] Faculty Appointment [facility] [place] [address] [place] [address]/ -[address] [place] [address] Appt: [phone] 1. This office note has been dictated and may contain minor typographic errors that escaped review 2. The nursing staff and medical assistants are a major part of YOUR TREATMENT TEAM and will be handling your phone calls and inquiries, if any. Unless explicitly told otherwise at the time of your office visit, your study results and ensuing treatment plans will be discussed during your follow-up appointment. If you do not have a follow-up appointment and wish to discuss any issues directly withme, please feel free to obtain one. 3. It is my practice to not fill disability or any other insurance-related forms/documention. All of the office notes, study results, and other pertinent documentation generated as part of your evaluation will be available to you and to your Primary Care Physician (PCP). Use of this material to complete such forms will be at the discretion of your PCP/referring physician consult requested for an opinion regarding the evaluation and treatment of My final impression and recommendations will be communicated back to the requesting physician by way of the shared medical record or letter via US mail TEACHING PHYSICIAN NOTE OF PERSONAL INVOLVEMENT IN CARE: I have personally seen and examined the patient and performed the medical decision-making components. I have reviewed the medical student documentation and verified the findings in the note as written. Any additions or changes are noted in bold/italics. Jose Daniel Tillman D.O ELECTRONICALLY SIGNED Adult Neurology/ Board Certified Director of Autonomic Center Department of Neuro Muscular of the [facility] [employer] for Neurology Clerkships Clinical Tacker Elastic Banddeployment manager Physician Advisor for the [facility] Faculty Appointment [facility] Faculty Appointment [facility] Clinical Tacker Elastic Band [facility] of Medicine / TAX ID: [id number] [address]/ [place] [address] Appt: [phone] December 07, 2021 documented in this encounterDunlap [facility] Hospital07-21-2022 Miscellaneous Notes* Telephone Encounter - Stephanie Ludwig RN - 11/24/2021 12:22 PM EDT Botox referral sent to pharmacy. Stephanie Ludwig RN documented in this encounterDunlap Memorial Hospital05-12-2022 History of Present illness Narrative* Milan Novak MD - 09/15/2021 4:54 PM EDT Please route this encounter to the EMU Scheduling Pool ( P EMU ) or PMU Scheduling Pool ( P PMU ) through LOS & Follow up PHASE 1.0 AND 1.5 ORDER SYNOPSIS Patient: Tina Sy ([id number]) Best contact number: [phone] Insurance: Payor: [place] MEDICAID / Plan: [employer] MEDICAID / Product Type: Medicaid / Scheduling Team: Please call for adult patients: Demetrice Alexander ([phone]) [employer] ([phone]) Sabrina Varner([phone]) Melida Johns([phone]) Please call for pediatric patients: [employer] ([phone]) Sabrina Varner ([phone]) Demetrice Alexander ([phone]) Melida Johns([phone]) 09/15/2021 Admission Type EMU Adult Number of Days requested 3 Location Main [place] Admit Priority Routine PURPOSE 09/15/2021 Patient Being Considered for Epilepsy Surgery? No VEEG recommended to assess seizure burden, address new & concerning syymptom- sign complex, and/or clarify syndromic epilepsy diagnosis? Yes 09/15/2021 Sphenoidal monitoring No Electrode placement Standard Appointments and Tests SELF CHECK COVID (AMB COVID PRE-PROCEDURE TESTING PANEL) EPIL VEEG ADMIT TO EMU/PMU MRI BRAIN WO IVCON Comments: 3T Epilepsy protocol MRI scan with coronal and axial FLAIR please Consultations None Please route this encounter to the EMU Scheduling pool ( P EMU ) or PMU Scheduling pool ( P PMU ) through LOS & Follow up Scheduling coordinators: For all VNS patients being scheduled for ESDRAS, please schedule VNS off/on office visits. documented in this encounterDunlap Memorial Hospital05-11-2022 Instructions* Patient Instructions* Milan Novak MD - 09/14/2021 3:50 PM EDT SEIZURE & GENERAL PRECAUTIONS The patient should not climb to high places, such as climbing on the roof, trees or mountain climbing where a seizure may result in a serious fall and injury. When in or near water, the patient should be supervised by a responsible adult, for example, duringtub baths, swimming, boating or fishing. Sleeping face down in a prone position (on the stomach) should be avoided. Do not discontinue seizure medication on your own as this may lead to a severe seizure. Please contact the office for refills 2 weeks before your medication refill expires. FIRST-AID MEASURES FOR GRAND MAL SEIZURES If the patient has a grand mal seizure: Do not panic, call for assistance if needed. Lower patient to the ground and loosen any tight clothing. Place patient in a semi-prone position so any saliva or vomitus will easily drain out of the mouth.Do not force any object or your fingers into the mouth. You may suffer an injury or break teeth. Do not panic; time the seizure so you know how long it lasted (most grand mal seizures are no more than 1 or 2 minutes long). If the seizure is continuing longer than 5 minutes, call the ambulance for transportation to the nearest Emergency Room. Call your doctor if you feel that the severity or number of seizures has changed from baseline. After a grand mal seizure, patients are very sleepy and tired for several minutes or even a couple of hours. They may also complain of headache, nausea and may vomit. If the patient has several grand mal seizures without waking up in-between, please notify your doctor. documented in this encounterDunlap Memorial Hospital05-11-2022 History of Present illness Narrative* Milan Novak MD - 09/14/2021 3:10 PM EDT Images from the original note were not included. [facility] [place], Epilepsy Center Pediatric Epilepsy Date of Service: 09/14/2021 EPILEPSY CENTER - INITIAL VISIT The patient was accompanied during the visit by the: mother REASON(S) FOR VISIT: Epilepsy consultation CONCERNS AND GOALS OF THE FAMILY / PATIENT: Recent episode concerning for possible seizure HISTORY OF PRESENTING ILLNESS - at initial visit on 09/14/2021 Handedness: Age at onset of symptoms / seizures: 14 yrs Tina is a 21 yr old young woman referred for epilepsy consultation by Dr. Mary Dan who saw her for frequent headaches. She is also followed by Dr. 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 Since her freshman in High School she has been having episodes of losing consciousness, initially occurring about once per month on medication. However, after testing positive for COVID in Apr 2020, the episodes increased in frequency from 1-2 times/year to 1-2 times/week. She asymptomatic from the standpoint of COVID (other family members had been sick, so she got tested). Later on, she did dvelop symptomatic COVID in Jan 2021 and again in Apr 2021. The most recent episode occurred in June 2021 she passed out at work. She reached for Mom's hand and said I don't feel right , said she was unable to move her hand after which she lost consciousness. Mom describes that she was as stiff as a board of her left side with the leg extended and posturing of the left hand and the rest of the body was shaking for 30-40 seconds. She regained consciousness in about a minute but had no recollection of what occurred. Mom sat her down in a chair and called 911. Paramedics noted that her HR was around 180 and BP was extremely low . She was taken to the hospital in [facility]. ER physician suspected she may have had a focal seizure. Prior to passing out - Mom reports that Serenity stops in the middle of her conversation before going down. There is no history of myoclonic jerks or any other seizure type. SEIZURE / EPISODE TYPE(S) - at initial visit on 09/14/2021 ASSOCIATED CONDITIONS, DEVELOPMENTAL HISTORY, AND SCHOOL Normal developmental milestones Graduated from high school; has not been able to work due to tremor of both hands to the point of hurting and orthostatic symptoms when standing for a while. 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 PREVIOUS EPILEPSY EVALUATIONS: Head CT ANTISEIZURE THERAPIES ANTISEIZURE MEDICATION LEVELS (LAST 3) No flowsheet data found. PRIOR/CURRENT ANTISEIZURE THERAPIES Current Outpatient Medications Medication Sig fludrocortisone (FLORINEF) 0.1 mg tablet Take 2 tablets by mouth twice daily. NORTREL 1/35, 28, 1-35 mg-mcg per tablet Take 1 tablet by mouth once daily. cyanocobalamin (VITAMIN B-12) 1,000 mcg tab Take 1,000 mcg by mouth once daily. midodrine (PROAMITINE) 5 mg tablet take 1 and 1/2 tablets by mouth three times a day nadolol (CORGARD) 40 mg tablet omeprazole (PRILOSEC) 40 mg capsule Take 40 mg by mouth once daily. SALTSTABLE LS crea EPINEPHrine (EPIPEN) 0.3 mg/0.3 mL auto-injector 0.3 mg. albuterol HFA (PROAIR HFA) 90 mcg/actuation inhaler Inhale 2 Puffs as instructed as needed for wheezing/shortness of breath. DULoxetine (CYMBALTA) 30 mg capsule Take 1 capsule by mouth once daily for 7 days, THEN 2 capsules once daily. No current facility-administered medications for this visit. ALLERGIES Allergen Reactions Amoxicillin Rash Beeswax Anaphylaxis Penicillins Rash No past medical history on file. No past surgical history on file. No family history on file. SOCIAL HISTORY Mom 40 yrs, healthy Dad 39 yrs, healthy One brother 17 yrs has asthma and ADHD Mother had hyperemesis and gestational diabetes. Born at term, uneventful and period. REVIEW OF SYSTEMS - at initial visit on 09/14/2021 GENERAL: No weight loss, or fevers. HEENT: Wears contact lenses. No nose bleeds or other nasal problems NECK: Negative for lumps, and significant neck swelling RESPIRATORY: Negative for cough, wheezing or shortness of breath. CARDIOVASCULAR: Negative for heart murmur, known heart disease. GI: Negative for constipation : Negative MUSCULOSKELETAL: Right ankle sprain since last week; wearing a boot now. SKIN: Negative for lesions, rash, and itching. HEMATOLOGY/LYMPHOLOGY: Negative for prolonged bleeding, bruising easily or swollen nodes. ENDOCRINE: Negative for known endocrine problems NEURO: See HPI All other reviewed and negative other than HPI. Objective PHYSICAL EXAMINATION - at initial visit on 09/14/2021 BP 104/77 Pulse 94 Temp 36.2 C (97.2 F) Ht 175.3 cm (5' 9 ) Wt 49.9 kg (110 lb) LMP 08/05/2021 SpO2 98% BMI 16.24 kg/m NEUROLOGICAL EXAMINATION: Mental status: Appropriate behavior and interaction for age Cranial nerves: Extraocular movements appear intact and no nystagmus noted. Face is symmetrical with no features of 7th nerve palsy, Hearing grossly intact bilaterally, Tongue protrudes in the midline with normal movements. Fundus exam Normal Motor: Normal bulk and tone in all extremities, Motor strength appear normal upper and lower extremities. Knee jerks are normal and symmetrical. Cerebellar: No dysmetria on finger to nose or object approach, No tremors Gait: Normal for age, and able to do age appropriate tandem walk. Classification Summary IMPRESSION Tina is a 21 yr old young woman with recurrent episodes of LOC that seem to be suggestive of POTS. However, during a recent episode of passing out, she briefly exhibited asymmetric tonic-clonic type movements. There is no history of any other seizure type or obvious epilepsy risk factors. Neurological examination is unremarkable. Outpatient EEG done this morning was reviewed and is within normal limits. At this stage I would recommend seizure precautions and observe for any additional seizure like events, in which case video-EEG may be performed. If tilt-table testing wee to be repeated, simultaneous EEG recording would be helpful. As she has not had brain imaging, brain MRI would be helpful to exclude structural causes. PLAN Please report any seizure-like activity to us. Maintain seizure precautions. The possible risks, benefits, and alternatives to this plan were discussed. I spent a total of 60 minutes on the date of the service which included preparing to see the patient, [id number] patient care, completing clinical documentation, obtaining and/or reviewing separately obtained history, performing a medically appropriate examination, counseling and educating the pat ient/family/caregiver, ordering medications, tests, or procedures, communicating with other HCPs (not separately reported), independently interpreting results (not separately reported), communicatingresults to the patient/family/caregiver and care coordination (not separately reported). Milan Novak MD Professor of Neurology Pediatric Epilepsy, Epilepsy Center, [address], [place] [address] Appointments: [phone] CC: Referring neurologist: Mary Dan [address] [place] [address] Larry Tillman D.O. Opal Arguelles, [place] [address] documented in this encounterDunlap Memorial Hospital05-11-2022 Miscellaneous Notes* Telephone Encounter - Madhavi Lovett RN - 09/14/2021 1:29 PM EDT ----- Message from May Davidson (Pharmacy Enamel Machine Operator) sent at 09/14/2021 11:45 AM EDT ----- Regarding: Prior Auth Denied: Peer to Peer Requested ==PHARMACY TEAM== PEER TO PEER/APPEAL REQUESTED Dept. Notification for Neurology Reason for Denial: not medically necessary, patient has not completed at least a 6 months trial (2 injections) of botox Servicing Location Tax ID: [id number] Sent to: 1 Botox Pool P2P or Appeal: P2P Diagnosis & Dx Code Submitted: G43.711 (ICD-10-CM) - Chronic migraine without aura, intractable, with status migrainosus Drug & CPT/HCPCS code submitted: J3032 vyepti Dose & Frequency Submitted: 100mg Q90 days Contact Name (if applicable): n/a How to complete (verbal or written): verbal Phone # to call (if verbal): [phone] Timeframe to complete/Call to Schedule: 180 days Pending Case/Reference #: [id number] Letter scanned in chart (Y/N): Yes Comments: N/A documented in this encounterDunlap Memorial Hospital05-05-2022 Hospital Discharge instructions Patient Education 09/08/2021 19:01:35 Foot Contusion Foot Contusion You have a contusion. This is also called a bruise. There is swelling and some bleeding under the skin, but no broken bones. This injury generally takes a few days to a few weeks to heal. During thattime, the bruise will typically change in color from reddish, to purple-blue, to greenish-yellow, then to yellow-brown. Home care Elevate the foot to reduce pain and swelling. As much as possible, sit or lie down with the foot raised about the level of your heart. This is especially important during the first 48 hours. Ice the foot to help reduce pain and swelling. Wrap a cold source (ice pack or ice cubes in a plastic bag) in a thin towel. Apply to the bruised area for 20 minutes every 1 to 2 hours the first day. Continue this 3 to 4 times a day until the pain and swelling goes away. Unless another medicine was prescribed, you can take acetaminophen, ibuprofen, or naproxen to control pain. (If you have chronic liver or kidney disease or ever had a stomach ulcer or gastrointestinal bleeding, talk with your healthcare provider before using these medicines.) Follow up Follow up with your healthcare provider or our staff as advised. Call if you are not improving within 1 to 2 weeks. When to seek medical advice Call your healthcare provider right away if you have any of the following: Increased pain or swelling Foot or leg becomes cold, blue, numb or tingly Signs of infection: Warmth, drainage, or increased redness or pain around the bruise Inability to move the injured foot Frequent bruising for unknown reasons [id number] The [employer]. [address] [place] [address]. All rights reserved. This information is not intended as a substitute for professional medical care. Always follow yourhealthcare professional's instructions. Follow Up Care 09/08/2021 18:08:34 With:OPAL ARGUELLES APRN [facility] Address: [address] [place] [address]- When:2-4 days [facility] 04-20-2022 Miscellaneous Notes* Telephone Encounter - Luz Maria Perez RN - 08/24/2021 2:46 PM EDT vyepti 100mg referral sent documented in this encounterDunlap Memorial Hospital04-19-2022 Instructions* Patient Instructions* Mary Dan MD - 08/23/2021 4:38 PM EDT - Referral to Dr. Tillman for POTS - Referral to Epilepsy - EEG testing - Start Cymbalta 30 mg x 1 week and then increase to 60 mg after that - IV Vyepti 100 mg every 3 months. General Headache Instructions: 1) Maintain a headache diary; learn to identify and avoid triggers. 2) Limit use of acute treatments (nzmc-asq-[id number] medications, triptans, etc.) to no more than 2 days per week or 10 days per month to prevent medication overuse headache (rebound headache). 3) Follow a regular schedule (including weekends and holidays) for the next 6 weeks: A) Don't skip meals. B) 8 hours of sleep nightly. C) Avoid the following common headache triggers: -Caffeine (coffee, chocolate, tea, cola/pop/soda (7-up, Sprite, Sheryl Mist, Ryley You, Mug/A+W Root Beer, Minute Maid Doddridge, Slice are okay)) -Foods containing nitrates (deli meat, ham, ann, sausage, hot dogs) -Tyramine (aged cheese; can only have Bolivian cheese, cottage cheese, Velveeta and fresh mozarella(most pizza uses aged mozarella)) -MSG (Montenegrin/ foods, Doritos, all flavored chips and Ramen noodles) -Nutrasweet and artificial sweeteners D) Minimize stress. E) Exercise 30 minutes per day. Being overweight is associated with a 5 times increased risk of chronic migraine. F) Keep well hydrated and drink 6-8 glasses of water per day. 4) Initiate non-pharmacologic measures at the earliest onset of your headache. A) Rest and quiet in a cool, dark environment. B) Relax and reduce stress. C) Cold compress to head (place a dry washcloth to forehead, cover with a blue freezer packet and use a headband to press the freezer packet across the forehead and temples). 5) Don't wait!! Take the maximum allowable dosage of prescribed medication at the very earliest sign of headache. 6) Compliance: Take prescribed medication regularly as directed and at the first sign of a headache. 7) Communicate: Call your physician when problems arise, especially if your headaches change, increase in frequency/severity, or become associated with neurological symptoms (weakness, numbness, slurred speech, etc.). 8) Headache/pain management therapies: Consider various complementary methods, including medication, behavioral therapy, psychological counselling, biofeedback, massage therapy, acupuncture, and other modalities. Such measures may reduce the need for medications. Counseling for pain management, where patients learn to function and ignore/minimize their pain, seems to work very well. 9) Recommend changing family's attention and focus away from patient's headaches. Instead, emphasize daily activities. If first question of day is 'How are your headaches/Do you have a headache today?', then patient will constantly think about headaches, thus making them worse. Goal is to re-directattention away from headaches, toward daily activities and other distractions. Avoiding Medication Overuse Headache (Rebound Headache): Based on current research, the types of medications and their frequency of use which converts a previously episodic headache (particularly migraine) into a chronic daily headache (any headache occurring 15 or more days per month for at least 4 hours per day) are as follows: ---> Over the counter medications, NSAIDS and combination analgesics: -More than 2 days per week, or more than 10 days per month. -These include medications such as Acetaminophen (Tylenol), Naproxen (Aleve), Ibuprofen (Advil, Motrin), Acetaminophen/Caffeine (Excedrin), Acetaminophen/Dichloralphenazone/Isometheptene (Midrin), Aspirin (ok to continue if taking for medical reasons), cold remedies and sleep-promoting agents, among others. ---> Triptans: -More than 2 days per week, or more than 10 days per month. -These include Sumatriptan (Imitrex), Sumatriptan/Naproxen (Treximet), Rizatriptan (Maxalt), Almotriptan (Axert), Zolmitriptan (Zomig), Eletriptan (Relpax), Naratriptan (Amerge), Frovatriptan (Frova). ---> Opiates/Opioids (Narcotics): -8 days or more per month. Some research suggests that even infrequent use of these medications makes migraine specific medications such as triptans and NSAIDs less effective. -These include any narcotics such as Acetaminophen/Hydrocodone (Vicodin), Acetaminophen/Oxycodone (Percocet), Acetaminophen/Propoxyhene (Darvocet), Acetaminophen/Codeine (Tylenol #3, #4), Tramadol (Ultram), Acetaminophen/Tramadol (Ultracet), Oxycodone (OxyContin), Hydromorphone (Dilaudid), Fentanyl, Butorphanol (Stadol), Morphine or any form of a Morphine derivative. ---> Butalbital containing medications: -5 or more days per month. As you can see, these are the worst offenders. -These include Acetaminophen/Butalbital/Caffeine (Fioricet, Esgic) Acetaminophen/Butalbital/Caffeine/Codeine (Fioricet with Codeine), Aspirin/Butalbital/Caffeine (Fiorinal), Aspirin/Butalbital/Caffeine/Codeine (Fiorinal with Codeine). Vitamins and herbs that show potential for migraine prevention: Magnesium: Magnesium (250 mg twice a day or 500 mg at bed) has a relaxant effect on smooth muscles such as blood vessels. We often give intravenous magnesium to patients who come into the emergency department for migraine because it helps to break the migraine. Three trials found 40-90% average headache reduction when used as a preventative. Magnesium also demonstrated the benefit in menstrually related migraine. Magnesium is part of the messenger system in the serotonin cascade and it is a good muscle relaxant. It is also useful for constipation which can be a side effect of other medications used to treat migraine. Good sources include nuts, whole grains, and tomatoes. Coenzyme Q10: This is present in almost all cells in the body and is critical component for the conversion of energy. Recent studies have shown that a nutritional supplement of CoQ10 can reduce the frequency of migraine attacks by improving the energy production of cells as with riboflavin. Doses of 200 mg (or 150 mg) twice a day have been shown to be effective. Riboflavin (Vitamin B2): 200 mg twice a day (or 400 mg daily). This vitamin assists nerve cells in the production of ATP, a principal energy storing molecule. It is necessary for many chemical reactions in the body. There have been at least 3 clinical trials of riboflavin using 400 mg per day all of which suggested that migraine frequency can be decreased. All 3 trials showed significant improvement in over half of migraine sufferers. The supplement is found in bread, cereal, milk, meat, and poultry. Most Americans get more riboflavin than the recommended daily allowance, however riboflavin deficiency is not necessary for the supplements to help prevent headache. Feverfew: Feverfew is a common garden herb [place] and popular in [place] as a treatment for disorders typically controlled by aspirin. The mechanism of action is unknown but is believed to be related to a chemical called parthenolide which helps the body use serotonin more effectively. Serotonin helps prevent migraine and assists with resolution when it occurs. Parthenolide also inhibits the release of histamine which is linked to pain and inflammation. Consistency of active ingredients in different products can be a problem. Some formulations don't have the active ingredient (parthenolide) that prevents migraine. A parthenolide content of 0.2% is generally recommended. Typical dosage is one capsule 3 times a day. Butterbur: This is an extract derived from the petisides hybridus root, which has been used for medicinal purposes since ancient times. A recent study found that 75 mg daily given over 4 months reduced headache frequency by 50% or more in over two thirds of the 245 patient studied. The 50 mg dose showed no significant effect. Side effects were infrequent, and the most common and unusual includes burping/belching. Raw butterbur root contains toxic chemicals that must be filtered out during the manufacturing process. To be sure you are choosing a safe product. Look for a formulation that does not contain pyrrolizidine alkaloids which are toxic to the liver. Melatonin: Increasing evidence shows correlation between melatonin secretion and headache conditions. Melatonin supplementation has shown decreased headache intensity and duration. It is widely used as a sleep aid. Sleep is nature's way of dealing with migraine. A dose of 3 mg is recommended to start for headaches including cluster headache. Higher doses up to 15 mg has been reviewed for use in Cluster headache and have been used. The rationale behind using melatonin for cluster is that many theories regarding the cause of Cluster headache center around the disruption of the normal circadian rhythm in the brain. This helps restore the normal circadian rhythm. It should be taken at least 2 hours before bedtime. Ryley: Ryley has a small amount of anti-histamine and anti-inflammatory action which may help headache. It is primarily used for nausea and may aid in the absorption of other medications. HEADACHE EXPECTATIONS: There are many types of headaches, and only a rare few in which complete relief can be expected. Ingeneral, there is no cure for headache, especially migraine based headaches. There is nothing available that completely prevents headaches from occurring, breaking through, or having periodic flare-ups and fluctuations. Regardless of what you are using on a daily basis for prevention, episodic headaches should still be expected, and periods where frequency may escalate and fluctuate are unavoidable. There is no quick fix for most headaches. Furthermore, the longer you have had high frequency headaches (such as chronic daily headache), the longer it will likely take to expect any improvement. In fact, some people will never improve, regardless of how many medications or other treatments we try.Our treatment strategy is to evaluate for possible causes of your headache, although testing is usually always normal, even in cases of daily continuous headaches for years. Most types of headache such as migraine are electrical brain disorders (similar to how epilepsy is an electrical brain disorders). Therefore, there is no testing that will reveal this dysfunctional electrical circuitry suchon MRI, or other testing. We try to find a medication that may help lessen the frequency and/or severity of your headaches. The goal is not to completely stop them from happening, although if that happens, great! Different people respond to different medications, and some people just don't respond to anything, so it's usually a matter of trying different options. We can not predict if or when exac tly you will respond to a treatment that we provide. Preventive headache medications take 4-6 weeks to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 Free T4 09/15/21 * Free T4 02/06/22 * Vitamin B12 Level 09/21/22 * Vitamin B12 Level 02/06/22 * Complete Blood Count 09/21/22 * Complete Blood Count 02/06/22 * Free T3 09/15/21 * Complete Metabolic Panel 09/21/22 * Complete Metabolic Panel 02/06/22 Radiology* MRI TMJ Bilateral 09/09/21 * US Thyroid 10/10/21 [facility] Evaluation + Plan note Future Appointments Appointment Date:04/25/2022 03:00:00 PM Scheduled Provider: Location:[facility] Appointment Type:PC Nurse Injection Appointment Date:05/19/2022 02:30:00 PM Scheduled Provider:DAISY PACE MD Location:PM Office Appointment Type:PM OV Appointment Date:09/22/2022 03:00:00 PM Scheduled Provider:OPAL ARGUELLES APRN, CNP Location:[facility] Appointment Type:PC OV Follow Up Future Scheduled Tests Laboratory* Folate Level 09/21/22 * Folate Level 02/06/22 * Thyroid Stimulating Hormone 09/21/22 * Thyroid Stimulating Hormone 09/15/21 * Thyroid Stimulating Hormone 02/06/22 * Free T4 09/15/21 * Free T4 02/06/22 * Vitamin B12 Level 09/21/22 * Vitamin B12 Level 02/06/22 * Complete Blood Count 09/21/22 * Complete Blood Count 02/06/22 * Free T3 09/15/21 * Complete Metabolic Panel 09/21/22 * Complete Metabolic Panel 02/06/22 Radiology* MRI TMJ Bilateral 09/09/21 * US Thyroid 10/10/21 [facility] Evaluation + Plan note Future Appointments Appointment Date:05/30/2022 12:30:00 PM Scheduled Provider: Location:[facility] Appointment Type:PM EMG/NCV 1 Extremity Appointment Date:07/07/2022 10:00:00 AM Scheduled Provider: Location:[facility] [place] Appointment Type:PM TPI 1- 2 Muscles Appointment Date:09/22/2022 03:00:00 PM Scheduled Provider:OPAL ARGUELLES APRN - BLINDSTITCH HEMMER Location:[facility] Appointment Type: OV Follow Up Future Scheduled Tests Laboratory* Folate Level 09/21/22 * Folate Level 02/06/22 * Thyroid Stimulating Hormone 09/21/22 * Thyroid Stimulating Hormone 09/15/21 * Thyroid Stimulating Hormone 02/06/22 * Free T4 09/15/21 * Free T4 02/06/22 * Vitamin B12 Level 09/21/22 * Vitamin B12 Level 02/06/22 * Complete Blood Count 09/21/22 * Complete Blood Count 02/06/22 * Free T3 09/15/21 * Complete Metabolic Panel 09/21/22 * Complete Metabolic Panel 02/06/22 Radiology* MRI TMJ Bilateral 09/09/21 * US Thyroid 10/10/21 [facility] Evaluation + Plan note Future Appointments Appointment Date:09/01/2022 12:00:00 PM Scheduled Provider: Location:[facility] [place] Appointment Type:PM TPI 1- 2 Muscles Appointment Date:09/22/2022 03:00:00 PM Scheduled Provider:OPAL ARGUELLES APRN - BLINDSTITCH HEMMER Location:[facility] Appointment Type: OV Follow Up Future Scheduled Tests Laboratory* Folate Level 09/21/22 * Folate Level 02/06/22 * Thyroid Stimulating Hormone 09/21/22 * Thyroid Stimulating Hormone 09/15/21 * Thyroid Stimulating Hormone 02/06/22 * Free T4 09/15/21 * Free T4 02/06/22 * Vitamin B12 Level 09/21/22 * Vitamin B12 Level 02/06/22 * Complete Blood Count 09/21/22 * Complete Blood Count 02/06/22 * Free T3 09/15/21 * Complete Metabolic Panel 09/21/22 * Complete Metabolic Panel 02/06/22 Radiology* MRI TMJ Bilateral 06/23/22 * US Thyroid 10/10/21 [facility] Evaluation + Plan note Future Appointments Appointment Date:09/01/2022 02:30:00 PM Scheduled Provider:DAISY PACE MD Location:PM Office Appointment Type:PM OV Appointment Date:09/06/2022 09:00:00 AM Scheduled Provider: Location:[facility] Appointment Type:MA Mammogram Diagnostic Right w/ Jabari Appointment Date:09/06/2022 10:00:00 AM Scheduled Provider: Location:[facility] Appointment Type:US Breast Right Limited Appointment Date:09/22/2022 03:00:00 PM Scheduled Provider:OPAL ARGUELLES APRN, CNP Location:[facility] Appointment Type:PC OV Follow Up Future Scheduled Tests Laboratory* Folate Level 09/21/22 * Folate Level 02/06/22 * Thyroid Stimulating Hormone 09/21/22 * Thyroid Stimulating Hormone 09/15/21 * Thyroid Stimulating Hormone 02/06/22 * Free T4 09/15/21 * Free T4 02/06/22 * Vitamin B12 Level 09/21/22 * Vitamin B12 Level 02/06/22 * Complete Blood Count 09/21/22 * Complete Blood Count 02/06/22 * Free T3 09/15/21 * Complete Metabolic Panel 09/21/22 * Complete Metabolic Panel 02/06/22 Radiology* MA Mammo Diagnostic Right w/ Jabari 09/06/22 * US Breast Right Limited 09/06/22 * MRI TMJ Bilateral 06/23/22 * US Thyroid 10/10/21 [facility] Evaluation + Plan note Future Appointments Appointment Date:09/04/2022 01:15:00 PM Scheduled Provider: [facility] Appointment Type:PC Nurse Injection Appointment Date:09/06/2022 09:00:00 AM Scheduled Provider: Location:[facility] Appointment Type:MA Mammogram Diagnostic Right w/ Jabari Appointment Date:09/06/2022 10:00:00 AM Scheduled Provider: Location:[facility] Appointment Type:US Breast Right Limited Appointment Date:09/22/2022 03:00:00 PM Scheduled Provider:OPAL ARGUELLES APRN - BLINDSTITCH HEMMER Location:[facility] Appointment Type:PC OV Follow Up Future Scheduled Tests Laboratory* Folate Level 09/21/22 * Folate Level 02/06/22 * Thyroid Stimulating Hormone 09/21/22 * Thyroid Stimulating Hormone 09/15/21 * Thyroid Stimulating Hormone 02/06/22 * Free T4 09/15/21 * Free T4 02/06/22 * Vitamin B12 Level 09/21/22 * Vitamin B12 Level 02/06/22 * Complete Blood Count 09/21/22 * Complete Blood Count 02/06/22 * Free T3 09/15/21 * Complete Metabolic Panel 09/21/22 * Complete Metabolic Panel 02/06/22 Radiology* MA Mammo Diagnostic Right w/ Jabari 09/06/22 * US Breast Right Limited 09/06/22 * MRI TMJ Bilateral 06/23/22 * US Thyroid 10/10/21 [facility] Evaluation + Plan note Future Appointments Appointment Date:09/22/2022 03:00:00 PM Scheduled Provider:OPAL ARGUELLES APRN - BL[employer]STITCH HEMMER Location[facility] Appointment Type: OV Follow Up Future Scheduled Tests Laboratory* Folate Level 09/21/22 * Folate Level 02/06/22 * Thyroid Stimulating Hormone 09/21/22 * Thyroid Stimulating Hormone 09/15/21 * Thyroid Stimulating Hormone 02/06/22 * Free T4 09/15/21 * Free T4 02/06/22 * Vitamin B12 Level 09/21/22 * Vitamin B12 Level 02/06/22 * Complete Blood Count 09/21/22 * Complete Blood Count 02/06/22 * Free T3 09/15/21 * Complete Metabolic Panel 09/21/22 * Complete Metabolic Panel 02/06/22 Radiology* MA Mammo Diagnostic Right w/ Jabari 09/06/22 * MRI TMJ Bilateral 06/23/22 * US Thyroid 10/10/21 [facility] Evaluation + Plan note Future Appointments Appointment Date:09/22/2022 03:00:00 PM Scheduled Provider:OPAL ARGUELLES [employer] - BLINDSTITCH HEMMER Location:[facility] Appointment Type:PC OV Follow Up Future Scheduled Tests Laboratory* Folate Level 02/06/22 * Thyroid Stimulating Hormone 09/15/21 * Thyroid Stimulating Hormone 02/06/22 * Free T4 09/15/21 * Free T4 02/06/22 * Vitamin B12 Level 02/06/22 * Complete Blood Count 02/06/22 * Free T3 09/15/21 * Complete Metabolic Panel 02/06/22 Radiology* MA Mammo Diagnostic Right w/ Jabari 09/06/22 * MRI TMJ Bilateral 06/23/22 * US Thyroid 10/10/21 [facility] Evaluation + Plan note Future Appointments Appointment Date:11/21/2022 03:00:00 PM Scheduled Provider:OPAL ARGUELLES APRN - TARA Location:[facility] Appointment Type:PC OV Follow Up Appointment Date:03/23/2023 03:00:00 PM Scheduled Provider:OPAL ARGUELLES APRN - BL[employer]STITCH HEMMER Location[facility] Appointment Type:PC OV Follow Up Future Scheduled Tests Laboratory* Folate Level 02/06/22 * Thyroid Stimulating Hormone 03/25/23 * Thyroid Stimulating Hormone 02/06/22 * Free T4 03/25/23 * Free T4 02/06/22 * Vitamin B12 Level 03/25/23 * Vitamin B12 Level 02/06/22 * Stool Culture with Yersinia 11/03/22 * Stool Gastrointestinal Panel 11/03/22 * Complete Blood Count 03/25/23 * Complete Blood Count 02/06/22 * Free T3 03/25/23 * Complete Metabolic Panel 02/06/22 Radiology* MA Mammo Diagnostic Right w/ Jabari 09/06/22 * MRI TMJ Bilateral 06/23/22 * US Thyroid 10/10/21 [facility] Evaluation + Plan note Future Appointments Appointment Date:12/14/2022 02:40:00 PM Scheduled Provider:OPAL ARGUELLES APRN - BLINDSTITCH HEMMER Location:[facility] Appointment Type:PC OV Follow Up Appointment Date:03/23/2023 03:00:00 PM Scheduled Provider:OPAL ARGUELLES APRN - BL[employer]STITCH HEMMER Location:[facility] Appointment Type:PC OV Follow Up Future Scheduled Tests Laboratory* Sodium Level 11/06/22 * Folate Level 02/06/22 * Thyroid Stimulating Hormone 03/25/23 * Thyroid Stimulating Hormone 02/06/22 * Free T4 03/25/23 * Free T4 02/06/22 * Vitamin B12 Level 03/25/23 * Vitamin B12 Level 02/06/22 * Stool Culture with Yersinia 11/03/22 * Stool Gastrointestinal Panel 11/03/22 * Complete Blood Count 03/25/23 * Complete Blood Count 02/06/22 * Free T3 03/25/23 * Complete Metabolic Panel 02/06/22 Radiology* MA Mammo Diagnostic Right w/ Jabari 09/06/22 * MRI TMJ Bilateral 06/23/22 [facility] Evaluation note* Diagnosis POTS (postural orthostatic tachycardia syndrome)- Primary Tachycardia, unspecified Chronic migraine without aura, with intractable migraine, so stated, with status migrainosus Clonic seizures, intractable (HCC) Other [facility] Recurrent seizures (HCC)- Primary Other forms of epilepsy and recurrent seizures without mention of intractable epilepsy Chronic migraine without aura, with intractable migraine, so stated, with status migrainosus POTS (postural orthostatic tachycardia syndrome) Tachycardia, unspecified Clonic seizures, intractable (HCC) Other convulsions [facility] Diagnosis Recurrent seizures (HCC)- Primary Other forms of epilepsy and recurrent seizures without mention of intractable epilepsy Convulsions, unspecified convulsion type (HCC) [facility] 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 POTS (postural orthostatic tachycardia syndrome) Tachycardia, unspecified Syncope and collapse Gastroparesis [facility] Diagnosis POTS (postural orthostatic tachycardia syndrome)- Primary Tachycardia, unspecified [facility] Diagnosis Chronic migraine without aura, with intractable migraine, so stated, with status migrainosus- Primary [facility] Diagnosis Disturbance of skin sensation- Primary [facility] Diagnosis Chronic migraine without aura, intractable, without status migrainosus- Primary Migraine without aura and without status migrainosus, not intractable Migraine without aura, without mention of intractable migraine without mention of status migrainosus Migraine with aura and without status migrainosus, not intractable Migraine with aura, without mention of intractable migraine without mention of status migrainosus [facility] Diagnosis Chronic migraine without aura, with intractable migraine, so stated, with status migrainosus- Primary POTS (postural orthostatic tachycardia syndrome) Tachycardia, unspecified [facility] Diagnosis Recurrent infections- Primary Unspecified infectious and parasitic diseases [facility] Diagnosis Recurrent infections- Primary Unspecified infectious and parasitic diseases [facility] Diagnosis Chronic migraine without aura, with intractable migraine, so stated, with status migrainosus- Primary [facility] Diagnosis Hypermobility arthralgia Pain in joint, site unspecified documented in this encounter [facility]* Diagnosis Recurrent infections- Primary Unspecified infectious and parasitic diseases Rhinorrhea Other diseases of nasal cavity and sinuses Adverse effect of drug, initial encounter Venomous sting, undetermined intent, initial encounter [facility] Diagnosis Recurrent infections- Primary Unspecified infectious and parasitic diseases [facility] Diagnosis Left ear pain- Primary Otalgia, unspecified Ear pressure, left Dizziness Dizziness and giddiness Abnormal auditory perception, left TMJ tenderness, left [facility] Diagnosis Recurrent infections- Primary Unspecified infectious and parasitic diseases [facility] Diagnosis Chronic migraine without aura, with intractable migraine, so stated, with status migrainosus- Primary [facility] Diagnosis Temporomandibular joint disorder- Primary Temporomandibular joint disorders, unspecified [facility] Diagnosis POTS (postural orthostatic tachycardia syndrome)- Primary Tachycardia, unspecified [facility] Diagnosis Chronic migraine without aura, intractable, without status migrainosus- Primary [facility] Diagnosis Temporomandibular joint disorder Temporomandibular joint disorders, unspecified [facility] Diagnosis Myofascial pain syndrome Mylagia and myositis, unspecified Chronic low back pain with sciatica, sciatica laterality unspecified, unspecified back pain laterality [facility] Diagnosis Temporomandibular joint disorder- Primary Temporomandibular joint disorders, unspecified [facility] Diagnosis Chronic low back pain with sciatica, sciatica laterality unspecified, unspecified back pain laterality- Primary Chronic pain syndrome Ehler's-Danlos syndrome Myofascial pain syndrome Mylagia and myositis, unspecified Encounter for long-term (current) drug use Encounter for long-term (current) use of other medications [facility] Diagnosis Chronic migraine without aura, with intractable migraine, so stated, with status migrainosus- Primary [facility] Diagnosis Anterior displacement of TMJ meniscus- Primary Other specified temporomandibular joint disorders Bilateral temporomandibular joint pain Arthralgia of temporomandibular joint Myofascial pain with referred pain Dental caries on pit and fissure surface penetrating into dentin Dental caries pit and fissure [facility] Diagnosis Chronic migraine without aura, intractable, without status migrainosus- Primary Status migrainosus Variants of migraine, not elsewhere classified, without mention of intractable migraine without mention of status migrainosus [facility] Diagnosis Caries- Primary Unspecified dental caries [facility] Diagnosis Chronic pain syndrome- Primary Chronic low back pain with sciatica, sciatica laterality unspecified, unspecified back pain laterality Ehler's-Danlos syndrome Myofascial pain syndrome Mylagia and myositis, unspecified documented in this encounter [facility] course Narrative No data available for this section [facility] Discharge instructions No data available for this section [facility] Progress note No data available for this section [facility] Reason for referral (narrative)* Outpatient Procedure (Routine) - Authorized Specialty Diagnoses / Procedures Referred By Contac t Referred To Contact [facility] Diagnoses Clonic seizures, intractable (HCC) Procedures EPIL EEG ROUTINE ELECTROENCEPHALOGRAM REC COMA/SLEEP ONLY Mary Dan MD [address] [place] [address] Neurological [place] [address] [place] [address] Referral ID Status Reason Start Date Expiration Date Visits Requested Visits Authorized [id number] Authorized Auto-Generat ed Referral 08/23/2021 08/23/2022 1 1 * Consult, Test, Treat (Routine) - Authorized Specialty Diagnoses / Procedures Referred By Contac t Referred To Contact Neurology Diagnoses Clonic seizures, intractable (HCC) Procedures CONSULT TO NEUROLOGY OFFICE/OUTPATIENT [facility] 60-74 MINUTES Mary Dan MD [address] [place] [address] Referral ID Status Reason Start Date Expiration Date Visits Requested Visits Authorized [id number] Authorized PCP Requested Referral 08/23/2021 08/23/2022 1 1 * Consult, Test, Treat (Routine) - Authorized Specialty Diagnoses / Procedures Referred By Contac t Referred To Contact Neurology Diagnoses POTS (postural orthostatic tachycardia syndrome) Procedures CONSULT TO NEUROLOGY OFFICE/OUTPATIENT [facility] 60-74 MINUTES Mary Dan MD [address] [place] [address] Referral ID Status Reason Start Date Expiration Date Visits Requested Visits Authorized [id number] Authorized PCP Requested Referral 08/23/2021 08/23/2022 1 1 [facility] for referral (narrative)* Diagnostic Procedure Only (Routine) - Pending Review Specialty Diagnoses / Procedures Referred By Contac t Referred To Contact MOLECULAR & FUNCTIONAL IMAGING Diagnoses Gastroparesis Procedures NM GASTRIC EMPTYING SOLID GASTRIC EMPTYING STUDY Jose Daniel Tillman DO [address] [place] [address] Molecular & Functional Imaging [address] [phone] Referral ID Status Reason Start Date Expiration Date Visits Requested Visits Authorized [id number] Pending Review Auto-Generat ed Referral 12/07/2021 01/06/2023 1 1 * Outpatient Procedure (Routine) - Closed Specialty Diagnoses / Procedures Referred By Contac t Referred To Contact [facility] [place] Diagnoses Syncope and collapse Procedures ECG COMPLETE ECG ROUTINE ECG W/LEAST 12 LDS W/I&R Jose Daniel Tillman DO [address] [place] [address] [address] Referral ID Status Reason Start Date Expiration Date V isits Requested Visits Authorized [id number] Closed Auto-Generate d Referral 12/07/2021 12/07/2022 1 1 * Outpatient Procedure (Routine) - Pending Review Specialty Diagnoses / Procedures Referred By Nnacy t Referred To Contact [facility] Diagnoses POTS (postural orthostatic tachycardia syndrome) Syncope and collapse Procedures ECHO ECHO TTHRC R-T 2D W/WOM-MODE COMPL SPEC&COLR D Jose Daniel Tillman DO [address] [place] [address] [address] Referral ID Status Reason Start Date Expiration Date Visits Requested Visits Authorized [id number] Pending Review Auto-Generat ed Referral 12/07/2021 12/07/2022 1 1 * Consult, Test, Treat (Routine) - Authorized Specialty Diagnoses / Procedures Referred By Contac t Referred To Contact Diagnoses POTS (postural orthostatic tachycardia syndrome) EDS (Adriano-Danlos syndrome) Procedures CONSULT TO MEDICAL GENETICS - GENERAL OFFICE/OUTPATIENT [facility] 60-74 MINUTES MEDICAL GENETICS COUNSELING EACH 30 MINUTES Jose Daniel Tillman DO [address] [place] [phone] [facility] Medicine [place] [address] [place] [address] Referral ID Status Reason Start Date Expiration Date Visits Requested Visits Authorized [id number] Authorized PCP Requested Referral Auto-Generate d Referral 12/07/2021 12/07/2022 1 1 [facility] Outpatient Procedure (Routine) - Closed Specialty Diagnoses / Procedures Referred By Contac t Referred To Contact [facility] Diagnoses POTS (postural orthostatic tachycardia syndrome) Procedures ECG COMPLETE ECG ROUTINE ECG W/LEAST 12 LDS W/I&R Radha Calderón APRN.BLINDSTITCH HEMMER [address] [facility] [id number] [place] [address] Heart [facility] Vascular [place] [address] [place] [phone] Referral ID Status Reason Start Date Expiration Date V isits Requested Visits Authorized [id number] Closed Auto-Generate d Referral 12/29/2022 12/29/2023 1 1 [facility] Reason for Referral Specialty Diagnoses / Procedures Referred By Contac t Referred To Contact Anesthesiology Diagnoses Caries Gilberto Felix, DDS [address] [place] [address] [facility] PRE ADMISSION TESTING [address] [place] [address] Referral ID Status Reason Start Date Expiration Date V isits Requested Visits Authorized [id number] Authorized 06/15/2023 06/15/2024 1 1 Scheduling Instructions Your surgical team will reach out to you to schedule a pre-admission testing appointment. Question Answer Reason for consult? Recommended PAT Risk Score Specialty Diagnoses / Procedures Referred By Contac t Referred To Contact Diagnoses Chronic migraine without aura, intractable, without status migrainosus Jorge Torres, AMPARO.BLINDSTITCH HEMMER [address] [place] [address] Referral ID Status Reason Start Date Expiration Date V isits Requested Visits Authorized [id number] Pending Review 1 1 Specialty Diagnoses / Procedures Referred By Contac t Referred To Contact MR IMAGING Diagnoses Temporomandibular joint disorder Procedures MRI TMJ WO/W IVCON MRI TEMPOROMANDIBULAR JOINT Ezequiel Joaquin, DDS [address] [place] [address] Mr Imaging [place] [address] Referral ID Status Reason Start Date Expiration Date Visits Requested Visits Authorized [id number] Authorized Auto-Generat ed Referral 12/21/2022 01/20/2024 1 1 Specialty Diagnoses / Procedures Referred By Sherryac t Referred To Contact Allergy Diagnoses Recurrent infections Procedures CONSULT TO ALLERGY/IMMUNOLOGY OFFICE/OUTPATIENT NEW HIGH MDM 60-74 MINUTES Naya Alvarez DO [address] [place] [address] Referral ID Status Reason Start Date Expiration Date Visits Requested Visits Authorized [id number] Pending Review PCP Requested Referral 07/11/2022 07/11/2023 1 1 Specialty Diagnoses / Procedures Referred By Sherryac t Referred To Contact Diagnoses Migraine without aura and without status migrainosus, not intractable Chronic migraine without aura, intractable, without status migrainosus Migraine with aura and without status migrainosus, not intractable Procedures PROVIDER ORDERED FOLLOW UP OFFICE/OUTPATIENT [facility] MDM 60-74 MINUTES Felipa Belcher APRN.CNP [address] [place] [address] Referral ID Status Reason Start Date Expiration Date Visits Requested Visits Authorized [id number] Pending Review PCP Requested Referral 05/28/2022 03/28/2023 1 1 Specialty Diagnoses / Procedures Referred By Contac t Referred To Contact MR IMAGING Diagnoses Recurrent seizures (HCC) Procedures MRI BRAIN WO IVCON MRI BRAIN BRAIN STEM W/O CONTRAST MATERIAL Milan Novak MD [address] [facility] [address] [place] [address] Mr Imaging Referral ID Status Reason Start Date Expiration Date Visits Requested Visits Authorized [id number] Pending Review Auto-Generat ed Referral 09/15/2021 10/15/2022 1 1 Advance Directives No Advanced Directives Records FoundDocuments on File Type Date Recorded Patient Dental Equipment Repairer Expl anation Advance Directive(s) 09/20/2021 10:45 AM Documents on File Type Date Recorded Patient Dental Equipment Repairer Expl anation Advance Directive(s) 09/20/2021 10:45 AM Medications Administered Section Inactive Administered Medications - up to 3 most recent administrations Medication Order MAR Action Action Date Dose Rate Site eptinezumab-jjmr 100 mg in NaCl 0.9% 100 mL (VYEPTI) 100 mg, INTRAVENOUS, at 200 mL/hr, Administer over 30 Minutes, ONCE, 1 dose, On Sun12/26/21 at 1430, Administer with 0.2 micron filter. Flush with 20 mL NaCl 0.9% after infusion. EXP: (8 hr). New Bag/Syringe/Bottle 12/26/2021 2:53 PM EDT 100 mg 200 mL/hr Inactive Administered Medications - up to 3 most recent administrations Medication Order MAR Action Action Date Dose Rate Site eptinezumab-jjmr 100 mg in NaCl 0.9% 100 mL (VYEPTI) 100 mg, INTRAVENOUS, at 200 mL/hr, Administer over 30 Minutes, ONCE, 1 dose, On Sun04/26/22 at 1500, Administer with 0.2 micron filter. Flush with 20 mL NaCl 0.9% after infusion. EXP: (8 hr). New Bag/Syringe/Bottle 04/26/2022 3:15 PM EST 100 mg 200 mL/hr Inactive Administered Medications - up to 3 most recent administrations Medication Order MAR Action Action Date Dose Rate Site eptinezumab-jjmr 100 mg in NaCl 0.9% 100 mL (VYEPTI) 100 mg, INTRAVENOUS, at 200 mL/hr, Administer over 30 Minutes, ONCE, 1 dose, On Sun07/19/22 at 1530, Administer with 0.2 micron filter. New Bag/Syringe/Bottle 07/19/2022 3:39 PM EDT 100 mg 200 mL/hr Inactive Administered Medications - up to 3 most recent administrations Medication Order MAR Action Action Date Dose Rate Site eptinezumab-jjmr 100 mg in NaCl 0.9% 100 mL (VYEPTI) 100 mg, INTRAVENOUS, at 200 mL/hr, Administer over 30 Minutes, ONCE, 1 dose, On Sun10/11/22 at 1430, exp immediate use (room temp) Administer with 0.2 micron filter. New Bag/Syringe/Bottle 10/11/2022 2:32 PM EDT 100 mg 200 mL/hr Inactive Administered Medications - up to 3 most recent administrations Medication Order MAR Action Action Date Dose Rate Site eptinezumab-jjmr 300 mg in NaCl 0.9% 100 mL (VYEPTI) 300 mg, INTRAVENOUS, at 200 mL/hr, Administer over 30 Minutes, ONCE, 1 dose, On Sun04/05/23 at 1330, exp immediate use (room temp) Administer with 0.2 micron filter. New Bag/Syringe/Bottle 04/05/2023 1:34 PM EST 300 mg 200 mL/hr Summary Purpose Family History No Family History Records Found No data available for this section No Family History Records FoundNo Family History Records FoundNo Family History Records FoundNo Family History Records Found Additional Source Comments Source Comments (unrecognize d section and content) In the event this informatio n is protected by the Federal Confidentiality of Alcohol and Drug Abuse Patient Records regulations: The Federal rules restrict any use of the information to criminally investigate or prosecute any alcohol or drug abuse patient.[facility] the event this information is protected by the Federal Confidentiality of Alcohol and Drug Abuse Patient Records regulations: The Federal rules restrict any use of the information to criminally investigate or prosecute any alcohol or drug abuse patient.[facility] HospitalIn the event this information is protected by the Federal Confidentiality of Alcohol and Drug Abuse Patient Records regulations: The Federal rules restrict any use of the information to criminally investigate or prosecute any alcohol or drug abuse patient.[facility] HospitalIn the event this information is protected by the Federal Confidentiality of Alcohol and Drug Abuse Patient Records regulations: The Federal rules restrict any use of the information to criminally investigate or prosecute any alcohol or drug abuse patient.[facility] HospitalIn the event this information is protected by the Federal Confidentiality of Alcohol and Drug Abuse Patient Records regulations: The Federal rules restrict any use of the information to criminally investigate or prosecute any alcohol or drug abuse patient.[facility] HospitalIn the event this information is protected by the Federal Confidentiality of Alcohol and Drug Abuse Patient Records regulations: The Federal rules restrict any use of the information to criminally investigate or prosecute any alcohol or drug abuse patient.[facility] HospitalIn the event this information is protected by the Federal Confidentiality of Alcohol and Drug Abuse Patient Records regulations: The Federal rules restrict any use of the information to criminally investigate or prosecute any alcohol or drug abuse patient.[facility] HospitalIn the event this information is protected by the Federal Confidentiality of Alcohol and Drug Abuse Patient Records regulations: The Federal rules restrict any use of the information to criminally investigate or prosecute any alcohol or drug abuse patient.[facility] HospitalIn the event this information is protected by the Federal Confidentiality of Alcohol and Drug Abuse Patient Records regulations: The Federal rules restrict any use of the information to criminally investigate or prosecute any alcohol or drug abuse patient.[facility] HospitalIn the event this information is protected by the Federal Confidentiality of Alcohol and Drug Abuse Patient Records regulations: The Federal rules restrict any use of the information to criminally investigate or prosecute any alcohol or drug abuse patient.[facility] HospitalIn the event this information is protected by the Federal Confidentiality of Alcohol and Drug Abuse Patient Records regulations: The Federal rules restrict any use of the information to criminally investigate or prosecute any alcohol or drug abuse patient.[facility] HospitalIn the event this information is protected by the Federal Confidentiality of Alcohol and Drug Abuse Patient Records regulations: The Federal rules restrict any use of the information to criminally investigate or prosecute any alcohol or drug abuse patient.[facility] HospitalIn the event this information is protected by the Federal Confidentiality of Alcohol and Drug Abuse Patient Records regulations: The Federal rules restrict any use of the information to criminally investigate or prosecute any alcohol or drug abuse patient.[facility] HospitalIn the event this information is protected by the Federal Confidentiality of Alcohol and Drug Abuse Patient Records regulations: The Federal rules restrict any use of the information to criminally investigate or prosecute any alcohol or drug abuse patient.[facility] HospitalIn the event this information is protected by the Federal Confidentiality of Alcohol and Drug Abuse Patient Records regulations: The Federal rules restrict any use of the information to criminally investigate or prosecute any alcohol or drug abuse patient.[facility] HospitalIn the event this information is protected by the Federal Confidentiality of Alcohol and Drug Abuse Patient Records regulations: The Federal rules restrict any use of the information to criminally investigate or prosecute any alcohol or drug abuse patient.[facility] HospitalIn the event this information is protected by the Federal Confidentiality of Alcohol and Drug Abuse Patient Records regulations: The Federal rules restrict any use of the information to criminally investigate or prosecute any alcohol or drug abuse patient.[facility] HospitalIn the event this information is protected by the Federal Confidentiality of Alcohol and Drug Abuse Patient Records regulations: The Federal rules restrict any use of the information to criminally investigate or prosecute any alcohol or drug abuse patient.[facility] HospitalIn the event this information is protected by the Federal Confidentiality of Alcohol and Drug Abuse Patient Records regulations: The Federal rules restrict any use of the information to criminally investigate or prosecute any alcohol or drug abuse patient.[facility] HospitalIn the event this information is protected by the Federal Confidentiality of Alcohol and Drug Abuse Patient Records regulations: The Federal rules restrict any use of the information to criminally investigate or prosecute any alcohol or drug abuse patient.[facility] HospitalIn the event this information is protected by the Federal Confidentiality of Alcohol and Drug Abuse Patient Records regulations: The Federal rules restrict any use of the information to criminally investigate or prosecute any alcohol or drug abuse patient.[facility] HospitalIn the event this information is protected by the Federal Confidentiality of Alcohol and Drug Abuse Patient Records regulations: The Federal rules restrict any use of the information to criminally investigate or prosecute any alcohol or drug abuse patient.[facility] HospitalIn the event this information is protected by the Federal Confidentiality of Alcohol and Drug Abuse Patient Records regulations: The Federal rules restrict any use of the information to criminally investigate or prosecute any alcohol or drug abuse patient.[facility] HospitalIn the event this information is protected by the Federal Confidentiality of Alcohol and Drug Abuse Patient Records regulations: The Federal rules restrict any use of the information to criminally investigate or prosecute any alcohol or drug abuse patient.[facility] HospitalIn the event this information is protected by the Federal Confidentiality of Alcohol and Drug Abuse Patient Records regulations: The Federal rules restrict any use of the information to criminally investigate or prosecute any alcohol or drug abuse patient.[facility] HospitalIn the event this information is protected by the Federal Confidentiality of Alcohol and Drug Abuse Patient Records regulations: The Federal rules restrict any use of the information to criminally investigate or prosecute any alcohol or drug abuse patient.[facility] HospitalIn the event this information is protected by the Federal Confidentiality of Alcohol and Drug Abuse Patient Records regulations: The Federal rules restrict any use of the information to criminally investigate or prosecute any alcohol or drug abuse patient.[facility] HospitalIn the event this information is protected by the Federal Confidentiality of Alcohol and Drug Abuse Patient Records regulations: The Federal rules restrict any use of the information to criminally investigate or prosecute any alcohol or drug abuse patient.[facility] HospitalIn the event this information is protected by the Federal Confidentiality of Alcohol and Drug Abuse Patient Records regulations: The Federal rules restrict any use of the information to criminally investigate or prosecute any alcohol or drug abuse patient.[facility] HospitalIn the event this information is protected by the Federal Confidentiality of Alcohol and Drug Abuse Patient Records regulations: The Federal rules restrict any use of the information to criminally investigate or prosecute any alcohol or drug abuse patient.[facility] HospitalIn the event this information is protected by the Federal Confidentiality of Alcohol and Drug Abuse Patient Records regulations: The Federal rules restrict any use of the information to criminally investigate or prosecute any alcohol or drug abuse patient.[facility] HospitalIn the event this information is protected by the Federal Confidentiality of Alcohol and Drug Abuse Patient Records regulations: The Federal rules restrict any use of the information to criminally investigate or prosecute any alcohol or drug abuse patient.[facility] HospitalIn the event this information is protected by the Federal Confidentiality of Alcohol and Drug Abuse Patient Records regulations: The Federal rules restrict any use of the information to criminally investigate or prosecute any alcohol or drug abuse patient.[facility] HospitalIn the event this information is protected by the Federal Confidentiality of Alcohol and Drug Abuse Patient Records regulations: The Federal rules restrict any use of the information to criminally investigate or prosecute any alcohol or drug abuse patient.[facility] HospitalIn the event this information is protected by the Federal Confidentiality of Alcohol and Drug Abuse Patient Records regulations: The Federal rules restrict any use of the information to criminally investigate or prosecute any alcohol or drug abuse patient.[facility] HospitalIn the event this information is protected by the Federal Confidentiality of Alcohol and Drug Abuse Patient Records regulations: The Federal rules restrict any use of the information to criminally investigate or prosecute any alcohol or drug abuse patient.[facility] HospitalIn the event this information is protected by the Federal Confidentiality of Alcohol and Drug Abuse Patient Records regulations: The Federal rules restrict any use of the information to criminally investigate or prosecute any alcohol or drug abuse patient.[facility] HospitalIn the event this information is protected by the Federal Confidentiality of Alcohol and Drug Abuse Patient Records regulations: The Federal rules restrict any use of the information to criminally investigate or prosecute any alcohol or drug abuse patient.[facility] HospitalIn the event this information is protected by the Federal Confidentiality of Alcohol and Drug Abuse Patient Records regulations: The Federal rules restrict any use of the information to criminally investigate or prosecute any alcohol or drug abuse patient.[facility] HospitalIn the event this information is protected by the Federal Confidentiality of Alcohol and Drug Abuse Patient Records regulations: The Federal rules restrict any use of the information to criminally investigate or prosecute any alcohol or drug abuse patient.[facility] Reason for Visit (unrecogniz ed section and content) Reason Comments Referral Request Reason Comments Insurance Authorization Vyepti Denial Reason Comments New Patient Specialty Diagnoses / Procedures Referred By Contac t Referred To Contact Neurology Diagnoses Clonic seizures, intractable (HCC) Procedures CONSULT TO NEUROLOGY OFFICE/OUTPATIENT [facility] 60-74 MINUTES Mary Dan MD [address] [place] [address] Referral ID Status Reason Start Date Expiration Date V isits Requested Visits Authorized [id number] Closed PCP Requested Referral 08/23/2021 08/23/2022 1 1 Reason Comments Seizures EMU orders Reason Comments Follow Up Phone Call Post Discharge F/U attempt made. No answer. Reason Comments New Patient Specialty Diagnoses / Procedures Referred By Contac t Referred To Contact Neurology Diagnoses POTS (postural orthostatic tachycardia syndrome) Procedures CONSULT TO NEUROLOGY OFFICE/OUTPATIENT [facility] 60-74 MINUTES Mary Dan MD [address] [place] [address] Referral ID Status Reason Start Date Expiration Date V isits Requested Visits Authorized [id number] Closed PCP Requested Referral 08/23/2021 08/23/2022 1 1 Reason Comments Infusion Headache Specialty Diagnoses / Procedures Referred By Contac t Referred To Contact HEADACHE Diagnoses Other specified cardiac arrhythmias Chronic migraine without aura, intractable, with status migrainosus Procedures BOTULINUM TOXIN A PER 1 UNIT CHEMODERVATE FACIAL/TRIGEM/CERV MUSC MIGRAINE INJECTION, EPTINEZUMAB-JJMR, 1 MG VYEPTI initial start - correction per the OV notes on 08/23/2021 Initial request is for Vyepti not BOTOX Mary Dan MD [address] [phone] Neur Headache Main [address] [phone] Referral ID Status Reason Start Date Expiration Date V isits Requested Visits Authorized [id number] Authorized 11/25/2021 01/09/2022 99 99 Reason Comments Procedure Reason Comments Referral Request Vyepti Reason Comments Migraine Reason Comments Immunotherapy Specialty Diagnoses / Procedures Referred By Contac t Referred To Contact Diagnoses Chronic migraine without aura, with intractable migraine, so stated, with status migrainosus Procedures INJECTION, EPTINEZUMAB-JJMR, 1 MG Mary Dan MD [address] [place] [address] [facility] [address] [place] [address] Referral ID Status Reason Start Date Expiration Date V isits Requested Visits Authorized [id number] Authorized 03/28/2022 03/27/2023 4 4 Reason Comments recurrent infections Reason Comments Non-Chemotherapy Treatment Specialty Diagnoses / Procedures Referred By Contac t Referred To Contact Diagnoses Chronic migraine without aura, with intractable migraine, so stated, with status migrainosus Procedures INJECTION, EPTINEZUMAB-JJMR, 1 MG Mary Dan MD [address] [place] [address] [facility] [address] [place] [address] Reason Comments Medication Assistance Corlanor Specialty Diagnoses / Procedures Referred By Contac t Referred To Contact Lab Diagnoses 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 Tarik Gavin MD [address] [place] [address], [address] [place] [address] Referral ID Status Reason Start Date Expiration Date V isits Requested Visits Authorized [id number] Open Specialty Services Required 07/26/2022 07/26/2023 1 1 Reason Comments New Specialty Diagnoses / Procedures Referred By Contac t Referred To Contact Allergy Diagnoses Recurrent infections Procedures CONSULT TO ALLERGY/IMMUNOLOGY OFFICE/OUTPATIENT NEW HIGH MDM 60-74 MINUTES Naya Hough DO [address] [place] [address] Referral ID Status Reason Start Date Expiration Date Visits Requested Visits Authorized [id number] Pending Review PCP Requested Referral 07/11/2022 07/11/2023 1 1 Reason Comments Pain In Ear(s) Specialty Diagnoses / Procedures Referred By Contac t Referred To Contact Ent - Otolaryngology Diagnoses TMJ tenderness, left Hearing loss of left ear, unspecified hearing loss type Procedures CONSULT TO ENT OFFICE/OUTPATIENT [facility] 60-74 MINUTES Radha Calderón APRN.BL[employer]STITCH HEMMER [phone] [place] [id number] Referral ID Status Reason Start Date Expiration Date Visits Requested Visits Authorized [id number] Pending Review PCP Requested Referral 07/17/2022 07/17/2023 1 1 Reason Comments Follow Up Reason Comments Chronic Migraine Specialty Diagnoses / Procedures Referred By Contac t Referred To Contact Diagnoses Migraine without aura and without status migrainosus, not intractable Chronic migraine without aura, intractable, without status migrainosus Migraine with aura and without status migrainosus, not intractable Procedures PROVIDER ORDERED FOLLOW UP OFFICE/OUTPATIENT [facility] 60-74 MINUTES Felipa Belcher, CONCRETE STONE FABRICATOR.BLINDSTITCH HEMMER [address] [place] [address] Referral ID Status Reason Start Date Expiration Date Visits Requested Visits Authorized [id number] Pending Review PCP Requested Referral 05/28/2022 03/28/2023 1 1 Reason Comments Radiology MRI Specialty Diagnoses / Procedures Referred By Contac t Referred To Contact MR IMAGING Diagnoses Temporomandibular joint disorder Procedures MRI TMJ WO/W IVCON MRI TEMPOROMANDIBULAR JOINT Ezequiel Joaquin DDS [address] [place] [address] Mr Imaging [place] [address] Referral ID Status Reason Start Date Expiration Date V isits Requested Visits Authorized [id number] Closed Auto-Generate d Referral 12/21/2022 01/20/2024 1 1 Reason Comments Oral surgery followup Reason Comments Back Pain And feet Referral ID Status Reason Start Date Expiration Date V isits Requested Visits Authorized [id number] Pending Review 03/28/2022 03/27/2024 99 99 Reason Comments Consult Reason Comments Chronic Migraine Reason Comments Back Pain Care Teams (unrecognized sec tion and content) Land Agent Relationship Specialty Start Date End Date Opal Arguelles, BL[employer]STITCH HEMMER [address] [place] [address] PCP - General Family Practice 07/26/21 Osmani Rodriguez APRN.BLINDSTITCH HEMMER [address] [place] [address] Family Practice 09/27/20 Land Agent Relationship Specialty Start Date End Date Opal Arguelles, BLINDSTITCH HEMMER [address] [place] [address] PCP - General Family Practice 07/26/21 Osmani Rodriguez APRN.[facility] [address] [place] [address] Family Practice 09/27/20 Land Agent Relationship Specialty Start Date End Date Opal Arguelles, BLINDSTITCH HEMMER [address] [place] [address] PCP - General Family Practice 07/26/21 Osmani Rodriguez APRN.[facility] [address] [place] [address] Family Practice 09/27/20 Land Agent Relationship Specialty Start Date End Date Opal Arguelles, BLINDSTITCH HEMMER [address] [place] [address] PCP - General Family Practice 07/26/21 Osmani Rodriguez APRN.[employer]EM[employer] [address] [place] [address] Family Practice 09/27/20 Land Agent Relationship Specialty Start Date End Date Opal Arguelles, BLINDSTITCH HEMMER [address] [place] [address] PCP - General Family Practice 07/26/21 Osmani Rodriguez APRN.[employer]EM[employer] [address] [place] [address] Family Practice 09/27/20 Land Agent Relationship Specialty Start Date End Date Opal Arguelles, [facility] [address] [place] [address] PCP - General Family Practice 07/26/21 Osmani Rodriguez APRN.[facility] [address] [place] [address] Family Practice 09/27/20 Land Agent Relationship Specialty Start Date End Date Opal Arguelles, [facility] [address] [place] [address] PCP - General Family Practice 07/26/21 Osmani Rodriguez APRN.[facility] [address] [place] [address] Family Practice 09/27/20 Land Agent Relationship Specialty Start Date End Date Opal Arguelles, [facility] [address] [place] [address] PCP - General Family Practice 07/26/21 Osmani Rodriguez APRN.[facility] [address] [place] [address] Family Practice 09/27/20 Land Agent Relationship Specialty Start Date End Date Opal Arguelles, [facility] [address] [place] [address] PCP - General Family Medicine 07/26/21 Osmani Rodriguez APRN.[facility] [address] [place] [address] Family Medicine 09/27/20 Land Agent Relationship Specialty Start Date End Date Opal Arguelles, BLINDSTITCH HEMMER [address] [place] [address] PCP - General Family Medicine 07/26/21 Osmani Rodriguez APRN.[facility] [address] [place] [address] Family Medicine 09/27/20 Land Agent Relationship Specialty Start Date End Date Opal Arguelles, [facility] [address] [place] [address] PCP - General Family Medicine 07/26/21 Osmani Rodriguez APRN.[facility] [address] [place] [address] Family Medicine 09/27/20 Land Agent Relationship Specialty Start Date End Date Opal Arguelles, [facility] [address] [place] [address] PCP - General Family Medicine 07/26/21 Osmani Rodriguez APRN.[facility] [address] [place] [address] Family Medicine 09/27/20 Land Agent Relationship Specialty Start Date End Date Opal Arguelles, [facility] [address] [place] [address] PCP - General Family Medicine 07/26/21 Osmani Rodriguez APRN.[facility] [address] [place] [address] Family Medicine 09/27/20 Land Agent Relationship Specialty Start Date End Date Opal Arguelles, [facility] [address] [place] [address] PCP - General Family Medicine 07/26/21 Osmani Rodriguez APRN.[facility] [address] [place] [address] Family Medicine 09/27/20 Land Agent Relationship Specialty Start Date End Date Opal Arguelles, [facility] [address] [place] [address] PCP - General Family Medicine 07/26/21 Osmani Rodriguez, [facility]AR[facility] [address] [place] [address] Family Medicine 09/27/20 Land Agent Relationship Specialty Start Date End Date Opal Arguelles, [employer] HEM[employer] [address] [place] [address] PCP - General Family Medicine 07/26/21 Osmani Rodriguez, AMPARO.[facility] [address] [place] [address] Family Medicine 09/27/20 Land Agent Relationship Specialty Start Date End Date Leslie Leonard MD PCP - General 07/17/12 Provider, [facility] [place] [address] 03/01/22 Tarik Gavin MD [address] [place] [address], [address] [place], [place] [id number] Attending Physician Medical Clinical Genetics 07/14/22 Land Agent Relationship Specialty Start Date End Date Opal Arguelles, [employer]EM[employer] [address] [place] [address] PCP - General Family Medicine 07/26/21 Osmani Rodriguez, AMPARO.[facility] [address] [place] [address] Family Medicine 09/27/20 Land Agent Relationship Specialty Start Date End Date Opal Arguelles, [employer] HEMMER [address] [place] [address] PCP - General Family Medicine 07/26/21 Osmani Rodriguez APRN.[facility] [address] [place] [address] Family Medicine 09/27/20 Land Agent Relationship Specialty Start Date End Date Opal Arguelles, [employer]EM[employer] [address] [place] [address] PCP - General Family Medicine 07/26/21 Osmain Rodriguez APRN.[facility] [address] [place] [address] Family Medicine 09/27/20 Land Agent Relationship Specialty Start Date End Date Opal Arguelles, [facility]EMMER [address] [place] [address] PCP - General Family Medicine 07/26/21 Osmani Rodriguez APRN.[facility] [address] [place] [address] Family Medicine 09/27/20 Land Agent Relationship Specialty Start Date End Date Opal Arguelles, [employer] HEMMER [address] [place] [address] PCP - General Family Medicine 07/26/21 Osmani Rodriguez APRN.[facility] [facility] [address] [place] [address] Family Medicine 09/27/20 Land Agent Relationship Specialty Start Date End Date Opal Arguelles, BLINDSTITCH HEMMER [address] [place], [place] [id number] PCP - General Family Medicine 07/26/21 Osmani Rodriguez APRN.[facility]EM[facility] [address] [place] [address] Family Medicine 09/27/20 Land Agent Relationship Specialty Start Date End Date Opal Arguelles, BL[employer]STITCH HEMMER [address] [place] [address] PCP - General Family Medicine 07/26/21 Osmani Rodriguez APRN.[facility] [facility]EM[facility] [address] [place] [address] Family Medicine 09/27/20 Land Agent Relationship Specialty Start Date End Date Opal Arguelles, BL[employer]STITCH HEMMER [address] [place] [address] PCP - General Family Medicine 07/26/21 Osmani Rodriguez APRN.[facility]EM[facility] [address] [place] [address] Family Medicine 09/27/20 Land Agent Relationship Specialty Start Date End Date Opal Arguelles, BL[employer]STITCH HEMMER [address] [place] [address] PCP - General Family Medicine 07/26/21 Osmani Rodriguez APRN.[facility]EM[facility] [address] [place] [address] Family Medicine 09/27/20 Land Agent Relationship Specialty Start Date End Date Opal Arguelles, BLINDSTITCH HEMMER [address] [place] [address] PCP - General Family Medicine 07/26/21 Osmani Rodriguez APRN.[facility] [address] [place] [address] Family Medicine 09/27/20 Land Agent Relationship Specialty Start Date End Date Opal Arguelles, BLINDSTITCH HEMMER [address] [place] [address] PCP - General Family Medicine 07/26/21 Osmani Rodriguez APRN.[facility]STITCH HEMMER [address] [place] [address] Family Medicine 09/27/20 Land Agent Relationship Specialty Start Date End Date Opal Arguelles, BLINDSTITCH HEMMER [address] [place] [address] PCP - General Family Medicine 07/26/21 Osmani Rodriguez APRN.[facility]EM[facility] [address] [place] [address] Family Medicine 09/27/20 Land Agent Relationship Specialty Start Date End Date Opal Arguelles, BLINDSTITCH HEMMER [address] [place] [address] PCP - General Family Medicine 07/26/21 Osmani Rodriguez APRN.[facility]EM[facility] [address] [place] [address] Family Medicine 09/27/20 Land Agent Relationship Specialty Start Date End Date Opal Arguelles, BL[employer]STITCH HEMMER [address] [place] [address] PCP - General Family Medicine 07/26/21 Osmani Rodriguez APRN.[facility]EM[facility] [address] [place] [address] Family Medicine 09/27/20 Land Agent Relationship Specialty Start Date End Date Opal Arguelles, BLINDSTITCH HEMMER [address] [place] [address] PCP - General Family Medicine 07/26/21 Osmani Rodriguez, AMPARO.[facility]STITCH HEMMER [address] [place] [address] Family Medicine 09/27/20 Land Agent Relationship Specialty Start Date End Date Opal Arguelles, BLINDSTITCH HEMMER [address] [place] [address] PCP - General Family Medicine 07/26/21 Osmani Rodriguez, AMPARO.BLINDSTITCH HEMMER [address] [place] [address] Family Medicine 09/27/20 Land Agent Relationship Specialty Start Date End Date Opal Arguelles, BLINDSTITCH HEMMER [address] [place] [address] PCP - General Family Medicine 07/26/21 Osmani Rodriguez, AMPARO.[facility] HEMMER [address] [place] [address] Family Medicine 09/27/20 Land Agent Relationship Specialty Start Date End Date Opal Arguelles CNP [address] [place] [address] PCP - General Family Medicine 07/26/21 Osmani Rodriguez APRN.CNP [address] [place] [address] Family Medicine 09/27/20 Land Agent Relationship Specialty Start Date End Date Opal Arguelles CNP [address] [place] [address] PCP - General Family Medicine 07/26/21 Osmani Rodriguez APRN.CNP [address] [place] [address] Family Medicine 09/27/20 Care Team (unrecognized sect ion and content) Care Team Personnel Name: OPAL ARGUELLES CONCRETE STONE FABRICATOR - BLINDSTITCH HEMMER Position: P4 Advanced Practice Nurse Member Role: Primary Care Physician Address: Address: [address] [place] [address]- Care Team Related Persons Name: DARRELL SY Address: Home [address] [place] [id number] Address: [facility] [address] [place] [id number] Name: NAYA SY Address: Home [address] [place] [phone] [place] Care Team Personnel Name: OPAL ARGUELLES CONCRETE STONE FABRICATOR - BLINDSTITCH HEMMER Position: P4 Advanced Practice Nurse Member Role: Primary Care Physician Address: Address: [address] [place] [address]- Name: Airam Mata RN Position: AO RN Member Role: ED RN Name: ZULEIKA PUENTES DO Position: ED Physician Member Role: Attending Physician Address: Address: [address] [place] [address] [place] Care Team Related Persons Name: DARRELL SY Address: Home [address] [place], [place] [id number] Address: Temporary [address] [place], [place] [id number] Name: NAYA SY Address: Home [address] [facility] [place] [phone] [place] Care Team Personnel Name: OPAL ARGUELLES CONCRETE STONE FABRICATOR - BLINDSTITCH HEMMER Position: P4 Advanced Practice Nurse Member Role: Primary Care Physician Address: Address: [address] [place] [phone]- [place] Care Team Related Persons Name: DARRELL SY Address: Home [address] [place] [id number] Address: Temporary [address] [place] [id number] Name: NAYA SY Address: Home [address] [facility], [place] [phone] [place] Care Team Personnel Name: OPAL ARGUELLES CONCRETE STONE FABRICATOR - BLINDSTITCH HEMMER Position: P4 Advanced Practice Nurse Member Role: Primary Care Physician Address: Address: [address] [place] [address] [place] Care Team Related Persons Name: DARRELL SY Address: Home [address] [place] [id number] Address: Temporary [address] [place] [phone] Name: NAYA SY Address: Home [address] [facility], [place] [phone] [place] Care Team Personnel Name: OPAL ARGUELLES CONCRETE STONE FABRICATOR - BLINDSTITCH HEMMER Position: P4 Advanced Ice Cream Scooper Member Role: Primary Care Physician Address: Address: [address] [place] [address] [place] Care Team Related Persons Name: DARRELL SY Address: Home [address] [place] [id number] Address: Temporary [address] [place] [id number] Name: NAYA SY Address: Home [address] [facility], [place] [phone] [place] Care Team Personnel Name: OPAL ARGUELLES CONCRETE STONE FABRICATOR - BLINDSTITCH HEMMER Position: P4 Advanced Ice Cream Scooper Member Role: Primary Care Physician Address: Address: [address] [place] [address] [place] [address]- Care Team Related Persons Name: DARRELL SY Address: Home [address] [place] [phone] Address: Temporary [address] [place] [phone] Name: NAYA SY Address: Home [address] [facility] [place] [phone] INFORMATION SOURCE (unrecogn ized section and content) DATE CREATED AUTHOR AUTHOR'S ORGANIZ ATION 03/26/2023 [facility] ([place]) DATE CREATED AUTHOR AUTHOR'S ORGANIZ ATION 06/21/2023 [employer] DATE CREATED AUTHOR AUTHOR'S ORGANIZ ATION 07/07/2023 [facility] DATE CREATED AUTHOR AUTHOR'S ORGANIZ ATION 07/11/2023 [facility] FOR RECORDS PERTAINING TO PATIENTS WHO ARE OR HAVE BEEN ENROLLED IN A CHEMICAL DEPENDENCY/SUBSTANCEABUSE PROGRAM, SOME INFORMATION MAY BE OMITTED. This clinical summary was aggregated from multiple sources. Caution should be exercised in using it in the provision of clinical care. This summary normalizes information from multiple sources, and as a consequence, information in this document may materially change the coding, format and clinical context of patient data. In addition, data may be omitted in some cases. CLINICAL DECISIONS SHOULD BE BASED ON THE PRIMARY CLINICAL RECORDS. [facility] [employer] [facility]. provides no warranty or guarantee of the accuracy or completeness of information in this document.
[2023-07-13] MEDS: Lactated Ringers 1,000 ML 15 ML IV (07:29)
[2023-07-13 07:46] LABS: Internal QC Validated? YES +Cl - CLEAR BKGD; Pregnancy, Urine Negative Negative
[2023-07-13 07:47] LABS: Record Kit Lot#,Urine Preg HCG0000718086
--- NOTE | 2023-07-13 08:00 | RAD_ITS ---
STUDY: X-RAY - LEFT ANKLE REASON FOR EXAM: Female, 23 years old. Intraoperative digital documentation views arthroscopic debridement. TECHNIQUE: 7 intraoperative digital documentation views of the ankle. COMPARISON: None. FINDINGS: 7 intraoperative digital documentation views were obtained. Total exposure time 8 seconds. Longest single exposure 3 seconds. Total DAP 1.4159 cGycm2. Total Air Kerma 0.0843 mGy. RAD/Ankle 2 Views IMPRESSION: Intraoperative digital documentation views. Electronically Signed: Ward Dunlap MD at 14:21 EST ,
[2023-07-13] MEDS: Clindamycin 900 MG/50 ML BAG 75 MG IV (09:04)
[2023-07-13] MEDS: Bacitracin 500 UNITS/GM PACKET (10:08)
--- NOTE | 2023-07-13 10:27 | PCM.OPRPT ---
Problems Associated Problem List Diagnoses (1) Other instability, left ankle: Report of Operation Date of Procedure: 07/13/23 Pre-Operative Diagnosis: 1) Left Lateral Ankle Instability Post-Operative Diagnosis: Same Surgery/Procedure Performed:: 1) Left Lateral Ankle Stabilization 2) Left Application of AO Splint to lower extremity Description of Surgical Findings:: Patient is new onset diagnosis of Adriano-Danlos. Patient has instability of her joints. Patient suffered frequent inversion ankle sprains of the right lower extremity underwent internal brace and lateral ankle stabilization and had an excellent outcome. Patient started suffering lateral ankle instability left ankle. Patient notes that it is unstable when she walks. MRI demonstrates intact ligaments. But due to underlying pathologic condition patient has diffuse instability of her left ankle with recurrent ankle sprains. We attempted custom Ana bracing and this failed. Decision for surgical management was made after discussion with patient and patient wished to proceed. Surgeon: Jaime Bain nutrition helper: None (silvia beverage) Type of Anesthesia: General Special Medications: popliteal block per anesthesia Specimen's removed: none Drains: none Estimated Blood Loss (mL): miniml Description of Procedure: [facility] Medical Records Department [address] [place] [address] Operative Report 02/17/22 1201 MR#: [id number] Acct: [id number] Name: JERO GODINEZ Rep #: [id number] : 2000 22 From: Jaime Bain DPM PCP: DEMOND Calabrese Status: [facility] Location: [place] [address] Problems Associated Problem List Diagnoses (1) Right ankle instability: Report of Operation Patient was brought back to the operating placed comfortably in the supine position on the operating room table. Patient was induced under general anesthesia. All osseous prominences were offloaded prevent any compression neuropraxia throughout the case. Well-padded leftthigh tourniquet was applied. Preoperatively prior to entrance to the operating room patient received a popliteal block per anesthesia. Left lower extremity was not positioned with a hip bump to knock out any external rotation and left lower extremity scrubbed prepped draped using typical aseptic manner. LEft lower extremity was elevated exsanguinated and tourniquet was inflated to 200 mmHg. Total tourniquet time was 36 minutes. Once cleared by anesthesia a incision was drawn along the distal aspect of the tip of the lateral malleolus and curved distally towards the fourth and fifth tarsometatarsal articulation just over the sinus tarsi this incision was made with a #15 blade through epidermis dermis and subcutaneous tissue blunt dissection was taken down the level deep fascia Inferior extensor retinaculum all bleeders cauterized at this time any neurovascular structures in this area were protected with blunt retraction. The insufficient inferior extensor retinaculum and ATFL were identified at this time and completely transected a small flap was dissected off the fibula to assist Brostr?m closure. 2 athrex knotless fibertacks approximately 1 cm apart on the distal fibula using manufacturers guidelines. The sutures were taken out away and he was head to the drapes. Next the talar anchor portion of the internal brace was applied in the anterior lateral shoulder of the talus just superior to the sinus tarsi supplied using manufactures guidelines. Next the place was the ankle was placed in a dorsiflexed everted position and the ATFL ligament was repaired using standard Brostr?m technique with the sutures intact FiberWire's. Ankle stability was restored with regards to anterior and inversion testing at this time, confirmed with fluoroscopic stressing. To supplement or augment this stabilization the internal brace was then finished with a second anchor in the fibula just proximal and central to the previous suture tacks was applied with the foot maintained in a neutral dorsiflexed position after passing the previous FiberWire's from the previous anchor. Once completed radiographs were taken both anterior and lateral and showed rectus alignment with regards to the talus inside the talar dome no evidence of any inversion or anterior subluxation of the talus. Upon stressing with regards to anterior drawer and inversion stressing of the talus stability was noted. Tourniquet was let down at this time incision site was flushed with copious amounts normal sterile saline and deep and subcutaneous closure was performed with 3-0 Vicryl on SH needle using simple interrupted buried technique. Skin closure performed with 3-0 Prolene horizontal mattress. Incision site dressed with bacitracin Adaptic 4 x 4's and Kerlix. Well-padded AO splint applied to left lower extermity. Patient transferred to PACU vital signs stable and vascular status intact all digits for further monitoring prior to discharge. Patient tolerated procedure and anesthesia well in apparent satisfactory condition. Patient remain nonweightbearing for the first 2 weeks at which time she will be maintained this with assistance via crutches. She will follow-up in my clinic in 1 week. No pathologic specimens no complications. Noted that stability was restored to the the ATFL ligament as confirmed with intraoperative stressing and fluoroscopic imaging. Grafts/Implants Used: athrex internal brace, arthrex knotless fibertaks Complications none Admit VTE Documentation VTE Present on Admission: Yes VTE Pharm Prophylaxis ordered?: Yes
== END 2023-07-13 12:31 | disposition home or self-care (01) ==
LOC: SDC 07:01 → AC 07:02
PROVIDERS: PCP Nurse Practitioner Family; Referring Provider Nurse Practitioner Family; Visit Provider Podiatrist
PROC: (CPT 29999; principal; 2023-07-13 08:45)
DX: M25.372 Other instability, left ankle (principal); K21.9 Gastro-esophageal reflux disease without esophagitis; F41.9 Anxiety disorder, unspecified; J45.909 Unspecified asthma, uncomplicated; Q79.60 Ehlers-Danlos syndrome, unspecified; F98.8 Other specified behavioral and emotional disorders with onset usually occurring in childhood and adolescence; Z86.16 Personal history of COVID-19
CPT/HCPCS: 27696; 01470; 73600; 76000; 81025; C1713; J7120; J2405

== ENCOUNTER 2024-02-26 14:42 | Outpatient (RCR) | payer OTHER, MEDICAID, SELFPAY | END 2024-02-26 14:42 | disposition home or self-care (01) | LOC: PT 14:42 | PROVIDERS: PCP Nurse Practitioner Family; Referring Provider Podiatrist; Visit Provider Podiatrist | DX: G90.529 Complex regional pain syndrome I of unspecified lower limb (principal); Q79.69 Other Ehlers-Danlos syndromes; M25.372 Other instability, left ankle ==

== ENCOUNTER 2024-02-28 13:00 | Outpatient (RCR) | payer OTHER, MEDICAID, SELFPAY ==
--- NOTE | 2023-08-08 19:03 | HP.PTEVAL ---
Patient's Visit Information Visit Information Visit Information: JERO GODINEZ is a 23 year old F referred to Physical Therapy by Dr. Jaime Bain DPM with a diagnosis of L ankle instability/Post-op Ankle stabilization sx (DOS: 07/13/23). Date of Evaluation: 08/08/23 Physical Therapist: Jovanni Mercado DPT Visit Plan Frequency: 2x /Week Duration: 3 Months Plan: -foot/toe de-sensitization (various textures, placing foot on floor , trial different temperatures, water) -ankle ROM and weight shifting (trial BAPS board, DF slides) -scar mobilization -once ROM and sensitivity improve, begin ankle strengthening and walking with no AD -dynamic balance act Subjective Subjective: Pt presents to PT s/p L ankle capsule tightening/stabilization 07/13/2023. Pt reports complications following surgery with redness and purple coloring of 1-2 toes and redness of toes 3-5, which happens randomly with foot in independent and dependent position. Pt using crutches multimedia educational specialist, foot surgeon encourage pt to begin putting weight on L foot when boot is on. Pt has been having difficulty placing L toes on floor, showering and letting water run over toes, and placing blanket over the foot. Pt going to have arteriogram to ensure good blood flow to foot. Goals: decrease pain, walk normally, increase ankle stability. Objective Objective: PROM: DF to 0deg, PF to 30deg, INV 15 deg, EV to 7 deg JOINT PLAY: firm, muscular restriction and some empty d/t pain with pressure to toes MMT: 0/5 L toe, 2+/5 DF and PF, pt apprehensive to move d/t pain and not able to test full strength capacity PALPATION: no tenderness or pain around ankle or foot, just painful to touch on toes (plantar and dorsal) no issues with great toe OBSERVATION: incision healing well, pt has increased sensitivity in toes 2-5, unable to tolerate light towel placed over toe, pt able to relax toes down to floor with mod VCs, pressure injury in lateral pinky toe, redness in toes 2-5 with some swelling GAIT: swing through using B axillary crutches CAPILLARY REFILL: within 3s after blanching (normal) Balance/Special Test Scores Lower Extremity Functional Score: 0 Goals Goal 1:: Pt will be able to shower with <2/10 pain in toes Goal Time Frame: 4-6 Weeks Goal 2:: Pt will demonstrate symmetrical weight shifting with no UE support Goal Time Frame: 4-6 Weeks Goal 3:: Pt will demonstrate 4/5 devora ankle strength Goal Time Frame: 6-8 Weeks Goal 4:: Pt will demonstrate WNL L ankle ROM with <2/10 pain Goal Time Frame: 4-6 Weeks Goal 5:: Pt will amb. with normalized gait pattern with no AD Goal Time Frame: 8-12 Weeks Rehabilitation Potential Physical Therapy Diagnosis: Pt presents to PT with ankle weakness, foot pain, gait deficits, and decreased ROM. Pt would benefit from skilled PT services to address strength, ROM, sensitivity, and improve gait with no AD. Rehabilitation Potential: Good Anticipated Interventions Patient/Client Instruction: Educate patient on: Plan of Care For the Purpose of:: To decrease pain, To decrease swelling/inflammation, To increase ROM, To increase oxygenation perfusion, To improve muscle performance and motor function, To improve ability to perform ADL's, To increase tolerance to activity/condition/position, To improve performance and independence with ADL's, To improve ability of physical actions for home/community/work/leisure, To improve health of tissue, To decrease soft tissue restriction, To increase flexibility/ROM, To improve balance, To improve safety with gait, To assume or resume ADL's, To improve safety, To improve health and function, To facilitate caregiver knowledge, To improve self management, To prevent re-injury, To improve ability to perform tasks related to life management and To improve tolerance to ADL's Therapeutic Exercise to Include: Strength training, Endurance training, Balance training, Body mechanics, Postural training, Flexibilty training, Gait and locomotor training, Neuromotor development, Biofeedback, Passive ROM and Active ROM For the Purpose of:: To decrease pain, To decrease swelling/inflammation, To increase ROM, To improve muscle performance and motor function, To improve ability to perform ADL's, To increase tolerance to activity/condition/position, To improve performance and independence with ADL's, To improve ability of physical actions for home/community/work/leisure, To improve gait and locomotor functions, To improve health of tissue, To decrease soft tissue restriction, To improve safety with gait, To improve safety, To improve health and function, To foster healthy habits, To improve self management, To prevent re-injury, To improve ability to perform tasks related to life management and To improve tolerance to ADL's Manual Therapy Techniques to Include: Scar massage, Mobilization, Passive ROM and Soft tissue mobilization For the Purpose of:: To decrease pain, To decrease swelling/inflammation, To increase ROM, To improve health of tissue, To decrease soft tissue restriction and To increase flexibility/ROM TENS: Yes Cryotherapy (ice pack, ice massage): Yes Thermo therapy (hot pack): Yes For the Purpose of:: To decrease pain, To decrease swelling/inflammation, To increase ROM, To improve health of tissue, To decrease soft tissue restriction and To increase flexibility/ROM Text: Thank you for the opportunity to evaluate your patient. For Medicare and Medicare HMO plans, please review the plan of care and approve it. It will need to be FAXED BACK to us at [phone] for Medicare purposes. For Medicare only, by signing this I certify the plan of care. Please let me know if there are questions or concerns regarding this plan of care. Physician Signature: Date:
--- NOTE | 2024-01-31 16:27 | HP.PTREVAL ---
Re-Evaluation Intro: Dr. Jaime Bain, DPM, It has been my pleasure to treat TINA GODINEZ over the last 41 visits for L ankle instability/Post-op Ankle stabilization sx (DOS: 07/13/23). Please see the progress note below for an update on the physical therapy plan of care! Subjective Subjective: Pt. is here today for her reassessment. Pt. reports that her ankle is doing much better. She reports that is still having issues with her toes during gait/standing and functional activities. Pt. reports being 75% better when strictly talking about her ankle. She is having low back pain now as well. She did have a new script from her PCP sent over for this as well. She is walking better with her crock shoes, but not wearing them all day. Objective Objective/Function: L ankle ROM: full motion without increase in symptoms. MMT: Pt. has full strength throughout L ankle without pain. She does continue to have tenderness throughout her toes, no color discoloration today. GAIT: Pt. has a decent gait pattern, but still limited L forefoot rocker moment, resulting in decreased R step length STAIRS: Pt. able to complete without issues. Tina does have marked core and hip weakness. Overall doing well she has improved with tolerance and ankle stability. I talked with her about trying to be more in her ankle brace and shoe rather than her CAM boot. Pt. reports understanding. Plan Plan Plan: Cont. to progress functional mobility, core/hip strengthening and increase ability to complete normalized gait pattern, stairs. Add in some manual techniques to multifidus and erector spinae, but I would recommend that increasing her activity and strengthening would be the most beneficial. Balance/Gait/Functional tests Balance/Special Test Scores Lower Extremity Functional Score: 45 Goals Goals Goal 1:: Pt will be able to shower with <2/10 pain in toes Goal Time Frame: 4-6 Weeks Goal Progress: Progressing Goal 2:: Pt will demonstrate symmetrical weight shifting with no UE support Goal Time Frame: 4-6 Weeks Goal Progress: Goal Met Goal 3:: Pt will demonstrate 4/5 devora ankle strength Goal Time Frame: 6-8 Weeks Goal Progress: Goal Met Goal 4:: Pt will demonstrate WNL L ankle ROM with <2/10 pain Goal Time Frame: 4-6 Weeks Goal Progress: Goal Met Goal 5:: Pt will amb. with normalized gait pattern with no AD Goal Time Frame: 8-12 Weeks Goal Progress: Progressing Anticipated Interventions Anticipated Interventions Patient/Client Instruction: Educate patient on: Plan of Care For the Purpose of:: To decrease pain, To decrease swelling/inflammation, To increase ROM, To increase oxygenation perfusion, To improve muscle performance and motor function, To improve ability to perform ADL's, To increase tolerance to activity/condition/position, To improve performance and independence with ADL's, To improve ability of physical actions for home/community/work/leisure, To improve health of tissue, To decrease soft tissue restriction, To increase flexibility/ROM, To improve balance, To improve safety with gait, To assume or resume ADL's, To improve safety, To improve health and function, To facilitate caregiver knowledge, To improve self management, To prevent re-injury, To improve ability to perform tasks related to life management and To improve tolerance to ADL's Therapeutic Exercise to Include: Strength training, Endurance training, Balance training, Body mechanics, Postural training, Flexibilty training, Gait and locomotor training, Neuromotor development, Biofeedback, Passive ROM and Active ROM For the Purpose of:: To decrease pain, To decrease swelling/inflammation, To increase ROM, To improve muscle performance and motor function, To improve ability to perform ADL's, To increase tolerance to activity/condition/position, To improve performance and independence with ADL's, To improve ability of physical actions for home/community/work/leisure, To improve gait and locomotor functions, To improve health of tissue, To decrease soft tissue restriction, To improve safety with gait, To improve safety, To improve health and function, To foster healthy habits, To improve self management, To prevent re-injury, To improve ability to perform tasks related to life management and To improve tolerance to ADL's Manual Therapy Techniques to Include: Scar massage, Mobilization, Passive ROM and Soft tissue mobilization For the Purpose of:: To decrease pain, To decrease swelling/inflammation, To increase ROM, To improve health of tissue, To decrease soft tissue restriction and To increase flexibility/ROM TENS: Yes Cryotherapy (ice pack, ice massage): Yes Thermo therapy (hot pack): Yes For the Purpose of:: To decrease pain, To decrease swelling/inflammation, To increase ROM, To improve health of tissue, To decrease soft tissue restriction and To increase flexibility/ROM Re-Evaluation Ending Re-evaluation ending: Please do not hesitate to contact me at [phone] by phone or if you have questions or concerns regarding this new plan of care! Sincerely, SHARMIN WangT
== END 2024-02-28 19:00 | disposition home or self-care (01) ==
LOC: PT 13:00
PROVIDERS: PCP Nurse Practitioner Family; Referring Provider Podiatrist; Visit Provider Podiatrist
DX: M25.372 Other instability, left ankle (principal)
CPT/HCPCS: 97110; 97140; 97162; 97530

== ENCOUNTER → 2024-07-15 | Outpatient (CLI) | payer OTHER, MEDICAID, SELFPAY ==
[2024-07-15 20:23] LABS: CRP < 3.00 mg/L (0.0-3.0)
[2024-07-17 16:08] LABS: Endomysial Antibody IgA Negative (Negative); Immunoglobulin A 242 mg/dL (87-352); t-Transglutaminase IgA <2 U/mL (0-3)
== END | disposition home or self-care (01) ==
LOC: MTLAB 16:02
PROVIDERS: PCP Nurse Practitioner Family; Referring Provider Internal Medicine Gastroenterology; Visit Provider Internal Medicine Gastroenterology
DX: R19.7 Diarrhea, unspecified (principal)
CPT/HCPCS: 36415; 82784; 83516; 86140; 86255

== ENCOUNTER 2024-08-08 13:00 | Outpatient (RCR) | payer OTHER, MEDICAID, SELFPAY ==
--- NOTE | 2024-06-03 14:04 | HP.PTEVAL_ITS ---
Patient's Visit Information Visit Information Visit Information: JERO GODINEZ is a 24 year old F referred to Physical Therapy by [facility] ROMERO with a diagnosis of Ehler's Danlos with B knee pain. Date of Evaluation: 05/28/24 Physical Therapist: Jovanni Mercado DPT Visit Plan Frequency: 2x /Week Duration: 6 Weeks Plan: 1) BLE and core strengthening, start with OCK progressing to CKC exercises tolerated 2) add in dynamic stability and balance exercises. 3) promote healthy life style including walking program and healthy patterns. Subjective Subjective: Pt. is here today for her initial evaluation with diagnosis of Ehler's Danlos and B knee pain. Pt. has a marked medical history including: ED, POTS, COVID x3, 2 ankle stabilization surgeries, CRPS, hypermobility, partial dentures. Pt. reports having increased B knee pain progressively worsening over the past few years. Pt. is wearing a L ankle brace due to pain in her ankle and CRPS in her foot. Pt. does not work currently due to her symptoms. Pt. has also been experiencing elevated HR, monitoring by physician. Pt. is hopeful to increase her strength to reduce stress to her B knees allowing better tolerance with all of her ADLs and recreational activities. Pain R knee: Pain Intensity (Out of 10): 4 Pain Intensity Range: 2 and 8 L knee: Pain Intensity (Out of 10): 4 Pain Intensity Range: 3 and 8 Objective Objective: POSTURE: Pt. has B hip IR is stance with medial patella positioning. Pt. tends to stand with knees in slight genu recuvatum. Pt. Has slight FH posture as well. PALPATION: Pt. has mild tenderness throughout BLEs, non specific. NEURO: Pt. has normal sensation and DTR of BLEs, but is hyper sensitive at L t oes. ROM: Pt. has hypermobility noted throughout LE joints, slight tightness in hamstrings bilaterally. B knee ROM without increase in symptoms. MMT: RLE: ankle 5/5 throughout; knee: ext 4/5, flexion 4/5; hip: 4/5 throughout. Mild increase in symptoms with knee extension testing. LLE: ankle 5/5 throughout; knee: ext 4/5, flexion 4/5; hip: 4/5 throughout. Mild increase in symptoms with knee extension testing. Core strength: poor. GAIT: pt. has fairly normal gait pattern. Slight B hip IR positioning with gait. Pt. has slight decreased step length bilaterally. She does limit pressure on L toes secondary to her CRPS symptoms. STAIRS: step to pattern. Increased B knee valgus positioning, increased pain with both ascending and descending. Balance/Special Test Scores Lower Extremity Functional Score: 17 Goals Goal 1:: LTG: Pt. to be I with HEP. Goal Time Frame: 4-6 Weeks Goal 2:: LTG: pt. to have normal gait pattern without increase in B knee pain. Goal Time Frame: 4-6 Weeks Goal 3:: LTG: Pt. to have increased BLE strength to 5/5 throughout. Goal Time Frame: 4-6 Weeks Goal 4:: LTG: Pt. to have decreased B knee pain to less than 2/10 pain with all daily activities. Goal Time Frame: 4-6 Weeks Rehabilitation Potential Physical Therapy Diagnosis: Pt. has signs and symptoms consistent with Ehler's Danlos with B knee pain. Pt. has marked hypermobility throughout and would benefit from stability/strengthening exercises. Rehabilitation Potential: Good Anticipated Interventions Patient/Client Instruction: Educate patient on: Condition, Plan of Care, Risk Factors and Benefits of Fitness Program For the Purpose of:: To improve health and function, To foster healthy habits, To improve decision making, To facilitate caregiver knowledge, To improve self management, To prevent re-injury and To improve ability to perform tasks related to life management Therapeutic Exercise to Include: Strength training, Endurance training, Balance training, Coordination and Dynamic Lumbar Stabilization For the Purpose of:: To decrease pain, To increase ROM, To improve nutrient delivery to tissue, To increase oxygenation perfusion, To improve muscle performance and motor function, To improve ability to perform ADL's, To increase tolerance to activity/condition/position, To improve performance and independence with ADL's, To improve health of tissue, To improve endurance and To improve balance Text: Thank you for the opportunity to evaluate your patient. For Medicare and Medicare HMO plans, please review the plan of care and approve it. It will need to be FAXED BACK to us at [phone] for Medicare purposes. For Medicare only, by signing this I certify the plan of care. Please let me know if there are questions or concerns regarding this plan of care. Physician Signature: Date:
--- NOTE | 2024-07-09 13:32 | HP.PTREVAL ---
Re-Evaluation Intro: [facility] SMITH, It has been my pleasure to treat JERO GODINEZ over the last 9 visits for Omar Danlos with B knee pain. Please see the progress note below for an update on the physical therapy plan of care! Subjective Subjective: Pt. reports that she has been having continued knee pain. She is better overall. She does have increased pain with increased walking. She did get fitted for knee brace. She is to get them in 3 weeks. She is still having high heart rate, upto 180 at times. She is to follow up with POTS specialist later this week. Pt. reports that her R knee feels worse than her L Objective Objective/Function: MMT: RLE: knee: ext 27.3#, flexion 26.8#; hip: flex 30.2#, abd 46.9#, ext 56.7# LLE: ext 25.3#, flex 24.0#; hip: flexion 35.8#, abd 43.9#, ext 58.4# GAIT: Pt. ambulates well without marked hip IR. She does tend to limited L forefoot rocker moment, but this is due to her L CRPS. squat: Pt. did have a good squat pattern, slight B knee valgus, but not severe. SL squat: pt. has marked knee valgus and hip abducted positioning. Bilaterally, but L was worse than R. STAIRS: ascending is fairly normal. Pt. uses 1 HR to complete with reciprocal pattern. Plan Plan Plan: I am recernting Serentiy to focus on LE strengthening and progressing to single leg activities to increase patellar stability. Balance/Gait/Functional tests Balance/Special Test Scores Lower Extremity Functional Score: 45 Goals Goals Goal 1:: LTG: Pt. to be I with HEP. Goal Time Frame: 4-6 Weeks Goal Progress: Progressing Goal 2:: LTG: pt. to have normal gait pattern without increase in B knee pain. Goal Time Frame: 4-6 Weeks Goal Progress: Progressing Goal 3:: LTG: Pt. to have increased BLE strength to 5/5 throughout. Goal Time Frame: 4-6 Weeks Goal Progress: Progressing Goal 4:: LTG: Pt. to have decreased B knee pain to less than 2/10 pain with all daily activities. Goal Time Frame: 4-6 Weeks Goal Progress: Progressing Anticipated Interventions Anticipated Interventions Patient/Client Instruction: Educate patient on: Condition, Plan of Care, Risk Factors and Benefits of Fitness Program For the Purpose of:: To improve health and function, To foster healthy habits, To improve decision making, To facilitate caregiver knowledge, To improve self management, To prevent re-injury and To improve ability to perform tasks related to life management Therapeutic Exercise to Include: Strength training, Endurance training, Balance training, Coordination and Dynamic Lumbar Stabilization For the Purpose of:: To decrease pain, To increase ROM, To improve nutrient delivery to tissue, To increase oxygenation perfusion, To improve muscle performance and motor function, To improve ability to perform ADL's, To increase tolerance to activity/condition/position, To improve performance and independence with ADL's, To improve health of tissue, To improve endurance and To improve balance Re-Evaluation Ending Re-evaluation ending: Please do not hesitate to contact me at [phone] by phone or if you have questions or concerns regarding this new plan of care! Sincerely, Jovanni Mercado DPT
--- NOTE | 2024-08-08 14:02 | HP.PTDCSUM ---
Discharge Summary D/C summary: It has been my pleasure to treat SERENITY DILLON GODINEZ referred by [facility] SMITH, with the diagnosis of Ehler's Danlos with B knee pain for a total of 15 visit(s). Discharge Date: 08/08/24 Please see the following information for a summary of their discharge status. Subjective Subjective: Pt. reports overall slightly better, L leg is doing much better, but R leg is doing worse. Patient is still having issues with her HR. Resting HR right now is 123 while sitting. Pain R knee: Pain Intensity (Out of 10): 3 L knee: Pain Intensity (Out of 10): 0 Overall Improvement % Improvement: 30 Objective Objective/Function: GAIT: Pt. ambulates well without issues. She does have increased B hip IR positioning, worse during stance phase. ROM: full without issues on L knee. R knee full mild increase at end ranges of motion. MMT: RLE: hip: flexion 30.1#, abd 56.1#; knee: ext 27.7#, flexion 21.5# LLE: hip flexion: 44.6#, abd 51.0#, knee: ext 35.5#, flex 27.8# STAIRS: Pt. is able to complete with reciprocal pattern, but does have some increased pain during R stance phase. No issues with L stance phase. Her motion and strength have improved, but is still having lateral R leg symptoms. At this point in time I would recommend that she follow up with physician about her R knee. Goals Goal 1:: LTG: Pt. to be I with HEP. Goal Progress: Goal Met Goal 2:: LTG: pt. to have normal gait pattern without increase in B knee pain. Goal Progress: Goal Met Goal 3:: LTG: Pt. to have increased BLE strength to 5/5 throughout. Goal Progress: Progressing Goal 4:: LTG: Pt. to have decreased B knee pain to less than 2/10 pain with all daily activities. Goal Progress: Progressing Plan Plan: PT. to be DC from PT at this point in time D/C Information d/c sentence: If there are questions or concerns regarding this patient's physical therapy, please feel free to call me at [phone]. Thank you for the referral of this patient. Sincerely, Jovanni Youngos, DPT Balance/Gait/Functional tests Balance/Special Test Scores Lower Extremity Functional Score: 35 Improvement % Improvement: 30
== END 2024-08-08 14:30 | disposition home or self-care (01) ==
LOC: PT 13:00
PROVIDERS: PCP Nurse Practitioner Family
DX: Q79.60 Ehlers-Danlos syndrome, unspecified (principal)
CPT/HCPCS: 97110; 97161; 97530